=== PATIENT | female | born 1955 | race American Indian/Alaskan Native ===

== ENCOUNTER 2017-07-25 11:08 | Emergency (ER) | payer MEDICARE ==
[2017-07-25 11:21] VITALS: BP 100/56
[2017-07-25 12:17] LABS: Basophils % (Auto) 0.7 % (0.0-1.8); Hematocrit 29.1 % (30.3-42.9); Hemoglobin 9.2 gm/dl (10.1-14.3); Mean Corpuscular HGB Conc 32 % (30-34); Mean Corpuscular Volume 79 fl (79-97); Platelet Count 309 K/mm3 (140-440); Red Cell Distribution Width 17.1 % (13.2-15.2); White Blood Count 10.1 K/mm3 (4.5-11.0)
[2017-07-25 12:19] LABS: Mean Corpuscular Hemoglobin 25 pg (28-32)
[2017-07-25 12:23] LABS: Calcium 7.7 mg/dL (8.4-10.2)
[2017-07-25 12:24] LABS: Chloride 99.4 mmol/L (98-107); Potassium 3.6 mmol/L (3.6-5.0)
[2017-07-25] MEDS ORDERED: FLEXERIL PO ONE (14:35)
[2017-07-25] MEDS ORDERED: TORADOL IM ONE (14:36)
--- NOTE | 2017-07-25 15:03 | Emergency Department Report ---
HPI - General Chief Complaint: Extremity Injury, Lower Time Seen by Provider: 07/25/17 14:23 - HPI HPI: Patient is a 61-year-old with past medical history of diabetes and high blood pressure on controlled with medication who presents to ED complaining of right leg pain. The pain times today. Patient states she was seen yesterday at [facility] by her Dr. Murphy who placed a cast on her right leg for an ulcer that she had since February. Patient states that she is to return on July 31 to have the cast removed. Patient states that she started experiencing right hip pain and leg pain today. Patient denies fevers/chills/5 tenderness/loss of sensation/inability to move or use the leg. ED Past Medical Hx - Past Medical History Previous Medical History?: Yes Hx Hypertension: Yes Hx Diabetes: Yes (insulin) Hx GERD: Yes Hx HIV: No Additional medical history: SLEEP APNEA- CPAP - Surgical History Past Surgical History?: Yes Additional Surgical History: Back surgery, GASTRIC BYPASS 05/28/2015 - Social History Smoking Status: Never Smoker Substance Use Type: Prescribed - Medications Home Medications: Home Medications Medication Instructions Recorded Confirmed Last Taken Type Gabapentin 2 tab PO TID 05/06/14 07/04/15 07/04/15 History Insulin Detemir [Levemir Flextouch] 50 unit SQ BID 03/18/15 07/04/15 07/04/15 History Labetalol [Normodyne TAB] 200 mg PO DAILY 03/18/15 07/04/15 07/04/15 History HYDROcodone/APAP 5-325 [[place] 1 - 2 each PO Q6HR PRN #14 tablet 07/04/15 Unknown Rx 5/325] Cyclobenzaprine [Flexeril 10 MG 10 mg PO TID PRN #14 tablet 07/25/17 Unknown Rx TAB] Naproxen [Naprosyn] 500 mg PO BID #30 tablet 07/25/17 Unknown Rx ED Review of Systems ROS: Stated complaint: RIGHT LEG AND HIP PAIN Other details as noted in HPI Constitutional: denies: chills, fever Eyes: denies: eye pain, eye discharge, vision change ENT: denies: ear pain, throat pain Respiratory: denies: cough, shortness of breath, wheezing Cardiovascular: denies: chest pain, palpitations Endocrine: no symptoms reported Gastrointestinal: denies: abdominal pain, nausea, diarrhea Genitourinary: denies: urgency, dysuria, discharge Musculoskeletal: denies: back pain, joint swelling, arthralgia Skin: denies: rash, lesions Neurological: denies: headache, weakness, paresthesias Psychiatric: denies: anxiety, depression Hematological/Lymphatic: denies: easy bleeding, easy bruising Physical Exam - Physical Exam Vital Signs: Vital Signs 07/25/17 11:14 Temperature 97.6 F Pulse Rate 76 Respiratory 18 Rate Blood Pressure 100/56 O2 Sat by Pulse 99 Oximetry Physical Exam: GENERAL: Alert and oriented x3, no apparent distress, Normal Gait, atraumatic. HEAD: Head is normocephalic and a-traumatic. EYES: Extra ocular muscles are intact. Pupils are equal, round, and reactive to light and accommodation. NECK: Supple. Non edematous, No lymphadenopathy or thyromegaly. LUNGS: Symetrical with respiration, No wheezing, no rales or crackles, CTAB. HEART: S1, S2 present, regular rate and rhythm without murmur, no rubs, no gallops. Non tender to palpation ABDOMEN: No organomegaly was noted,Positive bowel sounds, soft, and non- distended. . Nontender to palpation on all Quadrants, NO CVA tenderness. BACK: Full range of motion, no spinal tenderness, nontender to palpation. EXTREMITIES/MUSCULOSKELETAL: No cyanosis, clubbing, rash, lesions or edema. Full ROM bilaterally. UE/LE Pulses 2+ bilaterally. Right leg in OCL splint, looks clean, patient able to move the leg without any problems. Mild tenderness to palpation right hip, full range of motion, no lesions, no edema NEUROLOGIC: The patient is cooperative with no focal neurologic deficits. . Normal speech. Normal sensation in bilateral upper and lower extremities, No loss of sensation, SKIN: Warm and dry, No lesions, No ulceration or induration present. ED Course Vital Signs 07/25/17 11:14 Temperature 97.6 F Pulse Rate 76 Respiratory 18 Rate Blood Pressure 100/56 O2 Sat by Pulse 99 Oximetry ED Medical Decision Making - Lab Data Result diagrams: 07/25/17 11:47 07/25/17 11:47 - Medical Decision Making 61-year-old female presents with right hip arthralgia ED course: Patient received pain medications in the ED. Patient reports feeling much better. Patient states she performs activities at home because she resides in a placed stairs. Patient states she has a wheelchair at home. Reports having some children at home with her. spool worker discussed with patient was not able to grab her placement in [facility]. Patient understands that she is being discharged home with her wheelchair patient will be picked up by her daughter. Discussed with the patient that while she is at home and may need a urinal if she can not climb up and down the stairs bathroom use due to her right leg cast. I discussed the patient to follow-up with Dr. Murphy her primary care physician. Patient states she understands her instructions. Patient is in no acute distress Vital signs are normal. Critical care attestation.: If time is entered above; I have spent that time in minutes in the direct care of this critically ill patient, excluding procedure time. ED Disposition Clinical Impression: Arthralgia of hip, right Disposition: DC-01 TO HOME OR SELFCARE Is pt being admited?: No Does the pt Need Aspirin: No Condition: Stable Instructions: Trigger Point Pain (ED), Lumbar Radiculopathy (ED), Musculoskeletal Pain (ED), Arthralgia (ED) Additional Instructions: Make sure to follow up with the primary care physician as discussed. Take all your medications as you've been prescribed. If you have any worsening symptoms or develop new symptoms please return to ED immediately. Prescriptions: Cyclobenzaprine [Flexeril 10 MG TAB] 10 mg PO TID PRN #14 tablet PRN Reason: Muscle Spasm Naproxen [Naprosyn] 500 mg PO BID #30 tablet Referrals: PRIMARY CARE, [Primary Care Provider] - 3-[address] [facility] [place] [Outside] - 3-5 Days [facility] [Outside] - 3-5 Days Time of Disposition: 16:12
== END 2017-07-25 16:46 | disposition home or self-care (01) ==
LOC: ED 11:08
DX: M25.551 Pain in right hip (principal); I10 Essential (primary) hypertension; E11.9 Type 2 diabetes mellitus without complications; K21.9 Gastro-esophageal reflux disease without esophagitis; Z79.4 Long term (current) use of insulin
CPT/HCPCS: 36415; 80048; 85025; 96372; 99284; J1885

== ENCOUNTER 2017-07-29 09:58 | Inpatient (IN) | payer MEDICARE ==
[2017-07-29 11:49] LABS: Basophils % (Auto) 0.7 % (0.0-1.8); Eosinophils % (Auto) 1.6 % (0.0-4.3); Hematocrit 29.7 % (30.3-42.9); Hemoglobin 9.3 gm/dl (10.1-14.3); Mean Corpuscular HGB Conc 31 % (30-34); Mean Corpuscular Volume 81 fl (79-97); Platelet Count 355 K/mm3 (140-440); Red Blood Count 3.68 M/mm3 (3.65-5.03); Red Cell Distribution Width 17.5 % (13.2-15.2); White Blood Count 13.6 K/mm3 (4.5-11.0)
[2017-07-29 11:54] LABS: Mean Corpuscular Hemoglobin 25 pg (28-32)
[2017-07-29 12:08] LABS: Alanine Aminotransferase 7 units/L (7-56); Albumin 2.2 g/dL (3.9-5); Albumin/Globulin Ratio 0.5 %; Alkaline Phosphatase 128 units/L (35-129); Anion Gap 20 mmol/L; BUN/Creatinine Ratio 12; Bilirubin,Total < 0.20 mg/dL (0.1-1.2); Blood Urea Nitrogen 31 mg/dL (7-17); Calcium 8.3 mg/dL (8.4-10.2); Carbon Dioxide 21 mmol/L (22-30); Chloride 102.2 mmol/L (98-107); Glucose 129 mg/dL (65-100); Lipase 15 units/L (13-60); Potassium 4.1 mmol/L (3.6-5.0); Sodium 139 mmol/L (137-145); Total Protein 6.8 g/dL (6.3-8.2)
--- NOTE | 2017-07-29 21:15 | Emergency Department Report ---
ED Abdominal Pain HPI - General Chief Complaint: Abdominal Pain Stated Complaint: ABD PAIN Time Seen by Provider: 07/29/17 21:10 Source: patient, EMS Mode of arrival: Wheelchair Limitations: Physical Limitation - History of Present Illness Initial Comments: She is 61-year-old male who presents to the emergency room via EMS for bilateral lower quadrant abdominal pain and right flank pain. She also complains of feeling confused and weak. Patient also states that she has unable to void for 3 days. Patient states she has felt warm but has not checked for fever. He also complains of chest pain or shortness of breath for 2 days. Patient denies chills/. MD Complaint: abdominal pain, flank pain -: Sudden Location: LLQ, RLQ Radiation: R flank Migration to: no migration Severity scale (0 -10): 10 Quality: stabbing, aching, fullness Consistency: constant Improves With: rest Worsens With: movement Associated Symptoms: fever, chills, dysuria - Related Data Home Medications Medication Instructions Recorded Confirmed Last Taken Gabapentin 2 tab PO TID 05/06/14 07/04/15 07/04/15 Insulin Detemir [Levemir Flextouch] 50 unit SQ BID 03/18/15 07/04/15 07/04/15 Labetalol [Normodyne TAB] 200 mg PO DAILY 03/18/15 07/04/15 07/04/15 Previous Rx's Medication Instructions Recorded Last Taken Type HYDROcodone/APAP 5-325 [[place] 1 - 2 each PO Q6HR PRN #14 tablet 07/04/15 Unknown Rx 5/325] Cyclobenzaprine [Flexeril 10 MG 10 mg PO TID PRN #14 tablet 07/25/17 Unknown Rx TAB] Naproxen [Naprosyn] 500 mg PO BID #30 tablet 07/25/17 Unknown Rx Allergies Allergy/AdvReac Type Severity Reaction Status Date / Time lisinopril Allergy Severe Swelling Verified 03/18/15 14:54 ED Review of Systems ROS: Stated complaint: ABD PAIN Other details as noted in HPI Comment: All other systems reviewed and negative Constitutional: fever, malaise, weakness. denies: chills Eyes: denies: eye pain, eye discharge, vision change ENT: denies: ear pain, throat pain Respiratory: shortness of breath. denies: cough, wheezing Cardiovascular: chest pain. denies: palpitations Endocrine: no symptoms reported Gastrointestinal: abdominal pain. denies: nausea, diarrhea Genitourinary: other (urinary retention). denies: urgency, dysuria, discharge Musculoskeletal: back pain. denies: joint swelling, arthralgia Skin: denies: rash, lesions Neurological: weakness. denies: headache, paresthesias Psychiatric: denies: anxiety, depression Hematological/Lymphatic: denies: easy bleeding, easy bruising ED Past Medical Hx - Past Medical History Previous Medical History?: Yes Hx Hypertension: Yes Hx Diabetes: Yes (insulin) Hx GERD: Yes Hx HIV: No Additional medical history: SLEEP APNEA- CPAP - Surgical History Past Surgical History?: Yes Additional Surgical History: Back surgery, GASTRIC BYPASS 05/28/2015 - Family History Family history: hypertension - Social History Smoking Status: Never Smoker Substance Use Type: Prescribed - Medications Home Medications: Home Medications Medication Instructions Recorded Confirmed Last Taken Type Gabapentin 2 tab PO TID 05/06/14 07/04/15 07/04/15 History Insulin Detemir [Levemir Flextouch] 50 unit SQ BID 03/18/15 07/04/15 07/04/15 History Labetalol [Normodyne TAB] 200 mg PO DAILY 03/18/15 07/04/15 07/04/15 History HYDROcodone/APAP 5-325 [[place] 1 - 2 each PO Q6HR PRN #14 tablet 07/04/15 Unknown Rx 5/325] Cyclobenzaprine [Flexeril 10 MG 10 mg PO TID PRN #14 tablet 07/25/17 Unknown Rx TAB] Naproxen [Naprosyn] 500 mg PO BID #30 tablet 07/25/17 Unknown Rx ED Physical Exam - General Limitations: Physical Limitation General appearance: alert, in no apparent distress - Head Head exam: Present: atraumatic, normocephalic - Eye Eye exam: Present: normal appearance - ENT ENT exam: Present: mucous membranes dry - Neck Neck exam: Present: normal inspection - Respiratory Respiratory exam: Present: normal lung sounds bilaterally. Absent: respiratory distress - Cardiovascular Cardiovascular Exam: Present: regular rate, normal rhythm. Absent: systolic murmur, diastolic murmur, rubs, gallop - GI/Abdominal GI/Abdominal exam: Present: soft, distended, tenderness (generalized tenderness. ), normal bowel sounds - Back Exam Back exam: Present: normal inspection - Neurological Exam Neurological exam: Present: alert, oriented X3 - Psychiatric Psychiatric exam: Present: normal affect, normal mood - Skin Skin exam: Present: warm, dry, intact, normal color. Absent: rash ED Course Vital Signs 07/29/17 07/29/17 07/29/17 11:04 21:09 21:16 Temperature 97.5 F L Pulse Rate 66 78 Respiratory 18 17 13 Rate Blood Pressure 91/57 124/61 O2 Sat by Pulse 97 100 Oximetry 07/29/17 07/29/17 07/29/17 21:30 21:46 21:52 Temperature Pulse Rate 79 80 Respiratory 21 20 13 Rate Blood Pressure 124/61 124/61 O2 Sat by Pulse 77 L 97 Oximetry 07/29/17 07/29/17 07/29/17 22:00 22:16 22:30 Temperature Pulse Rate 78 78 80 Respiratory 11 L 12 13 Rate Blood Pressure 124/61 124/61 117/55 O2 Sat by Pulse 99 Oximetry 07/29/17 07/29/17 07/29/17 22:46 23:00 23:16 Temperature Pulse Rate Respiratory 12 12 12 Rate Blood Pressure 117/55 113/62 113/62 O2 Sat by Pulse 99 99 99 Oximetry 07/30/17 01:00 Temperature Pulse Rate Respiratory 18 Rate Blood Pressure O2 Sat by Pulse Oximetry ED Medical Decision Making - Lab Data Result diagrams: 07/29/17 11:35 07/29/17 11:35 - EKG Data -: EKG Interpreted by Or EKG shows normal: sinus rhythm Rate: normal - EKG Data Interpretation: no acute changes, normal EKG - Medical Decision Making Chest x-ray no acute findings. CT head no acute findings. CT abdomen negative. - Differential Diagnosis cp/sob, acs. chf, abd pain Critical care attestation.: If time is entered above; I have spent that time in minutes in the direct care of this critically ill patient, excluding procedure time. ED Disposition Clinical Impression: SOB (shortness of breath), Chest pain, Abdominal pain, Weakness, Confusion, UTI (urinary tract infection), CHF exacerbation Disposition: OP ADMIT IP TO THIS HOSP Is pt being admited?: Yes Does the pt Need Aspirin: Yes Condition: Serious Time of Disposition: 23:26
--- NOTE | 2017-07-29 21:59 | XRay Report ---
FINAL REPORT PROCEDURE: XR CHEST 1V AP TECHNIQUE: Chest radiograph anteroposterior view. CPT 05057 HISTORY: Shortness of breath. COMPARISON: No prior studies are available for comparison. FINDINGS: Heart: Normal. Mediastinum/Vessels: Normal. Lungs/Pleural space: Normal. Bony thorax: Multilevel osteophytes and disc space narrowing. Life support devices: None. IMPRESSION: No radiographic evidence of acute cardiopulmonary disease.
[2017-07-29 22:03] LABS: Creatine Kinase MB 1.2 ng/mL (0.0-4.0)
[2017-07-29 22:06] LABS: Bilirubin,Urine NEG (Negative); Blood,Urine SM (Negative); Ketones,Urine TR mg/dL (Negative); Leukocyte Esterase,Urine TR (Negative); Nitrite,Urine NEG (Negative); Urobilinogen,Urine < 2.0 mg/dL (<2.0)
--- NOTE | 2017-07-29 22:30 | Cat Scan Report ---
FINAL REPORT PROCEDURE: CT HEAD/BRAIN WO CON TECHNIQUE: Computerized tomography of the head was performed without contrast material. HISTORY: confusion COMPARISON: No prior studies are available for comparison. FINDINGS: Paranasal sinuses are clear but there is partial opacification of a few mastoid air cells. No calvarial fracture is seen. Cerebral ventricles are normal in size. Idiopathic calcifications are seen in the basal ganglia. Minimal chronic small vessel ischemic changes are suspected in the periventricular white matter. No acute CVA is seen. No acute intracranial hemorrhage or mass effect is seen. IMPRESSION: Minimal chronic small vessel ischemic changes are seen without evidence of acute intracranial abnormality.
[2017-07-29] MEDS ORDERED: ASPIRIN PO ONE (23:27)
[2017-07-30] MEDS ORDERED: ZOSYN/NS 3.375GM/50ML 3.375 GM/50 ML BAG IV SCH
[2017-07-30] MEDS ORDERED: ZOSYN/NS 2.25 GM/50ML 2.25 GM/50 ML BAG IV SCH
[2017-07-30] MEDS ORDERED: DILAUDID IV ONE (00:50)
[2017-07-30] MEDS ORDERED: TYLENOL PO PRN (01:04)
[2017-07-30] MEDS ORDERED: ZOFRAN IV PRN (01:05)
[2017-07-30] MEDS ORDERED: NITROSTAT SL PRN (01:06)
[2017-07-30] MEDS ORDERED: D50W (25GM) Vial IV PRN (02:10)
--- NOTE | 2017-07-30 03:58 | History and Physical Report ---
CHIEF COMPLAINT: Abdominal pain. OTHER COMPLAINT: Includes chest pain and flank pain. HISTORY OF PRESENT ILLNESS: The patient is a 61-year-old who said she has been having abdominal pain and also right flank pain going on for about 2 days. There was also history of chest pain and shortness of breath. The patient denies history of chills. Denies history of fever and says she also has gagging, but no actual vomiting. There is no history of cough. The patient was admitted to having dysuria and presented to the Emergency Room. PAST MEDICAL HISTORY: Pertinent for hypertension, diabetes mellitus, gastroesophageal reflux disease; sleep apnea, on CPAP. PAST SURGICAL HISTORY: Pertinent for gastric bypass surgery. FAMILY HISTORY: Pertinent for hypertension. SOCIAL HISTORY: The patient lives with family. Does not smoke, does not drink alcohol and does not use illicit drugs. MEDICATIONS: The patient is on gabapentin 2 tablets by mouth 3 times daily dose unknown, Levemir insulin 50 units subq twice daily, labetalol 200 mg by mouth daily, [place] 5/325 mg 1 to 2 tablets every 6 hours as needed for pain, Flexeril 10 mg by mouth 3 times daily, naproxen 500 mg by mouth twice daily. ALLERGIES: The patient is allergic to LISINOPRIL. REVIEW OF SYSTEMS: CONSTITUTIONAL: Fever, there is chills, but no diaphoresis. HEENT: There is no headache or sore throat. CARDIOVASCULAR SYSTEM: Chest pain is present, no orthopnea. RESPIRATORY SYSTEM: Shortness of breath is present. No cough. GASTROINTESTINAL SYSTEM: Abdominal pain is present. There is nausea and gagging, but no vomiting, no diarrhea, no constipation. NEUROLOGICAL SYSTEM: There is no numbness, no dizziness and there is no altered mental status. MUSCULOSKELETAL SYSTEM: There is no history of joint pain or swelling. DERMATOLOGICAL SYSTEM: There is no history of skin rash or itching. GENITOURINARY SYSTEM: There is history of dysuria and flank pain, but no hematuria. Rest of system review is normal. PHYSICAL EXAMINATION: GENERAL: At the time of exam, the patient was found to be alert, oriented x 3, and not in acute distress. VITAL SIGNS: Shows normal temperature, with pulse of 80, respirations 13, blood pressure 107/55, O2 sat of 99% on room air. HEENT: Eyes shows pupils to be equal, round, and reactive to light and accommodation. Extraocular muscles are intact. NECK: Supple with no JVD or carotid bruit. CARDIOVASCULAR SYSTEM: Show normal first and second heart sounds with no gallops or murmur. RESPIRATORY SYSTEM: Show good air entry on both sides of the lung with no abnormal breath sound. GASTROINTESTINAL SYSTEM: Show abdomen to be full, soft, and nontender with no organomegaly or rigidity. NEUROLOGICAL: Shows no focal deficit. MUSCULOSKELETAL SYSTEM: Show cast in place in the right leg and right ankle area, but there is no joint swelling or tenderness. DERMATOLOGICAL SYSTEM: Show no skin rash. GENITOURINARY SYSTEM: Show no costovertebral angle tenderness. PERTINENT LABORATORY AND IMAGING STUDIES: The patient had a CT of the head without contrast done that shows minimal chronic small vessel ischemic changes without evidence of acute intracranial abnormality. Also, the patient had chest x-ray done that shows no radiographic evidence of acute cardiopulmonary disease. The patient had CT of the abdominal and pelvis done with no report of any abnormality. LABORATORY DATA: The patient's lab results show CBC with elevated white count of 13,600, low hemoglobin of 9.3, low hematocrit of 29.7, and normal MCV. CBC differential shows elevated segmented neutrophil of 74.8% and chemistry shows elevated BUN of 31 and elevated creatinine of 2.6 with a chemistry showing slightly elevated, glucose level of 129, slightly low calcium level of 8.3. The patient's first troponin level was high with a value of 0.047 and brain natriuretic peptide level is high with a value of 1963. The patient's urinalysis show elevated urine WBC of 19, trace urine leukocyte esterase and trace ketone. DIAGNOSES: 1. Chest pain. 2. Abdominal pain. 3. Urinary tract infection. PLAN: The patient will be admitted to medical floor and will have cardiac enzymes involving troponin, total CK, and CK-MB checked q. 6 hours x 2 more levels. The patient will be on aspirin 325 mg by mouth daily and will be on Rocephin 1 gram daily IV for treatment of urinary tract infection. The patient will be on heparin 5000 units subq q. 12 hours for deep venous thrombosis prophylaxis and will be on morphine 2 mg every 3 hours as needed for pain. The patient will be on nitro paste half inch to anterior chest wall q.i.d. and will be on IV Zofran 4 mg every 8 hours for nausea and vomiting and sublingual nitroglycerin 0.4 mg every 5 minutes as needed for chest pain. The patient will be n.p.o. for Lexiscan stress test in the morning and will be on oxygen by nasal canula 2 liter per minute. JOB# [id number] OCN/NTS
[2017-07-30] MEDS: NITRO-BID 2% TP SCH ×4 (04:46→17:40)
--- NOTE | 2017-07-30 08:10 | Cat Scan Report ---
FINAL REPORT PROCEDURE: CT ABDOMEN PELVIS WO CON TECHNIQUE: Computerized axial tomography of the abdomen and pelvis was performed without intravenous contrast. This study is performed without intravascular contrast material and its sensitivity for abdominal and pelvic pathology, including neoplasms, inflammation, abscess, free fluid, thrombosis, arterial dissection and infarction, is reduced compared with a contrast enhanced study. HISTORY: abd pain confusion shortness of breath COMPARISON: No prior studies are available for comparison. FINDINGS: Mild hypoventilatory treated are exceed at the lung bases. There is a small pericardial effusion but the heart is normal in size. Postoperative changes are seen in the stomach. Artifacts slightly limit evaluation of the liver. It is top normal limits in size. Spleen appears normal. Gallbladder and pancreas display no abnormalities adrenal glands and abdominal aorta are normal in size. No renal abnormality is seen. Bladder is decompressed with a Reyes catheter. Phleboliths are seen in the pelvis. No adnexal masses are seen. Normal appendix is seen. Mild retained fecal material is seen in the right side of the colon without evidence of constipation. No evidence of small bowel obstruction is seen. Shotty lymph nodes are seen in the pelvis, groin, and retroperitoneum of the abdomen. Diffuse disc bulge is seen at L3-4 with posterior element hypertrophy causing moderate to prominent central canal and lateral recess stenosis. More mild spondylosis is seen at L4-5 and L5-S1. Mild diffuse anasarca is seen. IMPRESSION: Mild diffuse anasarca is seen with a small pericardial effusion. Prominent spondylosis is seen at L L3-4, likely due to posterior element hypertrophy and diffuse disc bulge.
[2017-07-30] MEDS ORDERED: ROCEPHIN/NS 1 GM/50 ML 1 GM/50 ML BAG IV SCH (10:00)
[2017-07-30] MEDS ORDERED: LEXISCAN IV ONE (11:19)
[2017-07-30] MEDS ORDERED: LEXISCAN IV NR (11:24)
[2017-07-30] MEDS: ASPIRIN PO SCH (13:18)
[2017-07-30] MEDS: HEPARIN SUB-Q SCH ×2 (13:21→23:28)
[2017-07-30] MEDS: MORPHINE IV PRN ×3 (13:35→23:28)
--- NOTE | 2017-07-30 15:00 | Progress Note ---
Assessment and Plan Assessment and plan: Pyelonephritis - Patient is on IV ceftriaxone - Pain control - Waiting for culture results Chest pain - Cardiac enzymes were negative, stress test result is pending - Pain control Diabetes mellitus - Sliding scale insulin Hypertension - Currently BP within normal limits DVT prophylaxis - heparin Disposition - Continue inpatient care. History Interval history: Patient was seen and evaluated while she was waiting in the ED to transfer to the floor. Patient said the chest pain is subsided but still complains right- sided lower back pain. Hospitalist Physical - Physical exam Narrative exam: Not in cardiopulmonary distress. The patient is obese. Vital signs as documented. Head exam is unremarkable. No scleral icterus . Neck is without jugular venous distension, thyromegaly, or carotid bruits. Lungs are clear to auscultation. Cardiac exam reveals regular rate and Rhythm. First and second heart sounds normal. No murmurs, rubs or gallops. Abdominal exam reveals normal bowel sounds, no masses, no organomegaly and no aortic enlargement. Extremities are nonedematous and both femoral and pedal pulses are normal. DECK SPECIALIST: Alert and oriented 3. No focal weakness. - Constitutional Vitals: Temp Pulse Resp BP Pulse Ox 97.5 F L 76 12 100/51 100 07/29/17 11:04 07/30/17 13:48 07/30/17 13:48 07/30/17 11:48 07/30/17 13:48 Results - Labs CBC & Chem 7: 07/29/17 11:35 07/29/17 11:35 Labs: Laboratory Last Values WBC 13.6 K/mm3 (4.5-11.0) H 07/29/17 11:35 RBC 3.68 M/mm3 (3.65-5.03) 07/29/17 11:35 Hgb 9.3 gm/dl (10.1-14.3) L 07/29/17 11:35 Hct 29.7 % (30.3-42.9) L 07/29/17 11:35 MCV 81 fl (79-97) 07/29/17 11:35 MCH 25 pg (28-32) L 07/29/17 11:35 MCHC 31 % (30-34) 07/29/17 11:35 RDW 17.5 % (13.2-15.2) H 07/29/17 11:35 Plt Count 355 K/mm3 (140-440) 07/29/17 11:35 Lymph % (Auto) 16.1 % (13.4-35.0) 07/29/17 11:35 [place] % (Auto) 6.8 % (0.0-7.3) 07/29/17 11:35 Eos % (Auto) 1.6 % (0.0-4.3) 07/29/17 11:35 Baso % (Auto) 0.7 % (0.0-1.8) 07/29/17 11:35 Lymph # 2.2 K/mm3 (1.2-5.4) 07/29/17 11:35 [place] # 0.9 K/mm3 (0.0-0.8) H 07/29/17 11:35 Eos # 0.2 K/mm3 (0.0-0.4) 07/29/17 11:35 Baso # 0.1 K/mm3 (0.0-0.1) 07/29/17 11:35 Seg Neutrophils % 74.8 % (40.0-70.0) H 07/29/17 11:35 Seg Neutrophils # 10.1 K/mm3 (1.8-7.7) H 07/29/17 11:35 Sodium 139 mmol/L (137-145) 07/29/17 11:35 Potassium 4.1 mmol/L (3.6-5.0) 07/29/17 11:35 Chloride 102.2 mmol/L (98-107) 07/29/17 11:35 Carbon Dioxide 21 mmol/L (22-30) L 07/29/17 11:35 Anion Gap 20 mmol/L 07/29/17 11:35 BUN 31 mg/dL (7-17) H 07/29/17 11:35 Creatinine 2.6 mg/dL (0.7-1.2) H 07/29/17 11:35 Estimated GFR 22 ml/min 07/29/17 11:35 BUN/Creatinine Ratio 12 % 07/29/17 11:35 Glucose 129 mg/dL (65-100) H 07/29/17 11:35 POC Glucose 125 (70-105) H 07/30/17 06:14 Lactic Acid 0.90 mmol/L (0.7-2.0) 07/29/17 21:28 Calcium 8.3 mg/dL (8.4-10.2) L 07/29/17 11:35 Total Bilirubin < 0.20 mg/dL (0.1-1.2) 07/29/17 11:35 AST 9 units/L (5-40) 07/29/17 11:35 ALT 7 units/L (7-56) 07/29/17 11:35 Alkaline Phosphatase 128 units/L (35-129) 07/29/17 11:35 Total Creatine Kinase 41 units/L (30-135) 07/29/17 21:28 CK-MB (CK-2) 1.2 ng/mL (0.0-4.0) 07/29/17 21:28 CK-MB (CK-2) Rel Index 2.9 (0-4) 07/29/17 21:28 Troponin T 0.046 ng/mL (0.00-0.029) H 07/30/17 13:15 NT-Pro-B Natriuret Pep 1963 pg/mL (0-900) H 07/29/17 23:46 Total Protein 6.8 g/dL (6.3-8.2) 07/29/17 11:35 Albumin 2.2 g/dL (3.9-5) L 07/29/17 11:35 Albumin/Globulin Ratio 0.5 % 07/29/17 11:35 Triglycerides 170 mg/dL (2-149) H 07/29/17 21:28 Cholesterol 197 mg/dL (50-199) 07/29/17 21:28 LDL Cholesterol Direct 131 mg/dL (50-130) H 07/29/17 21:28 HDL Cholesterol 31 mg/dL (40-59) L 07/29/17 21:28 Cholesterol/HDL Ratio 6.35 % 07/29/17 21:28 Lipase 15 units/L (13-60) 07/29/17 11:35 Urine Color Yellow (Yellow) 07/29/17 21:45 Urine Turbidity Clear (Clear) 07/29/17 21:45 Urine pH 5.0 (5.0-7.0) 07/29/17 21:45 Ur Specific [place] 1.018 (1.003-1.030) 07/29/17 21:45 Urine Protein 30 mg/dl mg/dL (Negative) 07/29/17 21:45 Urine Glucose (UA) 50 mg/dL (Negative) 07/29/17 21:45 Urine Ketones Tr mg/dL (Negative) 07/29/17 21:45 Urine Blood Sm (Negative) 07/29/17 21:45 Urine Nitrite Neg (Negative) 07/29/17 21:45 Urine Bilirubin Neg (Negative) 07/29/17 21:45 Urine Urobilinogen < 2.0 mg/dL (<2.0) 07/29/17 21:45 Ur Leukocyte Esterase Tr (Negative) 07/29/17 21:45 Urine WBC (Auto) 19.0 /HPF (0.0-6.0) H 07/29/17 21:45 Urine RBC (Auto) 4.0 /HPF (0.0-6.0) 07/29/17 21:45 U Epithel Cells (Auto) < 1.0 /HPF (0-13.0) 07/29/17 21:45 Urine WBC Clumps 2+ /HPF 07/29/17 21:45
[2017-07-30] MEDS: cefTRIAXone 1 GM in NACL 0.9% 20 ML IV SCH (16:22)
--- NOTE | 2017-07-31 02:31 | Treadmill Report ---
REFERRING PHYSICIAN: Dr. Franck Ding, hospitalist. DESCRIPTION OF PROCEDURE: The patient received 10 mCi of technetium 99m Myoview intravenously under resting conditions. Resting images were done. Subsequently, the patient received 0.4 mg of intravenous Lexiscan. The patient received 28 mCi of technetium 99m Myoview intravenously during the stress test. After 30-60 minutes, post stress images were done. Computerized reconstruction images were performed for analysis. The post-stress images revealed uniform distribution of the radiopharmaceutical in the left ventricular myocardium. Gated study did not reveal any wall motion abnormality. The left ventricular ejection fraction was normal and was calculated to be 62%. The resting images were also normal. CONCLUSION: 1. No perfusion abnormality of the left ventricular myocardium was demonstrated in the resting as well as stress images obtained after the patient underwent Lexiscan stress test. 2. No wall motion abnormality. 3. Normal left ventricular ejection fraction of 62%. JOB# [id number] [facility]
[2017-07-31 06:14] LABS: Basophils % (Auto) 0.8 % (0.0-1.8); Eosinophils % (Auto) 3.2 % (0.0-4.3); Hematocrit 27.4 % (30.3-42.9); Hemoglobin 8.7 gm/dl (10.1-14.3); Mean Corpuscular HGB Conc 32 % (30-34); Mean Corpuscular Volume 80 fl (79-97); Platelet Count 374 K/mm3 (140-440); Red Blood Count 3.42 M/mm3 (3.65-5.03); Red Cell Distribution Width 17.7 % (13.2-15.2); White Blood Count 11.8 K/mm3 (4.5-11.0)
[2017-07-31 06:15] LABS: Mean Corpuscular Hemoglobin 25 pg (28-32)
[2017-07-31 06:24] LABS: Calcium 8.1 mg/dL (8.4-10.2); Chloride 102.5 mmol/L (98-107); Potassium 4.3 mmol/L (3.6-5.0)
[2017-07-31 06:28] LABS: Creatine Kinase MB 1.1 ng/mL (0.0-4.0)
[2017-07-31] MEDS: MORPHINE IV PRN (09:49)
[2017-07-31] MEDS: ASPIRIN PO SCH (09:49)
[2017-07-31] MEDS: cefTRIAXone 1 GM in NACL 0.9% 20 ML IV SCH (09:49)
[2017-07-31] MEDS: HEPARIN SUB-Q SCH ×2 (09:50→21:34)
[2017-07-31] MEDS ORDERED: CITRATE OF MAGNESIA PO PRN (10:00)
[2017-07-31 12:30] LABS: Creatine Kinase MB 1.2 ng/mL (0.0-4.0)
--- NOTE | 2017-07-31 15:49 | Progress Note ---
Assessment and Plan Assessment and plan: Pyelonephritis - Patient is on IV ceftriaxone - Pain control - Waiting for culture results Chest pain - Cardiac enzymes were negative, stress test is negative Diabetes mellitus - Sliding scale insulin Hypertension - Currently BP within normal limits DVT prophylaxis - heparin Disposition - Continue inpatient care. History Interval history: Patient was seen and evaluated at the bedside. Patient said the chest pain is subsided but still complains right-sided lower back pain. Hospitalist Physical - Physical exam Narrative exam: Not in cardiopulmonary distress. The patient is obese. Vital signs as documented. Head exam is unremarkable. No scleral icterus . Neck is without jugular venous distension, thyromegaly, or carotid bruits. Lungs are clear to auscultation. Cardiac exam reveals regular rate and Rhythm. First and second heart sounds normal. No murmurs, rubs or gallops. Abdominal exam reveals normal bowel sounds, no masses, no organomegaly and no aortic enlargement. Extremities are nonedematous and both femoral and pedal pulses are normal. GENERAL LEDGER BOOKKEEPER: Alert and oriented 3. No focal weakness. - Constitutional Vitals: Temp Pulse Resp BP Pulse Ox 98.4 F 86 18 140/65 99 07/31/17 11:44 07/31/17 11:44 07/31/17 11:44 07/31/17 11:44 07/31/17 11:44 Results - Labs CBC & Chem 7: 07/31/17 05:11 07/31/17 05:11 Labs: Laboratory Last Values WBC 11.8 K/mm3 (4.5-11.0) H 07/31/17 05:11 RBC 3.42 M/mm3 (3.65-5.03) L 07/31/17 05:11 Hgb 8.7 gm/dl (10.1-14.3) L 07/31/17 05:11 Hct 27.4 % (30.3-42.9) L 07/31/17 05:11 MCV 80 fl (79-97) 07/31/17 05:11 MCH 25 pg (28-32) L 07/31/17 05:11 MCHC 32 % (30-34) 07/31/17 05:11 RDW 17.7 % (13.2-15.2) H 07/31/17 05:11 Plt Count 374 K/mm3 (140-440) 07/31/17 05:11 Lymph % (Auto) 21.3 % (13.4-35.0) 07/31/17 05:11 [place] % (Auto) 8.5 % (0.0-7.3) H 07/31/17 05:11 Eos % (Auto) 3.2 % (0.0-4.3) 07/31/17 05:11 Baso % (Auto) 0.8 % (0.0-1.8) 07/31/17 05:11 Lymph # 2.5 K/mm3 (1.2-5.4) 07/31/17 05:11 [place] # 1.0 K/mm3 (0.0-0.8) H 07/31/17 05:11 Eos # 0.4 K/mm3 (0.0-0.4) 07/31/17 05:11 Baso # 0.1 K/mm3 (0.0-0.1) 07/31/17 05:11 Seg Neutrophils % 66.2 % (40.0-70.0) 07/31/17 05:11 Seg Neutrophils # 7.8 K/mm3 (1.8-7.7) H 07/31/17 05:11 Sodium 137 mmol/L (137-145) 07/31/17 05:11 Potassium 4.3 mmol/L (3.6-5.0) 07/31/17 05:11 Chloride 102.5 mmol/L (98-107) 07/31/17 05:11 Carbon Dioxide 21 mmol/L (22-30) L 07/31/17 05:11 Anion Gap 18 mmol/L 07/31/17 05:11 BUN 39 mg/dL (7-17) H 07/31/17 05:11 Creatinine 2.8 mg/dL (0.7-1.2) H 07/31/17 05:11 Estimated GFR 21 ml/min 07/31/17 05:11 BUN/Creatinine Ratio 14 % 07/31/17 05:11 Glucose 103 mg/dL (65-100) H 07/31/17 05:11 POC Glucose 115 (70-105) H 07/31/17 11:09 Lactic Acid 0.90 mmol/L (0.7-2.0) 07/29/17 21:28 Calcium 8.1 mg/dL (8.4-10.2) L 07/31/17 05:11 Total Bilirubin < 0.20 mg/dL (0.1-1.2) 07/29/17 11:35 AST 9 units/L (5-40) 07/29/17 11:35 ALT 7 units/L (7-56) 07/29/17 11:35 Alkaline Phosphatase 128 units/L (35-129) 07/29/17 11:35 Total Creatine Kinase 23 units/L (30-135) L 07/31/17 11:37 CK-MB (CK-2) 1.2 ng/mL (0.0-4.0) 07/31/17 11:37 CK-MB (CK-2) Rel Index 5.2 (0-4) H 07/31/17 11:37 Troponin T 0.046 ng/mL (0.00-0.029) H 07/30/17 13:15 NT-Pro-B Natriuret Pep 1963 pg/mL (0-900) H 07/29/17 23:46 Total Protein 6.8 g/dL (6.3-8.2) 07/29/17 11:35 Albumin 2.2 g/dL (3.9-5) L 07/29/17 11:35 Albumin/Globulin Ratio 0.5 % 07/29/17 11:35 Triglycerides 170 mg/dL (2-149) H 07/29/17 21:28 Cholesterol 197 mg/dL (50-199) 07/29/17 21:28 LDL Cholesterol Direct 131 mg/dL (50-130) H 07/29/17 21:28 HDL Cholesterol 31 mg/dL (40-59) L 07/29/17 21:28 Cholesterol/HDL Ratio 6.35 % 07/29/17 21:28 Lipase 15 units/L (13-60) 07/29/17 11:35 Urine Color Yellow (Yellow) 07/29/17 21:45 Urine Turbidity Clear (Clear) 07/29/17 21:45 Urine pH 5.0 (5.0-7.0) 07/29/17 21:45 Ur Specific [place] 1.018 (1.003-1.030) 07/29/17 21:45 Urine Protein 30 mg/dl mg/dL (Negative) 07/29/17 21:45 Urine Glucose (UA) 50 mg/dL (Negative) 07/29/17 21:45 Urine Ketones Tr mg/dL (Negative) 07/29/17 21:45 Urine Blood Sm (Negative) 07/29/17 21:45 Urine Nitrite Neg (Negative) 07/29/17 21:45 Urine Bilirubin Neg (Negative) 07/29/17 21:45 Urine Urobilinogen < 2.0 mg/dL (<2.0) 07/29/17 21:45 Ur Leukocyte Esterase Tr (Negative) 07/29/17 21:45 Urine WBC (Auto) 19.0 /HPF (0.0-6.0) H 07/29/17 21:45 Urine RBC (Auto) 4.0 /HPF (0.0-6.0) 07/29/17 21:45 U Epithel Cells (Auto) < 1.0 /HPF (0-13.0) 07/29/17 21:45 Urine WBC Clumps 2+ /HPF 07/29/17 21:45
[2017-07-31] MEDS: PERCOCET 5/325 PO PRN (18:50)
[2017-08-01 05:59] LABS: Calcium 8.4 mg/dL (8.4-10.2); Potassium 4.4 mmol/L (3.6-5.0)
[2017-08-01 06:01] LABS: Hematocrit 27.9 % (30.3-42.9); Hemoglobin 8.7 gm/dl (10.1-14.3); Mean Corpuscular HGB Conc 31 % (30-34); Mean Corpuscular Volume 79 fl (79-97); Platelet Count 422 K/mm3 (140-440); Red Blood Count 3.55 M/mm3 (3.65-5.03); Red Cell Distribution Width 17.9 % (13.2-15.2); White Blood Count 12.8 K/mm3 (4.5-11.0)
[2017-08-01 06:02] LABS: Mean Corpuscular Hemoglobin 25 pg (28-32)
[2017-08-01 06:36] LABS: Basophils % (Manual) 0 % (0.0-1.8); Blastocytes % (Manual) 0 %
[2017-08-01 06:37] LABS: Anisocytosis 1+; Diff Status Complete; Giant Platelets Rare; Large Platelets Few; Ovalocytes 1+; Stomatocytes Few; Target Cells Few
[2017-08-01] MEDS: PERCOCET 5/325 PO PRN (08:12)
[2017-08-01] MEDS: HEPARIN SUB-Q SCH ×2 (11:07→22:06)
[2017-08-01] MEDS: ASPIRIN PO SCH (11:40)
--- NOTE | 2017-08-01 12:47 | Consultation ---
History of Present Illness - Reason for Consult Consult date: 08/01/17 acute renal failure, chronic renal failure - History of Present Illness The patient is a 61-year-old AAF with medical history significant for DM type 2 , HTN and right leg ulcer who presented to the emergency room via EMS for evaluation of abdominal pain and right hip area pain. Patient is a poor historian. Per she has not been eating well for the past 2 weeks. Associated symptoms include intermittent N & V. She had right leg cast placed about 2 weeks ago. Any movement of right leg causes pain over the right hip area. On admission her creatinine was 2.6. Her baseline creatinine is between 1.6 and 2. She is not followed by [facility]. Past History Past Medical History: diabetes, hypertension Medications and Allergies Allergies Allergy/AdvReac Type Severity Reaction Status Date / Time lisinopril Allergy Severe Swelling Verified 03/18/15 14:54 Home Medications Medication Instructions Recorded Confirmed Last Taken Type Gabapentin 2 tab PO TID 05/06/14 07/31/17 07/04/15 History HYDROcodone/APAP 5-325 [[place] 1 - 2 each PO Q6HR PRN #14 tablet 07/04/15 Unknown Rx 5/325] Cyclobenzaprine [Flexeril 10 MG 10 mg PO TID PRN #14 tablet 07/25/17 07/31/17 Unknown Rx TAB] Insulin Glargine,Hum.rec.anlog 10 units SUB-Q HS 07/31/17 07/31/17 Unknown History [Lantus] amLODIPine [Norvasc] 10 mg PO DAILY 07/31/17 07/31/17 Unknown History Active Meds: Active Medications Acetaminophen (Tylenol) 650 mg PO Q4H PRN PRN Reason: For Pain/Fever/Headache Aspirin (Aspirin) 325 mg PO QDAY [facility] Last Admin: 08/01/17 11:40 Dose: 325 mg Dextrose (D50w (25gm) Vial) 25 gm IV PRN PRN PRN Reason: Hypoglycemia Heparin Sodium (Porcine) (Heparin) 5,000 unit SUB-Q Q12HR [facility] Last Admin: 07/31/17 21:34 Dose: 5,000 unit Ceftriaxone Sodium 1 gm/ (Sodium Chloride) 20 mls @ 20 mls/10 min IV Q24HR [facility] Last Admin: 07/31/17 09:49 Dose: 20 mls/10 min Insulin Human Regular (Novolin R) 0 units SUB-Q ACHS DAMIEN PRN Reason: Protocol Last Admin: 08/01/17 08:00 Dose: Not Given Magnesium Citrate (Citrate Of Magnesia) 300 ml PO QDAY PRN PRN Reason: Bowel Movement Last Admin: 07/31/17 16:06 Dose: 300 ml Nitroglycerin (Nitrostat) 0.4 mg SL .Q5MIN PRN PRN Reason: Chest Pain Ondansetron HCl (Zofran) 4 mg IV Q8H PRN PRN Reason: Nausea And Vomiting Tramadol HCl (Ultram) 50 mg PO Q6H PRN PRN Reason: Pain, Moderate (4-6) Review of Systems Constitutional: anorexia, poor appetite, no weight loss, no weight gain, no fever, no chills Ears, nose, mouth and throat: no epistaxis Breasts: deferred Cardiovascular: chest pain, high blood pressure, no orthopnea, no edema, no lightheadedness, no shortness of breath, no leg edema Respiratory: no cough, no hemoptysis, no shortness of breath, no dyspnea on exertion Gastrointestinal: abdominal pain, nausea, vomiting, diarrhea, no melena, no hematochezia Genitourinary Female: no dysuria, no hematuria Rectal: no bleeding Musculoskeletal: no low back pain Integumentary: wounds (right foot / leg), no rash Neurological: confusion, no paralysis, no weakness, no double vision, no loss of vision Psychiatric: change in appetite, disorientation, confusion Endocrine: no weight change Hematologic/Lymphatic: no easy bleeding Exam - Vital Signs Vital signs: Vital Signs Temp Pulse Resp BP Pulse Ox 97.5 F L 66 18 91/57 97 07/29/17 11:04 07/29/17 11:04 07/29/17 11:04 07/29/17 11:04 07/29/17 11:04 - General Appearance General appearance: well-developed, well-nourished, appears stated age, other ( no distress) EENT: ATNC, PERRL, mucous membranes dry, hearing intact, vision intact Neck: Present: neck supple, trachea midline Respiratory: Clear to Ascultation Heart: regular, S1S2, no murmurs Gastrointestinal: Present: normoactive bowel sounds, tenderness. Absent: distended Integumentary: no rash, warm and dry Neurologic: no focal deficit, no asterixis Musculoskeletal: Present: other (right leg cast noted) Psychiatric: mood/affect appropriate, cooperative Results - Lab Results 08/01/17 04:00 08/01/17 04:00 Most recent lab results Calcium 8.4 mg/dL (8.4-10.2) 08/01/17 04:00 - Image Kidney/bladder ultrasound: other Assessment and Plan 1. Acute kidney injury: Likely hemodynamic FLY superimposed on CKD. Start on IV fluids. Mild metabolic acidosis. Monitor renal function. 2. UTI: On Ceftriaxone. 3. Anemia. 4. Chest pain.
--- NOTE | 2017-08-01 14:05 | Query- Nutrition ---
Dear Rosa Date:____08/01/17 Donations Attendant/CDS:____Tin Phone#:____[phone] Exercise your independent professional judgment when responding to query. Questions asked do not imply a particular answer is desired or expected. We greatly appreciate your clarification on this issue. Clinical Documentation States: 61 year old female was admitted on 07/30/17 The Progress note (Dr. Lee 07/31/17) states " Assessment and plan: Pyelonephritis - Patient is on IV ceftriaxone - Pain control - Waiting for culture results " The H&P (Dr. Ding 07/30/17) states " Cheif complaint abdominal pain " Clinical Findings Show: Albumin: 2.2 Please select the most appropriate option 3 [] Mild Malnutrition [] Mild - Moderate Malnutrition [x] Moderate - Severe Malnutrition [] Severe Malnutrition Serum Albumin 2.8 to 3.4 g/dl or Pre-albumin 5 to 17 mg/dl1,2 Inadequate nutritional intake1,2,3,4 NPO > 5 days Weight loss: 5% in 1 month or 7.5% in 3 months or 10% in 6 months1, 3,4 BMI 16 to 18.4 or Weight <90% of ideal body weight1,2,3,4 Serum Albumin < 2.8 g/ dl1,2 Lymphocytes < 1500/ L2 Inadequate nutritional intake3, high stress e.g. major trauma, sepsis,pancreatitis, forrest etc. Decubitus ulcers1,2, , skin breakdown2, easy hair pluckability2 Weight <80% standard for height2 Triceps skin fold <3 mm2 Mid-arm muscle circumference <15 cm2 Creatinine-height index <60% standard2 [ ] Cachexia [ ] Emaciated w/Malnutrition [ ] Other: [ ] Unable to determine [ ] Comment/Explanation: Present on Admission: [x] Yes (Y) [ ] Clinically undeterminable (W) [ ] No ( N) Please also document response in your Progress Notes and/or Discharge Summary and indicate if the condition was present on admission. MTDD
[2017-08-01] MEDS: cefTRIAXone 1 GM in NACL 0.9% 20 ML IV SCH (14:55)
[2017-08-01] MEDS: NACL 0.45% 1000 ML 1,000 ML IV SCH (14:55)
[2017-08-01] MEDS: ULTRAM PO PRN (22:05)
[2017-08-02] MEDS: ULTRAM PO PRN ×3 (05:14→20:17)
[2017-08-02] MEDS: NACL 0.45% 1000 ML 1,000 ML IV SCH (05:15)
[2017-08-02 06:18] LABS: Hematocrit 27.5 % (30.3-42.9); Hemoglobin 8.8 gm/dl (10.1-14.3); Mean Corpuscular HGB Conc 32 % (30-34); Mean Corpuscular Hemoglobin 25 pg (28-32); Mean Corpuscular Volume 79 fl (79-97); Platelet Count 396 K/mm3 (140-440); Red Blood Count 3.49 M/mm3 (3.65-5.03); Red Cell Distribution Width 17.7 % (13.2-15.2); White Blood Count 13.3 K/mm3 (4.5-11.0)
[2017-08-02 06:33] LABS: Calcium 8.3 mg/dL (8.4-10.2); Chloride 104.3 mmol/L (98-107); Magnesium 2.5 mg/dL (1.7-2.3); Phosphorous 4.9 mg/dL (2.5-4.5); Potassium 4.1 mmol/L (3.6-5.0)
[2017-08-02 07:07] LABS: Basophils % (Manual) 0 % (0.0-1.8); Blastocytes % (Manual) 0 %
[2017-08-02 07:08] LABS: Anisocytosis 1+; Elliptocytes Rare; Hypochromasia Few; Ovalocytes Few; Stomatocytes Few; Target Cells Few
[2017-08-02 07:09] LABS: Diff Status Complete
--- NOTE | 2017-08-02 07:37 | Progress Note ---
Assessment and Plan Assessment and plan: Patient is a 61-year-old male who presents to the emergency room via EMS for bilateral lower quadrant abdominal pain and right flank pain. she was admitted with pyelonephritis following inability to void for 3 days and complaint of worsening right flank pain. she also reported chest pain and 2 days shortness of breath Pyelonephritis - Patient is on IV ceftriaxone - Pain control - Cultures negative. Chest pain - Cardiac enzymes were negative, stress test is negative Diabetes mellitus - Sliding scale insulin Acute kidney injury on chronic kidney disease - She will benefit from Nephrology work up as she states she has not had any. -slowly improving. Hypertension - Currently BP within normal limits Right lower ext cast - Pt to follow with cardiology outpatient Urinary retention -will do voiding trial, discontinue granger. no clear evidence of obstruction noted on imaging -renal ultrasound if not voiding. DVT prophylaxis - heparin Disposition - Continue inpatient care. Discussed care with patient and family at bedside. History Interval history: Patient seen and examined today, continues to have right lower quadrant abdominal discomfort. granger still in place. Denies any fever, nausea, vomiting, right leg pain still persist Hospitalist Physical - Physical exam Narrative exam: - General Limitations: Physical Limitation General appearance: alert, in no apparent distress - Head Head exam: Present: atraumatic, normocephalic - Eye Eye exam: Present: normal appearance - ENT ENT exam: Present: mucous membranes dry - Neck Neck exam: Present: normal inspection - Respiratory Respiratory exam: Present: normal lung sounds bilaterally. Absent: respiratory distress - Cardiovascular Cardiovascular Exam: Present: regular rate, normal rhythm. Absent: systolic murmur, diastolic murmur, rubs, gallop - GI/Abdominal GI/Abdominal exam: Present: soft, non distended, tenderness (RIGHT SIDED ), normal bowel sounds - Back Exam Back exam: Present: normal inspection - Neurological Exam Neurological exam: Present: alert, oriented X3 - Psychiatric Psychiatric exam: Present: normal affect, normal mood - Skin Skin exam: Present: warm, dry, intact, normal color. Absent: rash. ext with cast to right lower ext - Constitutional Vitals: Temp Pulse Resp BP Pulse Ox 98.8 F 93 H 18 150/69 98 08/02/17 05:18 08/02/17 05:18 08/02/17 05:18 08/02/17 05:18 08/02/17 05:18 Results - Labs CBC & Chem 7: 08/02/17 05:05 08/02/17 05:05 Labs: Laboratory Last Values WBC 13.3 K/mm3 (4.5-11.0) H 08/02/17 05:05 RBC 3.49 M/mm3 (3.65-5.03) L 08/02/17 05:05 Hgb 8.8 gm/dl (10.1-14.3) L 08/02/17 05:05 Hct 27.5 % (30.3-42.9) L 08/02/17 05:05 MCV 79 fl (79-97) 08/02/17 05:05 MCH 25 pg (28-32) L 08/02/17 05:05 MCHC 32 % (30-34) 08/02/17 05:05 RDW 17.7 % (13.2-15.2) H 08/02/17 05:05 Plt Count 396 K/mm3 (140-440) 08/02/17 05:05 Lymph % (Auto) 21.3 % (13.4-35.0) 07/31/17 05:11 [place] % (Auto) 8.5 % (0.0-7.3) H 07/31/17 05:11 Eos % (Auto) 3.2 % (0.0-4.3) 07/31/17 05:11 Baso % (Auto) 0.8 % (0.0-1.8) 07/31/17 05:11 Lymph # 2.5 K/mm3 (1.2-5.4) 07/31/17 05:11 [place] # 1.0 K/mm3 (0.0-0.8) H 07/31/17 05:11 Eos # 0.4 K/mm3 (0.0-0.4) 07/31/17 05:11 Baso # 0.1 K/mm3 (0.0-0.1) 07/31/17 05:11 Add Manual Diff Complete 08/02/17 05:05 Total Counted 100 08/02/17 05:05 Seg Neutrophils % 66.2 % (40.0-70.0) 07/31/17 05:11 Seg Neuts % (Manual) 80.0 % (40.0-70.0) H 08/02/17 05:05 Band Neutrophils % 0 % 08/02/17 05:05 Lymphocytes % (Manual) 12.0 % (13.4-35.0) L 08/02/17 05:05 Reactive Lymphs % (Man) 0 % 08/02/17 05:05 Monocytes % (Manual) 5.0 % (0.0-7.3) 08/02/17 05:05 Eosinophils % (Manual) 2.0 % (0.0-4.3) 08/02/17 05:05 Basophils % (Manual) 0 % (0.0-1.8) 08/02/17 05:05 Metamyelocytes % 0 % 08/02/17 05:05 Myelocytes % 1.0 % 08/02/17 05:05 Promyelocytes % 0 % 08/02/17 05:05 Blast Cells % 0 % 08/02/17 05:05 Nucleated RBC % Not Reportable 08/02/17 05:05 Seg Neutrophils # 7.8 K/mm3 (1.8-7.7) H 07/31/17 05:11 Seg Neutrophils # Man 10.6 K/mm3 (1.8-7.7) H 08/02/17 05:05 Band Neutrophils # 0.0 K/mm3 08/02/17 05:05 Lymphocytes # (Manual) 1.6 K/mm3 (1.2-5.4) 08/02/17 05:05 Abs React Lymphs (Man) 0.0 K/mm3 08/02/17 05:05 Monocytes # (Manual) 0.7 K/mm3 (0.0-0.8) 08/02/17 05:05 Eosinophils # (Manual) 0.3 K/mm3 (0.0-0.4) 08/02/17 05:05 Basophils # (Manual) 0.0 K/mm3 (0.0-0.1) 08/02/17 05:05 Metamyelocytes # 0.0 K/mm3 08/02/17 05:05 Myelocytes # 0.1 K/mm3 08/02/17 05:05 Promyelocytes # 0.0 K/mm3 08/02/17 05:05 Blast Cells # 0.0 K/mm3 08/02/17 05:05 WBC Morphology Not Reportable 08/02/17 05:05 Hypersegmented Neuts Not Reportable 08/02/17 05:05 Hyposegmented Neuts Not Reportable 08/02/17 05:05 Hypogranular Neuts Not Reportable 08/02/17 05:05 Smudge Cells Not Reportable 08/02/17 05:05 Toxic Granulation Not Reportable 08/02/17 05:05 Toxic Vacuolation Not Reportable 08/02/17 05:05 Dohle Bodies Not Reportable 08/02/17 05:05 Pelger-Huet Anomaly Not Reportable 08/02/17 05:05 Fly Rods Not Reportable 08/02/17 05:05 Platelet Estimate Appears normal 08/02/17 05:05 Clumped Platelets Not Reportable 08/02/17 05:05 Plt Clumps, EDTA Not Reportable 08/02/17 05:05 Large Platelets Not Reportable 08/02/17 05:05 Giant Platelets Not Reportable 08/02/17 05:05 Platelet Satelliting Not Reportable 08/02/17 05:05 Plt Morphology Comment Not Reportable 08/02/17 05:05 RBC Morphology Not Reportable 08/02/17 05:05 Dimorphic RBCs Not Reportable 08/02/17 05:05 Polychromasia Not Reportable 08/02/17 05:05 Hypochromasia Few 08/02/17 05:05 Poikilocytosis Not Reportable 08/02/17 05:05 Anisocytosis 1+ 08/02/17 05:05 Microcytosis Not Reportable 08/02/17 05:05 Macrocytosis Not Reportable 08/02/17 05:05 Spherocytes Not Reportable 08/02/17 05:05 Pappenheimer Bodies Not Reportable 08/02/17 05:05 Sickle Cells Not Reportable 08/02/17 05:05 Target Cells Few 08/02/17 05:05 Tear Drop Cells Not Reportable 08/02/17 05:05 Ovalocytes Few 08/02/17 05:05 Stomatocytes Few 08/02/17 05:05 Helmet Cells Not Reportable 08/02/17 05:05 [place] Bodies Not Reportable 08/02/17 05:05 Gipsy Rings Not Reportable 08/02/17 05:05 [place] Cells Not Reportable 08/02/17 05:05 Bite Cells Not Reportable 08/02/17 05:05 Crenated Cell Not Reportable 08/02/17 05:05 Elliptocytes Rare 08/02/17 05:05 Acanthocytes (Spur) Not Reportable 08/02/17 05:05 Rouleaux Not Reportable 08/02/17 05:05 Hemoglobin C Crystals Not Reportable 08/02/17 05:05 Schistocytes Not Reportable 08/02/17 05:05 Malaria parasites Not Reportable 08/02/17 05:05 [place] Bodies Not Reportable 08/02/17 05:05 Hem Pathologist Commnt No 08/02/17 05:05 Sodium 138 mmol/L (137-145) 08/02/17 05:05 Potassium 4.1 mmol/L (3.6-5.0) 08/02/17 05:05 Chloride 104.3 mmol/L (98-107) 08/02/17 05:05 Carbon Dioxide 22 mmol/L (22-30) 08/02/17 05:05 Anion Gap 16 mmol/L 08/02/17 05:05 BUN 35 mg/dL (7-17) H 08/02/17 05:05 Creatinine 2.0 mg/dL (0.7-1.2) H 08/02/17 05:05 Estimated GFR 30 ml/min 08/02/17 05:05 BUN/Creatinine Ratio 18 % 08/02/17 05:05 Glucose 78 mg/dL (65-100) 08/02/17 05:05 POC Glucose 95 (70-105) 08/01/17 21:26 Lactic Acid 0.90 mmol/L (0.7-2.0) 07/29/17 21:28 Calcium 8.3 mg/dL (8.4-10.2) L 08/02/17 05:05 Phosphorus 4.90 mg/dL (2.5-4.5) H 08/02/17 05:05 Magnesium 2.50 mg/dL (1.7-2.3) H 08/02/17 05:05 Total Bilirubin < 0.20 mg/dL (0.1-1.2) 07/29/17 11:35 AST 9 units/L (5-40) 07/29/17 11:35 ALT 7 units/L (7-56) 07/29/17 11:35 Alkaline Phosphatase 128 units/L (35-129) 07/29/17 11:35 Total Creatine Kinase 23 units/L (30-135) L 07/31/17 11:37 CK-MB (CK-2) 1.2 ng/mL (0.0-4.0) 07/31/17 11:37 CK-MB (CK-2) Rel Index 5.2 (0-4) H 07/31/17 11:37 Troponin T 0.046 ng/mL (0.00-0.029) H 07/30/17 13:15 NT-Pro-B Natriuret Pep 1963 pg/mL (0-900) H 07/29/17 23:46 Total Protein 6.8 g/dL (6.3-8.2) 07/29/17 11:35 Albumin 2.2 g/dL (3.9-5) L 07/29/17 11:35 Albumin/Globulin Ratio 0.5 % 07/29/17 11:35 Triglycerides 170 mg/dL (2-149) H 07/29/17 21:28 Cholesterol 197 mg/dL (50-199) 07/29/17 21:28 LDL Cholesterol Direct 131 mg/dL (50-130) H 07/29/17 21:28 HDL Cholesterol 31 mg/dL (40-59) L 07/29/17 21:28 Cholesterol/HDL Ratio 6.35 % 07/29/17 21:28 Lipase 15 units/L (13-60) 07/29/17 11:35 Urine Color Yellow (Yellow) 07/29/17 21:45 Urine Turbidity Clear (Clear) 07/29/17 21:45 Urine pH 5.0 (5.0-7.0) 07/29/17 21:45 Ur Specific [place] 1.018 (1.003-1.030) 07/29/17 21:45 Urine Protein 30 mg/dl mg/dL (Negative) 07/29/17 21:45 Urine Glucose (UA) 50 mg/dL (Negative) 07/29/17 21:45 Urine Ketones Tr mg/dL (Negative) 07/29/17 21:45 Urine Blood Sm (Negative) 07/29/17 21:45 Urine Nitrite Neg (Negative) 07/29/17 21:45 Urine Bilirubin Neg (Negative) 07/29/17 21:45 Urine Urobilinogen < 2.0 mg/dL (<2.0) 07/29/17 21:45 Ur Leukocyte Esterase Tr (Negative) 07/29/17 21:45 Urine WBC (Auto) 19.0 /HPF (0.0-6.0) H 07/29/17 21:45 Urine RBC (Auto) 4.0 /HPF (0.0-6.0) 07/29/17 21:45 U Epithel Cells (Auto) < 1.0 /HPF (0-13.0) 07/29/17 21:45 Urine WBC Clumps 2+ /HPF 07/29/17 21:45 Urine Creatinine 121.7 mg/dL (0.1-20.0) H 08/01/17 18:24 Urine Sodium 65 mmol/L 08/01/17 18:24 - Imaging and Cardiology CT scan - abdomen: image reviewed (an[place]ar)
--- NOTE | 2017-08-02 08:11 | Ultrasound Report ---
ULTRASOUND RENAL BILATERAL HISTORY: Acute renal insufficiency. TECHNIQUE: transabdominal ultrasound with color Doppler interrogation. FINDINGS: The right kidney measures 9.4cm. Right renal cortex: 1.2cm. The left kidney measures 10.6cm. Left renal cortex: 1.4cm. Scans of the kidneys show normal renal contours. There is normal central calyceal clustering and good preservation of the cortical thickness. There is no evidence of mass or hydronephrosis. The bladder is decompressed with a Reyes catheter. An incidental findings of multiple shadowing gallstones within the gallbladder is noted. No findings to suggest acute cholecystitis. IMPRESSION: Unremarkable renal ultrasound. Cholelithiasis. No significant change since 03/18/15.
--- NOTE | 2017-08-02 08:17 | Progress Note ---
Assessment and Plan 1. Acute kidney injury: Likely hemodynamic FLY superimposed on CKD. Renal function is improving. Continue IV fluids. Monitor renal function. 2. UTI: On Ceftriaxone. 3. Anemia. 4. Chest pain. Subjective Date of service: 08/02/17 Interval history: Feeling better today. Objective - Vital Signs Vital signs: Vital Signs - 12hr 08/01/17 08/01/17 08/02/17 22:00 22:05 01:05 Temperature 98.7 F Pulse Rate 89 Respiratory 20 18 Rate Respiratory 20 Rate [Right Hip ] Blood Pressure 143/73 O2 Sat by Pulse 100 Oximetry 08/02/17 05:18 Temperature 98.8 F Pulse Rate 93 H Respiratory 18 Rate Respiratory Rate [Right Hip ] Blood Pressure 150/69 O2 Sat by Pulse 98 Oximetry - General Appearance General appearance: well-developed, well-nourished, appears stated age, obese, other (no distress) EENT: ATNC, PERRL, hearing intact Neck: supple Respiratory: Present: Clear to Ascultation Cardiology: regular, S1S2, no murmurs Gastrointestinal: normoactive bowel sounds, tenderness (right flank area), no distended, obese Integumentary: no rash, warm and dry Neurologic: no focal deficit, no asterixis Musculoskeletal: other (right leg cast) Psychiatric: mood/affect appropriate, cooperative - Lab 08/02/17 05:05 08/02/17 05:05 Most recent lab results Calcium 8.3 mg/dL (8.4-10.2) L 08/02/17 05:05 Phosphorus 4.90 mg/dL (2.5-4.5) H 08/02/17 05:05 Magnesium 2.50 mg/dL (1.7-2.3) H 08/02/17 05:05 Urine Creatinine 121.7 mg/dL (0.1-20.0) H 08/01/17 18:24 Urine Sodium 65 mmol/L 08/01/17 18:24
[2017-08-02] MEDS: HEPARIN SUB-Q SCH ×2 (10:16→21:59)
[2017-08-02] MEDS: ASPIRIN PO SCH (10:16)
[2017-08-02] MEDS: cefTRIAXone 1 GM in NACL 0.9% 20 ML IV SCH (10:17)
[2017-08-02] MEDS: FLOMAX PO SCH (10:29)
--- NOTE | 2017-08-02 11:17 | Discharge Summary ---
Providers - Providers Date of Admission: 07/30/17 00:59 Attending physician: COMPA HARVEY MD 08/01/17 11:20 Consult to Physician [CONS] Routine Consulting Provider: ANTOINE BARBA Reason For Exam: ibis on ckd Place consult to:: Dr. Barba Notified:: Larisa CARCAMO Phone number called:: Was contact made?: Yes If yes, spoke with:: Dr. Barba Time called:: 11:31 Primary care physician: BLACK JACK DEALER Hospitalization Reason for admission: pyelonephritis Condition: Serious Hospital course: Patient is a 61-year-old male who presents to the emergency room via EMS for bilateral lower quadrant abdominal pain and right flank pain. she was admitted with pyelonephritis following inability to void for 3 days and complaint of worsening right flank pain. she also reported chest pain and 2 days shortness of breath. patient proceded to have a stress test which was negative. she was treated with IV abx therapy, cultures were unrevealing. the patient has a right lower ext caste which she states is tight and is due for removal we could not reach the physician that placed caste in place to confirm timing. patient remained with urinary retention with attempt to remove granger and it was replaced and she was started on flomax with recommendation to have evaluation with urology which she agrees with. she also on imaging and by hx has significant lower back disc disease but has not been able to follow with back surgeon. she is agreeable to see DR Soriano for evaluation. she reports that the pain on her flank has been ongoing for a few weeks and she had been treated with opioids and muscle relaxant in the past but appears to have been aggravated by the UTI. considering her renal condition she was seen by nephrology with out patient referral noted for continued work up Pyelonephritis Chest pain secondary to costochondrritis Diabetes mellitus Acute kidney injury on chronic kidney disease Hypertension Right lower ext cast Urinary retention DJD Disposition: [id number] HOME UNDER HOME [facility] Time spent for discharge: 35 MINS Core Measure Documentation - Palliative Care Palliative Care/ Comfort Measures: Not Applicable - Core Measures Any of the following diagnoses?: none - VTE Discharge Requirements Deep Vein Thrombosis/Pulmonary Embolism Present on Admission: No Exam - Physical Exam Narrative exam: - General Limitations: Physical Limitation General appearance: alert, in no apparent distress - Head Head exam: Present: atraumatic, normocephalic - Eye Eye exam: Present: normal appearance - ENT ENT exam: Present: mucous membranes dry - Neck Neck exam: Present: normal inspection - Respiratory Respiratory exam: Present: normal lung sounds bilaterally. Absent: respiratory distress - Cardiovascular Cardiovascular Exam: Present: regular rate, normal rhythm. Absent: systolic murmur, diastolic murmur, rubs, gallop - GI/Abdominal GI/Abdominal exam: Present: soft, non distended, tenderness (RIGHT SIDED ), normal bowel sounds - Back Exam Back exam: Present: normal inspection - Neurological Exam Neurological exam: Present: alert, oriented X3 - Psychiatric Psychiatric exam: Present: normal affect, normal mood - Skin Skin exam: Present: warm, dry, intact, normal color. Absent: rash. ext with cast to right lower ext - Constitutional Vitals: Temp Pulse Resp BP Pulse Ox 98.8 F 85 18 167/74 97 08/02/17 05:18 08/02/17 08:40 08/02/17 05:18 08/02/17 08:40 08/02/17 08:40 Plan Activity: advance as tolerated, fall precautions Diet: low fat Special Instructions: record daily BP diary, physical therapy, occupational therapy, home health RN Follow up with: [facility] [Provider Group] - 7 Days YOBANY GRIFFIN MD [Staff Physician] - 7 Days PRIMARY [facility]EMD [Primary Care Provider] - 3-5 Days ADDISON SORIANO MD [Staff Physician] - 7 Days ANTOINE BARBA MD [Staff Physician] - 7 Days BOAZ SWANSON MD [Staff Physician] - 7 Days Prescriptions: Amoxicillin/Potassium Clav [Augmentin 875-125 Tablet] 1 each PO BID #14 tablet HYDROcodone/APAP 5-325 [[place] 5-325 mg TAB] 1 - 2 each PO Q6HR PRN #14 tablet PRN Reason: Pain Tamsulosin [Flomax] 0.4 mg PO QDAY #30 capsule traMADol [Ultram 50 MG tab] 50 mg PO Q6H PRN #14 tablet PRN Reason: Pain, Moderate (4-6)
--- NOTE | 2017-08-02 12:31 | Query- Renal Failure ---
Deaclaudio Rosado___Raquel Date:____08/02/17 Energy Manager/CDS: Rohit Phone#:___[phone] Exercise your independent professional judgment when responding to query. Questions asked do not imply a particular answer is desired or expected. We greatly appreciate your clarification on this issue. Clinical Documentation States: 61 year old female was admitted on 07/30/17 The discharge summary (Dr. García) states " Patient is a 61-year-old male who presents to the emergency room via EMS for bilateral lower quadrant abdominal pain and right flank pain. Pyelonephritis - Patient is on IV ceftriaxone Acute kidney injury on chronic kidney disease " Clinical Findings Show: 07/29/17 07/31/17 08/02/17 Creatinine: 2.6 2.8 2.0 BUN/Creatinine Ratio: 08 02 18 Please clarify if you mean: Acute Renal Failure with or due to: [ ] Tubular Necrosis [ ] Medullary Necrosis [ x] Vasomotor Nephropathy [ ] Shock Kidney [ ] Tubular Nephrosis [ ] Renal Tubular Stasis [ ] Cortical Necrosis [ ] Acute Renal Failure (unspecified) [ ] Lower Tubular Nephrosis [ ] Other: [ ] Not Applicable Present on Admission: [x ] Yes (Y) [ ] Clinically undeterminable (W) [ ] No (N) Please also document response in your Progress Notes and/or Discharge Summary and indicate if the condition was present on admission. AREND
[2017-08-03 06:44] LABS: Calcium 8.6 mg/dL (8.4-10.2); Chloride 103.8 mmol/L (98-107); Potassium 4.4 mmol/L (3.6-5.0)
--- NOTE | 2017-08-03 10:14 | Progress Note ---
Assessment and Plan 1. Acute kidney injury: Likely hemodynamic FLY superimposed on CKD. Renal function continue to improve. Continue IV fluids. Monitor renal function. 2. UTI: On Ceftriaxone. 3. Anemia. 4. Chest pain. Subjective Date of service: 08/03/17 Interval history: Patient is doing ok. Objective - Vital Signs Vital signs: Vital Signs - 12hr 08/02/17 08/03/17 08/03/17 23:30 00:30 04:35 Temperature 98.4 F 98.4 F Pulse Rate 85 85 Respiratory 18 22 Rate Blood Pressure 155/76 155/71 O2 Sat by Pulse 97 Oximetry 08/03/17 09:01 Temperature 98.5 F Pulse Rate 88 Respiratory 12 Rate Blood Pressure 175/77 O2 Sat by Pulse 97 Oximetry - General Appearance General appearance: well-developed, well-nourished, appears stated age, other ( no distress) EENT: ATNC, PERRL, hearing intact Neck: supple Respiratory: Present: Clear to Ascultation Cardiology: S1S2, no murmurs Gastrointestinal: normoactive bowel sounds, no tenderness, no distended Integumentary: no rash, warm and dry Neurologic: no focal deficit, no asterixis Musculoskeletal: other (no edema, right leg cast) Psychiatric: mood/affect appropriate, cooperative - Lab 08/02/17 05:05 08/03/17 04:56 Most recent lab results Calcium 8.6 mg/dL (8.4-10.2) 08/03/17 04:56 Phosphorus 4.90 mg/dL (2.5-4.5) H 08/02/17 05:05 Magnesium 2.50 mg/dL (1.7-2.3) H 08/02/17 05:05 Urine Creatinine 121.7 mg/dL (0.1-20.0) H 08/01/17 18:24 Urine Sodium 65 mmol/L 08/01/17 18:24
--- NOTE | 2017-08-03 10:34 | Progress Note ---
Assessment and Plan Assessment and plan: Patient is a 61-year-old male who presents to the emergency room via EMS for bilateral lower quadrant abdominal pain and right flank pain. she was admitted with pyelonephritis following inability to void for 3 days and complaint of worsening right flank pain. she also reported chest pain and 2 days shortness of breath Pyelonephritis - Patient is on IV ceftriaxone - Pain control - Cultures negative. Chest pain - Cardiac enzymes were negative, stress test is negative Diabetes mellitus - Sliding scale insulin Acute kidney injury on chronic kidney disease - She will benefit from Nephrology work up as she states she has not had any. -slowly improving. Hypertension - Currently BP within normal limits Right lower ext cast - Pt to follow with cardiology outpatient Urinary retention -will do voiding trial, discontinue granger. no clear evidence of obstruction noted on imaging -renal ultrasound if not voiding. DVT prophylaxis - heparin Disposition - Continue inpatient care. Discussed care with patient and family at bedside. Discharge planned, patient appealed, unsure why. History Interval history: Patient seen and examined today, continues to have right lower quadrant abdominal discomfort. patient discharge placed unsure why pateint did not leave and appealed but physician was not notified. Hospitalist Physical - Physical exam Narrative exam: - General Limitations: Physical Limitation General appearance: alert, in no apparent distress - Head Head exam: Present: atraumatic, normocephalic - Eye Eye exam: Present: normal appearance - ENT ENT exam: Present: mucous membranes dry - Neck Neck exam: Present: normal inspection - Respiratory Respiratory exam: Present: normal lung sounds bilaterally. Absent: respiratory distress - Cardiovascular Cardiovascular Exam: Present: regular rate, normal rhythm. Absent: systolic murmur, diastolic murmur, rubs, gallop - GI/Abdominal GI/Abdominal exam: Present: soft, non distended, tenderness (RIGHT SIDED ), normal bowel sounds - Back Exam Back exam: Present: normal inspection - Neurological Exam Neurological exam: Present: alert, oriented X3 - Psychiatric Psychiatric exam: Present: normal affect, normal mood - Skin Skin exam: Present: warm, dry, intact, normal color. Absent: rash. ext with cast to right lower ext - Constitutional Vitals: Temp Pulse Resp BP Pulse Ox 98.5 F 88 12 175/77 97 08/03/17 09:01 08/03/17 09:01 08/03/17 09:01 08/03/17 09:01 08/03/17 09:01 Results - Labs CBC & Chem 7: 08/02/17 05:05 08/03/17 04:56 Labs: Laboratory Last Values WBC 13.3 K/mm3 (4.5-11.0) H 08/02/17 05:05 RBC 3.49 M/mm3 (3.65-5.03) L 08/02/17 05:05 Hgb 8.8 gm/dl (10.1-14.3) L 08/02/17 05:05 Hct 27.5 % (30.3-42.9) L 08/02/17 05:05 MCV 79 fl (79-97) 08/02/17 05:05 MCH 25 pg (28-32) L 08/02/17 05:05 MCHC 32 % (30-34) 08/02/17 05:05 RDW 17.7 % (13.2-15.2) H 08/02/17 05:05 Plt Count 396 K/mm3 (140-440) 08/02/17 05:05 Lymph % (Auto) 21.3 % (13.4-35.0) 07/31/17 05:11 [place] % (Auto) 8.5 % (0.0-7.3) H 07/31/17 05:11 Eos % (Auto) 3.2 % (0.0-4.3) 07/31/17 05:11 Baso % (Auto) 0.8 % (0.0-1.8) 07/31/17 05:11 Lymph # 2.5 K/mm3 (1.2-5.4) 07/31/17 05:11 [place] # 1.0 K/mm3 (0.0-0.8) H 07/31/17 05:11 Eos # 0.4 K/mm3 (0.0-0.4) 07/31/17 05:11 Baso # 0.1 K/mm3 (0.0-0.1) 07/31/17 05:11 Add Manual Diff Complete 08/02/17 05:05 Total Counted 100 08/02/17 05:05 Seg Neutrophils % 66.2 % (40.0-70.0) 07/31/17 05:11 Seg Neuts % (Manual) 80.0 % (40.0-70.0) H 08/02/17 05:05 Band Neutrophils % 0 % 08/02/17 05:05 Lymphocytes % (Manual) 12.0 % (13.4-35.0) L 08/02/17 05:05 Reactive Lymphs % (Man) 0 % 08/02/17 05:05 Monocytes % (Manual) 5.0 % (0.0-7.3) 08/02/17 05:05 Eosinophils % (Manual) 2.0 % (0.0-4.3) 08/02/17 05:05 Basophils % (Manual) 0 % (0.0-1.8) 08/02/17 05:05 Metamyelocytes % 0 % 08/02/17 05:05 Myelocytes % 1.0 % 08/02/17 05:05 Promyelocytes % 0 % 08/02/17 05:05 Blast Cells % 0 % 08/02/17 05:05 Nucleated RBC % Not Reportable 08/02/17 05:05 Seg Neutrophils # 7.8 K/mm3 (1.8-7.7) H 07/31/17 05:11 Seg Neutrophils # Man 10.6 K/mm3 (1.8-7.7) H 08/02/17 05:05 Band Neutrophils # 0.0 K/mm3 08/02/17 05:05 Lymphocytes # (Manual) 1.6 K/mm3 (1.2-5.4) 08/02/17 05:05 Abs React Lymphs (Man) 0.0 K/mm3 08/02/17 05:05 Monocytes # (Manual) 0.7 K/mm3 (0.0-0.8) 08/02/17 05:05 Eosinophils # (Manual) 0.3 K/mm3 (0.0-0.4) 08/02/17 05:05 Basophils # (Manual) 0.0 K/mm3 (0.0-0.1) 08/02/17 05:05 Metamyelocytes # 0.0 K/mm3 08/02/17 05:05 Myelocytes # 0.1 K/mm3 08/02/17 05:05 Promyelocytes # 0.0 K/mm3 08/02/17 05:05 Blast Cells # 0.0 K/mm3 08/02/17 05:05 WBC Morphology Not Reportable 08/02/17 05:05 Hypersegmented Neuts Not Reportable 08/02/17 05:05 Hyposegmented Neuts Not Reportable 08/02/17 05:05 Hypogranular Neuts Not Reportable 08/02/17 05:05 Smudge Cells Not Reportable 08/02/17 05:05 Toxic Granulation Not Reportable 08/02/17 05:05 Toxic Vacuolation Not Reportable 08/02/17 05:05 Dohle Bodies Not Reportable 08/02/17 05:05 Pelger-Huet Anomaly Not Reportable 08/02/17 05:05 Fly Rods Not Reportable 08/02/17 05:05 Platelet Estimate Appears normal 08/02/17 05:05 Clumped Platelets Not Reportable 08/02/17 05:05 Plt Clumps, EDTA Not Reportable 08/02/17 05:05 Large Platelets Not Reportable 08/02/17 05:05 Giant Platelets Not Reportable 08/02/17 05:05 Platelet Satelliting Not Reportable 08/02/17 05:05 Plt Morphology Comment Not Reportable 08/02/17 05:05 RBC Morphology Not Reportable 08/02/17 05:05 Dimorphic RBCs Not Reportable 08/02/17 05:05 Polychromasia Not Reportable 08/02/17 05:05 Hypochromasia Few 08/02/17 05:05 Poikilocytosis Not Reportable 08/02/17 05:05 Anisocytosis 1+ 08/02/17 05:05 Microcytosis Not Reportable 08/02/17 05:05 Macrocytosis Not Reportable 08/02/17 05:05 Spherocytes Not Reportable 08/02/17 05:05 Pappenheimer Bodies Not Reportable 08/02/17 05:05 Sickle Cells Not Reportable 08/02/17 05:05 Target Cells Few 08/02/17 05:05 Tear Drop Cells Not Reportable 08/02/17 05:05 Ovalocytes Few 08/02/17 05:05 Stomatocytes Few 08/02/17 05:05 Helmet Cells Not Reportable 08/02/17 05:05 [place] Bodies Not Reportable 08/02/17 05:05 [place] Rings Not Reportable 08/02/17 05:05 [place] Cells Not Reportable 08/02/17 05:05 Bite Cells Not Reportable 08/02/17 05:05 Crenated Cell Not Reportable 08/02/17 05:05 Elliptocytes Rare 08/02/17 05:05 Acanthocytes (Spur) Not Reportable 08/02/17 05:05 Rouleaux Not Reportable 08/02/17 05:05 Hemoglobin C Crystals Not Reportable 08/02/17 05:05 Schistocytes Not Reportable 08/02/17 05:05 Malaria parasites Not Reportable 08/02/17 05:05 [place] Bodies Not Reportable 08/02/17 05:05 Hem Pathologist Commnt No 08/02/17 05:05 Sodium 139 mmol/L (137-145) 08/03/17 04:56 Potassium 4.4 mmol/L (3.6-5.0) 08/03/17 04:56 Chloride 103.8 mmol/L (98-107) 08/03/17 04:56 Carbon Dioxide 21 mmol/L (22-30) L 08/03/17 04:56 Anion Gap 19 mmol/L 08/03/17 04:56 BUN 32 mg/dL (7-17) H 08/03/17 04:56 Creatinine 1.5 mg/dL (0.7-1.2) H 08/03/17 04:56 Estimated GFR 42 ml/min 08/03/17 04:56 BUN/Creatinine Ratio 21 % 08/03/17 04:56 Glucose 81 mg/dL (65-100) 08/03/17 04:56 POC Glucose 213 (70-105) H 08/03/17 08:49 Lactic Acid 0.90 mmol/L (0.7-2.0) 07/29/17 21:28 Calcium 8.6 mg/dL (8.4-10.2) 08/03/17 04:56 Phosphorus 4.90 mg/dL (2.5-4.5) H 08/02/17 05:05 Magnesium 2.50 mg/dL (1.7-2.3) H 08/02/17 05:05 Total Bilirubin < 0.20 mg/dL (0.1-1.2) 07/29/17 11:35 AST 9 units/L (5-40) 07/29/17 11:35 ALT 7 units/L (7-56) 07/29/17 11:35 Alkaline Phosphatase 128 units/L (35-129) 07/29/17 11:35 Total Creatine Kinase 23 units/L (30-135) L 07/31/17 11:37 CK-MB (CK-2) 1.2 ng/mL (0.0-4.0) 07/31/17 11:37 CK-MB (CK-2) Rel Index 5.2 (0-4) H 07/31/17 11:37 Troponin T 0.046 ng/mL (0.00-0.029) H 07/30/17 13:15 NT-Pro-B Natriuret Pep 1963 pg/mL (0-900) H 07/29/17 23:46 Total Protein 6.8 g/dL (6.3-8.2) 07/29/17 11:35 Albumin 2.2 g/dL (3.9-5) L 07/29/17 11:35 Albumin/Globulin Ratio 0.5 % 07/29/17 11:35 Triglycerides 170 mg/dL (2-149) H 07/29/17 21:28 Cholesterol 197 mg/dL (50-199) 07/29/17 21:28 LDL Cholesterol Direct 131 mg/dL (50-130) H 07/29/17 21:28 HDL Cholesterol 31 mg/dL (40-59) L 07/29/17 21:28 Cholesterol/HDL Ratio 6.35 % 07/29/17 21:28 Lipase 15 units/L (13-60) 07/29/17 11:35 Urine Color Yellow (Yellow) 07/29/17 21:45 Urine Turbidity Clear (Clear) 07/29/17 21:45 Urine pH 5.0 (5.0-7.0) 07/29/17 21:45 Ur Specific [place] 1.018 (1.003-1.030) 07/29/17 21:45 Urine Protein 30 mg/dl mg/dL (Negative) 07/29/17 21:45 Urine Glucose (UA) 50 mg/dL (Negative) 07/29/17 21:45 Urine Ketones Tr mg/dL (Negative) 07/29/17 21:45 Urine Blood Sm (Negative) 07/29/17 21:45 Urine Nitrite Neg (Negative) 07/29/17 21:45 Urine Bilirubin Neg (Negative) 07/29/17 21:45 Urine Urobilinogen < 2.0 mg/dL (<2.0) 07/29/17 21:45 Ur Leukocyte Esterase Tr (Negative) 07/29/17 21:45 Urine WBC (Auto) 19.0 /HPF (0.0-6.0) H 07/29/17 21:45 Urine RBC (Auto) 4.0 /HPF (0.0-6.0) 07/29/17 21:45 U Epithel Cells (Auto) < 1.0 /HPF (0-13.0) 07/29/17 21:45 Urine WBC Clumps 2+ /HPF 07/29/17 21:45 Urine Creatinine 121.7 mg/dL (0.1-20.0) H 08/01/17 18:24 Urine Sodium 65 mmol/L 08/01/17 18:24
[2017-08-03] MEDS: ASPIRIN PO SCH (10:43)
[2017-08-03] MEDS: ULTRAM PO PRN (10:43)
[2017-08-03] MEDS: FLOMAX PO SCH (10:43)
--- NOTE | 2017-08-03 17:29 | Discharge Summary ---
Providers - Providers Date of Admission: 07/30/17 00:59 Attending physician: COMPA HARVEY MD 08/01/17 11:20 Consult to Physician [CONS] Routine Consulting Provider: ANTOINE BARBA Reason For Exam: ibis on ckd Place consult to:: Dr. Barba Notified:: Larisa CARLOS ALBERTO Phone number called:: Was contact made?: Yes If yes, spoke with:: Dr. Barba Time called:: 11:31 Primary care physician: [facility] [employer] Hospitalization Reason for admission: abdominal pain Condition: Stable Hospital course: Patient is a 61-year-old male who presents to the emergency room via EMS for bilateral lower quadrant abdominal pain and right flank pain. she was admitted with pyelonephritis following inability to void for 3 days and complaint of worsening right flank pain. she also reported chest pain and 2 days shortness of breath. patient proceded to have a stress test which was negative. she was treated with IV abx therapy, cultures were unrevealing. the patient has a right lower ext caste which she states is tight and is due for removal we could not reach the physician that placed caste in place to confirm timing. patient remained with urinary retention with attempt to remove granger and it was replaced and she was started on flomax wand subsequently the granger was removed with patient voiding. she also on imaging and by hx has significant lower back disc disease but has not been able to follow with back surgeon. she is agreeable to see DR Soriano for evaluation. she reports that the pain on her flank has been ongoing for a few weeks and she had been treated with opioids and muscle relaxant in the past but appears to have been aggravated by the UTI. considering her renal condition she was seen by nephrology with out patient referral noted for continued work up. Pyelonephritis Chest pain secondary to costochondrritis Diabetes mellitus Acute kidney injury on chronic kidney disease Hypertension Right lower ext cast Urinary retention DJD Disposition: [id number] HOME [facility] Time spent for discharge: 35 mins Core Measure Documentation - Palliative Care Palliative Care/ Comfort Measures: Not Applicable - Core Measures Any of the following diagnoses?: none - VTE Discharge Requirements Deep Vein Thrombosis/Pulmonary Embolism Present on Admission: No Exam - Physical Exam Narrative exam: - General Limitations: Physical Limitation General appearance: alert, in no apparent distress - Head Head exam: Present: atraumatic, normocephalic - Eye Eye exam: Present: normal appearance - ENT ENT exam: Present: mucous membranes dry - Neck Neck exam: Present: normal inspection - Respiratory Respiratory exam: Present: normal lung sounds bilaterally. Absent: respiratory distress - Cardiovascular Cardiovascular Exam: Present: regular rate, normal rhythm. Absent: systolic murmur, diastolic murmur, rubs, gallop - GI/Abdominal GI/Abdominal exam: Present: soft, non distended, tenderness (RIGHT SIDED ), normal bowel sounds - Back Exam Back exam: Present: normal inspection - Neurological Exam Neurological exam: Present: alert, oriented X3 - Psychiatric Psychiatric exam: Present: normal affect, normal mood - Skin Skin exam: Present: warm, dry, intact, normal color. Absent: rash. ext with cast to right lower ext - Constitutional Vitals: Temp Pulse Resp BP Pulse Ox 98.2 F 94 H 12 182/83 98 08/03/17 13:39 08/03/17 13:39 08/03/17 13:39 08/03/17 13:39 08/03/17 13:39 Plan Activity: advance as tolerated, fall precautions Diet: low salt Follow up with: [facility] [Provider Group] - 7 Days PRIMARY CAREMD [Primary Care Provider] - 3-5 Days ADDISON SORIANO MD [Staff Physician] - 7 Days ANTOINE BARBA MD [Staff Physician] - 7 Days BOAZ SWANSON MD [Staff Physician] - 7 Days Prescriptions: Amoxicillin/Potassium Clav [Augmentin 875-125 Tablet] 1 each PO BID #14 tablet HYDROcodone/APAP 5-325 [[place] 5-325 mg TAB] 1 - 2 each PO Q6HR PRN #14 tablet PRN Reason: Pain Tamsulosin [Flomax] 0.4 mg PO QDAY #30 capsule traMADol [Ultram 50 MG tab] 50 mg PO Q6H PRN #14 tablet PRN Reason: Pain, Moderate (4-6)
[2017-08-03] MEDS: HEPARIN SUB-Q SCH ×2 (18:25→21:22)
[2017-08-03] MEDS: cefTRIAXone 1 GM in NACL 0.9% 20 ML IV SCH (18:25)
--- NOTE | 2017-08-03 18:30 | Progress Note ---
Assessment and Plan Assessment and plan: Patient is a 61-year-old male who presents to the emergency room via EMS for bilateral lower quadrant abdominal pain and right flank pain. she was admitted with pyelonephritis following inability to void for 3 days and complaint of worsening right flank pain. she also reported chest pain and 2 days shortness of breath Pyelonephritis - will discontinued abx and monitor patient treated for 3 days already and no evidence of systemic infection - Pain control - Cultures negative. Chest pain - Cardiac enzymes were negative, stress test is negative Diabetes mellitus - Sliding scale insulin Acute kidney injury on chronic kidney disease - slowly improving. now 1.5 Hypertension - Currently BP within normal limits Right lower ext cast - Pt to follow with surgeon outpatient Urinary retention -Resolved with initiation of flomax, granger discontinued -renal ultrasound if not voiding. immobility secondary to Severe DJD. -patient reports severe excruciating pain, states she will leave then changes her mind. unfortunately I am just finding out. Will proceed with MRI OF BACK, AND SURGICAL CONSULT ALSO PT/OT DVT prophylaxis - heparin Disposition - Continue inpatient care. Discussed care with patient and family at bedside. Discharge planned, patient appealed History Interval history: Patient seen and examined today, agreed with outpatient evaluation, but now states she is not living as she cannot move. patient admitted today that pain has been ongoing for months but got worse and was not new as she had initially stated Hospitalist Physical - Physical exam Narrative exam: - General Limitations: Physical Limitation General appearance: alert, in no apparent distress - Head Head exam: Present: atraumatic, normocephalic - Eye Eye exam: Present: normal appearance - ENT ENT exam: Present: mucous membranes dry - Neck Neck exam: Present: normal inspection - Respiratory Respiratory exam: Present: normal lung sounds bilaterally. Absent: respiratory distress - Cardiovascular Cardiovascular Exam: Present: regular rate, normal rhythm. Absent: systolic murmur, diastolic murmur, rubs, gallop - GI/Abdominal GI/Abdominal exam: Present: soft, non distended, tenderness (RIGHT SIDED ), normal bowel sounds - Back Exam Back exam: Present: normal inspection - Neurological Exam Neurological exam: Present: alert, oriented X3 - Psychiatric Psychiatric exam: Present: normal affect, normal mood - Skin Skin exam: Present: warm, dry, intact, normal color. Absent: rash. ext with cast to right lower ext - Constitutional Vitals: Temp Pulse Resp BP Pulse Ox 98.2 F 94 H 12 182/83 98 08/03/17 13:39 08/03/17 13:39 08/03/17 13:39 08/03/17 13:39 08/03/17 13:39 Results - Labs CBC & Chem 7: 08/02/17 05:05 08/03/17 04:56 Labs: Laboratory Last Values WBC 13.3 K/mm3 (4.5-11.0) H 08/02/17 05:05 RBC 3.49 M/mm3 (3.65-5.03) L 08/02/17 05:05 Hgb 8.8 gm/dl (10.1-14.3) L 08/02/17 05:05 Hct 27.5 % (30.3-42.9) L 08/02/17 05:05 MCV 79 fl (79-97) 08/02/17 05:05 MCH 25 pg (28-32) L 08/02/17 05:05 MCHC 32 % (30-34) 08/02/17 05:05 RDW 17.7 % (13.2-15.2) H 08/02/17 05:05 Plt Count 396 K/mm3 (140-440) 08/02/17 05:05 Lymph % (Auto) 21.3 % (13.4-35.0) 07/31/17 05:11 [place] % (Auto) 8.5 % (0.0-7.3) H 07/31/17 05:11 Eos % (Auto) 3.2 % (0.0-4.3) 07/31/17 05:11 Baso % (Auto) 0.8 % (0.0-1.8) 07/31/17 05:11 Lymph # 2.5 K/mm3 (1.2-5.4) 07/31/17 05:11 [place] # 1.0 K/mm3 (0.0-0.8) H 07/31/17 05:11 Eos # 0.4 K/mm3 (0.0-0.4) 07/31/17 05:11 Baso # 0.1 K/mm3 (0.0-0.1) 07/31/17 05:11 Add Manual Diff Complete 08/02/17 05:05 Total Counted 100 08/02/17 05:05 Seg Neutrophils % 66.2 % (40.0-70.0) 07/31/17 05:11 Seg Neuts % (Manual) 80.0 % (40.0-70.0) H 08/02/17 05:05 Band Neutrophils % 0 % 08/02/17 05:05 Lymphocytes % (Manual) 12.0 % (13.4-35.0) L 08/02/17 05:05 Reactive Lymphs % (Man) 0 % 08/02/17 05:05 Monocytes % (Manual) 5.0 % (0.0-7.3) 08/02/17 05:05 Eosinophils % (Manual) 2.0 % (0.0-4.3) 08/02/17 05:05 Basophils % (Manual) 0 % (0.0-1.8) 08/02/17 05:05 Metamyelocytes % 0 % 08/02/17 05:05 Myelocytes % 1.0 % 08/02/17 05:05 Promyelocytes % 0 % 08/02/17 05:05 Blast Cells % 0 % 08/02/17 05:05 Nucleated RBC % Not Reportable 08/02/17 05:05 Seg Neutrophils # 7.8 K/mm3 (1.8-7.7) H 07/31/17 05:11 Seg Neutrophils # Man 10.6 K/mm3 (1.8-7.7) H 08/02/17 05:05 Band Neutrophils # 0.0 K/mm3 08/02/17 05:05 Lymphocytes # (Manual) 1.6 K/mm3 (1.2-5.4) 08/02/17 05:05 Abs React Lymphs (Man) 0.0 K/mm3 08/02/17 05:05 Monocytes # (Manual) 0.7 K/mm3 (0.0-0.8) 08/02/17 05:05 Eosinophils # (Manual) 0.3 K/mm3 (0.0-0.4) 08/02/17 05:05 Basophils # (Manual) 0.0 K/mm3 (0.0-0.1) 08/02/17 05:05 Metamyelocytes # 0.0 K/mm3 08/02/17 05:05 Myelocytes # 0.1 K/mm3 08/02/17 05:05 Promyelocytes # 0.0 K/mm3 08/02/17 05:05 Blast Cells # 0.0 K/mm3 08/02/17 05:05 WBC Morphology Not Reportable 08/02/17 05:05 Hypersegmented Neuts Not Reportable 08/02/17 05:05 Hyposegmented Neuts Not Reportable 08/02/17 05:05 Hypogranular Neuts Not Reportable 08/02/17 05:05 Smudge Cells Not Reportable 08/02/17 05:05 Toxic Granulation Not Reportable 08/02/17 05:05 Toxic Vacuolation Not Reportable 08/02/17 05:05 Dohle Bodies Not Reportable 08/02/17 05:05 Pelger-Huet Anomaly Not Reportable 08/02/17 05:05 Fly Rods Not Reportable 08/02/17 05:05 Platelet Estimate Appears normal 08/02/17 05:05 Clumped Platelets Not Reportable 08/02/17 05:05 Plt Clumps, EDTA Not Reportable 08/02/17 05:05 Large Platelets Not Reportable 08/02/17 05:05 Giant Platelets Not Reportable 08/02/17 05:05 Platelet Satelliting Not Reportable 08/02/17 05:05 Plt Morphology Comment Not Reportable 08/02/17 05:05 RBC Morphology Not Reportable 08/02/17 05:05 Dimorphic RBCs Not Reportable 08/02/17 05:05 Polychromasia Not Reportable 08/02/17 05:05 Hypochromasia Few 08/02/17 05:05 Poikilocytosis Not Reportable 08/02/17 05:05 Anisocytosis 1+ 08/02/17 05:05 Microcytosis Not Reportable 08/02/17 05:05 Macrocytosis Not Reportable 08/02/17 05:05 Spherocytes Not Reportable 08/02/17 05:05 Pappenheimer Bodies Not Reportable 08/02/17 05:05 Sickle Cells Not Reportable 08/02/17 05:05 Target Cells Few 08/02/17 05:05 Tear Drop Cells Not Reportable 08/02/17 05:05 Ovalocytes Few 08/02/17 05:05 Stomatocytes Few 08/02/17 05:05 Helmet Cells Not Reportable 08/02/17 05:05 [place] Bodies Not Reportable 08/02/17 05:05 [place] Rings Not Reportable 08/02/17 05:05 [place] Cells Not Reportable 08/02/17 05:05 Bite Cells Not Reportable 08/02/17 05:05 Crenated Cell Not Reportable 08/02/17 05:05 Elliptocytes Rare 08/02/17 05:05 Acanthocytes (Spur) Not Reportable 08/02/17 05:05 Rouleaux Not Reportable 08/02/17 05:05 Hemoglobin C Crystals Not Reportable 08/02/17 05:05 Schistocytes Not Reportable 08/02/17 05:05 Malaria parasites Not Reportable 08/02/17 05:05 [place] Bodies Not Reportable 08/02/17 05:05 Hem Pathologist Commnt No 08/02/17 05:05 Sodium 139 mmol/L (137-145) 08/03/17 04:56 Potassium 4.4 mmol/L (3.6-5.0) 08/03/17 04:56 Chloride 103.8 mmol/L (98-107) 08/03/17 04:56 Carbon Dioxide 21 mmol/L (22-30) L 08/03/17 04:56 Anion Gap 19 mmol/L 08/03/17 04:56 BUN 32 mg/dL (7-17) H 08/03/17 04:56 Creatinine 1.5 mg/dL (0.7-1.2) H 08/03/17 04:56 Estimated GFR 42 ml/min 08/03/17 04:56 BUN/Creatinine Ratio 21 % 08/03/17 04:56 Glucose 81 mg/dL (65-100) 08/03/17 04:56 POC Glucose 93 (70-105) 08/03/17 16:52 Lactic Acid 0.90 mmol/L (0.7-2.0) 07/29/17 21:28 Calcium 8.6 mg/dL (8.4-10.2) 08/03/17 04:56 Phosphorus 4.90 mg/dL (2.5-4.5) H 08/02/17 05:05 Magnesium 2.50 mg/dL (1.7-2.3) H 08/02/17 05:05 Total Bilirubin < 0.20 mg/dL (0.1-1.2) 07/29/17 11:35 AST 9 units/L (5-40) 07/29/17 11:35 ALT 7 units/L (7-56) 07/29/17 11:35 Alkaline Phosphatase 128 units/L (35-129) 07/29/17 11:35 Total Creatine Kinase 23 units/L (30-135) L 07/31/17 11:37 CK-MB (CK-2) 1.2 ng/mL (0.0-4.0) 07/31/17 11:37 CK-MB (CK-2) Rel Index 5.2 (0-4) H 07/31/17 11:37 Troponin T 0.046 ng/mL (0.00-0.029) H 07/30/17 13:15 NT-Pro-B Natriuret Pep 1963 pg/mL (0-900) H 07/29/17 23:46 Total Protein 6.8 g/dL (6.3-8.2) 07/29/17 11:35 Albumin 2.2 g/dL (3.9-5) L 07/29/17 11:35 Albumin/Globulin Ratio 0.5 % 07/29/17 11:35 Triglycerides 170 mg/dL (2-149) H 07/29/17 21:28 Cholesterol 197 mg/dL (50-199) 07/29/17 21:28 LDL Cholesterol Direct 131 mg/dL (50-130) H 07/29/17 21:28 HDL Cholesterol 31 mg/dL (40-59) L 07/29/17 21:28 Cholesterol/HDL Ratio 6.35 % 07/29/17 21:28 Lipase 15 units/L (13-60) 07/29/17 11:35 Urine Color Yellow (Yellow) 07/29/17 21:45 Urine Turbidity Clear (Clear) 07/29/17 21:45 Urine pH 5.0 (5.0-7.0) 07/29/17 21:45 Ur Specific [place] 1.018 (1.003-1.030) 07/29/17 21:45 Urine Protein 30 mg/dl mg/dL (Negative) 07/29/17 21:45 Urine Glucose (UA) 50 mg/dL (Negative) 07/29/17 21:45 Urine Ketones Tr mg/dL (Negative) 07/29/17 21:45 Urine Blood Sm (Negative) 07/29/17 21:45 Urine Nitrite Neg (Negative) 07/29/17 21:45 Urine Bilirubin Neg (Negative) 07/29/17 21:45 Urine Urobilinogen < 2.0 mg/dL (<2.0) 07/29/17 21:45 Ur Leukocyte Esterase Tr (Negative) 07/29/17 21:45 Urine WBC (Auto) 19.0 /HPF (0.0-6.0) H 07/29/17 21:45 Urine RBC (Auto) 4.0 /HPF (0.0-6.0) 07/29/17 21:45 U Epithel Cells (Auto) < 1.0 /HPF (0-13.0) 07/29/17 21:45 Urine WBC Clumps 2+ /HPF 07/29/17 21:45 Urine Creatinine 121.7 mg/dL (0.1-20.0) H 08/01/17 18:24 Urine Sodium 65 mmol/L 08/01/17 18:24
[2017-08-03] MEDS ORDERED: APRESOLINE IV PRN (18:32)
[2017-08-03] MEDS ORDERED: MORPHINE IV PRN (18:32)
[2017-08-03] MEDS ORDERED: NEURONTIN PO SCH (20:00)
[2017-08-03] MEDS ORDERED: K-DUR PO ONE (20:00)
[2017-08-03] MEDS: NEURONTIN PO SCH (21:19)
[2017-08-03] MEDS: AUGMENTIN 875 MG PO SCH (21:19)
[2017-08-03] MEDS: FLEXERIL PO PRN (21:19)
[2017-08-03] MEDS: PERCOCET 5/325 PO PRN (21:20)
[2017-08-04] MEDS: PERCOCET 5/325 PO PRN ×2 (02:46→21:20)
[2017-08-04 05:59] LABS: Calcium 8.6 mg/dL (8.4-10.2); Chloride 104.5 mmol/L (98-107); Magnesium 2.3 mg/dL (1.7-2.3)
[2017-08-04] MEDS: ASPIRIN PO SCH (09:33)
[2017-08-04] MEDS: NEURONTIN PO SCH ×3 (09:33→20:57)
[2017-08-04] MEDS: ULTRAM PO PRN (09:34)
[2017-08-04] MEDS: FLOMAX PO SCH (09:34)
[2017-08-04] MEDS: NORVASC PO SCH (09:34)
[2017-08-04] MEDS: HEPARIN SUB-Q SCH ×2 (10:00→21:40)
--- NOTE | 2017-08-04 10:07 | Progress Note ---
Assessment and Plan Assessment and plan: Patient is a 61-year-old male who presents to the emergency room via EMS for bilateral lower quadrant abdominal pain and right flank pain. she was admitted with pyelonephritis following inability to void for 3 days and complaint of worsening right flank pain. she also reported chest pain and 2 days shortness of breath Pyelonephritis - TREATED Chest pain - Cardiac enzymes were negative, stress test is negative Diabetes mellitus - Sliding scale insulin Acute kidney injury on chronic kidney disease - slowly improving. now 1.5 Hypertension - Currently BP within normal limits Right lower ext cast - Pt to follow with surgeon outpatient Urinary retention -Resolved with initiation of flomax, granger discontinued -renal ultrasound if not voiding. immobility secondary to Severe DJD. -patient reports severe excruciating pain, states she will leave then changes her mind. unfortunately I am just finding out. Will proceed with MRI OF BACK, AND SURGICAL CONSULT ALSO PT/OT DVT prophylaxis - heparin Disposition - Continue inpatient care. Discussed care with patient and family at bedside. Discharge planned, patient appealed History Interval history: Patient seen and examined today, ALTHOUGH INITIALLY AGREED WITH OUTPATIENT ORTHO EVAL, NOW STATES SHE CANNOT AMBULATE PROMPTING DISCHARGE HELD Hospitalist Physical - Physical exam Narrative exam: - General Limitations: Physical Limitation General appearance: alert, in no apparent distress - Head Head exam: Present: atraumatic, normocephalic - Eye Eye exam: Present: normal appearance - ENT ENT exam: Present: mucous membranes dry - Neck Neck exam: Present: normal inspection - Respiratory Respiratory exam: Present: normal lung sounds bilaterally. Absent: respiratory distress - Cardiovascular Cardiovascular Exam: Present: regular rate, normal rhythm. Absent: systolic murmur, diastolic murmur, rubs, gallop - GI/Abdominal GI/Abdominal exam: Present: soft, non distended, tenderness (RIGHT SIDED ), normal bowel sounds - Back Exam Back exam: Present: normal inspection - Neurological Exam Neurological exam: Present: alert, oriented X3 - Psychiatric Psychiatric exam: Present: normal affect, normal mood - Skin Skin exam: Present: warm, dry, intact, normal color. Absent: rash. ext with cast to right lower ext - Constitutional Vitals: Temp Pulse Resp BP Pulse Ox 98.1 F 88 18 162/74 98 08/04/17 04:09 08/04/17 09:34 08/04/17 09:34 08/04/17 09:34 08/04/17 04:09 Results - Labs CBC & Chem 7: 08/02/17 05:05 08/04/17 04:45 Labs: Laboratory Last Values WBC 13.3 K/mm3 (4.5-11.0) H 08/02/17 05:05 RBC 3.49 M/mm3 (3.65-5.03) L 08/02/17 05:05 Hgb 8.8 gm/dl (10.1-14.3) L 08/02/17 05:05 Hct 27.5 % (30.3-42.9) L 08/02/17 05:05 MCV 79 fl (79-97) 08/02/17 05:05 MCH 25 pg (28-32) L 08/02/17 05:05 MCHC 32 % (30-34) 08/02/17 05:05 RDW 17.7 % (13.2-15.2) H 08/02/17 05:05 Plt Count 396 K/mm3 (140-440) 08/02/17 05:05 Lymph % (Auto) 21.3 % (13.4-35.0) 07/31/17 05:11 [place] % (Auto) 8.5 % (0.0-7.3) H 07/31/17 05:11 Eos % (Auto) 3.2 % (0.0-4.3) 07/31/17 05:11 Baso % (Auto) 0.8 % (0.0-1.8) 07/31/17 05:11 Lymph # 2.5 K/mm3 (1.2-5.4) 07/31/17 05:11 Bureau # 1.0 K/mm3 (0.0-0.8) H 07/31/17 05:11 Eos # 0.4 K/mm3 (0.0-0.4) 07/31/17 05:11 Baso # 0.1 K/mm3 (0.0-0.1) 07/31/17 05:11 Add Manual Diff Complete 08/02/17 05:05 Total Counted 100 08/02/17 05:05 Seg Neutrophils % 66.2 % (40.0-70.0) 07/31/17 05:11 Seg Neuts % (Manual) 80.0 % (40.0-70.0) H 08/02/17 05:05 Band Neutrophils % 0 % 08/02/17 05:05 Lymphocytes % (Manual) 12.0 % (13.4-35.0) L 08/02/17 05:05 Reactive Lymphs % (Man) 0 % 08/02/17 05:05 Monocytes % (Manual) 5.0 % (0.0-7.3) 08/02/17 05:05 Eosinophils % (Manual) 2.0 % (0.0-4.3) 08/02/17 05:05 Basophils % (Manual) 0 % (0.0-1.8) 08/02/17 05:05 Metamyelocytes % 0 % 08/02/17 05:05 Myelocytes % 1.0 % 08/02/17 05:05 Promyelocytes % 0 % 08/02/17 05:05 Blast Cells % 0 % 08/02/17 05:05 Nucleated RBC % Not Reportable 08/02/17 05:05 Seg Neutrophils # 7.8 K/mm3 (1.8-7.7) H 07/31/17 05:11 Seg Neutrophils # Man 10.6 K/mm3 (1.8-7.7) H 08/02/17 05:05 Band Neutrophils # 0.0 K/mm3 08/02/17 05:05 Lymphocytes # (Manual) 1.6 K/mm3 (1.2-5.4) 08/02/17 05:05 Abs React Lymphs (Man) 0.0 K/mm3 08/02/17 05:05 Monocytes # (Manual) 0.7 K/mm3 (0.0-0.8) 08/02/17 05:05 Eosinophils # (Manual) 0.3 K/mm3 (0.0-0.4) 08/02/17 05:05 Basophils # (Manual) 0.0 K/mm3 (0.0-0.1) 08/02/17 05:05 Metamyelocytes # 0.0 K/mm3 08/02/17 05:05 Myelocytes # 0.1 K/mm3 08/02/17 05:05 Promyelocytes # 0.0 K/mm3 08/02/17 05:05 Blast Cells # 0.0 K/mm3 08/02/17 05:05 WBC Morphology Not Reportable 08/02/17 05:05 Hypersegmented Neuts Not Reportable 08/02/17 05:05 Hyposegmented Neuts Not Reportable 08/02/17 05:05 Hypogranular Neuts Not Reportable 08/02/17 05:05 Smudge Cells Not Reportable 08/02/17 05:05 Toxic Granulation Not Reportable 08/02/17 05:05 Toxic Vacuolation Not Reportable 08/02/17 05:05 Dohle Bodies Not Reportable 08/02/17 05:05 Pelger-Huet Anomaly Not Reportable 08/02/17 05:05 Fly Rods Not Reportable 08/02/17 05:05 Platelet Estimate Appears normal 08/02/17 05:05 Clumped Platelets Not Reportable 08/02/17 05:05 Plt Clumps, EDTA Not Reportable 08/02/17 05:05 Large Platelets Not Reportable 08/02/17 05:05 Giant Platelets Not Reportable 08/02/17 05:05 Platelet Satelliting Not Reportable 08/02/17 05:05 Plt Morphology Comment Not Reportable 08/02/17 05:05 RBC Morphology Not Reportable 08/02/17 05:05 Dimorphic RBCs Not Reportable 08/02/17 05:05 Polychromasia Not Reportable 08/02/17 05:05 Hypochromasia Few 08/02/17 05:05 Poikilocytosis Not Reportable 08/02/17 05:05 Anisocytosis 1+ 08/02/17 05:05 Microcytosis Not Reportable 08/02/17 05:05 Macrocytosis Not Reportable 08/02/17 05:05 Spherocytes Not Reportable 08/02/17 05:05 Pappenheimer Bodies Not Reportable 08/02/17 05:05 Sickle Cells Not Reportable 08/02/17 05:05 Target Cells Few 08/02/17 05:05 Tear Drop Cells Not Reportable 08/02/17 05:05 Ovalocytes Few 08/02/17 05:05 Stomatocytes Few 08/02/17 05:05 Helmet Cells Not Reportable 08/02/17 05:05 [place] Bodies Not Reportable 08/02/17 05:05 [place] Not Reportable 08/02/17 05:05 Balta Cells Not Reportable 08/02/17 05:05 Bite Cells Not Reportable 08/02/17 05:05 Crenated Cell Not Reportable 08/02/17 05:05 Elliptocytes Rare 08/02/17 05:05 Acanthocytes (Spur) Not Reportable 08/02/17 05:05 Rouleaux Not Reportable 08/02/17 05:05 Hemoglobin C Crystals Not Reportable 08/02/17 05:05 Schistocytes Not Reportable 08/02/17 05:05 Malaria parasites Not Reportable 08/02/17 05:05 Marquise Bodies Not Reportable 08/02/17 05:05 Hem Pathologist Commnt No 08/02/17 05:05 Sodium 137 mmol/L (137-145) 08/04/17 04:45 Potassium 5.0 mmol/L (3.6-5.0) 08/04/17 04:45 Chloride 104.5 mmol/L (98-107) 08/04/17 04:45 Carbon Dioxide 21 mmol/L (22-30) L 08/04/17 04:45 Anion Gap 17 mmol/L 08/04/17 04:45 BUN 29 mg/dL (7-17) H 08/04/17 04:45 Creatinine 1.4 mg/dL (0.7-1.2) H 08/04/17 04:45 Estimated GFR 46 ml/min 08/04/17 04:45 BUN/Creatinine Ratio 21 % 08/04/17 04:45 Glucose 85 mg/dL (65-100) 08/04/17 04:45 POC Glucose 98 (70-105) 08/03/17 20:45 Lactic Acid 0.90 mmol/L (0.7-2.0) 07/29/17 21:28 Calcium 8.6 mg/dL (8.4-10.2) 08/04/17 04:45 Phosphorus 4.90 mg/dL (2.5-4.5) H 08/02/17 05:05 Magnesium 2.30 mg/dL (1.7-2.3) 08/04/17 04:45 Total Bilirubin < 0.20 mg/dL (0.1-1.2) 07/29/17 11:35 AST 9 units/L (5-40) 07/29/17 11:35 ALT 7 units/L (7-56) 07/29/17 11:35 Alkaline Phosphatase 128 units/L (35-129) 07/29/17 11:35 Total Creatine Kinase 23 units/L (30-135) L 07/31/17 11:37 CK-MB (CK-2) 1.2 ng/mL (0.0-4.0) 07/31/17 11:37 CK-MB (CK-2) Rel Index 5.2 (0-4) H 07/31/17 11:37 Troponin T 0.046 ng/mL (0.00-0.029) H 07/30/17 13:15 NT-Pro-B Natriuret Pep 1963 pg/mL (0-900) H 07/29/17 23:46 Total Protein 6.8 g/dL (6.3-8.2) 07/29/17 11:35 Albumin 2.2 g/dL (3.9-5) L 07/29/17 11:35 Albumin/Globulin Ratio 0.5 % 07/29/17 11:35 Triglycerides 170 mg/dL (2-149) H 07/29/17 21:28 Cholesterol 197 mg/dL (50-199) 07/29/17 21:28 LDL Cholesterol Direct 131 mg/dL (50-130) H 07/29/17 21:28 HDL Cholesterol 31 mg/dL (40-59) L 07/29/17 21:28 Cholesterol/HDL Ratio 6.35 % 07/29/17 21:28 Lipase 15 units/L (13-60) 07/29/17 11:35 Urine Color Yellow (Yellow) 07/29/17 21:45 Urine Turbidity Clear (Clear) 07/29/17 21:45 Urine pH 5.0 (5.0-7.0) 07/29/17 21:45 Ur Specific [place] 1.018 (1.003-1.030) 07/29/17 21:45 Urine Protein 30 mg/dl mg/dL (Negative) 07/29/17 21:45 Urine Glucose (UA) 50 mg/dL (Negative) 07/29/17 21:45 Urine Ketones Tr mg/dL (Negative) 07/29/17 21:45 Urine Blood Sm (Negative) 07/29/17 21:45 Urine Nitrite Neg (Negative) 07/29/17 21:45 Urine Bilirubin Neg (Negative) 07/29/17 21:45 Urine Urobilinogen < 2.0 mg/dL (<2.0) 07/29/17 21:45 Ur Leukocyte Esterase Tr (Negative) 07/29/17 21:45 Urine WBC (Auto) 19.0 /HPF (0.0-6.0) H 07/29/17 21:45 Urine RBC (Auto) 4.0 /HPF (0.0-6.0) 07/29/17 21:45 U Epithel Cells (Auto) < 1.0 /HPF (0-13.0) 07/29/17 21:45 Urine WBC Clumps 2+ /HPF 07/29/17 21:45 Urine Creatinine 121.7 mg/dL (0.1-20.0) H 08/01/17 18:24 Urine Sodium 65 mmol/L 08/01/17 18:24
[2017-08-04] MEDS: AUGMENTIN 875 MG PO SCH ×2 (10:10→21:39)
--- NOTE | 2017-08-04 12:21 | Magnetic Resonance Report ---
MRI THORACIC SPINE WITHOUT CONTRAST: [facility] 2 thousand seventeen CLINICAL: Back pain. TECHNIQUE: Sagittal and axial T1 and T2, and sagittal STIR sequences on a 1.5 Tere magnet. FINDINGS: Normal vertebral body height, alignment and disc spaces. The overall marrow signal is normal. No bone marrow edema or fracture. The discs have normal signal. No disc protrusions or bulges. Large right anterolateral bridging osteophytes from T7-8 through T10-11. However, minimal posterior osteophytes and no apparent significant neural foraminal narrowing. The spinal cord is normal size with normal signal. No cord lesion. The conus medullaris is normal and terminates at L1. IMPRESSION: 1. Extensive degenerative change with large bridging right anterolateral osteophytes from T7-8 through T10-11. However, minimal degenerative disc disease with no disc protrusions or bulges. 2. No significant neural foraminal stenosis. 3. No cord lesion.
--- NOTE | 2017-08-04 12:36 | Magnetic Resonance Report ---
MRI LUMBAR SPINE WITHOUT CONTRAST: 08/04/17 CLINICAL: Back pain. TECHNIQUE: Sagittal and axial T1 and T2, and sagittal STIR sequences a 1.5 Tere magnet. FINDINGS: Normal vertebral body height and alignment. Heterogeneous marrow signal which is decreased on both T1 and T2 but normal on STIR. Type I Modic endplate changes at L3-4 and large anterior and posterior osteophytes at L3-4. The L3-4 disc space is preserved. The conus medullaris is normal and terminates at L1. L1-2: Mild circumferential disc bulge. No neural foraminal stenosis. L2-3: Intact. L3-4: Large broad-based posterior disc-osteophyte producing moderate central spinal canal stenosis. The AP diameter the canal measures 7 mm. Mild bilateral facet hypertrophy. A large right foraminal osteophyte producing moderate right neural foraminal narrowing. Mild left neural foraminal narrowing by osteophyte. L4-5: Intact. L5-S1: Intact. IMPRESSION: Degenerative disc disease at L3-4 with a broad-based central posterior disc-osteophyte producing moderate central spinal canal stenosis. Moderate right L3-4 neural foraminal stenosis secondary to osteophyte and mild left L3-4 neural foraminal stenosis secondary to osteophyte.
--- NOTE | 2017-08-04 16:04 | Progress Note ---
Assessment and Plan FLY - Resolving prerenal azotemia, continue IVF & f/u BUN/Cr HTN - F/u on current meds Low back Pain - Lumbospinal dz, f/u Mx Subjective Date of service: 08/04/17 Interval history: C/o Rt low back pain with no radiation but difficulty turning in bed Objective - Vital Signs Vital signs: Vital Signs - 12hr 08/04/17 08/04/17 04:09 09:34 Temperature 98.1 F Pulse Rate 29 L 88 Respiratory 18 18 Rate Blood Pressure 100/76 162/74 O2 Sat by Pulse 98 Oximetry - General Appearance General appearance: other (Awake & alert. Not in pain until pt tries to move in bed) Neck: no JVD Respiratory: Present: Clear to Ascultation Cardiology: regular, S1S2 Gastrointestinal: no tenderness (Neg straight leg raising test), other (Soft) Neurologic: other Musculoskeletal: other (No tenderness flanks or lower back) - Lab 08/02/17 05:05 08/04/17 04:45 Most recent lab results Calcium 8.6 mg/dL (8.4-10.2) 08/04/17 04:45 Phosphorus 4.90 mg/dL (2.5-4.5) H 08/02/17 05:05 Magnesium 2.30 mg/dL (1.7-2.3) 08/04/17 04:45 Urine Creatinine 121.7 mg/dL (0.1-20.0) H 08/01/17 18:24 Urine Sodium 65 mmol/L 08/01/17 18:24
[2017-08-05] MEDS: PERCOCET 5/325 PO PRN ×2 (06:18→16:34)
[2017-08-05 06:28] LABS: Albumin 2.2 g/dL (3.9-5); Albumin/Globulin Ratio 0.5 %; Bilirubin,Total 0.2 mg/dL (0.1-1.2); Calcium 8.4 mg/dL (8.4-10.2); Chloride 107.2 mmol/L (98-107); Magnesium 2.3 mg/dL (1.7-2.3); Phosphorous 4.9 mg/dL (2.5-4.5); Total Protein 6.7 g/dL (6.3-8.2)
[2017-08-05 06:31] LABS: Basophils % (Auto) 0.5 % (0.0-1.8); Eosinophils % (Auto) 2.8 % (0.0-4.3); Hematocrit 26.2 % (30.3-42.9); Hemoglobin 8.4 gm/dl (10.1-14.3); Mean Corpuscular HGB Conc 32 % (30-34); Mean Corpuscular Hemoglobin 25 pg (28-32); Mean Corpuscular Volume 79 fl (79-97); Mean Platelet Volume 8.3 fl (6-12); Platelet Count 380 K/mm3 (140-440); Red Cell Distribution Width 17.8 % (13.2-15.2); White Blood Count 13.9 K/mm3 (4.5-11.0)
[2017-08-05] MEDS: NEURONTIN PO SCH (09:43)
[2017-08-05] MEDS: NORVASC PO SCH (09:44)
[2017-08-05] MEDS: FLOMAX PO SCH (09:44)
[2017-08-05] MEDS: HEPARIN SUB-Q SCH ×2 (09:45→22:08)
[2017-08-05] MEDS: ASPIRIN PO SCH (09:45)
[2017-08-05] MEDS: AUGMENTIN 875 MG PO SCH ×2 (09:45→22:07)
[2017-08-05] MEDS: ULTRAM PO PRN (09:56)
--- NOTE | 2017-08-05 12:31 | Progress Note ---
Assessment and Plan FLY - Prerenal Azotemia, ensure pt receives IVF per Rx, f/u BUN/Cr HTN - F/u on current meds Low back Pain - Lumbospinal dz, ?for surgery soon Subjective Date of service: 08/05/17 Interval history: Pt says she's for spinal surgery in am Objective - Vital Signs Vital signs: Vital Signs - 12hr 08/05/17 08/05/17 08/05/17 04:40 06:18 07:18 Temperature 98.6 F Pulse Rate 95 H Pulse Rate [ Apical] Respiratory 19 18 18 Rate Respiratory Rate [Right Lower Back] Blood Pressure 133/68 O2 Sat by Pulse 100 Oximetry 08/05/17 08/05/17 08/05/17 09:44 09:56 10:00 Temperature Pulse Rate 87 Pulse Rate [ 100 H Apical] Respiratory 18 Rate Respiratory 20 Rate [Right Lower Back] Blood Pressure 155/71 O2 Sat by Pulse Oximetry - General Appearance General appearance: other (Awake & alert) Neck: no JVD Respiratory: Present: Clear to Ascultation Cardiology: regular, S1S2 Gastrointestinal: normal Neurologic: no focal deficit - Lab 08/05/17 05:26 08/05/17 05:26 Most recent lab results Calcium 8.4 mg/dL (8.4-10.2) 08/05/17 05:26 Phosphorus 4.90 mg/dL (2.5-4.5) H 08/05/17 05:26 Magnesium 2.30 mg/dL (1.7-2.3) 08/05/17 05:26 Urine Creatinine 121.7 mg/dL (0.1-20.0) H 08/01/17 18:24 Urine Sodium 65 mmol/L 08/01/17 18:24
--- NOTE | 2017-08-05 17:42 | Progress Note ---
Assessment and Plan Assessment and plan: Pyelonephritis - Treated with antibiotics Chest pain -Resolved Diabetes mellitus - Sliding scale insulin Hypertension - Currently BP within normal limits Back pain - MRI showed spinal stenosis due to osteophytes, no cord compression - Orthopedics consult pending DVT prophylaxis - heparin Disposition - Continue inpatient care. History Interval history: Patient was seen and evaluated at the bedside. Patient is c/o lower back pain, patient is able to move her lower extremities. Hospitalist Physical - Physical exam Narrative exam: Not in cardiopulmonary distress. The patient is obese. Vital signs as documented. Head exam is unremarkable. No scleral icterus . Neck is without jugular venous distension, thyromegaly, or carotid bruits. Lungs are clear to auscultation. Cardiac exam reveals regular rate and Rhythm. First and second heart sounds normal. No murmurs, rubs or gallops. Abdominal exam reveals normal bowel sounds, no masses, no organomegaly and no aortic enlargement. Extremities are nonedematous and both femoral and pedal pulses are normal. [employer] MACHINE: Alert and oriented 3. No focal weakness. - Constitutional Vitals: Temp Pulse Resp BP Pulse Ox 98.6 F 100 H 20 155/71 100 08/05/17 04:40 08/05/17 10:00 08/05/17 16:34 08/05/17 09:44 08/05/17 04:40 Results - Labs CBC & Chem 7: 08/05/17 05:26 08/05/17 05:26 Labs: Laboratory Last Values WBC 13.9 K/mm3 (4.5-11.0) H 08/05/17 05:26 RBC 3.30 M/mm3 (3.65-5.03) L 08/05/17 05:26 Hgb 8.4 gm/dl (10.1-14.3) L 08/05/17 05:26 Hct 26.2 % (30.3-42.9) L 08/05/17 05:26 MCV 79 fl (79-97) 08/05/17 05:26 MCH 25 pg (28-32) L 08/05/17 05:26 MCHC 32 % (30-34) 08/05/17 05:26 RDW 17.8 % (13.2-15.2) H 08/05/17 05:26 Plt Count 380 K/mm3 (140-440) 08/05/17 05:26 Lymph % (Auto) 17.3 % (13.4-35.0) 08/05/17 05:26 [place] % (Auto) 7.9 % (0.0-7.3) H 08/05/17 05:26 Eos % (Auto) 2.8 % (0.0-4.3) 08/05/17 05:26 Baso % (Auto) 0.5 % (0.0-1.8) 08/05/17 05:26 Lymph # 2.4 K/mm3 (1.2-5.4) 08/05/17 05:26 [place] # 1.1 K/mm3 (0.0-0.8) H 08/05/17 05:26 Eos # 0.4 K/mm3 (0.0-0.4) 08/05/17 05:26 Baso # 0.1 K/mm3 (0.0-0.1) 08/05/17 05:26 Add Manual Diff Complete 08/02/17 05:05 Total Counted 100 08/02/17 05:05 Seg Neutrophils % 71.5 % (40.0-70.0) H 08/05/17 05:26 Seg Neuts % (Manual) 80.0 % (40.0-70.0) H 08/02/17 05:05 Band Neutrophils % 0 % 08/02/17 05:05 Lymphocytes % (Manual) 12.0 % (13.4-35.0) L 08/02/17 05:05 Reactive Lymphs % (Man) 0 % 08/02/17 05:05 Monocytes % (Manual) 5.0 % (0.0-7.3) 08/02/17 05:05 Eosinophils % (Manual) 2.0 % (0.0-4.3) 08/02/17 05:05 Basophils % (Manual) 0 % (0.0-1.8) 08/02/17 05:05 Metamyelocytes % 0 % 08/02/17 05:05 Myelocytes % 1.0 % 08/02/17 05:05 Promyelocytes % 0 % 08/02/17 05:05 Blast Cells % 0 % 08/02/17 05:05 Nucleated RBC % Not Reportable 08/02/17 05:05 Seg Neutrophils # 10.0 K/mm3 (1.8-7.7) H 08/05/17 05:26 Seg Neutrophils # Man 10.6 K/mm3 (1.8-7.7) H 08/02/17 05:05 Band Neutrophils # 0.0 K/mm3 08/02/17 05:05 Lymphocytes # (Manual) 1.6 K/mm3 (1.2-5.4) 08/02/17 05:05 Abs React Lymphs (Man) 0.0 K/mm3 08/02/17 05:05 Monocytes # (Manual) 0.7 K/mm3 (0.0-0.8) 08/02/17 05:05 Eosinophils # (Manual) 0.3 K/mm3 (0.0-0.4) 08/02/17 05:05 Basophils # (Manual) 0.0 K/mm3 (0.0-0.1) 08/02/17 05:05 Metamyelocytes # 0.0 K/mm3 08/02/17 05:05 Myelocytes # 0.1 K/mm3 08/02/17 05:05 Promyelocytes # 0.0 K/mm3 08/02/17 05:05 Blast Cells # 0.0 K/mm3 08/02/17 05:05 WBC Morphology Not Reportable 08/02/17 05:05 Hypersegmented Neuts Not Reportable 08/02/17 05:05 Hyposegmented Neuts Not Reportable 08/02/17 05:05 Hypogranular Neuts Not Reportable 08/02/17 05:05 Smudge Cells Not Reportable 08/02/17 05:05 Toxic Granulation Not Reportable 08/02/17 05:05 Toxic Vacuolation Not Reportable 08/02/17 05:05 Dohle Bodies Not Reportable 08/02/17 05:05 Pelger-Huet Anomaly Not Reportable 08/02/17 05:05 Fly Rods Not Reportable 08/02/17 05:05 Platelet Estimate Appears normal 08/02/17 05:05 Clumped Platelets Not Reportable 08/02/17 05:05 Plt Clumps, EDTA Not Reportable 08/02/17 05:05 Large Platelets Not Reportable 08/02/17 05:05 Giant Platelets Not Reportable 08/02/17 05:05 Platelet Satelliting Not Reportable 08/02/17 05:05 Plt Morphology Comment Not Reportable 08/02/17 05:05 RBC Morphology Not Reportable 08/02/17 05:05 Dimorphic RBCs Not Reportable 08/02/17 05:05 Polychromasia Not Reportable 08/02/17 05:05 Hypochromasia Few 08/02/17 05:05 Poikilocytosis Not Reportable 08/02/17 05:05 Anisocytosis 1+ 08/02/17 05:05 Microcytosis Not Reportable 08/02/17 05:05 Macrocytosis Not Reportable 08/02/17 05:05 Spherocytes Not Reportable 08/02/17 05:05 Pappenheimer Bodies Not Reportable 08/02/17 05:05 Sickle Cells Not Reportable 08/02/17 05:05 Target Cells Few 08/02/17 05:05 Tear Drop Cells Not Reportable 08/02/17 05:05 Ovalocytes Few 08/02/17 05:05 Stomatocytes Few 08/02/17 05:05 Helmet Cells Not Reportable 08/02/17 05:05 [place] Bodies Not Reportable 08/02/17 05:05 [place] Rings Not Reportable 08/02/17 05:05 Balta Cells Not Reportable 08/02/17 05:05 Bite Cells Not Reportable 08/02/17 05:05 Crenated Cell Not Reportable 08/02/17 05:05 Elliptocytes Rare 08/02/17 05:05 Acanthocytes (Spur) Not Reportable 08/02/17 05:05 Rouleaux Not Reportable 08/02/17 05:05 Hemoglobin C Crystals Not Reportable 08/02/17 05:05 Schistocytes Not Reportable 08/02/17 05:05 Malaria parasites Not Reportable 08/02/17 05:05 Marquise Bodies Not Reportable 08/02/17 05:05 Hem Pathologist Commnt No 08/02/17 05:05 Sodium 142 mmol/L (137-145) 08/05/17 05:26 Potassium 5.0 mmol/L (3.6-5.0) 08/05/17 05:26 Chloride 107.2 mmol/L (98-107) H 08/05/17 05:26 Carbon Dioxide 23 mmol/L (22-30) 08/05/17 05:26 Anion Gap 17 mmol/L 08/05/17 05:26 BUN 31 mg/dL (7-17) H 08/05/17 05:26 Creatinine 1.4 mg/dL (0.7-1.2) H 08/05/17 05:26 Estimated GFR 46 ml/min 08/05/17 05:26 BUN/Creatinine Ratio 22 % 08/05/17 05:26 Glucose 87 mg/dL (65-100) 08/05/17 05:26 POC Glucose 110 (70-105) H 08/04/17 22:07 Lactic Acid 0.90 mmol/L (0.7-2.0) 07/29/17 21:28 Calcium 8.4 mg/dL (8.4-10.2) 08/05/17 05:26 Phosphorus 4.90 mg/dL (2.5-4.5) H 08/05/17 05:26 Magnesium 2.30 mg/dL (1.7-2.3) 08/05/17 05:26 Total Bilirubin 0.20 mg/dL (0.1-1.2) 08/05/17 05:26 AST 9 units/L (5-40) 08/05/17 05:26 ALT 5 units/L (7-56) L 08/05/17 05:26 Alkaline Phosphatase 116 units/L (35-129) 08/05/17 05:26 Total Creatine Kinase 23 units/L (30-135) L 07/31/17 11:37 CK-MB (CK-2) 1.2 ng/mL (0.0-4.0) 07/31/17 11:37 CK-MB (CK-2) Rel Index 5.2 (0-4) H 07/31/17 11:37 Troponin T 0.046 ng/mL (0.00-0.029) H 07/30/17 13:15 NT-Pro-B Natriuret Pep 1963 pg/mL (0-900) H 07/29/17 23:46 Total Protein 6.7 g/dL (6.3-8.2) 08/05/17 05:26 Albumin 2.2 g/dL (3.9-5) L 08/05/17 05:26 Albumin/Globulin Ratio 0.5 % 08/05/17 05:26 Triglycerides 170 mg/dL (2-149) H 07/29/17 21:28 Cholesterol 197 mg/dL (50-199) 07/29/17 21:28 LDL Cholesterol Direct 131 mg/dL (50-130) H 07/29/17 21:28 HDL Cholesterol 31 mg/dL (40-59) L 07/29/17 21:28 Cholesterol/HDL Ratio 6.35 % 07/29/17 21:28 Lipase 15 units/L (13-60) 07/29/17 11:35 Urine Color Yellow (Yellow) 07/29/17 21:45 Urine Turbidity Clear (Clear) 07/29/17 21:45 Urine pH 5.0 (5.0-7.0) 07/29/17 21:45 Ur Specific [place] 1.018 (1.003-1.030) 07/29/17 21:45 Urine Protein 30 mg/dl mg/dL (Negative) 07/29/17 21:45 Urine Glucose (UA) 50 mg/dL (Negative) 07/29/17 21:45 Urine Ketones Tr mg/dL (Negative) 07/29/17 21:45 Urine Blood Sm (Negative) 07/29/17 21:45 Urine Nitrite Neg (Negative) 07/29/17 21:45 Urine Bilirubin Neg (Negative) 07/29/17 21:45 Urine Urobilinogen < 2.0 mg/dL (<2.0) 07/29/17 21:45 Ur Leukocyte Esterase Tr (Negative) 07/29/17 21:45 Urine WBC (Auto) 19.0 /HPF (0.0-6.0) H 07/29/17 21:45 Urine RBC (Auto) 4.0 /HPF (0.0-6.0) 07/29/17 21:45 U Epithel Cells (Auto) < 1.0 /HPF (0-13.0) 07/29/17 21:45 Urine WBC Clumps 2+ /HPF 07/29/17 21:45 Urine Creatinine 121.7 mg/dL (0.1-20.0) H 08/01/17 18:24 Urine Sodium 65 mmol/L 08/01/17 18:24
[2017-08-05] MEDS ORDERED: NEURONTIN PO SCH (18:00)
[2017-08-06 05:52] LABS: Basophils % (Auto) 0.5 % (0.0-1.8); Eosinophils % (Auto) 2.5 % (0.0-4.3); Hematocrit 28.6 % (30.3-42.9); Mean Corpuscular HGB Conc 32 % (30-34); Mean Corpuscular Volume 79 fl (79-97); Platelet Count 388 K/mm3 (140-440); Red Blood Count 3.62 M/mm3 (3.65-5.03)
[2017-08-06 06:04] LABS: Calcium 8.4 mg/dL (8.4-10.2); Chloride 103.6 mmol/L (98-107); Magnesium 2.2 mg/dL (1.7-2.3); Phosphorous 4.8 mg/dL (2.5-4.5); Potassium 4.9 mmol/L (3.6-5.0)
[2017-08-06 06:16] LABS: Mean Corpuscular Hemoglobin 25 pg (28-32)
--- NOTE | 2017-08-06 06:38 | Progress Note ---
Assessment and Plan 1. Acute kidney injury: Likely hemodynamic FLY superimposed on CKD. Renal function has improved to her baseline. Monitor renal function. 2. UTI. 3. Anemia. 4. Chest pain. Follow up with me 2-3 weeks. Subjective Date of service: 08/06/17 Interval history: Patient is doing ok. Objective - Vital Signs Vital signs: Vital Signs - 12hr 08/05/17 08/05/17 08/05/17 20:05 22:00 22:26 Temperature 98.6 F Pulse Rate 86 Pulse Rate [ 80 Radial] Respiratory 20 18 18 Rate Respiratory 18 Rate [Right Lower Back] Blood Pressure 110/61 O2 Sat by Pulse 96 Oximetry 08/05/17 08/06/17 08/06/17 22:56 00:35 04:12 Temperature 98.7 F 98.3 F Pulse Rate 89 90 Pulse Rate [ Radial] Respiratory 18 20 20 Rate Respiratory Rate [Right Lower Back] Blood Pressure 124/63 112/49 O2 Sat by Pulse 98 100 Oximetry - General Appearance General appearance: well-developed, well-nourished, appears stated age, other ( no distress) EENT: ATNC, PERRL, hearing intact Neck: supple Respiratory: Present: Clear to Ascultation Cardiology: S1S2, no murmurs Gastrointestinal: normoactive bowel sounds, no tenderness, no distended, obese Integumentary: no rash, warm and dry Neurologic: no focal deficit, no asterixis Musculoskeletal: other (no edema, right leg cast) Psychiatric: mood/affect appropriate, cooperative - Lab 08/06/17 05:18 08/06/17 05:18 Most recent lab results Calcium 8.4 mg/dL (8.4-10.2) 08/06/17 05:18 Phosphorus 4.80 mg/dL (2.5-4.5) H 08/06/17 05:18 Magnesium 2.20 mg/dL (1.7-2.3) 08/06/17 05:18 Urine Creatinine 121.7 mg/dL (0.1-20.0) H 08/01/17 18:24 Urine Sodium 65 mmol/L 08/01/17 18:24
[2017-08-06] MEDS: PERCOCET 5/325 PO PRN (06:54)
[2017-08-06 09:18] VITALS: BP 148/68
[2017-08-06] MEDS: ASPIRIN PO SCH (10:04)
[2017-08-06] MEDS: FLEXERIL PO PRN (10:04)
[2017-08-06] MEDS: FLOMAX PO SCH (10:04)
[2017-08-06] MEDS: AUGMENTIN 875 MG PO SCH (10:04)
[2017-08-06] MEDS: NORVASC PO SCH (10:04)
[2017-08-06] MEDS: ULTRAM PO PRN (10:04)
[2017-08-06] MEDS: NACL 0.45% 1000 ML 1,000 ML IV SCH (10:07)
--- NOTE | 2017-08-06 11:06 | Discharge Summary ---
Providers - Providers Date of Admission: 07/30/17 00:59 Date of discharge: 08/06/17 Attending physician: DAMIAN FRANCES MD 08/01/17 11:20 Consult to Physician [CONS] Routine Consulting Provider: ANTOINE BARBA Reason For Exam: ibis on ckd Place consult to:: Dr. Barba Notified:: Larisa CARCAMO Phone number called:: Was contact made?: Yes If yes, spoke with:: Dr. Barba Time called:: 11:31 08/03/17 18:23 Occupational Therapy Evaluate and Treat [CONS] Routine Comment: Reason For Exam: DEBILITY Physical Therapy Evaluation and Treat [CONS] Routine Comment: Reason For Exam: DEBILITY 08/03/17 18:25 Consult to Physician [CONS] Routine Consulting Provider: ADDISON WELLS Reason For Exam: severe low back pain Place consult to:: milo Notified:: office Phone number called:: [phone] Was contact made?: Yes If yes, spoke with:: answering machine Time called:: 07:47 Comment:: call attempted. no weekend answering service available Primary care physician: [facility] Hospitalization Reason for admission: chest pain, back pain Condition: Stable Pertinent studies: CT abdomen and pelvis - Mild Diffuse anasarca seen with small pericardial effusion. Prominent spondylolisthesis is seen at L3 to L4, likely due to posterior element hypertrophy and diffuse disc bulge. Exercise stress test - No perfusion abnormality of the left ventricular myocardium was demonstrated in the resting as well as stress images obtained after patient underwent Lexiscan stress test. No motion abnormality. Normal left ventricular ejection fraction of 62%. MRI lumbar spine - Degenerative disc disease at L3-L4 with a broad-based central posterior disc- osteophyte producing moderate central spinal canal stenosis. Moderate right L3- L4 neural foraminal stenosis secondary to osteophyte and mild left L3 to L4 neural foraminal stenosis secondary to osteophyte. MRI thoracic spine -Extensive degenerative change with large bridging the right anterolateral fights from T7 to 8 through T10 to 11. However minimal degenerative disc disease with no disc protrusions are bandaged. No significant neural foraminal stenosis. No cord lesion. Hospital course: She is 61-year-old male who presents to the emergency room via EMS for bilateral lower quadrant abdominal pain and right flank pain. She also complains of feeling confused and weak. Patient also states that she has unable to void for 3 days. Patient states she has felt warm but has not checked for fever. He also complains of chest pain or shortness of breath for 2 days. Patient denies chills. Patient has UTI/pyelonephritis at the time of admission and treated accordingly. Stress test was negative and cardiology consulted. No further cardiac workup recommended. Patient is complaining of lower back pain and extensive workup was done results as stated above. Patient didn't have cord compression shows mild spinal stenosis and I advised her to follow-up with spinal surgeon. Patient stated she has an appointment with [facility] for removal of cast and discharged. Appropriate medications were refilled at the time of discharge. Patient was hemodynamically stable at the time of discharge. Disposition: [id number] HOME UNDER HOME [facility] Time spent for discharge: 31 minutes - Discharge Diagnoses (1) Abdominal pain Status: Acute (2) Chest pain Status: Acute (3) UTI (urinary tract infection) Status: Acute (4) Weakness Status: Acute (5) Acute on chronic renal failure Status: Acute (6) Difficulty breathing Status: Acute Core Measure Documentation - Palliative Care Palliative Care/ Comfort Measures: Not Applicable - Core Measures Any of the following diagnoses?: none Exam - Physical Exam Narrative exam: Not in cardiopulmonary distress. The patient is obese. Vital signs as documented. Head exam is unremarkable. No scleral icterus . Neck is without jugular venous distension, thyromegaly, or carotid bruits. Lungs are clear to auscultation. Cardiac exam reveals regular rate and Rhythm. First and second heart sounds normal. No murmurs, rubs or gallops. Abdominal exam reveals normal bowel sounds, no masses, no organomegaly and no aortic enlargement. Extremities move the extremities, cast in the right leg. ASSISTANT DIRECTOR OF ADMISSIONS: Alert and oriented 3. No focal weakness. - Constitutional Vitals: Temp Pulse Resp BP Pulse Ox 98.3 F 88 18 148/68 98 08/06/17 08:47 08/06/17 08:47 08/06/17 08:47 08/06/17 08:47 08/06/17 08:47 Plan Activity: advance as tolerated Weight Bearing Status: Weight Bear as Tolerated Diet: low fat, low cholesterol Follow up with: [facility] [Provider Group] - 7 Days PRIMARY MD OLIVER [Primary Care Provider] - 3-5 Days ADDISON WELLS MD [Staff Physician] - 7 Days ANTOINE BARBA MD [Staff Physician] - 7 Days BOAZ SWANSON MD [Staff Physician] - 7 Days Prescriptions: Amoxicillin/Potassium Clav [Augmentin 875-125 Tablet] 1 each PO BID #14 tablet HYDROcodone/APAP 5-325 [[place] 5-325 mg TAB] 1 - 2 each PO Q6HR PRN #14 tablet PRN Reason: Pain Tamsulosin [Flomax] 0.4 mg PO QDAY #30 capsule traMADol [Ultram 50 MG tab] 50 mg PO Q6H PRN #14 tablet PRN Reason: Pain, Moderate (4-6)
== END 2017-08-06 13:21 | disposition home health service (06) | DRG 205 ==
LOC: ED 09:58 → 4A 07-30 00:59
PROVIDERS: ADMIT Internal Medicine; ATTEND Internal Medicine
DX: M94.0 Chondrocostal junction syndrome [Tietze] (principal); N17.0 Acute kidney failure with tubular necrosis; E43 Unspecified severe protein-calorie malnutrition; N39.0 Urinary tract infection, site not specified; I13.0 Hypertensive heart and chronic kidney disease with heart failure and stage 1 through stage 4 chronic kidney disease, or unspecified chronic kidney disease; N12 Tubulo-interstitial nephritis, not specified as acute or chronic; E87.2 Acidosis; R07.9 Chest pain, unspecified; N18.9 Chronic kidney disease, unspecified; E11.22 Type 2 diabetes mellitus with diabetic chronic kidney disease; K21.9 Gastro-esophageal reflux disease without esophagitis; G47.30 Sleep apnea, unspecified; I50.9 Heart failure, unspecified; M19.90 Unspecified osteoarthritis, unspecified site; R33.9 Retention of urine, unspecified; I16.0 Hypertensive urgency; M54.5 Low back pain; R79.89 Other specified abnormal findings of blood chemistry; D64.9 Anemia, unspecified; Z79.4 Long term (current) use of insulin; Z79.899 Other long term (current) drug therapy; Z99.81 Dependence on supplemental oxygen; Z98.84 Bariatric surgery status; Z82.49 Family history of ischemic heart disease and other diseases of the circulatory system
CPT/HCPCS: 36415; 70450; 71010; 72146; 72148; 74176; 76770; 78452; 80048; 80053; 80061; 81001; 82140; 82550; 82553; 82570; 82962; 83690; 83735; 83880; 84100; 84300; 84484; 85007; 85025; 87040; 87086; 93005; 93010; 93017; 96374; 96375; A9502; J0696; J1170; J1644; J1815; J2270; J2543; J2785

== ENCOUNTER 2018-09-04 21:15 | Inpatient (IN) | payer MEDICARE ==
[2018-09-04] MEDS ORDERED: ATROVENT IH ONE (21:27)
[2018-09-04] MEDS ORDERED: XOPENEX IH ONE (21:28)
--- NOTE | 2018-09-04 21:35 | Emergency Department Report ---
ED Shortness of Breath HPI - General Chief Complaint: Dyspnea/Respdistress Stated Complaint: RICCARDO Time Seen by Provider: 09/04/18 21:27 Source: EMS Mode of arrival: Stretcher Limitations: No Limitations - History of Present Illness Initial Comments: Patient is 62 years old female with history of COPD, hypertension, diabetes and sleep apnea. Patient presented to the ER via EMS in acute respiratory distress with significant shortness of breath. Patient stated the symptoms started 2 days ago and it gets worse today. Patient received albuterol 7.5 mg and started on BiPAP by EMS. Patient's tachypnea On arrival with oxygen saturation of 100%. Patient denied any recent fever, nausea or vomiting. No chest pain. MD Complaint: shortness of breath, cough -: days(s) Severity: moderate Pain Scale: 6 Consistency: constant Known History Of: COPD Context: recent URI - Related Data Home Medications Medication Instructions Recorded Confirmed Last Taken Gabapentin 2 tab PO TID 05/06/14 07/31/17 07/04/15 Insulin Glargine,Hum.rec.anlog 10 units SUB-Q HS 07/31/17 07/31/17 Unknown [Lantus] amLODIPine [Norvasc] 10 mg PO DAILY 07/31/17 07/31/17 Unknown Previous Rx's Medication Instructions Recorded Last Taken Type Cyclobenzaprine [Flexeril 10 MG 10 mg PO TID PRN #14 tablet 07/25/17 Unknown Rx TAB] Amoxicillin/Potassium Clav 1 each PO BID #14 tablet 08/02/17 Unknown Rx [Augmentin 875-125 Tablet] HYDROcodone/APAP 5-325 [[place] 1 - 2 each PO Q6HR PRN #14 tablet 08/02/17 Unknown Rx 5-325 mg TAB] Tamsulosin [Flomax] 0.4 mg PO QDAY #30 capsule 08/02/17 Unknown Rx traMADol [Ultram 50 MG tab] 50 mg PO Q6H PRN #14 tablet 08/02/17 Unknown Rx Allergies Allergy/AdvReac Type Severity Reaction Status Date / Time lisinopril Allergy Severe Swelling Verified 03/18/15 14:54 ED Review of Systems ROS: Stated complaint: RICCARDO Other details as noted in HPI Comment: All other systems reviewed and negative Constitutional: denies: chills, fever Respiratory: cough, shortness of breath, SOB with exertion, SOB at rest, wheezing Cardiovascular: dyspnea on exertion, orthopnea. denies: chest pain, palpitations Gastrointestinal: denies: abdominal pain, nausea, vomiting, diarrhea, consti pation, hematemesis, melena, hematochezia Musculoskeletal: denies: back pain Neurological: denies: headache, weakness, numbness, paresthesias, confusion, abnormal gait ED Past Medical Hx - Past Medical History Hx Hypertension: Yes Hx Diabetes: Yes (insulin) Hx GERD: Yes Hx HIV: No Additional medical history: SLEEP APNEA- CPAP - Surgical History Additional Surgical History: Back surgery, GASTRIC BYPASS 05/28/2015 - Social History Smoking Status: Former Smoker Substance Use Type: None - Medications Home Medications: Home Medications Medication Instructions Recorded Confirmed Last Taken Type Gabapentin 2 tab PO TID 05/06/14 07/31/17 07/04/15 History Cyclobenzaprine [Flexeril 10 MG 10 mg PO TID PRN #14 tablet 07/25/17 07/31/17 Unknown Rx TAB] Insulin Glargine,Hum.rec.anlog 10 units SUB-Q HS 07/31/17 07/31/17 Unknown History [Lantus] amLODIPine [Norvasc] 10 mg PO DAILY 07/31/17 07/31/17 Unknown History Amoxicillin/Potassium Clav 1 each PO BID #14 tablet 08/02/17 Unknown Rx [Augmentin 875-125 Tablet] HYDROcodone/APAP 5-325 [[place] 1 - 2 each PO Q6HR PRN #14 tablet 08/02/17 Unknown Rx 5-325 mg TAB] Tamsulosin [Flomax] 0.4 mg PO QDAY #30 capsule 08/02/17 Unknown Rx traMADol [Ultram 50 MG tab] 50 mg PO Q6H PRN #14 tablet 08/02/17 Unknown Rx ED Physical Exam - General Limitations: No Limitations General appearance: alert, in distress - Head Head exam: Present: atraumatic, normocephalic, normal inspection - Eye Eye exam: Present: normal appearance, PERRL - ENT ENT exam: Present: normal exam, normal orophraynx, mucous membranes moist - Neck Neck exam: Present: normal inspection, full ROM. Absent: tenderness, meningismus, lymphadenopathy, thyromegaly - Respiratory Respiratory exam: Present: respiratory distress, wheezes, rales, rhonchi, accessory muscle use, decreased breath sounds, prolonged expiratory. Absent: stridor - Cardiovascular Cardiovascular Exam: Present: tachycardia - GI/Abdominal GI/Abdominal exam: Present: soft, normal bowel sounds. Absent: distended, tenderness, guarding, rebound, rigid, organomegaly, mass, bruit, pulsatile mass, hernia - Extremities Exam Extremities exam: Present: normal inspection, full ROM, normal capillary refill. Absent: tenderness, pedal edema, calf tenderness - Back Exam Back exam: Present: normal inspection, full ROM. Absent: tenderness, CVA tenderness (R), CVA tenderness (L), muscle spasm, paraspinal tenderness, vertebral tenderness, rash noted - Neurological Exam Neurological exam: Present: alert, oriented X3, CN II-XII intact, normal gait, reflexes normal - Skin Skin exam: Present: warm, intact, normal color ED Course Vital Signs 09/04/18 09/04/18 09/04/18 21:20 21:31 21:32 Temperature 98 F Pulse Rate 111 H 106 H 110 H Pulse Rate [ Anterior Bilateral Throughout] Respiratory 22 21 Rate Respiratory Rate [Anterior Bilateral Throughout] Blood Pressure 143/93 149/93 Blood Pressure 149/93 [Left] O2 Sat by Pulse 100 100 Oximetry 09/04/18 09/04/18 09/04/18 21:37 21:45 22:08 Temperature Pulse Rate 110 H 109 H Pulse Rate [ 106 H Anterior Bilateral Throughout] Respiratory 22 25 H Rate Respiratory 23 Rate [Anterior Bilateral Throughout] Blood Pressure 166/91 Blood Pressure 157/99 [Left] O2 Sat by Pulse 100 100 Oximetry ED Medical Decision Making - Lab Data Result diagrams: 09/04/18 21:37 09/04/18 21:37 - EKG Data -: EKG Interpreted by Ia EKG shows normal: sinus rhythm Rate: tachycardia - EKG Data Interpretation: no acute changes - Radiology Data Radiology results: report reviewed - Medical Decision Making Patient is 62 years old female with history of COPD, hypertension, diabetes and sleep apnea. Patient presented to the ER via EMS in acute respiratory distress with significant shortness of breath. Patient stated the symptoms started 2 days ago and it gets worse today. Patient received albuterol 7.5 mg and started on BiPAP by EMS. Patient's tachypnea On arrival with oxygen saturation of 100%. Patient denied any recent fever, nausea or vomiting. No chest pain. Patient improved with BiPAP. She also received Xopenex 2.5 mg and Atrovent 0.5 mg. Patient also received Lasix 60 mg IV. I discussed the patient is Dr. Ding, he agreed to admit the patient to medical service. Critical Care Time: Yes Critical care time in (mins) excluding proc time.: 30 Critical care attestation.: If time is entered above; I have spent that time in minutes in the direct care of this critically ill patient, excluding procedure time. ED Disposition Clinical Impression: CHF exacerbation, Acute respiratory failure, Acute on chronic renal failure, COPD exacerbation Disposition: OP ADMIT IP TO THIS HOSP Is pt being admited?: Yes Condition: Stable Instructions: Chronic Obstructive Pulmonary Disease (ED) Referrals: BARAK MACKEY MD [Staff Physician] - 3-5 Days
[2018-09-04 21:51] LABS: Hematocrit 24.9 % (30.3-42.9); Hemoglobin 7.7 gm/dl (10.1-14.3); Mean Corpuscular HGB Conc 31 % (30-34); Mean Corpuscular Volume 85 fl (79-97); Platelet Count 307 K/mm3 (140-440); Red Blood Count 2.93 M/mm3 (3.65-5.03); Red Cell Distribution Width 15.6 % (13.2-15.2)
[2018-09-04 21:53] LABS: Basophils % (Auto) 1.2 % (0.0-1.8); Eosinophils % (Auto) 0.8 % (0.0-4.3); Lymphocytes # (Auto) 3.4 K/mm3 (1.2-5.4); Lymphocytes % (Auto) 22.6 % (13.4-35.0); Monocytes % (Auto) 9.3 % (0.0-7.3)
[2018-09-04 21:54] LABS: Basophils # (Auto) 0.2 K/mm3 (0.0-0.1); Eosinophils # (Auto) 0.1 K/mm3 (0.0-0.4); Monocytes # (Auto) 1.4 K/mm3 (0.0-0.8)
[2018-09-04 22:04] LABS: Alanine Aminotransferase 49 units/L (7-56); Albumin 3.1 g/dL (3.9-5)
[2018-09-04] MEDS ORDERED: LASIX IV ONE (22:05)
[2018-09-04 22:08] LABS: Bilirubin,Direct < 0.2 mg/dL (0-0.2)
--- NOTE | 2018-09-04 22:23 | XRay Report ---
FINAL REPORT PROCEDURE: XR CHEST 1V AP TECHNIQUE: Chest radiograph anteroposterior view. CPT 82270 HISTORY: Dyspnea COMPARISON: 07/29/2017 FINDINGS: Heart: Normal. Mediastinum/Vessels: Normal. Lungs/Pleural space: Lungs are hyperinflated. There are no confluent infiltrates or mass lesions. Ple ural spaces are clear.. Bony thorax: No acute osseous abnormality. Life support devices: None. IMPRESSION: COPD No acute pulmonary process.
[2018-09-04 22:47] LABS: Chol/HDL Ratio 2.23 %
[2018-09-04] MEDS ORDERED: TYLENOL PO PRN (23:53)
[2018-09-04] MEDS ORDERED: ZOFRAN IV PRN (23:55)
[2018-09-04] MEDS ORDERED: D50W (25GM) Syringe IV PRN (23:58)
[2018-09-05] MEDS ORDERED: FLEXERIL PO PRN (00:01)
[2018-09-05] MEDS ORDERED: ULTRAM PO PRN (00:01)
[2018-09-05 00:57] LABS: Creatine Kinase MB 4.5 ng/mL (0.0-4.0)
[2018-09-05] MEDS: SOLU-Medrol IV SCH ×4 (01:18→23:18)
[2018-09-05] MEDS ORDERED: SOLU-Medrol ONE (01:19)
[2018-09-05] MEDS ORDERED: PROVENTIL IH PRN (01:37)
[2018-09-05 06:43] LABS: Creatine Kinase MB 3.8 ng/mL (0.0-4.0)
--- NOTE | 2018-09-05 07:30 | History and Physical Report ---
CHIEF COMPLAINT: Shortness of breath. HISTORY OF PRESENT ILLNESS: The patient is a 62-year-old female who has past history of COPD and CHF, having shortness of going on for about 2 days. The patient said that the symptoms started getting progressively worse and EMS was called and evaluated the patient and placed the patient on BiPAP. There was no history of fever or chills. No history of chest pain, nausea, or vomiting; however, the patient is complaining of a nonproductive cough. PAST MEDICAL HISTORY: Pertinent for hypertension, diabetes mellitus, gastroesophageal reflux disease, sleep apnea, needing CPAP. PAST SURGICAL HISTORY: Pertinent for gastric bypass surgery in 2015. FAMILY HISTORY: Noncontributory. SOCIAL HISTORY: The patient was a former cigarette smoker. Does not smoke anymore and does not use illicit drugs. MEDICATIONS: The patient is on gabapentin 2 tablets by mouth 3 times daily, Flexeril 10 mg by mouth 3 times as needed for muscle pain and spasm, Lantus insulin 10 units subcutaneous at bedtime, amlodipine 10 mg by mouth daily, and tamsulosin 0.4 mg by mouth daily. ALLERGIES: THE PATIENT IS ALLERGIC TO LISINOPRIL. REVIEW OF SYSTEMS: CONSTITUTIONAL: There is no fever, no chills, no diaphoresis. HEENT: There is no headache or sore throat. CARDIOVASCULAR SYSTEM: There is no chest pain or orthopnea. RESPIRATORY SYSTEM: Shortness of breath is present. Cough is present. GASTROINTESTINAL SYSTEM: There is no nausea, no vomiting, no abdominal pain, diarrhea, or constipation. NEUROLOGICAL SYSTEM: There is no numbness, no dizziness, no altered mental status. MUSCULOSKELETAL SYSTEM: There is no joint pain or swelling. DERMATOLOGICAL SYSTEM: There is no skin rash or itching. GENITOURINARY SYSTEM: There is no dysuria, hematuria, or flank pain. Rest of system review is normal. PHYSICAL EXAMINATION: GENERAL: At the time of exam, the patient was found to be alert, oriented x 3, and in mild distress due to shortness of breath. VITAL SIGNS: At the initial time of presentation showed temperature of 98 degrees Fahrenheit, pulse of 111, respiration 22, blood pressure 143/93, O2 sat of 100% while on BiPAP. HEENT: Showed pupils to be equal, round, reactive to light and accommodation. Extraocular muscles are intact. NECK: Supple with no JVD or carotid bruit. CARDIOVASCULAR SYSTEM: Show normal first and second heart sounds with no gallops or murmurs. RESPIRATORY SYSTEM: Show reduced air entry on both sides of the lungs with bilateral scattered crackles. GASTROINTESTINAL SYSTEM: Show abdomen to be full, soft, nontender with no organomegaly or rigidity. NEUROLOGICAL: Shows no focal deficit. MUSCULOSKELETAL SYSTEM: Show no joint swelling or tenderness. DERMATOLOGICAL SYSTEM: Show no skin rash. GENITOURINARY SYSTEM: Showing no costovertebral angle tenderness. PERTINENT LABORATORY DATA AND IMAGING STUDIES: The patient has chest x-ray done that shows COPD picture with no acute pulmonary process. Lab results: The patient has CBC done with elevated white count of 15,100, low hemoglobin of 7.7, and low hematocrit of 20.9 with normal MCV. The patient's CBC differential showing elevated monocyte count of 9.3% and the patient's ABG showed low pH of 7.30 with low PCO2 of 32 and high pO2 of 212, which was done on FiO2 of 60. The patient's chemistry showed elevated BUN of 44 with elevated creatinine of 2.2. There was no old result to compare. Rest of chemistry show elevated alkaline phosphatase of 240. The patient's cardiac enzymes show elevated total CPK of 205 with high CK-MB of 4.5 and normal CK percentage index and elevated troponin level of 0.082. The patient's brain natriuretic peptide level is high. DIAGNOSIS: 1. Congestive heart failure exacerbation. 2. Chronic obstructive pulmonary disease exacerbation. 3. Chronic kidney disease. 4. Elevated troponin level. 5. Anemia. PLAN: 1. The patient will be admitted to the telemetry. 2. The patient will continue BiPAP treatment until the symptoms of hypoxia and shortness of breath improved. 3. The patient will have cardiac enzymes involving troponin, total CK, and CK-MB checked q. 6 hours x 2 more level. 4. The patient will have Nephrology consult with Dr. Pineda for evaluation of renal insufficiency. 5. The patient will be on albuterol nebulizer q. 4 hours as needed for shortness of breath. 8. The patient will be on IV Solu-Medrol 60 mg q.8 hours and IV Zofran 4 mg q. 8 hours for nausea and vomiting. 9. The patient will have 2D echo done this morning because of CHF and will be on IV Lasix 40 mg daily. 10. The patient will be on nitro paste half inch to anterior chest wall q.i.d. 11. The patient will be on home medication as shown in the medication reconciliation section. 12. The patient will have CBC done this morning to monitor the anemia. JOB# [id number] OCN/TOM MTDLis
[2018-09-05] MEDS: NITRO-BID 2% TP SCH ×5 (07:45→18:58)
[2018-09-05 08:04] LABS: Hemoglobin 7.3 gm/dl (10.1-14.3); Mean Corpuscular HGB Conc 32 % (30-34); Mean Corpuscular Volume 85 fl (79-97); Platelet Count 257 K/mm3 (140-440); Red Blood Count 2.71 M/mm3 (3.65-5.03); Red Cell Distribution Width 15.6 % (13.2-15.2)
[2018-09-05] MEDS: DUONEB *Not for PRN Use IH SCH ×4 (08:29→21:38)
[2018-09-05] MEDS: HumuLIN R SUB-Q SCH ×4 (08:41→21:42)
--- NOTE | 2018-09-05 10:15 | Consultation ---
History of Present Illness - Reason for Consult Consult date: 09/05/18 acute renal failure - History of Present Illness Very pleasant 62-year-old -Greek female with a past medical history of chronic kidney disease stage II in the setting of diabetes, hypertension, with also underlying history of COPD who presented to the emergency department secondary to worsening dyspnea on exertion over 2 days. Per patient she was told that she has underlying chronic kidney disease stage II by her outpatient consultant internship Dr. Mccann. She is not aware of what her baseline creatinine is stable at this time. She has no previous baseline serum creatinines in our hospital system to review at this time. Initial labs were evident for elevated serum creatinine and nephrology was consulted for evaluation of acute renal injury. BNP was elevated over 20,000. She has been started on IV Lasix and is being treated for possible CHF. Per patient she has never had previous heart failure episode. Past History Past Medical History: COPD, diabetes, hypertension, hyperlipidemia Past Surgical History: Other (gastric bypass ) Social history: no significant social history, lives with family Family history: diabetes, hypertension Medications and Allergies Allergies Allergy/AdvReac Type Severity Reaction Status Date / Time lisinopril Allergy Severe Swelling Verified 03/18/15 14:54 Home Medications Medication Instructions Recorded Confirmed Last Taken Type Gabapentin 2 tab PO TID 05/06/14 07/31/17 07/04/15 History Cyclobenzaprine [Flexeril 10 MG 10 mg PO TID PRN #14 tablet 07/25/17 07/31/17 Unknown Rx TAB] Insulin Glargine,Hum.rec.anlog 10 units SUB-Q HS 07/31/17 07/31/17 Unknown History [Lantus] amLODIPine [Norvasc] 10 mg PO DAILY 07/31/17 07/31/17 Unknown History Amoxicillin/Potassium Clav 1 each PO BID #14 tablet 08/02/17 Unknown Rx [Augmentin 875-125 Tablet] HYDROcodone/APAP 5-325 [[place] 1 - 2 each PO Q6HR PRN #14 tablet 08/02/17 Unknown Rx 5-325 mg TAB] Tamsulosin [Flomax] 0.4 mg PO QDAY #30 capsule 08/02/17 Unknown Rx traMADol [Ultram 50 MG tab] 50 mg PO Q6H PRN #14 tablet 08/02/17 Unknown Rx Active Meds: Active Medications Acetaminophen (Tylenol) 650 mg PO Q4H PRN PRN Reason: Fever >101 Acetaminophen/Hydrocodone Bitart ([place] 5/325) 1 each PO Q6H PRN PRN Reason: Pain, Moderate (4-6) Albuterol (Proventil) 2.5 mg IH Q4HRT PRN PRN Reason: Shortness Of Breath Albuterol/Ipratropium (Duoneb *Not For Prn Use*) 1 ampul IH QIDRT [facility] Last Admin: 09/05/18 08:29 Dose: 1 ampul Documented by: Amlodipine Besylate (Norvasc) 10 mg PO DAILY [facility] Cyclobenzaprine HCl (Flexeril) 10 mg PO TID PRN PRN Reason: Muscle Spasm Dextrose (D50w (25gm) Syringe) 50 ml IV PRN PRN PRN Reason: Hypoglycemia Furosemide (Lasix) 40 mg IV QDAY [facility] Gabapentin (Neurontin) mg PO TID [facility] Heparin Sodium (Porcine) (Heparin) 5,000 unit SUB-Q Q12HR [facility] Levofloxacin/Dextrose (Levaquin 750mg/150ml) 750 mg in 150 mls @ 100 mls/hr IV Q48HR [facility]; Protocol Insulin Human Regular (Humulin R) 0 units SUB-Q AC [facility]; Protocol Last Admin: 09/05/18 08:41 Dose: Not Given Documented by: Insulin Human Regular (Humulin R) 0 units SUB-Q QHS [facility]; Protocol Methylprednisolone Sodium Succinate (Solu-Medrol) 60 mg IV Q8H [facility] Last Admin: 09/05/18 01:18 Dose: 60 mg Documented by: Nitroglycerin (Nitro-Bid 2%) 0.5 inch TP QIDNTG [facility]; Protocol Last Admin: 09/05/18 07:45 Dose: 0.5 inch Documented by: Ondansetron HCl (Zofran) 4 mg IV Q8H PRN PRN Reason: Nausea And Vomiting Tamsulosin HCl (Flomax) 0.4 mg PO QDAY [facility] Tramadol HCl (Ultram) 50 mg PO Q6H PRN PRN Reason: Pain, Moderate (4-6) Review of Systems All systems: negative Constitutional: fatigue, weakness Cardiovascular: edema, shortness of breath, dyspnea on exertion Exam - Vital Signs Vital signs: Vital Signs Temp Pulse Resp BP Pulse Ox 98 F 108 H 18 149/93 100 09/04/18 21:20 09/04/18 21:20 09/04/18 21:20 09/04/18 21:20 09/04/18 21:20 - General Appearance General appearance: well-developed, well-nourished, appears stated age EENT: ATNC, PERRL Neck: Present: neck supple, trachea midline Respiratory: Decreased Breath Sounds Heart: regular, S1S2 Gastrointestinal: Present: normal, normoactive bowel sounds Integumentary: no rash, warm and dry Neurologic: no focal deficit, no asterixis Musculoskeletal: Present: deferred Psychiatric: mood/affect appropriate, cooperative Results - Lab Results 09/05/18 06:53 09/04/18 21:37 Most recent lab results Calcium 8.0 mg/dL (8.4-10.2) L 09/04/18 21:37 Assessment and Plan - Patient Problems (1) Acute on chronic renal failure Current Visit: Yes Status: Acute Qualifiers: Chronic kidney disease stage: stage 2 (mild) Plan to address problem: Patient may likely have some underlying chronic kidney disease in the setting of hypertension, diabetes, now with an exacerbated acute renal injury in the setting of possible heart failure. Agree with current management. Avoid nephrotoxins. Maintain mean arterial pressures above 65. Closely monitor renal functions daily. We will obtain a urinalysis as well as urine electrolytes. We will also obtain a renal ultrasound. (2) Acute respiratory failure with hypoxia Current Visit: Yes Status: Acute Plan to address problem: Possibly in the setting of an acute congestive heart failure episode. Pending an echocardiogram this morning. Agree with current diuretic regimen with Lasix 40 IV daily. Strict monitoring of her intake and output. Appropriate fluid restriction and low sodium diet. Continue to monitor closely. I agree with BiPAP. (3) Hypertensive chronic kidney disease with stage 1 through stage 4 chronic kidney disease, or unspecified chronic kidney disease Current Visit: Yes Status: Chronic Plan to address problem: Continue current outpatient antihypertensive regimen. We will have to closely monitor. (4) Type 2 diabetes mellitus with diabetic chronic kidney disease Current Visit: Yes Status: Chronic Plan to address problem: Diabetes management per primary team. (5) COPD exacerbation Current Visit: Yes Status: Acute Plan to address problem: Management per primary attending. Patient on BiPAP and received DuoNeb therapy as scheduled.
[2018-09-05] MEDS: LASIX IV SCH (12:23)
[2018-09-05] MEDS: FLOMAX PO SCH (12:23)
[2018-09-05] MEDS: NORVASC PO SCH (12:25)
[2018-09-05] MEDS: LEVAQUIN 750MG/150ML 750 MG/150 ML BAG IV SCH (12:28)
[2018-09-05] MEDS: HEPARIN SUB-Q SCH ×2 (12:28→21:26)
--- NOTE | 2018-09-05 13:50 | Event Note ---
Date: 09/05/18 Patient with hypertension, diabetes, CKD presents with shortness of breath. I have seen and examined her. Continue current management.
--- NOTE | 2018-09-05 13:59 | Consultation ---
History of Present Illness Consult date: 09/05/18 Requesting physician: CHRISTIANO MARTINEZ Reason for consult: COPD, obstructive sleep apnea History of present illness: 62 y/o female, obese, with known JATINDER and COPD with chronic respiratory failure, admitted with dyspnea on exertion and acute on chronic respiratory failure. Per patient was admitted to [facility] last week for approximately 3 days. Given lasix and steroids and then discharged. Patient left on Sunday but per patient and daughter, did not feel well enough to leave. Presented to the ED here with worsening shortness of breath, bilateral lower ext edema and generalized anasarca. EMS called and patient brought in on bipap. Of note, patient has not worn CPAP in over 2 years secondary to noncompliance. Past History Past Medical History: COPD, diabetes, hypertension, hyperlipidemia Past Surgical History: Other (gastric bypass ) Social history: no significant social history, lives with family Family history: diabetes, hypertension Medications and Allergies Allergies Allergy/AdvReac Type Severity Reaction Status Date / Time lisinopril Allergy Severe Swelling Verified 03/18/15 14:54 Home Medications Medication Instructions Recorded Confirmed Last Taken Type Gabapentin 2 tab PO TID 05/06/14 07/31/17 07/04/15 History Cyclobenzaprine [Flexeril 10 MG 10 mg PO TID PRN #14 tablet 07/25/17 07/31/17 Unknown Rx TAB] Insulin Glargine,Hum.rec.anlog 10 units SUB-Q HS 07/31/17 07/31/17 Unknown History [Lantus] amLODIPine [Norvasc] 10 mg PO DAILY 07/31/17 07/31/17 Unknown History Amoxicillin/Potassium Clav 1 each PO BID #14 tablet 08/02/17 Unknown Rx [Augmentin 875-125 Tablet] HYDROcodone/APAP 5-325 [[place] 1 - 2 each PO Q6HR PRN #14 tablet 08/02/17 Unknown Rx 5-325 mg TAB] Tamsulosin [Flomax] 0.4 mg PO QDAY #30 capsule 08/02/17 Unknown Rx traMADol [Ultram 50 MG tab] 50 mg PO Q6H PRN #14 tablet 08/02/17 Unknown Rx Active Meds: Active Medications Acetaminophen (Tylenol) 650 mg PO Q4H PRN PRN Reason: Fever >101 Acetaminophen/Hydrocodone Bitart ([place] 5/325) 1 each PO Q6H PRN PRN Reason: Pain, Moderate (4-6) Albuterol (Proventil) 2.5 mg IH Q4HRT PRN PRN Reason: Shortness Of Breath Albuterol/Ipratropium (Duoneb *Not For Prn Use*) 1 ampul IH QIDRT [facility] Last Admin: 09/05/18 08:29 Dose: 1 ampul Documented by: Amlodipine Besylate (Norvasc) 10 mg PO DAILY [facility] Last Admin: 09/05/18 12:25 Dose: 10 mg Documented by: Cyclobenzaprine HCl (Flexeril) 10 mg PO TID PRN PRN Reason: Muscle Spasm Dextrose (D50w (25gm) Syringe) 50 ml IV PRN PRN PRN Reason: Hypoglycemia Furosemide (Lasix) 40 mg IV QDAY [facility] Last Admin: 09/05/18 12:23 Dose: 40 mg Documented by: Gabapentin (Neurontin) mg PO TID [facility] Heparin Sodium (Porcine) (Heparin) 5,000 unit SUB-Q Q12HR [facility] Last Admin: 09/05/18 12:28 Dose: 5,000 unit Documented by: Levofloxacin/Dextrose (Levaquin 750mg/150ml) 750 mg in 150 mls @ 100 mls/hr IV Q48HR [facility]; Protocol Last Admin: 09/05/18 12:28 Dose: 100 mls/hr Documented by: Insulin Human Regular (Humulin R) 0 units SUB-Q AC [facility]; Protocol Last Admin: 09/05/18 12:42 Dose: 1 units Documented by: Insulin Human Regular (Humulin R) 0 units SUB-Q QHS [facility]; Protocol Methylprednisolone Sodium Succinate (Solu-Medrol) 60 mg IV Q8H [facility] Last Admin: 09/05/18 12:22 Dose: 60 mg Documented by: Nitroglycerin (Nitro-Bid 2%) 0.5 inch TP QIDNTG [facility]; Protocol Last Admin: 09/05/18 12:27 Dose: 0.5 inch Documented by: Ondansetron HCl (Zofran) 4 mg IV Q8H PRN PRN Reason: Nausea And Vomiting Tamsulosin HCl (Flomax) 0.4 mg PO QDAY [facility] Last Admin: 09/05/18 12:23 Dose: 0.4 mg Documented by: Tramadol HCl (Ultram) 50 mg PO Q6H PRN PRN Reason: Pain, Moderate (4-6) Review of Systems All systems: negative Physical Examination Vital signs: Vital Signs Temp Pulse Resp BP Pulse Ox 98 F 108 H 18 149/93 100 09/04/18 21:20 09/04/18 21:20 09/04/18 21:20 09/04/18 21:20 09/04/18 21:20 General appearance: no acute distress, alert, appears uncomfortable Eyes: non-icteric ENT: oropharynx moist Neck: supple Effort: mildly labored Ascultation: Bilateral: diminished breath sounds, rales Percussion: Bilateral: not dull Tactile fremitus: Bilateral: diminished Cardiovascular: regular rate and rhythm Gastrointestinal: normoactive bowel sounds, soft Extremities: edema, anasarca normal mental status mood appropriate, affect normal Results - Laboratory Findings CBC and BMP: 09/05/18 06:53 09/04/18 21:37 ABG POC ABG pH 7.304 (7.35-7.45) L 09/04/18 22:04 POC ABG pCO2 32.3 (35-45) L 09/04/18 22:04 POC ABG pO2 211 (80-105) H 09/04/18 22:04 POC ABG HCO3 16.0 09/04/18 22:04 POC ABG Total CO2 17 09/04/18 22:04 POC ABG O2 Sat 100 09/04/18 22:04 Abnormal lab findings: Abnormal Labs 09/04/18 09/04/18 09/04/18 21:37 21:37 21:37 WBC 15.1 H RBC 2.93 L Hgb 7.7 L Hct 24.9 L MCH 26 L RDW 15.6 H [place] % (Auto) 9.3 H [place] # 1.4 H Baso # 0.2 H Seg Neutrophils # 10.0 H POC ABG pH POC ABG pCO2 POC ABG pO2 Chloride Carbon Dioxide BUN Creatinine Glucose POC Glucose Calcium Alkaline Phosphatase 240 H Total Creatine Kinase CK-MB (CK-2) Troponin T 0.082 H NT-Pro-B Natriuret Pep 88518 H Albumin 3.1 L HDL Cholesterol 78 H 09/04/18 09/04/18 09/04/18 21:37 21:55 22:04 WBC RBC Hgb Hct MCH RDW [place] % (Auto) [place] # Baso # Seg Neutrophils # POC ABG pH 7.306 L 7.304 L POC ABG pCO2 32.9 L 32.3 L POC ABG pO2 227 H 211 H Chloride 107.9 H Carbon Dioxide 17 L BUN 44 H Creatinine 2.2 H Glucose 115 H POC Glucose Calcium 8.0 L Alkaline Phosphatase Total Creatine Kinase CK-MB (CK-2) Troponin T NT-Pro-B Natriuret Pep Albumin HDL Cholesterol 09/05/18 09/05/18 09/05/18 00:14 05:46 06:12 WBC RBC Hgb Hct MCH RDW [place] % (Auto) [place] # Baso # Seg Neutrophils # POC ABG pH POC ABG pCO2 POC ABG pO2 Chloride Carbon Dioxide BUN Creatinine Glucose POC Glucose 181 H Calcium Alkaline Phosphatase Total Creatine Kinase 205 H 182 H CK-MB (CK-2) 4.5 H Troponin T 0.071 H 0.064 H NT-Pro-B Natriuret Pep Albumin HDL Cholesterol 09/05/18 09/05/18 06:53 12:19 WBC 11.3 H RBC 2.71 L Hgb 7.3 L Hct 23.0 L MCH 27 L RDW 15.6 H [place] % (Auto) [place] # Baso # Seg Neutrophils # POC ABG pH POC ABG pCO2 POC ABG pO2 Chloride Carbon Dioxide BUN Creatinine Glucose POC Glucose 167 H Calcium Alkaline Phosphatase Total Creatine Kinase CK-MB (CK-2) Troponin T NT-Pro-B Natriuret Pep Albumin HDL Cholesterol - Diagnostic Findings Chest x-ray: image reviewed Assessment and Plan 62 y /o female with CKD, morbid obesity, JATINDER not being treated, chronic respiratory failure and COPD, admitted with worsening dyspnea on exertion. 1. Continue PPV at night as patient suffers from JATINDER but does not have proper equipment at home. Most recent blood gas would not suggest chronic hypercapnea. 2. BNP was >21K on admission. Does have chronic renal disease and renal following. AGree with diuretics. May need higher doses given GFR 3. Patient has COPD and chronic respiratory failure. Not wheezing currently on exam and if she was wheezing yesterday, likely more related to volume. Will decrease steroids by large amount today. 4. Weight loss 5. Continue supplemental O2.
--- NOTE | 2018-09-05 20:49 | Ultrasound Report ---
FINAL REPORT PROCEDURE: US RENAL BILAT TECHNIQUE: Real-time sonography in multiple planes of the kidneys, ureters and urinary bladder was p erformed with image documentation. CPT 98042 HISTORY: FLY COMPARISON: No prior studies are available for comparison. FINDINGS: RIGHT kidney: Renal parenchymal echotexture is increased. There is no obstructive uropathy or calculi .. Length: 9.5 x 4.0 x 6.4 cm. Renal cortex is 1.5 centimeters LEFT kidney: Renal parenchymal echotexture is increased. There are no calculi or hydronephrosis.. Anibal gth: 9.6 x 5.8 x 6.0cm. Renal cortex is 1.7 centimeters Bladder: Normal. Right pleural effusion is identified IMPRESSION: Increased renal parenchymal echotexture is consistent with medical renal disease. No obstructive uropathy.
[2018-09-05] MEDS: NORCO 5/325 PO PRN (21:27)
[2018-09-06 06:17] LABS: Hematocrit 21.3 % (30.3-42.9); Hemoglobin 6.8 gm/dl (10.1-14.3); Mean Corpuscular HGB Conc 32 % (30-34); Mean Corpuscular Volume 85 fl (79-97); Platelet Count 256 K/mm3 (140-440); Red Cell Distribution Width 15.6 % (13.2-15.2)
[2018-09-06 06:44] LABS: Calcium 7.6 mg/dL (8.4-10.2)
[2018-09-06] MEDS ORDERED: NACL 0.9% 500 ML 500 ML IV ONE (07:25)
[2018-09-06] MEDS: DUONEB *Not for PRN Use IH SCH ×4 (08:08→20:25)
--- NOTE | 2018-09-06 08:36 | Progress Note ---
Assessment and Plan - Patient Problems (1) Acute on chronic renal failure Current Visit: Yes Status: Acute Qualifiers: Chronic kidney disease stage: stage 2 (mild) Plan to address problem: Patient may likely have some underlying chronic kidney disease in the setting of hypertension, diabetes, now with an exacerbated acute renal injury in the setting of possible heart failure. ECHO noted, and there was noted to be dilatation of the IVC without >50% decreased with inspiration, which may be indicating that she still has some element of volume overload. Edema remains but is improving from yesterday Agree with current management. Avoid nephrotoxins. Maintain mean arterial pressures above 65. Closely monitor renal functions daily. We will obtain a urinalysis as well as urine electrolytes which unfortunately had been collected. Renal US noted without any acute findings, however evidence of likely underlying CKD. (2) Acute respiratory failure with hypoxia Current Visit: Yes Status: Acute Plan to address problem: Possibly in the setting of an acute congestive heart failure episode/volume overload. ECHO noted and not acute systolic or diastolic dysfunction was mentioned. Moderate LVH and EF 50-55%. IVC dilatation noted without decrease/change with respiration, possibly indicating element of volume overload state. Agree with current diuretic regimen with Lasix 40 IV daily. Strict monitoring of her intake and output, as we need to document her urine output per shift. I have reiterated this with the nursing staff. Continue to monitor closely. I agree with BiPAP. (3) Hyperkalemia Current Visit: Yes Status: Acute Plan to address problem: Anticipate that kaliuresis should be improved with lasix therapy. Noted that kayexulate orders have been written. Will also supplement sodium bicarbonate in the setting of persistent metabolic acidosis in the patient with underlying CKD. (4) Metabolic acidosis Current Visit: Yes Status: Acute Plan to address problem: Will start on NaHCO3 1 tab with meals TID. (5) Hypertensive chronic kidney disease with stage 1 through stage 4 chronic kidney disease, or unspecified chronic kidney disease Current Visit: Yes Status: Chronic Plan to address problem: Continue current outpatient antihypertensive regimen. We will have to closely monitor. (6) Type 2 diabetes mellitus with diabetic chronic kidney disease Current Visit: Yes Status: Chronic Plan to address problem: Diabetes management per primary team. (7) COPD exacerbation Current Visit: Yes Status: Acute Plan to address problem: Management per primary attending. Patient on BiPAP and received DuoNeb therapy as scheduled. (8) Anemia in CKD (chronic kidney disease) Current Visit: Yes Status: Acute Qualifiers: Chronic kidney disease stage: stage 3 (moderate) Qualified Code(s): N18.3 - Chronic kidney disease, stage 3 (moderate); D63.1 - Anemia in chronic kidney disease Plan to address problem: Would recommend further evaluation including a FOBT, as well as iron studies at this time. She has no acute signs/symptoms concerning for GI bleed. Will follow up recommendations per primary attending. Subjective Date of service: 09/06/18 Interval history: No acute events overnight, discussed with RN that we need to be documenting her UO as we are diuresing her to ensure and adequate response. Labs noted, and creatinine is slightly higher than yesterday, from 2.2 to 2.8. She is receiving lasix 40 mg IV daily. She states that her breathing overall is improving. Objective - Vital Signs Vital signs: Vital Signs - 12hr 09/05/18 09/05/18 09/05/18 21:42 21:46 23:30 Temperature 98.2 F Pulse Rate 115 H Pulse Rate [ 106 H 100 H Bilateral Throughout] Respiratory 18 Rate Respiratory 12 14 Rate [Bilateral Throughout] Blood Pressure 109/49 Blood Pressure [Left] O2 Sat by Pulse 99 Oximetry 09/06/18 09/06/18 09/06/18 00:00 00:19 04:00 Temperature 98.4 F Pulse Rate 95 H 101 H Pulse Rate [ Bilateral Throughout] Respiratory 24 18 Rate Respiratory Rate [Bilateral Throughout] Blood Pressure Blood Pressure 134/51 [Left] O2 Sat by Pulse 96 100 Oximetry - General Appearance General appearance: well-developed, well-nourished, appears stated age EENT: ATNC, PERRL Neck: no JVD, no thyromegaly Respiratory: Present: Wheezes, Decreased Breath Sounds (at bases ) Cardiology: regular, S1S2 Gastrointestinal: normal, normoactive bowel sounds Integumentary: no rash, warm and dry Neurologic: no focal deficit Musculoskeletal: other (BLE edema, improving ) Psychiatric: mood/affect appropriate, cooperative - Lab 09/06/18 05:42 09/06/18 05:42 Most recent lab results Calcium 7.6 mg/dL (8.4-10.2) L 09/06/18 05:42 - Imaging Chest x-ray: report reviewed Kidney/bladder ultrasound: report reviewed - Allied health notes Allied health notes reviewed: nursing Medications & Allergies - Medications Allergies/Adverse Reactions: Allergies lisinopril Allergy (Severe, Verified 03/18/15 14:54) Swelling swelling mouth and throat Home Medications: Home Medications Medication Instructions Recorded Confirmed Last Taken Type Gabapentin 2 tab PO TID 05/06/14 07/31/17 07/04/15 History Cyclobenzaprine [Flexeril 10 MG 10 mg PO TID PRN #14 tablet 07/25/17 07/31/17 Unknown Rx TAB] Insulin Glargine,Hum.rec.anlog 10 units SUB-Q HS 07/31/17 07/31/17 Unknown History [Lantus] amLODIPine [Norvasc] 10 mg PO DAILY 07/31/17 07/31/17 Unknown History Amoxicillin/Potassium Clav 1 each PO BID #14 tablet 08/02/17 Unknown Rx [Augmentin 875-125 Tablet] HYDROcodone/APAP 5-325 [[place] 1 - 2 each PO Q6HR PRN #14 tablet 08/02/17 Unknown Rx 5-325 mg TAB] Tamsulosin [Flomax] 0.4 mg PO QDAY #30 capsule 08/02/17 Unknown Rx traMADol [Ultram 50 MG tab] 50 mg PO Q6H PRN #14 tablet 08/02/17 Unknown Rx Active Medications: Generic Name Dose Route Start Last Admin Trade Name Freq PRN Reason Stop Dose Admin Acetaminophen 650 mg 09/04/18 23:53 Tylenol PO Q4H PRN Fever >101 Acetaminophen/Hydrocodone [place] 1 each 09/05/18 00:01 09/05/18 21:27 [place] 5/325 PO 1 each Q6H PRN Administration Pain, Moderate (4-6) Albuterol 2.5 mg 09/05/18 01:37 Proventil IH Q4HRT PRN Shortness Of Breath Albuterol/Ipratropium 1 ampul 09/05/18 08:00 09/06/18 08:08 Duoneb *Not For Prn Use* IH 1 ampul QIDRT [facility] Administration Amlodipine Besylate 10 mg 09/05/18 10:00 09/05/18 12:25 Norvasc PO 10 mg DAILY [facility] Administration Cyclobenzaprine HCl 10 mg 09/05/18 00:01 09/05/18 21:26 Flexeril PO 10 mg TID PRN Administration Muscle Spasm Dextrose 50 ml 09/04/18 23:58 D50w (25gm) Syringe IV PRN PRN Hypoglycemia Furosemide 40 mg 09/05/18 10:00 09/05/18 12:23 Lasix IV 40 mg QDAY [facility] Administration Gabapentin 300 mg 09/05/18 08:00 Neurontin PO TID [facility] Heparin Sodium (Porcine) 5,000 unit 09/05/18 10:00 09/05/18 21:26 Heparin SUB-Q 5,000 unit Q12HR [facility] Administration Levofloxacin/Dextrose 750 mg in 150 mls @ 100 mls/hr 09/05/18 10:00 09/05/18 12:28 Levaquin 750mg/150ml IV 100 mls/hr Q48HR [facility] Administration Protocol Insulin Human Regular 0 units 09/05/18 07:30 09/05/18 18:58 Humulin R SUB-Q 2 units AC [facility] Administration Protocol Insulin Human Regular 0 units 09/05/18 22:00 Humulin R SUB-Q QHS [facility] Protocol Methylprednisolone Sodium Succinate 20 mg 09/05/18 16:00 09/05/18 23:18 Solu-Medrol IV 20 mg Q8H [facility] Administration Nitroglycerin 0.5 inch 09/05/18 01:00 09/05/18 18:58 Nitro-Bid 2% TP 0.5 inch QIDNTG [facility] Administration Protocol Ondansetron HCl 4 mg 09/04/18 23:55 Zofran IV Q8H PRN Nausea And Vomiting Sodium Polystyrene Sulfonate 30 gm 09/06/18 08:00 Kionex PO 09/06/18 12:01 Q6HR [facility] Tamsulosin HCl 0.4 mg 09/05/18 10:00 09/05/18 12:23 Flomax PO 0.4 mg QDAY [facility] Administration Tramadol HCl 50 mg 09/05/18 00:01 Ultram PO Q6H PRN Pain, Moderate (4-6)
[2018-09-06] MEDS: LASIX IV SCH (09:01)
--- NOTE | 2018-09-06 09:01 | Progress Note ---
Assessment and Plan Assessment and plan: Acute resp failure due to COPD exacerbation Supplemental Oxygen COPD exacerbation On solumedrol, Duoneb Hypertension Monitor BP Acute on CKD Nephrology following Diabetes mellitus type 2. Fingerstick glucose qac and hs Hyperlipidemia Anemia. hgb 6.8. Transfuse 1 unit PRBC and repeat Hyperkalemia. Give kayexalate and repeat Full code status History Interval history: Less shortness of breath, No chest pain Hospitalist Physical - Physical exam Narrative exam: GEN: Not in acute distress,lying in bed HEENT: Normocephalic, atraumatic, Neck: supple, No JVD Lungs: Decreased BS, bilateral rhonchi, Heart:S1 and S2 regular, no murmurs, rubs or gallop, Abd:soft, non tender, non distended, normal bowel sounds Ext: No edema, no clubbing or cyanosis Neuro: Awake,alert, oriented x 3, No focal signs Psych:Normal mood - Constitutional Vitals: Temp Pulse Resp BP Pulse Ox 98.0 F 98 H 20 155/72 99 09/06/18 08:12 09/06/18 08:12 09/06/18 08:12 09/06/18 08:12 09/06/18 08:12 Results - Labs CBC & Chem 7: 09/07/18 06:15 09/07/18 06:15 Labs: Laboratory Last Values WBC 10.8 K/mm3 (4.5-11.0) 09/06/18 05:42 RBC 2.50 M/mm3 (3.65-5.03) L 09/06/18 05:42 Hgb 6.8 gm/dl (10.1-14.3) L 09/06/18 05:42 Hct 21.3 % (30.3-42.9) L 09/06/18 05:42 MCV 85 fl (79-97) 09/06/18 05:42 MCH 27 pg (28-32) L 09/06/18 05:42 MCHC 32 % (30-34) 09/06/18 05:42 RDW 15.6 % (13.2-15.2) H 09/06/18 05:42 Plt Count 256 K/mm3 (140-440) 09/06/18 05:42 Lymph % (Auto) 22.6 % (13.4-35.0) 09/04/18 21:37 [place] % (Auto) 9.3 % (0.0-7.3) H 09/04/18 21:37 Eos % (Auto) 0.8 % (0.0-4.3) 09/04/18 21:37 Baso % (Auto) 1.2 % (0.0-1.8) 09/04/18 21:37 Lymph # 3.4 K/mm3 (1.2-5.4) 09/04/18 21:37 [place] # 1.4 K/mm3 (0.0-0.8) H 09/04/18 21:37 Eos # 0.1 K/mm3 (0.0-0.4) 09/04/18 21:37 Baso # 0.2 K/mm3 (0.0-0.1) H 09/04/18 21:37 Seg Neutrophils % 66.1 % (40.0-70.0) 09/04/18 21:37 Seg Neutrophils # 10.0 K/mm3 (1.8-7.7) H 09/04/18 21:37 POC ABG pH 7.304 (7.35-7.45) L 09/04/18 22:04 POC ABG pCO2 32.3 (35-45) L 09/04/18 22:04 POC ABG pO2 211 (80-105) H 09/04/18 22:04 POC ABG HCO3 16.0 09/04/18 22:04 POC ABG Total CO2 17 09/04/18 22:04 POC ABG O2 Sat 100 09/04/18 22:04 POC ABG Base Excess -10 09/04/18 22:04 FiO2 60 % 09/04/18 22:04 Sodium 140 mmol/L (137-145) 09/06/18 05:42 Potassium 5.4 mmol/L (3.6-5.0) H 09/06/18 05:42 Chloride 109.8 mmol/L (98-107) H 09/06/18 05:42 Carbon Dioxide 16 mmol/L (22-30) L 09/06/18 05:42 Anion Gap 20 mmol/L 09/06/18 05:42 BUN 52 mg/dL (7-17) H 09/06/18 05:42 Creatinine 2.8 mg/dL (0.7-1.2) H 09/06/18 05:42 Estimated GFR 21 ml/min 09/06/18 05:42 BUN/Creatinine Ratio 19 % 09/06/18 05:42 Glucose 274 mg/dL (65-100) H 09/06/18 05:42 POC Glucose 272 (70-105) H 09/06/18 05:20 Calcium 7.6 mg/dL (8.4-10.2) L 09/06/18 05:42 Total Bilirubin 0.40 mg/dL (0.1-1.2) 09/04/18 21:37 Direct Bilirubin < 0.2 mg/dL (0-0.2) 09/04/18 21:37 Indirect Bilirubin 0.2 mg/dL 09/04/18 21:37 AST 34 units/L (5-40) 09/04/18 21:37 ALT 49 units/L (7-56) 09/04/18 21:37 Alkaline Phosphatase 240 units/L (35-129) H 09/04/18 21:37 Total Creatine Kinase 182 units/L (30-135) H 09/05/18 05:46 CK-MB (CK-2) 3.8 ng/mL (0.0-4.0) 09/05/18 05:46 CK-MB (CK-2) Rel Index 2.0 (0-4) 09/05/18 05:46 Troponin T 0.064 ng/mL (0.00-0.029) H 09/05/18 05:46 NT-Pro-B Natriuret Pep 92657 pg/mL (0-900) H 09/04/18 21:37 Total Protein 7.3 g/dL (6.3-8.2) 09/04/18 21:37 Albumin 3.1 g/dL (3.9-5) L 09/04/18 21:37 Albumin/Globulin Ratio 0.7 % 09/04/18 21:37 Triglycerides 93 mg/dL (2-149) 09/04/18 21:37 Cholesterol 174 mg/dL (50-199) 09/04/18 21:37 LDL Cholesterol Direct 93 mg/dL (50-130) 09/04/18 21:37 HDL Cholesterol 78 mg/dL (40-59) H 09/04/18 21:37 Cholesterol/HDL Ratio 2.23 % 09/04/18 21:37
[2018-09-06] MEDS: HEPARIN SUB-Q SCH ×2 (09:02→21:41)
[2018-09-06] MEDS: NITRO-BID 2% TP SCH ×4 (09:03→19:35)
[2018-09-06] MEDS: HumuLIN R SUB-Q SCH ×4 (09:03→22:43)
[2018-09-06] MEDS: NORVASC PO SCH (09:04)
[2018-09-06] MEDS: KIONEX PO SCH ×2 (09:04→19:25)
[2018-09-06] MEDS: FLOMAX PO SCH (09:08)
[2018-09-06] MEDS: SOLU-Medrol IV SCH (09:09)
[2018-09-06] MEDS: NEURONTIN PO SCH ×3 (14:42→21:42)
[2018-09-06] MEDS: SODIUM BICARBONATE PO SCH ×2 (14:44→21:41)
--- NOTE | 2018-09-06 15:12 | Progress Note ---
Assessment and Plan 62 y /o female with CKD, morbid obesity, JATINDER not being treated, chronic respiratory failure and COPD, admitted with worsening dyspnea on exertion. 1. Continue PPV at night as patient suffers from JATINDER but does not have proper equipment at home. Most recent blood gas would not suggest chronic hypercapnea. 2. BNP was >21K on admission. Does have chronic renal disease and renal following. AGree with diuretics. May need higher doses given GFR 3. Patient has COPD and chronic respiratory failure. Not wheezing currently on exam and if she was wheezing yesterday, likely more related to volume. Stopped steroids all together today. 4. Weight loss 5. Per patient supplemental O2 has been weaned off. Subjective Date of service: 09/06/18 Interval history: Off oxygen. Feels better. I/O not accurate. Wore Bipap last night. Objective Vital Signs - 12hr 09/06/18 09/06/18 09/06/18 04:00 08:08 08:12 Temperature 98.4 F 98.0 F Pulse Rate 101 H 98 H Pulse Rate [ 93 H Anterior Bilateral Throughout] Respiratory 18 20 Rate Respiratory 20 Rate [Anterior Bilateral Throughout] Blood Pressure 155/72 Blood Pressure 134/51 [Left] O2 Sat by Pulse 100 99 Oximetry 09/06/18 09/06/18 09/06/18 08:18 11:27 11:37 Temperature Pulse Rate Pulse Rate [ 92 H 111 H 106 H Anterior Bilateral Throughout] Respiratory Rate Respiratory 20 20 20 Rate [Anterior Bilateral Throughout] Blood Pressure Blood Pressure [Left] O2 Sat by Pulse 99 Oximetry 09/06/18 09/06/18 09/06/18 12:18 12:19 12:21 Temperature 98.4 F 98.4 F Pulse Rate 111 H Pulse Rate [ Anterior Bilateral Throughout] Respiratory 20 Rate Respiratory Rate [Anterior Bilateral Throughout] Blood Pressure 124/67 Blood Pressure [Left] O2 Sat by Pulse 97 Oximetry Constitutional: no acute distress, alert, appears uncomfortable Eyes: non-icteric ENT: oropharynx moist Neck: supple Effort: mildly labored Ascultation: Bilateral: diminished breath sounds, rales Percussion: Bilateral: not dull Tactile fremitus: Bilateral: diminished Cardiovascular: regular rate and rhythm Gastrointestinal: normoactive bowel sounds, soft Extremities: edema, anasarca Neurologic: normal mental status Psychiatric: mood appropriate, affect normal CBC and BMP: 09/06/18 05:42 09/06/18 05:42 ABG, PT/INR, D-dimer: ABG POC ABG pH 7.304 (7.35-7.45) L 09/04/18 22:04 POC ABG pCO2 32.3 (35-45) L 09/04/18 22:04 POC ABG pO2 211 (80-105) H 09/04/18 22:04 POC ABG HCO3 16.0 09/04/18 22:04 POC ABG Total CO2 17 09/04/18 22:04 POC ABG O2 Sat 100 09/04/18 22:04 Abnormal lab findings: Abnormal Labs 09/04/18 09/04/18 09/04/18 21:37 21:37 21:37 WBC 15.1 H RBC 2.93 L Hgb 7.7 L Hct 24.9 L MCH 26 L RDW 15.6 H [place] % (Auto) 9.3 H [place] # 1.4 H Baso # 0.2 H Seg Neutrophils # 10.0 H POC ABG pH POC ABG pCO2 POC ABG pO2 Potassium Chloride Carbon Dioxide BUN Creatinine Glucose POC Glucose Calcium Alkaline Phosphatase 240 H Total Creatine Kinase CK-MB (CK-2) Troponin T 0.082 H NT-Pro-B Natriuret Pep 54343 H Albumin 3.1 L HDL Cholesterol 78 H Crossmatch 09/04/18 09/04/18 09/04/18 21:37 21:55 22:04 WBC RBC Hgb Hct MCH RDW [place] % (Auto) [place] # Baso # Seg Neutrophils # POC ABG pH 7.306 L 7.304 L POC ABG pCO2 32.9 L 32.3 L POC ABG pO2 227 H 211 H Potassium Chloride 107.9 H Carbon Dioxide 17 L BUN 44 H Creatinine 2.2 H Glucose 115 H POC Glucose Calcium 8.0 L Alkaline Phosphatase Total Creatine Kinase CK-MB (CK-2) Troponin T NT-Pro-B Natriuret Pep Albumin HDL Cholesterol Crossmatch 09/05/18 09/05/18 09/05/18 00:14 05:46 06:12 WBC RBC Hgb Hct MCH RDW [place] % (Auto) [place] # Baso # Seg Neutrophils # POC ABG pH POC ABG pCO2 POC ABG pO2 Potassium Chloride Carbon Dioxide BUN Creatinine Glucose POC Glucose 181 H Calcium Alkaline Phosphatase Total Creatine Kinase 205 H 182 H CK-MB (CK-2) 4.5 H Troponin T 0.071 H 0.064 H NT-Pro-B Natriuret Pep Albumin HDL Cholesterol Crossmatch 09/05/18 09/05/18 09/05/18 06:53 12:19 18:53 WBC 11.3 H RBC 2.71 L Hgb 7.3 L Hct 23.0 L MCH 27 L RDW 15.6 H [place] % (Auto) [place] # Baso # Seg Neutrophils # POC ABG pH POC ABG pCO2 POC ABG pO2 Potassium Chloride Carbon Dioxide BUN Creatinine Glucose POC Glucose 167 H 203 H Calcium Alkaline Phosphatase Total Creatine Kinase CK-MB (CK-2) Troponin T NT-Pro-B Natriuret Pep Albumin HDL Cholesterol Crossmatch 09/05/18 09/06/18 09/06/18 23:31 05:20 05:42 WBC RBC 2.50 L Hgb 6.8 L Hct 21.3 L MCH 27 L RDW 15.6 H [place] % (Auto) [place] # Baso # Seg Neutrophils # POC ABG pH POC ABG pCO2 POC ABG pO2 Potassium Chloride Carbon Dioxide BUN Creatinine Glucose POC Glucose 313 H 272 H Calcium Alkaline Phosphatase Total Creatine Kinase CK-MB (CK-2) Troponin T NT-Pro-B Natriuret Pep Albumin HDL Cholesterol Crossmatch 09/06/18 09/06/18 09/06/18 05:42 11:14 12:20 WBC RBC Hgb Hct MCH RDW [place] % (Auto) [place] # Baso # Seg Neutrophils # POC ABG pH POC ABG pCO2 POC ABG pO2 Potassium 5.4 H Chloride 109.8 H Carbon Dioxide 16 L BUN 52 H Creatinine 2.8 H Glucose 274 H POC Glucose 303 H Calcium 7.6 L Alkaline Phosphatase Total Creatine Kinase CK-MB (CK-2) Troponin T NT-Pro-B Natriuret Pep Albumin HDL Cholesterol Crossmatch See Detail Allied health notes reviewed: nursing
[2018-09-06 15:31] LABS: Bacteria,Urine 2+ /HPF (Negative); Bilirubin,Urine NEG (Negative); Blood,Urine MOD (Negative); Color,Urine Yellow (Yellow); Urobilinogen,Urine < 2.0 mg/dL (<2.0)
[2018-09-06 15:35] LABS: Chloride, Urine 82.2 mmolL (110-250); Creatinine,Urine 46.3 mg/dL (0.1-20.0)
[2018-09-06] MEDS ORDERED: KIONEX PO ONE (18:00)
[2018-09-06] MEDS ORDERED: NACL 0.9% 250ML 250 ML IV ONE (18:22)
[2018-09-06] MEDS: NORCO 5/325 PO PRN (21:41)
[2018-09-07] MEDS: NITRO-BID 2% TP SCH ×4 (05:36→17:38)
[2018-09-07 06:39] LABS: Hematocrit 24.2 % (30.3-42.9); Hemoglobin 7.7 gm/dl (10.1-14.3); Mean Corpuscular HGB Conc 32 % (30-34); Mean Corpuscular Volume 85 fl (79-97); Platelet Count 270 K/mm3 (140-440); Red Blood Count 2.84 M/mm3 (3.65-5.03); Red Cell Distribution Width 15.5 % (13.2-15.2)
[2018-09-07 07:03] LABS: Calcium 7.3 mg/dL (8.4-10.2)
[2018-09-07] MEDS: HumuLIN R SUB-Q SCH ×4 (08:19→22:42)
[2018-09-07] MEDS: SODIUM BICARBONATE PO SCH ×3 (08:47→20:51)
[2018-09-07] MEDS: NEURONTIN PO SCH ×4 (08:48→20:49)
[2018-09-07] MEDS: DUONEB *Not for PRN Use IH SCH ×3 (09:10→19:52)
[2018-09-07] MEDS ORDERED: VANCOMYCIN PHARMACY TO DOSE IV SCH (10:00)
[2018-09-07] MEDS: HEPARIN SUB-Q SCH ×2 (10:35→22:42)
[2018-09-07] MEDS: NORVASC PO SCH (10:39)
[2018-09-07] MEDS: FLOMAX PO SCH (10:39)
[2018-09-07] MEDS: LASIX IV SCH (10:40)
[2018-09-07] MEDS: LEVAQUIN 750MG/150ML 750 MG/150 ML BAG IV SCH (10:40)
--- NOTE | 2018-09-07 11:16 | Progress Note ---
Assessment and Plan - Patient Problems (1) Acute on chronic renal failure Current Visit: Yes Status: Acute Qualifiers: Chronic kidney disease stage: stage 2 (mild) Plan to address problem: Patient may likely have some underlying chronic kidney disease in the setting of hypertension, diabetes, now with an exacerbated acute renal injury in the setting of possible heart failure. ECHO noted, and there was noted to be dilatation of the IVC without >50% decreased with inspiration, which may be indicating that she still has some element of volume overload. Edema remains but is improving from yesterday Agree with current management. Avoid nephrotoxins. Maintain mean arterial pressures above 65. Closely monitor renal functions daily. UA and urine electrolytes noted. Renal US noted without any acute findings, however evidence of likely underlying CKD. (2) Acute respiratory failure with hypoxia Current Visit: Yes Status: Acute Plan to address problem: Possibly in the setting of an acute congestive heart failure episode/volume overload. ECHO noted and not acute systolic or diastolic dysfunction was mentioned. Moderate LVH and EF 50-55%. IVC dilatation noted without decrease/change with respiration, possibly indicating element of volume overload state. Agree with current diuretic regimen with Lasix 40 IV daily. Strict monitoring of her intake and output, as we need to document her urine output per shift. I have reiterated this with the nursing staff. Continue to monitor closely. I agree with BiPAP. (3) Bacteremia due to Gram-positive bacteria Current Visit: Yes Status: Acute Plan to address problem: Placed on IV Vanc and consult placed to ID. Will follow up further recommendations from infectious diseases. (4) Hyperkalemia Current Visit: Yes Status: Acute Plan to address problem: Improved with medical management (5) Metabolic acidosis Current Visit: Yes Status: Acute Plan to address problem: Started on NaHCO3 1 tab with meals TID. (6) Hypertensive chronic kidney disease with stage 1 through stage 4 chronic kidney disease, or unspecified chronic kidney disease Current Visit: Yes Status: Chronic Plan to address problem: Continue current outpatient antihypertensive regimen. We will have to closely monitor. (7) Type 2 diabetes mellitus with diabetic chronic kidney disease Current Visit: Yes Status: Chronic Plan to address problem: Diabetes management per primary team. (8) COPD exacerbation Current Visit: Yes Status: Acute Plan to address problem: Management per primary attending. Patient on BiPAP and received DuoNeb therapy as scheduled. (9) Anemia in CKD (chronic kidney disease) Current Visit: Yes Status: Acute Qualifiers: Chronic kidney disease stage: stage 3 (moderate) Qualified Code(s): N18.3 - Chronic kidney disease, stage 3 (moderate); D63.1 - Anemia in chronic kidney d isease Plan to address problem: Would recommend further evaluation including a FOBT, as well as iron studies at this time. She has no acute signs/symptoms concerning for GI bleed. Will follow up recommendations per primary attending. Subjective Date of service: 09/07/18 Interval history: Blood Cx preliminarily growing staph Aureus. Labs noted, and renal function is stable. No acute complaints this morning from patient. She is actually wanting to know if she can be DC's soon. Objective - Vital Signs Vital signs: Vital Signs - 12hr 09/07/18 09/07/18 09/07/18 01:48 04:43 06:00 Temperature 98.2 F Pulse Rate 89 106 H Pulse Rate [ Anterior Bilateral Throughout] Pulse Rate [ Bilateral Bases ] Respiratory 20 20 Rate Respiratory Rate [Anterior Bilateral Throughout] Respiratory Rate [Bilateral Bases] Blood Pressure 117/64 O2 Sat by Pulse 97 100 Oximetry 09/07/18 09/07/18 09/07/18 08:22 09:10 09:23 Temperature 97.9 F Pulse Rate 91 H Pulse Rate [ 94 H 100 H Anterior Bilateral Throughout] Pulse Rate [ 94 H 100 H Bilateral Bases ] Respiratory 20 Rate Respiratory 20 20 Rate [Anterior Bilateral Throughout] Respiratory 20 20 Rate [Bilateral Bases] Blood Pressure 135/58 O2 Sat by Pulse 98 100 Oximetry - General Appearance General appearance: well-developed, well-nourished, appears stated age EENT: ATNC, PERRL Neck: no JVD, no thyromegaly Respiratory: Present: Clear to Ascultation Cardiology: regular, S1S2 Gastrointestinal: normal, normoactive bowel sounds Integumentary: no rash, warm and dry Neurologic: no focal deficit, no asterixis Musculoskeletal: other (+edema ) Psychiatric: mood/affect appropriate, cooperative - Lab 09/07/18 06:15 09/07/18 06:15 Most recent lab results Calcium 7.3 mg/dL (8.4-10.2) L 09/07/18 06:15 Urine Creatinine 46.3 mg/dL (0.1-20.0) H 09/06/18 15:10 Urine Sodium 92 mmol/L 09/06/18 15:10 - Allied health notes Allied health notes reviewed: nursing Medications & Allergies - Medications Allergies/Adverse Reactions: Allergies lisinopril Allergy (Severe, Verified 03/18/15 14:54) Swelling swelling mouth and throat Home Medications: Home Medications Medication Instructions Recorded Confirmed Last Taken Type Gabapentin 2 tab PO TID 05/06/14 07/31/17 07/04/15 History Cyclobenzaprine [Flexeril 10 MG 10 mg PO TID PRN #14 tablet 07/25/17 07/31/17 Unknown Rx TAB] Insulin Glargine,Hum.rec.anlog 10 units SUB-Q HS 07/31/17 07/31/17 Unknown History [Lantus] amLODIPine [Norvasc] 10 mg PO DAILY 07/31/17 07/31/17 Unknown History Amoxicillin/Potassium Clav 1 each PO BID #14 tablet 08/02/17 Unknown Rx [Augmentin 875-125 Tablet] HYDROcodone/APAP 5-325 [[place] 1 - 2 each PO Q6HR PRN #14 tablet 08/02/17 Unknown Rx 5-325 mg TAB] Tamsulosin [Flomax] 0.4 mg PO QDAY #30 capsule 08/02/17 Unknown Rx traMADol [Ultram 50 MG tab] 50 mg PO Q6H PRN #14 tablet 08/02/17 Unknown Rx Active Medications: Generic Name Dose Route Start Last Admin Trade Name Freq PRN Reason Stop Dose Admin Acetaminophen 650 mg 09/04/18 23:53 Tylenol PO Q4H PRN Fever >101 Acetaminophen/Hydrocodone Bitart 1 each 09/05/18 00:01 09/06/18 21:41 [place] 5/325 PO 1 each Q6H PRN Administration Pain, Moderate (4-6) Albuterol 2.5 mg 09/05/18 01:37 Proventil IH Q4HRT PRN Shortness Of Breath Albuterol/Ipratropium 1 ampul 09/05/18 08:00 09/07/18 09:10 Duoneb *Not For Prn Use* IH 1 ampul QIDRT DAMIEN Administration Amlodipine Besylate 10 mg 09/05/18 10:00 09/07/18 10:39 Norvasc PO 10 mg DAILY DAMIEN Administration Cyclobenzaprine HCl 10 mg 09/05/18 00:01 09/05/18 21:26 Flexeril PO 10 mg TID PRN Administration Muscle Spasm Dextrose 50 ml 09/04/18 23:58 D50w (25gm) Syringe IV PRN PRN Hypoglycemia Furosemide 40 mg 09/05/18 10:00 09/07/18 10:40 Lasix IV 40 mg QDAY DAMIEN Administration Gabapentin 300 mg 09/05/18 08:00 09/07/18 08:48 Neurontin PO 300 mg TID DAMIEN Administration Heparin Sodium (Porcine) 5,000 unit 09/05/18 10:00 09/07/18 10:35 Heparin SUB-Q 5,000 unit Q12HR DAMIEN Administration Levofloxacin/Dextrose 750 mg in 150 mls @ 100 mls/hr 09/05/18 10:00 09/07/18 10:40 Levaquin 750mg/150ml IV 100 mls/hr Q48HR DAMIEN Administration Protocol Insulin Human Regular 0 units 09/05/18 07:30 09/07/18 08:19 Humulin R SUB-Q Not Given AC [facility] Protocol Insulin Human Regular 0 units 09/05/18 22:00 09/06/18 22:43 Humulin R SUB-Q 2 units QHS [facility] Administration Protocol Nitroglycerin 0.5 inch 09/05/18 01:00 09/07/18 10:39 Nitro-Bid 2% TP 0.5 inch QIDNTG [facility] Administration Protocol Ondansetron HCl 4 mg 09/04/18 23:55 Zofran IV Q8H PRN Nausea And Vomiting Sodium Bicarbonate 650 mg 09/06/18 14:00 09/07/18 08:47 Sodium Bicarbonate PO 650 mg TID DAMIEN Administration Tamsulosin HCl 0.4 mg 09/05/18 10:00 09/07/18 10:39 Flomax PO 0.4 mg QDAY DAMIEN Administration Tramadol HCl 50 mg 09/05/18 00:01 Ultram PO Q6H PRN Pain, Moderate (4-6)
[2018-09-07] MEDS ORDERED: VANCOMYCIN 2,000 MG in NACL 0.9% 500 ML 500 ML IV ONE (11:45)
--- NOTE | 2018-09-07 14:06 | Progress Note ---
Assessment and Plan 62 y /o female with CKD, morbid obesity, JATINDER not being treated, chronic respiratory failure and COPD, admitted with worsening dyspnea on exertion. 1. Continue PPV at night as patient suffers from JATINDER but does not have proper equipment at home. Most recent blood gas would not suggest chronic hypercapnea. 2. BNP was >21K on admission. Does have chronic renal disease and renal following. AGree with diuretics. May need higher doses given GFR 3. Per chart patient has COPD and chronic respiratory failure. Will need 6 minute walk prior to discharge to see if oxygen therapy is still needed. Room air sats at rest are good. 4. Weight loss Subjective Date of service: 09/07/18 Interval history: Remains stable on room air. Objective Vital Signs - 12hr 09/07/18 09/07/18 09/07/18 04:43 06:00 08:22 Temperature 98.2 F 97.9 F Pulse Rate 89 106 H 91 H Pulse Rate [ Anterior Bilateral Throughout] Pulse Rate [ Bilateral Bases ] Respiratory 20 20 Rate Respiratory Rate [Anterior Bilateral Throughout] Respiratory Rate [Bilateral Bases] Blood Pressure 117/64 135/58 O2 Sat by Pulse 100 98 Oximetry 09/07/18 09/07/18 09/07/18 09:10 09:23 10:00 Temperature Pulse Rate Pulse Rate [ 94 H 100 H Anterior Bilateral Throughout] Pulse Rate [ 94 H 100 H Bilateral Bases ] Respiratory Rate Respiratory 20 20 Rate [Anterior Bilateral Throughout] Respiratory 20 20 Rate [Bilateral Bases] Blood Pressure O2 Sat by Pulse 100 98 Oximetry 09/07/18 09/07/18 09/07/18 11:37 13:13 13:20 Temperature 98.0 F Pulse Rate 99 H Pulse Rate [ 95 H 98 H Anterior Bilateral Throughout] Pulse Rate [ 95 H 98 H Bilateral Bases ] Respiratory 20 Rate Respiratory 20 20 Rate [Anterior Bilateral Throughout] Respiratory 20 20 Rate [Bilateral Bases] Blood Pressure 133/76 O2 Sat by Pulse 97 Oximetry Constitutional: no acute distress, alert, appears uncomfortable Eyes: non-icteric ENT: oropharynx moist Neck: supple Effort: mildly labored Ascultation: Bilateral: diminished breath sounds, rales Percussion: Bilateral: not dull Tactile fremitus: Bilateral: diminished Cardiovascular: regular rate and rhythm Gastrointestinal: normoactive bowel sounds, soft Extremities: edema, anasarca Neurologic: normal mental status Psychiatric: mood appropriate, affect normal CBC and BMP: 09/07/18 06:15 09/07/18 06:15 ABG, PT/INR, D-dimer: ABG POC ABG pH 7.304 (7.35-7.45) L 09/04/18 22:04 POC ABG pCO2 32.3 (35-45) L 09/04/18 22:04 POC ABG pO2 211 (80-105) H 09/04/18 22:04 POC ABG HCO3 16.0 09/04/18 22:04 POC ABG Total CO2 17 09/04/18 22:04 POC ABG O2 Sat 100 09/04/18 22:04 Abnormal lab findings: Abnormal Labs 09/04/18 09/04/18 09/04/18 21:37 21:37 21:37 WBC 15.1 H RBC 2.93 L Hgb 7.7 L Hct 24.9 L MCH 26 L RDW 15.6 H [place] % (Auto) 9.3 H [place] # 1.4 H Baso # 0.2 H Seg Neutrophils # 10.0 H POC ABG pH POC ABG pCO2 POC ABG pO2 Potassium Chloride Carbon Dioxide BUN Creatinine Glucose POC Glucose Calcium Alkaline Phosphatase 240 H Total Creatine Kinase CK-MB (CK-2) Troponin T 0.082 H NT-Pro-B Natriuret Pep 33755 H Albumin 3.1 L HDL Cholesterol 78 H Urine WBC (Auto) Urine Creatinine Urine Chloride Crossmatch 09/04/18 09/04/18 09/04/18 21:37 21:55 22:04 WBC RBC Hgb Hct MCH RDW [place] % (Auto) [place] # Baso # Seg Neutrophils # POC ABG pH 7.306 L 7.304 L POC ABG pCO2 32.9 L 32.3 L POC ABG pO2 227 H 211 H Potassium Chloride 107.9 H Carbon Dioxide 17 L BUN 44 H Creatinine 2.2 H Glucose 115 H POC Glucose Calcium 8.0 L Alkaline Phosphatase Total Creatine Kinase CK-MB (CK-2) Troponin T NT-Pro-B Natriuret Pep Albumin HDL Cholesterol Urine WBC (Auto) Urine Creatinine Urine Chloride Crossmatch 09/05/18 09/05/18 09/05/18 00:14 05:46 06:12 WBC RBC Hgb Hct MCH RDW [place] % (Auto) [place] # Baso # Seg Neutrophils # POC ABG pH POC ABG pCO2 POC ABG pO2 Potassium Chloride Carbon Dioxide BUN Creatinine Glucose POC Glucose 181 H Calcium Alkaline Phosphatase Total Creatine Kinase 205 H 182 H CK-MB (CK-2) 4.5 H Troponin T 0.071 H 0.064 H NT-Pro-B Natriuret Pep Albumin HDL Cholesterol Urine WBC (Auto) Urine Creatinine Urine Chloride Crossmatch 09/05/18 09/05/18 09/05/18 06:53 12:19 18:53 WBC 11.3 H RBC 2.71 L Hgb 7.3 L Hct 23.0 L MCH 27 L RDW 15.6 H [place] % (Auto) [place] # Baso # Seg Neutrophils # POC ABG pH POC ABG pCO2 POC ABG pO2 Potassium Chloride Carbon Dioxide BUN Creatinine Glucose POC Glucose 167 H 203 H Calcium Alkaline Phosphatase Total Creatine Kinase CK-MB (CK-2) Troponin T NT-Pro-B Natriuret Pep Albumin HDL Cholesterol Urine WBC (Auto) Urine Creatinine Urine Chloride Crossmatch 09/05/18 09/06/18 09/06/18 23:31 05:20 05:42 WBC RBC 2.50 L Hgb 6.8 L Hct 21.3 L MCH 27 L RDW 15.6 H [place] % (Auto) [place] # Baso # Seg Neutrophils # POC ABG pH POC ABG pCO2 POC ABG pO2 Potassium Chloride Carbon Dioxide BUN Creatinine Glucose POC Glucose 313 H 272 H Calcium Alkaline Phosphatase Total Creatine Kinase CK-MB (CK-2) Troponin T NT-Pro-B Natriuret Pep Albumin HDL Cholesterol Urine WBC (Auto) Urine Creatinine Urine Chloride Crossmatch 09/06/18 09/06/18 09/06/18 05:42 11:14 12:20 WBC RBC Hgb Hct MCH RDW [place] % (Auto) [place] # Baso # Seg Neutrophils # POC ABG pH POC ABG pCO2 POC ABG pO2 Potassium 5.4 H Chloride 109.8 H Carbon Dioxide 16 L BUN 52 H Creatinine 2.8 H Glucose 274 H POC Glucose 303 H Calcium 7.6 L Alkaline Phosphatase Total Creatine Kinase CK-MB (CK-2) Troponin T NT-Pro-B Natriuret Pep Albumin HDL Cholesterol Urine WBC (Auto) Urine Creatinine Urine [place]lor[place] Crossmatch See Detail 09/06/18 09/06/18 09/06/18 15:10 15:10 17:25 WBC RBC Hgb Hct MCH RDW [place] % (Auto) [place] # Baso # Seg Neutrophils # POC ABG pH POC ABG pCO2 POC ABG pO2 Potassium Chloride Carbon Dioxide BUN Creatinine Glucose POC Glucose 298 H Calcium Alkaline Phosphatase Total Creatine Kinase CK-MB (CK-2) Troponin T NT-Pro-B Natriuret Pep Albumin HDL Cholesterol Urine WBC (Auto) 23.0 H Urine Creatinine 46.3 H Urine Chloride 82.2 L Crossmatch 09/06/18 09/07/18 09/07/18 21:15 06:15 06:15 WBC 13.8 H RBC 2.84 L Hgb 7.7 L Hct 24.2 L MCH 27 L RDW 15.5 H [place] % (Auto) [place] # Baso # Seg Neutrophils # POC ABG pH POC ABG pCO2 POC ABG pO2 Potassium Chloride 110.5 H Carbon Dioxide 18 L BUN 54 H Creatinine 2.8 H Glucose 105 H POC Glucose 249 H Calcium 7.3 L Alkaline Phosphatase Total Creatine Kinase CK-MB (CK-2) Troponin T NT-Pro-B Natriuret Pep Albumin HDL Cholesterol Urine WBC (Auto) Urine Creatinine Urine [place] Crossmatch 09/07/18 11:38 WBC RBC Hgb Hct MCH RDW [place] % (Auto) [place] # Baso # Seg Neutrophils # POC ABG pH POC ABG pCO2 POC ABG pO2 Potassium Chloride Carbon Dioxide BUN Creatinine Glucose POC Glucose 148 H Calcium Alkaline Phosphatase Total Creatine Kinase CK-MB (CK-2) Troponin T NT-Pro-B Natriuret Pep Albumin HDL Cholesterol Urine WBC (Auto) Urine Creatinine Urine Chloride Crossmatch Allied health notes reviewed: nursing
[2018-09-07] MEDS: NORCO 5/325 PO PRN (22:48)
[2018-09-08] MEDS: DUONEB *Not for PRN Use IH SCH ×4 (01:45→20:39)
--- NOTE | 2018-09-08 03:38 | Progress Note ---
Assessment and Plan Assessment and plan: Acute resp failure due to COPD exacerbation Supplemental Oxygen COPD exacerbation On Duoneb Bacteremia with staph aureus Repeat blood cultures, Start Empiric Vanco Consult ID Physician. Hypertension Monitor BP Acute on CKD Nephrology following Diabetes mellitus type 2. Fingerstick glucose qac and hs Hyperlipidemia Anemia. hgb 7.7 after 1 Unit PRBC transfusion Hyperkalemia. Resolved after kayexalate Full code status History Interval history: Less shortness of breath, No chest pain Hospitalist Physical - Physical exam Narrative exam: GEN: Not in acute distress,lying in bed HEENT: Normocephalic, atraumatic, Neck: supple, No JVD Lungs: Decreased BS, bilateral rhonchi, Heart:S1 and S2 regular, no murmurs, rubs or gallop, Abd:soft, non tender, non distended, normal bowel sounds Ext: No edema, no clubbing or cyanosis Neuro: Awake,alert, oriented x 3, No focal signs Psych:Normal mood - Constitutional Vitals: Temp Pulse Resp BP Pulse Ox 98.1 F 100 H 20 119/61 98 09/07/18 23:38 09/08/18 01:54 09/08/18 01:54 09/07/18 23:38 09/08/18 00:25 Results - Labs CBC & Chem 7: 09/07/18 06:15 09/07/18 06:15 Labs: Laboratory Last Values WBC 13.8 K/mm3 (4.5-11.0) H 09/07/18 06:15 RBC 2.84 M/mm3 (3.65-5.03) L 09/07/18 06:15 Hgb 7.7 gm/dl (10.1-14.3) L 09/07/18 06:15 Hct 24.2 % (30.3-42.9) L 09/07/18 06:15 MCV 85 fl (79-97) 09/07/18 06:15 MCH 27 pg (28-32) L 09/07/18 06:15 MCHC 32 % (30-34) 09/07/18 06:15 RDW 15.5 % (13.2-15.2) H 09/07/18 06:15 Plt Count 270 K/mm3 (140-440) 09/07/18 06:15 Lymph % (Auto) 22.6 % (13.4-35.0) 09/04/18 21:37 [place] % (Auto) 9.3 % (0.0-7.3) H 09/04/18 21:37 Eos % (Auto) 0.8 % (0.0-4.3) 09/04/18 21:37 Baso % (Auto) 1.2 % (0.0-1.8) 09/04/18 21:37 Lymph # 3.4 K/mm3 (1.2-5.4) 09/04/18 21:37 [place] # 1.4 K/mm3 (0.0-0.8) H 09/04/18 21:37 Eos # 0.1 K/mm3 (0.0-0.4) 09/04/18 21:37 Baso # 0.2 K/mm3 (0.0-0.1) H 09/04/18 21:37 Seg Neutrophils % 66.1 % (40.0-70.0) 09/04/18 21:37 Seg Neutrophils # 10.0 K/mm3 (1.8-7.7) H 09/04/18 21:37 POC ABG pH 7.304 (7.35-7.45) L 09/04/18 22:04 POC ABG pCO2 32.3 (35-45) L 09/04/18 22:04 POC ABG pO2 211 (80-105) H 09/04/18 22:04 POC ABG HCO3 16.0 09/04/18 22:04 POC ABG Total CO2 17 09/04/18 22:04 POC ABG O2 Sat 100 09/04/18 22:04 POC ABG Base Excess -10 09/04/18 22:04 FiO2 60 % 09/04/18 22:04 Sodium 144 mmol/L (137-145) 09/07/18 06:15 Potassium 4.9 mmol/L (3.6-5.0) 09/07/18 06:15 Chloride 110.5 mmol/L (98-107) H 09/07/18 06:15 Carbon Dioxide 18 mmol/L (22-30) L 09/07/18 06:15 Anion Gap 20 mmol/L 09/07/18 06:15 BUN 54 mg/dL (7-17) H 09/07/18 06:15 Creatinine 2.8 mg/dL (0.7-1.2) H 09/07/18 06:15 Estimated GFR 21 ml/min 09/07/18 06:15 BUN/Creatinine Ratio 19 % 09/07/18 06:15 Glucose 105 mg/dL (65-100) H 09/07/18 06:15 POC Glucose 102 (70-105) 09/07/18 20:43 Calcium 7.3 mg/dL (8.4-10.2) L 09/07/18 06:15 Total Bilirubin 0.40 mg/dL (0.1-1.2) 09/04/18 21:37 Direct Bilirubin < 0.2 mg/dL (0-0.2) 09/04/18 21:37 Indirect Bilirubin 0.2 mg/dL 09/04/18 21:37 AST 34 units/L (5-40) 09/04/18 21:37 ALT 49 units/L (7-56) 09/04/18 21:37 Alkaline Phosphatase 240 units/L (35-129) H 09/04/18 21:37 Total Creatine Kinase 182 units/L (30-135) H 09/05/18 05:46 CK-MB (CK-2) 3.8 ng/mL (0.0-4.0) 09/05/18 05:46 CK-MB (CK-2) Rel Index 2.0 (0-4) 09/05/18 05:46 Troponin T 0.064 ng/mL (0.00-0.029) H 09/05/18 05:46 NT-Pro-B Natriuret Pep 36956 pg/mL (0-900) H 09/04/18 21:37 Total Protein 7.3 g/dL (6.3-8.2) 09/04/18 21:37 Albumin 3.1 g/dL (3.9-5) L 09/04/18 21:37 Albumin/Globulin Ratio 0.7 % 09/04/18 21:37 Triglycerides 93 mg/dL (2-149) 09/04/18 21:37 Cholesterol 174 mg/dL (50-199) 09/04/18 21:37 LDL Cholesterol Direct 93 mg/dL (50-130) 09/04/18 21:37 HDL Cholesterol 78 mg/dL (40-59) H 09/04/18 21:37 Cholesterol/HDL Ratio 2.23 % 09/04/18 21:37 Urine Color Yellow (Yellow) 09/06/18 15:10 Urine Turbidity Cloudy (Clear) 09/06/18 15:10 Urine pH 5.0 (5.0-7.0) 09/06/18 15:10 Ur Specific [place] 1.008 (1.003-1.030) 09/06/18 15:10 Urine Protein 100 mg/dl mg/dL (Negative) 09/06/18 15:10 Urine Glucose (UA) 50 mg/dL (Negative) 09/06/18 15:10 Urine Ketones Neg mg/dL (Negative) 09/06/18 15:10 Urine Blood Mod (Negative) 09/06/18 15:10 Urine Nitrite Neg (Negative) 09/06/18 15:10 Urine Bilirubin Neg (Negative) 09/06/18 15:10 Urine Urobilinogen < 2.0 mg/dL (<2.0) 09/06/18 15:10 Ur Leukocyte Esterase Tr (Negative) 09/06/18 15:10 Urine WBC (Auto) 23.0 /HPF (0.0-6.0) H 09/06/18 15:10 Urine RBC (Auto) 11.0 /HPF (0.0-6.0) 09/06/18 15:10 U Epithel Cells (Auto) 4.0 /HPF (0-13.0) 09/06/18 15:10 Urine Bacteria (Auto) 2+ /HPF (Negative) 09/06/18 15:10 Urine Yeast (Budding) 3+ /HPF 09/06/18 15:10 Urine Creatinine 46.3 mg/dL (0.1-20.0) H 09/06/18 15:10 Urine Sodium 92 mmol/L 09/06/18 15:10 Urine Chloride 82.2 mmolL (110-250) L 09/06/18 15:10 Blood Type A POSITIVE 09/06/18 11:14 Antibody Screen Negative 09/06/18 11:14 Crossmatch See Detail 09/06/18 11:14
[2018-09-08] MEDS: NITRO-BID 2% TP SCH ×4 (05:33→19:38)
[2018-09-08] MEDS: LASIX IV SCH (10:15)
[2018-09-08] MEDS: NORVASC PO SCH (10:18)
[2018-09-08] MEDS: FLOMAX PO SCH (10:18)
[2018-09-08] MEDS: HumuLIN R SUB-Q SCH ×4 (10:19→21:16)
[2018-09-08] MEDS: SODIUM BICARBONATE PO SCH ×3 (10:23→21:16)
[2018-09-08] MEDS: NEURONTIN PO SCH ×4 (10:24→21:15)
[2018-09-08] MEDS: HEPARIN SUB-Q SCH ×2 (10:26→21:16)
--- NOTE | 2018-09-08 11:12 | Consultation ---
History of Present Illness - Reason for Consult Consult date: 09/08/18 MRSA bacteremia Requesting physician: CHRISTIANO MARTINEZ - History of Present Illness 62 y/o female with history of Obesity, DM, CKD stage II, hypertension, COPD; admitted on 09/04/2018 due to a week history of worsening SOB, mild dry cough and drainage from right heel ulcer. Patient has a right foot diabetic ulcer for over a year, she follows at [facility]. Patient is a poor historian. Denies fever, chills, N/V/D. In the ED, temp 98, HR 108, R 18, BP 143/93, O2 sat 100%. WBC 15K. Hg 7.7. Plat 307. Creat 2.2. BNP 21K. UA showed 23 wbc / trace LE. Blood cultures 09/04/2018 MRSA. Review of Systems: General: no fever, chills,no unintentional weight change, or change in appetite Cutaneous: no rash, pruritus Head: no headaches or injury Eyes: no changes in vision, eye pain, double vision Ears: no ear pain, ear discharge, ringing or hearing loss Nose: no nose bleeding, stuffiness Mouth & throat: no bleeding gums, no horseness, no dental problems, or swollen glands Neck: no pain, node enlargement/lumps, tyroid enlargement or tenderness Respiratory: + dry cough, wheezing, sputum, hemoptysis, pleuritic chest pain, +SOB Cardiovascular: no chest pain, leg edema, cyanosis, CHRISTENSEN, orthopnea Musculoskeletal: no decreased joint motion, right foot pain Integumentary: no rash, +right heel wound Gastrointestinal: no nausea, vomiting, hematemesis, diarrhea, constipation Genitourinary/Reproductive:no frequent urination, no dysuria, + hematuria, incontinence, +kya lower back pain Neurogical: no seizures, no headaches Psychiatric: stable mood; no excessive anxiety, sadness or moodiness Past History Past Medical History: COPD, diabetes, hypertension, hyperlipidemia Past Surgical History: Other (gastric bypass ) Social history: no significant social history, lives with family Family history: diabetes, hypertension Medications and Allergies Allergies Allergy/AdvReac Type Severity Reaction Status Date / Time lisinopril Allergy Severe Swelling Verified 03/18/15 14:54 Home Medications Medication Instructions Recorded Confirmed Last Taken Type Gabapentin 2 tab PO TID 05/06/14 07/31/1715 History Cyclobenzaprine [Flexeril 10 MG 10 mg PO TID PRN #14 tablet 07/25/17 07/31/17 Unknown Rx TAB] Insulin Glargine,Hum.rec.anlog 10 units SUB-Q HS 07/31/17 07/31/17 Unknown History [Lantus] amLODIPine [Norvasc] 10 mg PO DAILY 07/31/17 07/31/17 Unknown History Amoxicillin/Potassium Clav 1 each PO BID #14 tablet 08/02/17 Unknown Rx [Augmentin 875-125 Tablet] HYDROcodone/APAP 5-325 [[place] 1 - 2 each PO Q6HR PRN #14 tablet 08/02/17 Unknown Rx 5-325 mg TAB] Tamsulosin [Flomax] 0.4 mg PO QDAY #30 capsule 08/02/17 Unknown Rx traMADol [Ultram 50 MG tab] 50 mg PO Q6H PRN #14 tablet 08/02/17 Unknown Rx Active Meds: Active Medications Acetaminophen (Tylenol) 650 mg PO Q4H PRN PRN Reason: Fever >101 Acetaminophen/Hydrocodone Bitart ([place] 5/325) 1 each PO Q6H PRN PRN Reason: Pain, Moderate (4-6) Last Admin: 09/07/18 22:48 Dose: 1 each Documented by: Albuterol (Proventil) 2.5 mg IH Q4HRT PRN PRN Reason: Shortness Of Breath Albuterol/Ipratropium (Duoneb *Not For Prn Use*) 1 ampul IH Q6HRT [facility] Last Admin: 09/08/18 08:00 Dose: 1 ampul Documented by: Amlodipine Besylate (Norvasc) 10 mg PO DAILY [facility] Last Admin: 09/08/18 10:18 Dose: 10 mg Documented by: Cyclobenzaprine HCl (Flexeril) 10 mg PO TID PRN PRN Reason: Muscle Spasm Last Admin: 09/05/18 21:26 Dose: 10 mg Documented by: Dextrose (D50w (25gm) Syringe) 50 ml IV PRN PRN PRN Reason: Hypoglycemia Furosemide (Lasix) 40 mg IV QDAY [facility] Last Admin: 09/08/18 10:15 Dose: 40 mg Documented by: Gabapentin (Neurontin) 300 mg PO TID [facility] Last Admin: 09/08/18 10:26 Dose: 300 mg Documented by: Heparin Sodium (Porcine) (Heparin) 5,000 unit SUB-Q Q12HR [facility] Last Admin: 09/08/18 10:26 Dose: 5,000 unit Documented by: Levofloxacin/Dextrose (Levaquin 750mg/150ml) 750 mg in 150 mls @ 100 mls/hr IV Q48HR [facility]; Protocol Last Infusion: 09/07/18 12:10 Dose: Infused Documented by: Insulin Human Regular (Humulin R) 0 units SUB-Q AC [facility]; Protocol Last Admin: 09/08/18 10:19 Dose: 1 units Documented by: Insulin Human Regular (Humulin R) 0 units SUB-Q QHS [facility]; Protocol Last Admin: 09/07/18 22:42 Dose: Not Given Documented by: Nitroglycerin (Nitro-Bid 2%) 0.5 inch TP QIDNTG [facility]; Protocol Last Admin: 09/08/18 10:15 Dose: 0.5 inch Documented by: Ondansetron HCl (Zofran) 4 mg IV Q8H PRN PRN Reason: Nausea And Vomiting Sodium Bicarbonate (Sodium Bicarbonate) 650 mg PO TID [facility] Last Admin: 09/08/18 10:23 Dose: 650 mg Documented by: Tamsulosin HCl (Flomax) 0.4 mg PO QDAY [facility] Last Admin: 09/08/18 10:18 Dose: 0.4 mg Documented by: Tramadol HCl (Ultram) 50 mg PO Q6H PRN PRN Reason: Pain, Moderate (4-6) Review of Systems All systems: negative Physical Examination - Physical Exam Narrative exam: Constitutional: alert in NAD pleasant Head, Ears, Nose: Normocephalic, atraumatic. External ears, nose normal Eyes: Conjunctivae/corneas clear. No icterus. No ptosis. Neck: Supple, no meningeal signs Oral: clear Cardiovascular: RRR Respiratory:distant BS GI: Soft, obese, non-tender; bowel sounds normal. No peritoneal signs Musculoskeletal: + mild pedal edema, no cyanosis. right foot ulcer covered with dressings, per wound care RIGHT HEEL DIABETIC FOOT ULCER. WOUND MEASURES 5X4X3. THERE IS BONE EXPOSED. WOUND EDGES ARE CALLUSED. MODERATE AMOUNT OF SEROSANGUINEOUS DRAINAGE NOTED. NO ODOR. Skin: No rash or abscess Hem/Lymphatic: No palpable cervical or supraclavicular nodes. No lymphangitis Psych: alert pleasant Neurological: Awake, alert, moving all extremities . - Constitutional Vitals: Vital Signs Temp Pulse Resp BP Pulse Ox 98.2 F 100 H 18 131/60 100 09/08/18 08:12 09/08/18 10:18 09/08/18 08:12 09/08/18 08:12 09/08/18 08:12 Temperature -Last 24 Hours Temperature 98.2 F Temperature 98.6 F Temperature 98.1 F Temperature 98.6 F Temperature 98.4 F Temperature 98.0 F Results - Labs CBC & Chem 7: 09/07/18 06:15 09/07/18 06:15 Labs: Abnormal lab results 09/07/18 09/07/18 Range/Units 11:38 16:23 POC Glucose 148 H 156 H (70-105) Assessment and Plan Cultures: 09/04/2018 blood culture MRSA 2 of 4 bottles 09/07/2018 blood culture pending A/P: 62 y/o female with history of Obesity, DM, CKD stage II, hypertension, COPD; admitted on 09/04/2018 due to a week history of worsening SOB, mild dry cough and drainage from right heel ulcer: Sepsis: present on admission with leukocytosis, tachycardia; etio. MRSA bacteremia +/- right heel wound infection +/- less likely UTI MRSA bacteremia: source likely right heel infection. Blood cultures 09/04/2018 MRSA vanco PABLO=2. No indwelling endovascular devices. Right heel diabetic wound likely infected: Patient has a right foot diabetic ulcer for over a year, she follows at [facility]. 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 WOUND MEASURES 5X4X3. THERE IS BONE EXPOSED. WOUND EDGES ARE CALLUSED. MODERATE AMOUNT OF SEROSANGUINEOUS DRAINAGE NOTED. NO ODOR.
--- NOTE | 2018-09-08 11:25 | Progress Note ---
Assessment and Plan 62 y /o female with CKD, morbid obesity, JATINDER not being treated, chronic respiratory failure and COPD, admitted with worsening dyspnea on exertion. 1. Noncompliance is now showing as patient will not wear the PPV at night. This is likely why they took her machine from her in the first place. 2. BNP was >21K on admission. Does have chronic renal disease and renal following. Agree with diuretics. May need higher doses given GFR 3. Per chart patient has COPD and chronic respiratory failure. Will need 6 minute walk prior to discharge to see if oxygen therapy is still needed. Room air sats at rest are good. 4. Weight loss 5. Will sign off. Call if questions. Will arrange follow up, but if patient continues with noncompliance, not much we will be able to do for her as an outpatient. Subjective Date of service: 09/08/18 Interval history: No acute events. Patient took off bipap last night and would not put back on. Asleep now, no family at bedside. Has been on room air the last 2 days. Objective Vital Signs - 12hr 09/07/18 09/08/18 09/08/18 23:38 00:25 01:45 Temperature 98.1 F Pulse Rate 113 H 100 H Pulse Rate [ Bilateral Upper Lobe] Respiratory 12 20 Rate Respiratory 20 Rate [Bilateral Upper Lobe] Blood Pressure 119/61 Blood Pressure [Left] O2 Sat by Pulse 99 98 Oximetry 09/08/18 09/08/18 09/08/18 01:54 04:00 04:11 Temperature 98.6 F Pulse Rate 89 Pulse Rate [ 100 H Bilateral Upper Lobe] Respiratory 16 12 Rate Respiratory 20 Rate [Bilateral Upper Lobe] Blood Pressure 117/60 Blood Pressure 117/80 [Left] O2 Sat by Pulse 97 Oximetry 09/08/18 09/08/18 09/08/18 08:12 10:15 10:18 Temperature 98.2 F Pulse Rate 91 H 100 H 100 H Pulse Rate [ Bilateral Upper Lobe] Respiratory 18 Rate Respiratory Rate [Bilateral Upper Lobe] Blood Pressure 131/60 Blood Pressure [Left] O2 Sat by Pulse 100 Oximetry Constitutional: no acute distress, alert, appears uncomfortable Eyes: non-icteric ENT: oropharynx moist Neck: supple Effort: mildly labored Ascultation: Bilateral: diminished breath sounds, rales Percussion: Bilateral: not dull Tactile fremitus: Bilateral: diminished Cardiovascular: regular rate and rhythm Gastrointestinal: normoactive bowel sounds, soft Extremities: edema, anasarca Neurologic: normal mental status Psychiatric: mood appropriate, affect normal CBC and BMP: 09/07/18 06:15 09/07/18 06:15 ABG, PT/INR, D-dimer: ABG POC ABG pH 7.304 (7.35-7.45) L 09/04/18 22:04 POC ABG pCO2 32.3 (35-45) L 09/04/18 22:04 POC ABG pO2 211 (80-105) H 09/04/18 22:04 POC ABG HCO3 16.0 09/04/18 22:04 POC ABG Total CO2 17 09/04/18 22:04 POC ABG O2 Sat 100 09/04/18 22:04 Abnormal lab findings: Abnormal Labs 09/04/18 09/04/18 09/04/18 21:37 21:37 21:37 WBC 15.1 H RBC 2.93 L Hgb 7.7 L Hct 24.9 L MCH 26 L RDW 15.6 H [place] % (Auto) 9.3 H [place] # 1.4 H Baso # 0.2 H Seg Neutrophils # 10.0 H POC ABG pH POC ABG pCO2 POC ABG pO2 Potassium Chloride Carbon Dioxide BUN Creatinine Glucose POC Glucose Calcium Alkaline Phosphatase 240 H Total Creatine Kinase CK-MB (CK-2) Troponin T 0.082 H NT-Pro-B Natriuret Pep 91627 H Albumin 3.1 L HDL Cholesterol 78 H Urine WBC (Auto) Urine Creatinine Urine Chloride Crossmatch 09/04/18 09/04/18 09/04/18 21:37 21:55 22:04 WBC RBC Hgb Hct MCH RDW [place] % (Auto) [place] # Baso # Seg Neutrophils # POC ABG pH 7.306 L 7.304 L POC ABG pCO2 32.9 L 32.3 L POC ABG pO2 227 H 211 H Potassium Chloride 107.9 H Carbon Dioxide 17 L BUN 44 H Creatinine 2.2 H Glucose 115 H POC Glucose Calcium 8.0 L Alkaline Phosphatase Total Creatine Kinase CK-MB (CK-2) Troponin T NT-Pro-B Natriuret Pep Albumin HDL Cholesterol Urine WBC (Auto) Urine Creatinine Urine Chloride Crossmatch 09/05/18 09/05/18 09/05/18 00:14 05:46 06:12 WBC RBC Hgb Hct MCH RDW [place] % (Auto) [place] # Baso # Seg Neutrophils # POC ABG pH POC ABG pCO2 POC ABG pO2 Potassium Chloride Carbon Dioxide BUN Creatinine Glucose POC Glucose 181 H Calcium Alkaline Phosphatase Total Creatine Kinase 205 H 182 H CK-MB (CK-2) 4.5 H Troponin T 0.071 H 0.064 H NT-Pro-B Natriuret Pep Albumin HDL Cholesterol Urine WBC (Auto) Urine Creatinine Urine Chloride Crossmatch 09/05/18 09/05/18 09/05/18 06:53 12:19 18:53 WBC 11.3 H RBC 2.71 L Hgb 7.3 L Hct 23.0 L MCH 27 L RDW 15.6 H [place] % (Auto) [place] # Baso # Seg Neutrophils # POC ABG pH POC ABG pCO2 POC ABG pO2 Potassium Chloride Carbon Dioxide BUN Creatinine Glucose POC Glucose 167 H 203 H Calcium Alkaline Phosphatase Total Creatine Kinase CK-MB (CK-2) Troponin T NT-Pro-B Natriuret Pep Albumin HDL Cholesterol Urine WBC (Auto) Urine Creatinine Urine Chloride Crossmatch 09/05/18 09/06/18 09/06/18 23:31 05:20 05:42 WBC RBC 2.50 L Hgb 6.8 L Hct 21.3 L MCH 27 L RDW 15.6 H [place] % (Auto) [place] # Baso # Seg Neutrophils # POC ABG pH POC ABG pCO2 POC ABG pO2 Potassium Chloride Carbon Dioxide BUN Creatinine Glucose POC Glucose 313 H 272 H Calcium Alkaline Phosphatase Total Creatine Kinase CK-MB (CK-2) Troponin T NT-Pro-B Natriuret Pep Albumin HDL Cholesterol Urine WBC (Auto) Urine Creatinine Urine Chloride Crossmatch 09/06/18 09/06/18 09/06/18 05:42 11:14 12:20 WBC RBC Hgb Hct MCH RDW [place] % (Auto) [place] # Baso # Seg Neutrophils # POC ABG pH POC ABG pCO2 POC ABG pO2 Potassium 5.4 H Chloride 109.8 H Carbon Dioxide 16 L BUN 52 H Creatinine 2.8 H Glucose 274 H POC Glucose 303 H Calcium 7.6 L Alkaline Phosphatase Total Creatine Kinase CK-MB (CK-2) Troponin T NT-Pro-B Natriuret Pep Albumin HDL Cholesterol Urine WBC (Auto) Urine Creatinine Urine Chloride Crossmatch See Detail 09/06/18 09/06/18 09/06/18 15:10 15:10 17:25 WBC RBC Hgb Hct MCH RDW [place] % (Auto) [place] # Baso # Seg Neutrophils # POC ABG pH POC ABG pCO2 POC ABG pO2 Potassium Chloride Carbon Dioxide BUN Creatinine Glucose POC Glucose 298 H Calcium Alkaline Phosphatase Total Creatine Kinase CK-MB (CK-2) Troponin T NT-Pro-B Natriuret Pep Albumin HDL Cholesterol Urine WBC (Auto) 23.0 H Urine Creatinine 46.3 H Urine Chloride 82.2 L Crossmatch 09/06/18 09/07/18 09/07/18 21:15 06:15 06:15 WBC 13.8 H RBC 2.84 L Hgb 7.7 L Hct 24.2 L MCH 27 L RDW 15.5 H [place] % (Auto) [place] # Baso # Seg Neutrophils # POC ABG pH POC ABG pCO2 POC ABG pO2 Potassium Chloride 110.5 H Carbon Dioxide 18 L BUN 54 H Creatinine 2.8 H Glucose 105 H POC Glucose 249 H Calcium 7.3 L Alkaline Phosphatase Total Creatine Kinase CK-MB (CK-2) Troponin T NT-Pro-B Natriuret Pep Albumin HDL Cholesterol Urine WBC (Auto) Urine Creatinine Urine Chloride Crossmatch 09/07/18 09/07/18 11:38 16:23 WBC RBC Hgb Hct MCH RDW [place] % (Auto) [place] # Baso # Seg Neutrophils # POC ABG pH POC ABG pCO2 POC ABG pO2 Potassium Chloride Carbon Dioxide BUN Creatinine Glucose POC Glucose 148 H 156 H Calcium Alkaline Phosphatase Total Creatine Kinase CK-MB (CK-2) Troponin T NT-Pro-B Natriuret Pep Albumin HDL Cholesterol Urine WBC (Auto) Urine Creatinine Urine Chloride Crossmatch Allied health notes reviewed: nursing
--- NOTE | 2018-09-08 11:55 | Progress Note ---
Assessment and Plan - Patient Problems (1) Acute on chronic renal failure Current Visit: Yes Status: Acute Qualifiers: Chronic kidney disease stage: stage 2 (mild) Plan to address problem: Patient may likely have some underlying chronic kidney disease in the setting of hypertension, diabetes, now with an exacerbated acute renal injury in the setting of possible heart failure. ECHO noted, and there was noted to be dilatation of the IVC without >50% decreased with inspiration, which may be indicating that she still has some element of volume overload. Edema remains but is improving from yesterday Agree with current management. Avoid nephrotoxins. Maintain mean arterial pressures above 65. Closely monitor renal functions daily. UA and urine electrolytes noted. Renal US noted without any acute findings, however evidence of likely underlying CKD. Renal function overall stable. Will continue to monitor. (2) Acute respiratory failure with hypoxia Current Visit: Yes Status: Acute Plan to address problem: Possibly in the setting of an acute congestive heart failure episode/volume overload. ECHO noted and not acute systolic or diastolic dysfunction was mentioned. Moderate LVH and EF 50-55%. IVC dilatation noted without decrease/change with respiration, possibly indicating element of volume overload state. Agree with current diuretic regimen with Lasix 40 IV daily. Strict monitoring of her intake and output, as we need to document her urine output per shift. I have reiterated this with the nursing staff. Continue to monitor closely. I agree with BiPAP. (3) Bacteremia due to Gram-positive bacteria Current Visit: Yes Status: Acute Plan to address problem: Placed on IV Vanc and consult placed to ID. cultures growing MRSA. Will follow up further recommendations from infectious diseases. (4) Hyperkalemia Current Visit: Yes Status: Acute Plan to address problem: Improved with medical management (5) Metabolic acidosis Current Visit: Yes Status: Acute Plan to address problem: Started on NaHCO3 1 tab with meals TID. (6) Hypertensive chronic kidney disease with stage 1 through stage 4 chronic kidney disease, or unspecified chronic kidney disease Current Visit: Yes Status: Chronic Plan to address problem: Continue current outpatient antihypertensive regimen. We will have to closely monitor. (7) Type 2 diabetes mellitus with diabetic chronic kidney disease Current Visit: Yes Status: Chronic Plan to address problem: Diabetes management per primary team. (8) COPD exacerbation Current Visit: Yes Status: Acute Plan to address problem: Management per pulmonology. Patient on BiPAP and received DuoNeb therapy as scheduled. (9) Anemia in CKD (chronic kidney disease) Current Visit: Yes Status: Acute Qualifiers: Chronic kidney disease stage: stage 3 (moderate) Qualified Code(s): N18.3 - Chronic kidney disease, stage 3 (moderate); D63.1 - Anemia in chronic kidney disease Plan to address problem: She has no acute signs/symptoms concerning for GI bleed. s/p transfusion of 1 unit PRBC Will follow up recommendations per primary attending. Subjective Date of service: 09/08/18 Interval history: MRSA bacteremia detected from initial blood cx drawn on 09/04. ID consult noted. Started on IV vancomycin, repeat blood cx drawn and in process. Renal function stable. Objective - Vital Signs Vital signs: Vital Signs - 12hr 09/08/18 09/08/18 09/08/18 00:25 01:45 01:54 Temperature Pulse Rate 100 H Pulse Rate [ Anterior Bilateral Throughout] Pulse Rate [ 100 H Bilateral Upper Lobe] Respiratory 20 Rate Respiratory Rate [Anterior Bilateral Throughout] Respiratory 20 20 Rate [Bilateral Upper Lobe] Blood Pressure Blood Pressure [Left] O2 Sat by Pulse 98 Oximetry 09/08/18 09/08/18 09/08/18 04:00 04:11 08:00 Temperature 98.6 F Pulse Rate 89 Pulse Rate [ 96 H Anterior Bilateral Throughout] Pulse Rate [ Bilateral Upper Lobe] Respiratory 16 12 Rate Respiratory 18 Rate [Anterior Bilateral Throughout] Respiratory Rate [Bilateral Upper Lobe] Blood Pressure 117/60 Blood Pressure 117/80 [Left] O2 Sat by Pulse 97 99 Oximetry 09/08/18 09/08/18 09/08/18 08:10 08:12 10:15 Temperature 98.2 F Pulse Rate 91 H 100 H Pulse Rate [ 96 H Anterior Bilateral Throughout] Pulse Rate [ Bilateral Upper Lobe] Respiratory 18 Rate Respiratory 20 Rate [Anterior Bilateral Throughout] Respiratory Rate [Bilateral Upper Lobe] Blood Pressure 131/60 Blood Pressure [Left] O2 Sat by Pulse 100 Oximetry 09/08/18 10:18 Temperature Pulse Rate 100 H Pulse Rate [ Anterior Bilateral Throughout] Pulse Rate [ Bilateral Upper Lobe] Respiratory Rate Respiratory Rate [Anterior Bilateral Throughout] Respiratory Rate [Bilateral Upper Lobe] Blood Pressure Blood Pressure [Left] O2 Sat by Pulse Oximetry - General Appearance General appearance: well-developed, well-nourished, appears stated age EENT: ATNC, PERRL Neck: no JVD, no thyromegaly Respiratory: Present: Clear to Ascultation Cardiology: regular, S1S2 Gastrointestinal: normal, normoactive bowel sounds Integumentary: warm and dry, ulcer (right heel), other (area of chronic cellulutis in RLE) Neurologic: no focal deficit, no asterixis Psychiatric: mood/affect appropriate, cooperative - Lab 09/07/18 06:15 09/07/18 06:15 Most recent lab results Calcium 7.3 mg/dL (8.4-10.2) L 09/07/18 06:15 Urine Creatinine 46.3 mg/dL (0.1-20.0) H 09/06/18 15:10 Urine Sodium 92 mmol/L 09/06/18 15:10 - Allied health notes Allied health notes reviewed: nursing Medications & Allergies - Medications Allergies/Adverse Reactions: Allergies lisinopril Allergy (Severe, Verified 03/18/15 14:54) Swelling swelling mouth and throat Home Medications: Home Medications Medication Instructions Recorded Confirmed Last Taken Type Gabapentin 2 tab PO TID 05/06/14 07/31/17 07/04/15 History Cyclobenzaprine [Flexeril 10 MG 10 mg PO TID PRN #14 tablet 07/25/17 07/31/17 Unknown Rx TAB] Insulin Glargine,Hum.rec.anlog 10 units SUB-Q HS 07/31/17 07/31/17 Unknown History [Lantus] amLODIPine [Norvasc] 10 mg PO DAILY 07/31/17 07/31/17 Unknown History Amoxicillin/Potassium Clav 1 each PO BID #14 tablet 08/02/17 Unknown Rx [Augmentin 875-125 Tablet] HYDROcodone/APAP 5-325 [[place] 1 - 2 each PO Q6HR PRN #14 tablet 08/02/17 Unknown Rx 5-325 mg TAB] Tamsulosin [Flomax] 0.4 mg PO QDAY #30 capsule 08/02/17 Unknown Rx traMADol [Ultram 50 MG tab] 50 mg PO Q6H PRN #14 tablet 08/02/17 Unknown Rx Active Medications: Generic Name Dose Route Start Last Admin Trade Name Freq PRN Reason Stop Dose Admin Acetaminophen 650 mg 09/04/18 23:53 Tylenol PO Q4H PRN Fever >101 Acetaminophen/Hydrocodone Bitart 1 each 09/05/18 00:01 09/07/18 22:48 [place] 5/325 PO 1 each Q6H PRN Administration Pain, Moderate (4-6) Albuterol 2.5 mg 09/05/18 01:37 Proventil IH Q4HRT PRN Shortness Of Breath Albuterol/Ipratropium 1 ampul 09/07/18 14:00 09/08/18 08:00 Duoneb *Not For Prn Use* IH 1 ampul Q6HRT DAMIEN Administration Amlodipine Besylate 10 mg 09/05/18 10:00 09/08/18 10:18 Norvasc PO 10 mg DAILY DAMIEN Administration Cyclobenzaprine HCl 10 mg 09/05/18 00:01 09/05/18 21:26 Flexeril PO 10 mg TID PRN Administration Muscle Spasm Dextrose 50 ml 09/04/18 23:58 D50w (25gm) Syringe IV PRN PRN Hypoglycemia Furosemide 40 mg 09/05/18 10:00 09/08/18 10:15 Lasix IV 40 mg QDAY DAMIEN Administration Gabapentin 300 mg 09/05/18 08:00 09/08/18 10:26 Neurontin PO 300 mg TID DAMIEN Administration Heparin Sodium (Porcine) 5,000 unit 09/05/18 10:00 09/08/18 10:26 Heparin SUB-Q 5,000 unit Q12HR DAMIEN Administration Levofloxacin/Dextrose 750 mg in 150 mls @ 100 mls/hr 09/05/18 10:00 09/07/18 12:10 Levaquin 750mg/150ml IV Infused Q48HR [facility] Infusion Protocol Insulin Human Regular 0 units 09/05/18 07:30 09/08/18 10:19 Humulin R SUB-Q 1 units AC [facility] Administration Protocol Insulin Human Regular 0 units 09/05/18 22:00 09/07/18 22:42 Humulin R SUB-Q Not Given QHS [facility] Protocol Nitroglycerin 0.5 inch 09/05/18 01:00 09/08/18 10:15 Nitro-Bid 2% TP 0.5 inch QIDNTG [facility] Administration Protocol Ondansetron HCl 4 mg 09/04/18 23:55 Zofran IV Q8H PRN Nausea And Vomiting Sodium Bicarbonate 650 mg 09/06/18 14:00 09/08/18 10:23 Sodium Bicarbonate PO 650 mg TID DAMIEN Administration Tamsulosin HCl 0.4 mg 09/05/18 10:00 09/08/18 10:18 Flomax PO 0.4 mg QDAY DAMIEN Administration Tramadol HCl 50 mg 09/05/18 00:01 Ultram PO Q6H PRN Pain, Moderate (4-6)
--- NOTE | 2018-09-08 16:04 | Progress Note ---
Assessment and Plan Assessment and plan: Acute resp failure due to COPD exacerbation Supplemental Oxygen COPD exacerbation On Duoneb MRSA Bacteremia Repeat blood cultures, Started Empiric Vanco Consulted ID Physician. Hypertension Monitor BP Acute on CKD Nephrology following Diabetes mellitus type 2. Fingerstick glucose qac and hs Hyperlipidemia Anemia. hgb 7.7 after 1 Unit PRBC transfusion Hyperkalemia. Resolved after kayexalate Full code status History Interval history: Less shortness of breath, No chest pain Hospitalist Physical - Physical exam Narrative exam: GEN: Not in acute distress,lying in bed HEENT: Normocephalic, atraumatic, Neck: supple, No JVD Lungs: Decreased BS, bilateral rhonchi, Heart:S1 and S2 regular, no murmurs, rubs or gallop, Abd:soft, non tender, non distended, normal bowel sounds Ext: Dressing right leg,no clubbing or cyanosis Neuro: Awake,alert, oriented x 3, No focal signs Psych:Normal mood - Constitutional Vitals: Temp Pulse Resp BP Pulse Ox 98.4 F 90 18 115/57 99 09/08/18 12:59 09/08/18 13:51 09/08/18 13:51 09/08/18 12:59 09/08/18 12:59 Results - Labs CBC & Chem 7: 09/09/18 07:45 09/09/18 07:45 Labs: Laboratory Last Values WBC 13.8 K/mm3 (4.5-11.0) H 09/07/18 06:15 RBC 2.84 M/mm3 (3.65-5.03) L 09/07/18 06:15 Hgb 7.7 gm/dl (10.1-14.3) L 09/07/18 06:15 Hct 24.2 % (30.3-42.9) L 09/07/18 06:15 MCV 85 fl (79-97) 09/07/18 06:15 MCH 27 pg (28-32) L 09/07/18 06:15 MCHC 32 % (30-34) 09/07/18 06:15 RDW 15.5 % (13.2-15.2) H 09/07/18 06:15 Plt Count 270 K/mm3 (140-440) 09/07/18 06:15 Lymph % (Auto) 22.6 % (13.4-35.0) 09/04/18 21:37 [place] % (Auto) 9.3 % (0.0-7.3) H 09/04/18 21:37 Eos % (Auto) 0.8 % (0.0-4.3) 09/04/18 21:37 Baso % (Auto) 1.2 % (0.0-1.8) 09/04/18 21:37 Lymph # 3.4 K/mm3 (1.2-5.4) 09/04/18 21:37 [place] # 1.4 K/mm3 (0.0-0.8) H 09/04/18 21:37 Eos # 0.1 K/mm3 (0.0-0.4) 09/04/18 21:37 Baso # 0.2 K/mm3 (0.0-0.1) H 09/04/18 21:37 Seg Neutrophils % 66.1 % (40.0-70.0) 09/04/18 21:37 Seg Neutrophils # 10.0 K/mm3 (1.8-7.7) H 09/04/18 21:37 POC ABG pH 7.304 (7.35-7.45) L 09/04/18 22:04 POC ABG pCO2 32.3 (35-45) L 09/04/18 22:04 POC ABG pO2 211 (80-105) H 09/04/18 22:04 POC ABG HCO3 16.0 09/04/18 22:04 POC ABG Total CO2 17 09/04/18 22:04 POC ABG O2 Sat 100 09/04/18 22:04 POC ABG Base Excess -10 09/04/18 22:04 FiO2 60 % 09/04/18 22:04 Sodium 144 mmol/L (137-145) 09/07/18 06:15 Potassium 4.9 mmol/L (3.6-5.0) 09/07/18 06:15 Chloride 110.5 mmol/L (98-107) H 09/07/18 06:15 Carbon Dioxide 18 mmol/L (22-30) L 09/07/18 06:15 Anion Gap 20 mmol/L 09/07/18 06:15 BUN 54 mg/dL (7-17) H 09/07/18 06:15 Creatinine 2.8 mg/dL (0.7-1.2) H 09/07/18 06:15 Estimated GFR 21 ml/min 09/07/18 06:15 BUN/Creatinine Ratio 19 % 09/07/18 06:15 Glucose 105 mg/dL (65-100) H 09/07/18 06:15 POC Glucose 91 (70-105) 09/08/18 11:24 Calcium 7.3 mg/dL (8.4-10.2) L 09/07/18 06:15 Total Bilirubin 0.40 mg/dL (0.1-1.2) 09/04/18 21:37 Direct Bilirubin < 0.2 mg/dL (0-0.2) 09/04/18 21:37 Indirect Bilirubin 0.2 mg/dL 09/04/18 21:37 AST 34 units/L (5-40) 09/04/18 21:37 ALT 49 units/L (7-56) 09/04/18 21:37 Alkaline Phosphatase 240 units/L (35-129) H 09/04/18 21:37 Total Creatine Kinase 182 units/L (30-135) H 09/05/18 05:46 CK-MB (CK-2) 3.8 ng/mL (0.0-4.0) 09/05/18 05:46 CK-MB (CK-2) Rel Index 2.0 (0-4) 09/05/18 05:46 Troponin T 0.064 ng/mL (0.00-0.029) H 09/05/18 05:46 C-Reactive Protein 2.80 mg/dL (0.00-1.30) H 09/08/18 14:12 NT-Pro-B Natriuret Pep 24996 pg/mL (0-900) H 09/04/18 21:37 Total Protein 7.3 g/dL (6.3-8.2) 09/04/18 21:37 Albumin 3.1 g/dL (3.9-5) L 09/04/18 21:37 Albumin/Globulin Ratio 0.7 % 09/04/18 21:37 Triglycerides 93 mg/dL (2-149) 09/04/18 21:37 Cholesterol 174 mg/dL (50-199) 09/04/18 21:37 LDL Cholesterol Direct 93 mg/dL (50-130) 09/04/18 21:37 HDL Cholesterol 78 mg/dL (40-59) H 09/04/18 21:37 Cholesterol/HDL Ratio 2.23 % 09/04/18 21:37 Urine Color Yellow (Yellow) 09/06/18 15:10 Urine Turbidity Cloudy (Clear) 09/06/18 15:10 Urine pH 5.0 (5.0-7.0) 09/06/18 15:10 Ur Specific [place] 1.008 (1.003-1.030) 09/06/18 15:10 Urine Protein 100 mg/dl mg/dL (Negative) 09/06/18 15:10 Urine Glucose (UA) 50 mg/dL (Negative) 09/06/18 15:10 Urine Ketones Neg mg/dL (Negative) 09/06/18 15:10 Urine Blood Mod (Negative) 09/06/18 15:10 Urine Nitrite Neg (Negative) 09/06/18 15:10 Urine Bilirubin Neg (Negative) 09/06/18 15:10 Urine Urobilinogen < 2.0 mg/dL (<2.0) 09/06/18 15:10 Ur Leukocyte Esterase Tr (Negative) 09/06/18 15:10 Urine WBC (Auto) 23.0 /HPF (0.0-6.0) H 09/06/18 15:10 Urine RBC (Auto) 11.0 /HPF (0.0-6.0) 09/06/18 15:10 U Epithel Cells (Auto) 4.0 /HPF (0-13.0) 09/06/18 15:10 Urine Bacteria (Auto) 2+ /HPF (Negative) 09/06/18 15:10 Urine Yeast (Budding) 3+ /HPF 09/06/18 15:10 Urine Creatinine 46.3 mg/dL (0.1-20.0) H 09/06/18 15:10 Urine Sodium 92 mmol/L 09/06/18 15:10 Urine Chloride 82.2 mmolL (110-250) L 09/06/18 15:10 Blood Type A POSITIVE 09/06/18 11:14 Antibody Screen Negative 09/06/18 11:14 Crossmatch See Detail 09/06/18 11:14
[2018-09-09] MEDS: DUONEB *Not for PRN Use IH SCH ×4 (02:39→20:35)
[2018-09-09] MEDS ORDERED: BENADRYL PO PRN (04:34)
[2018-09-09] MEDS: NITRO-BID 2% TP SCH ×4 (06:06→22:57)
[2018-09-09 08:17] LABS: Calcium 6.9 mg/dL (8.4-10.2); Hemoglobin 7.2 gm/dl (10.1-14.3); Mean Corpuscular HGB Conc 32 % (30-34); Mean Corpuscular Volume 85 fl (79-97); Platelet Count 229 K/mm3 (140-440); Red Blood Count 2.69 M/mm3 (3.65-5.03); Red Cell Distribution Width 15.7 % (13.2-15.2)
[2018-09-09] MEDS ORDERED: D50W (25GM) Vial IV STA (08:19)
[2018-09-09] MEDS: HumuLIN R SUB-Q SCH ×4 (08:29→22:59)
[2018-09-09] MEDS ORDERED: HumuLIN R IV ONE (08:50)
[2018-09-09] MEDS ORDERED: D50W (25GM) Syringe IV ONE (09:00)
[2018-09-09] MEDS ORDERED: CALCIUM GLUCONATE 1,000 MG in NACL 0.9% 100 ML IV ONE (09:00)
[2018-09-09] MEDS: LEVAQUIN 750MG/150ML 750 MG/150 ML BAG IV SCH (09:47)
[2018-09-09] MEDS: KIONEX PO SCH ×2 (10:12→18:52)
[2018-09-09] MEDS: LASIX IV SCH (10:27)
[2018-09-09] MEDS: NORVASC PO SCH (10:28)
[2018-09-09] MEDS: FLOMAX PO SCH (10:28)
[2018-09-09] MEDS: SODIUM BICARBONATE PO SCH ×3 (10:31→22:53)
[2018-09-09] MEDS: NEURONTIN PO SCH ×3 (10:31→22:53)
[2018-09-09] MEDS: HEPARIN SUB-Q SCH ×2 (10:46→22:53)
--- NOTE | 2018-09-09 12:03 | Progress Note ---
Assessment and Plan - Patient Problems (1) Acute on chronic renal failure Current Visit: Yes Status: Acute Qualifiers: Chronic kidney disease stage: stage 2 (mild) Plan to address problem: Patient may likely have some underlying chronic kidney disease in the setting of hypertension, diabetes, now with an exacerbated acute renal injury in the setting of possible heart failure. ECHO noted, and there was noted to be dilatation of the IVC without >50% decreased with inspiration, which may be indicating that she still has some element of volume overload. Edema remains but is improving from yesterday Agree with current management. Avoid nephrotoxins. Maintain mean arterial pressures above 65. Closely monitor renal functions daily. UA and urine electrolytes noted. Renal US noted without any acute findings, however evidence of likely underlying CKD. Renal function slightly worse in setting of MRSA bacteremia. Patient also had episode of hypoglycemia this am, which is a risk factor for FLY and worsening renal injury/function. Will switch her lasix to 40 mg PO dose. (2) Acute respiratory failure with hypoxia Current Visit: Yes Status: Acute Plan to address problem: Possibly in the setting of an acute congestive heart failure episode/volume overload. ECHO noted and not acute systolic or diastolic dysfunction was mentioned. Moderate LVH and EF 50-55%. IVC dilatation noted without decrease/change with respiration, possibly indicating element of volume overload state. Will adjust current diuretic regimen and switch to lasix 40mg PO daily. Strict monitoring of her intake and output, as we need to document her urine output per shift. I have reiterated this with the nursing staff. Continue to monitor closely. I agree with BiPAP. (3) Bacteremia due to Gram-positive bacteria Current Visit: Yes Status: Acute Plan to address problem: Placed on IV Vanc and consult placed to ID. cultures growing MRSA. Will follow up further recommendations from infectious diseases. Plan for MRI of the right ankle/foot to evaluate for osteomyelitis (4) Hyperkalemia Current Visit: Yes Status: Acute Plan to address problem: Received medical management/treatment today with insulin/D50/kayexulate and calcium gluconate. Will follow up repeat labs. ensure that she is on a low K diet. (5) Metabolic acidosis Current Visit: Yes Status: Acute Plan to address problem: Started on NaHCO3 1 tab with meals TID. (6) Hypertensive chronic kidney disease with stage 1 through stage 4 chronic kidney disease, or unspecified chronic kidney disease Current Visit: Yes Status: Chronic Plan to address problem: Continue current outpatient antihypertensive regimen. We will have to closely monitor. (7) Type 2 diabetes mellitus with diabetic chronic kidney disease Current Visit: Yes Status: Chronic Plan to address problem: Diabetes management per primary team. Patient had episode of hypoglycemia this morning. Will likely need to adjust insulin regimen to avoid further hypoglycemic episodes, which itself is a risk factor for FLY and worsening renal function. (8) COPD exacerbation Current Visit: Yes Status: Acute Plan to address problem: Management per pulmonology. Patient on BiPAP and received DuoNeb therapy as scheduled. (9) Anemia in CKD (chronic kidney disease) Current Visit: Yes Status: Acute Qualifiers: Chronic kidney disease stage: stage 3 (moderate) Qualified Code(s): N18.3 - Chronic kidney disease, stage 3 (moderate); D63.1 - Anemia in chronic kidney disease Plan to address problem: She has no acute signs/symptoms concerning for GI bleed. s/p transfusion of 1 unit PRBC Will follow up recommendations per primary attending. Subjective Date of service: 09/09/18 Interval history: Episode of hypoglycemia, with blood glucose level ~30. Given an amp D50 and orange juice. Repeat labs pending. Patient did receive insulin/D50/calcium gluconate/kayexulate per nursing staff earlier this am as part of hyperkalemia treatment based on BMP this morning. Renal function shows slight worsening with serum creatinine increased to 3.1 from previous 2.8. Being treated for MRSA bacteremia, with possible source R.ankle cellulitis, r/o possible osteomyelitis. ID consult noted and plan for further assessment with MRI. Also plan for TTE in setting of MRSA bacteremia. Objective - Vital Signs Vital signs: Vital Signs - 12hr 09/09/18 09/09/18 09/09/18 00:05 02:41 05:50 Temperature 98.4 F 98.2 F Pulse Rate 100 H 85 Pulse Rate [ 87 Anterior Bilateral Throughout] Pulse Rate [ Bilateral Bases ] Respiratory 20 22 Rate Respiratory 22 Rate [Anterior Bilateral Throughout] Respiratory Rate [Bilateral Bases] Blood Pressure 137/68 145/70 O2 Sat by Pulse 100 100 Oximetry 09/09/18 09/09/18 09/09/18 06:06 07:40 07:54 Temperature Pulse Rate 85 Pulse Rate [ Anterior Bilateral Throughout] Pulse Rate [ 77 Bilateral Bases ] Respiratory Rate Respiratory Rate [Anterior Bilateral Throughout] Respiratory 18 Rate [Bilateral Bases] Blood Pressure 145/70 O2 Sat by Pulse 98 Oximetry 09/09/18 09/09/18 09/09/18 07:55 08:44 10:28 Temperature 98.0 F Pulse Rate 98 H 100 H Pulse Rate [ Anterior Bilateral Throughout] Pulse Rate [ 74 Bilateral Bases ] Respiratory 20 Rate Respiratory Rate [Anterior Bilateral Throughout] Respiratory 18 Rate [Bilateral Bases] Blood Pressure 143/68 O2 Sat by Pulse 98 Oximetry - General Appearance General appearance: obese, chronically ill, fatigue, frail EENT: ATNC, PERRL Neck: no JVD, no thyromegaly Respiratory: Present: Clear to Ascultation Cardiology: regular, S1S2 Gastrointestinal: normal, normoactive bowel sounds Integumentary: warm and dry, ulcer (R. heel/ankle) Neurologic: disoriented Musculoskeletal: other (-edema ) Psychiatric: cooperative - Lab 09/09/18 07:45 09/09/18 07:45 Most recent lab results Calcium 6.9 mg/dL (8.4-10.2) L 09/09/18 07:45 Urine Creatinine 46.3 mg/dL (0.1-20.0) H 09/06/18 15:10 Urine Sodium 92 mmol/L 09/06/18 15:10 - Allied health notes Allied health notes reviewed: nursing Medications & Allergies - Medications Allergies/Adverse Reactions: Allergies lisinopril Allergy (Severe, Verified 03/18/15 14:54) Swelling swelling mouth and throat Home Medications: Home Medications Medication Instructions Recorded Confirmed Last Taken Type Gabapentin 2 tab PO TID 05/06/14 07/31/17 07/04/15 History Cyclobenzaprine [Flexeril 10 MG 10 mg PO TID PRN #14 tablet 07/25/17 07/31/17 Unknown Rx TAB] Insulin Glargine,Hum.rec.anlog 10 units SUB-Q HS 07/31/17 07/31/17 Unknown History [Lantus] amLODIPine [Norvasc] 10 mg PO DAILY 07/31/17 07/31/17 Unknown History Amoxicillin/Potassium Clav 1 each PO BID #14 tablet 08/02/17 Unknown Rx [Augmentin 875-125 Tablet] HYDROcodone/APAP 5-325 [[place] 1 - 2 each PO Q6HR PRN #14 tablet 08/02/17 Unknown Rx 5-325 mg TAB] Tamsulosin [Flomax] 0.4 mg PO QDAY #30 capsule 08/02/17 Unknown Rx traMADol [Ultram 50 MG tab] 50 mg PO Q6H PRN #14 tablet 08/02/17 Unknown Rx Active Medications: Generic Name Dose Route Start Last Admin Trade Name Freq PRN Reason Stop Dose Admin Acetaminophen 650 mg 09/04/18 23:53 Tylenol PO Q4H PRN Fever >101 Acetaminophen/Hydrocodone Bitart 1 each 09/05/18 00:01 09/07/18 22:48 [place] 5/325 PO 1 each Q6H PRN Administration Pain, Moderate (4-6) Albuterol 2.5 mg 09/05/18 01:37 Proventil IH Q4HRT PRN Shortness Of Breath Albuterol/Ipratropium 1 ampul 09/07/18 14:00 09/09/18 07:45 Duoneb *Not For Prn Use* IH 1 ampul Q6HRT DAMIEN Administration Amlodipine Besylate 10 mg 09/05/18 10:00 09/09/18 10:28 Norvasc PO 10 mg DAILY DAMIEN Administration Cyclobenzaprine HCl 10 mg 09/05/18 00:01 09/05/18 21:26 Flexeril PO 10 mg TID PRN Administration Muscle Spasm Dextrose 50 ml 09/04/18 23:58 09/09/18 11:58 D50w (25gm) Syringe IV 50 ml PRN PRN Administration Hypoglycemia Diphenhydramine HCl 25 mg 09/09/18 04:34 Benadryl PO Q6H PRN Itching Furosemide 40 mg 09/05/18 10:00 09/09/18 10:27 Lasix IV 40 mg QDAY DAMIEN Administration Gabapentin 300 mg 09/05/18 08:00 09/09/18 10:31 Neurontin PO 300 mg TID DAMIEN Administration Heparin Sodium (Porcine) 5,000 unit 09/05/18 10:00 09/09/18 10:46 Heparin SUB-Q 5,000 unit Q12HR DAMIEN Administration Levofloxacin/Dextrose 750 mg in 150 mls @ 100 mls/hr 09/05/18 10:00 09/09/18 09:47 Levaquin 750mg/150ml IV 100 mls/hr Q48HR DAMIEN Administration Protocol Insulin Human Regular 0 units 09/05/18 07:30 09/09/18 08:29 Humulin R SUB-Q Not Given AC [facility] Protocol Insulin Human Regular 0 units 09/05/18 22:00 09/08/18 21:16 Humulin R SUB-Q Not Given QHS [facility] Protocol Nitroglycerin 0.5 inch 09/05/18 01:00 09/09/18 10:28 Nitro-Bid 2% TP 0.5 inch QIDNTG [facility] Administration Protocol Ondansetron HCl 4 mg 09/04/18 23:55 09/09/18 10:09 Zofran IV 4 mg Q8H PRN Administration Nausea And Vomiting Sodium Bicarbonate 650 mg 09/06/18 14:00 09/09/18 10:31 Sodium Bicarbonate PO 650 mg TID DAMIEN Administration Sodium Polystyrene Sulfonate 30 gm 09/09/18 09:00 09/09/18 10:12 Kionex PO 09/09/18 12:01 30 gm Q6HR DAMIEN Administration Tamsulosin HCl 0.4 mg 09/05/18 10:00 09/09/18 10:28 Flomax PO 0.4 mg QDAY DAMIEN Administration Tramadol HCl 50 mg 09/05/18 00:01 Ultram PO Q6H PRN Pain, Moderate (4-6)
[2018-09-09 13:57] LABS: Iron 16 ug/dL (37-170); Total Iron Binding Capacity 154 mcg/dL (250-450)
--- NOTE | 2018-09-09 15:22 | Magnetic Resonance Report ---
MR LOWER EXTREMITY NON-JOINT RIGHT WITHOUT CONTRAST History: Right heel ulcer with MRSA bacteremia. Technique: Multisequence, multiplanar MRI. Findings: There is a large area of soft tissue ulceration ND heel region. There is mild soft tissue gas in this area but no obvious abscess on noncontrast MRI. There is markedly abnormal bone marrow signal in the calcaneus highly suggestive of osteomyelitis. The remaining visualized bony structures demonstrate normal bone marrow signal. There is diffuse subcutaneous and muscular edema. The musculotendinous structures are grossly intact. IMPRESSION: Calcaneal osteomyelitis.
--- NOTE | 2018-09-09 16:08 | Progress Note ---
Assessment and Plan Cultures: 09/04/2018 blood culture: MRSA 09/07/2018 blood culture: no growth A/P: 62 y/o female with history of Obesity, DM, CKD stage II, hypertension, COPD; admitted on 09/04/2018 due to a week history of worsening SOB, mild dry cough and drainage from right heel ulcer: 1) Sepsis: present on admission with leukocytosis, tachycardia; etio. MRSA bacteremia +/- right heel wound infection. 2) MRSA bacteremia: source likely right heel infection. Blood cultures 09/04/2018 MRSA vanco PABLO=2. No indwelling endovascular devices. TTE without vegetations. Repeat blood cultures cleared quickly, hence endocarditis seems less likely, no need for CARITO. 3) Right heel diabetic wound likely infected: Patient has a right foot diabetic ulcer for over a year, she follows at [facility]. MRI showed chronic right calcaneal osteomyelitis. 4) Acute on CKD: renally dose abx. Given issues with renal function and vancomycin PABLO of 2, would prefer to do IV Daptomycin. Recs: - discontinued Vancomycin - started IV Daptomycin 750 mg q48 hrs, plan for 6 weeks of therapy - PICC line ordered - await arterial leg Doppler d/w Dr. Ortiz. Christy Malagon MD [facility] C: [phone] O: [phone] F: [phone] Subjective Date of service: 09/09/18 Interval history: Denies any new complaints. No fever. Right leg in dressing. No diarrhea. No rash. Tolerating abx. Objective - Exam Narrative Exam: Physical Exam: Constitutional: Alert, cooperative. No acute distress Head, Ears, Nose: Normocephalic, atraumatic. External ears, nose normal Eyes: Conjunctivae/corneas clear. No icterus. No ptosis. Neck: Supple, no meningeal signs Cardiovascular: S1, S2 normal, 2/6 systolic murmur Respiratory: Good air entry, clear to auscultation bilaterally GI: Soft, non-tender; bowel sounds normal. No peritoneal signs Musculoskeletal: right heel ulcer with dressing. Skin: No rash or abscess Hem/Lymphatic: No palpable cervical or supraclavicular nodes. No lymphangitis Psych: Mood ok. Affect normal Neurological: Awake, alert, oriented. No gross abnormality - Constitutional Vitals: Vital Signs Temp Pulse Resp BP Pulse Ox 98.0 F 100 H 20 143/68 98 09/09/18 08:44 09/09/18 10:28 09/09/18 08:44 09/09/18 08:44 09/09/18 08:44 Temperature -Last 24 Hours Temperature 98.0 F Temperature 98.2 F Temperature 98.4 F Temperature 98.6 F Temperature 97.8 F - Labs CBC & Chem 7: 09/09/18 07:45 09/09/18 07:45 Labs: Abnormal lab results 09/08/18 09/08/18 09/09/18 Range/Units 16:27 21:09 06:38 WBC (4.5-11.0) K/mm3 RBC (3.65-5.03) M/mm3 Hgb (10.1-14.3) gm/dl Hct (30.3-42.9) % MCH (28-32) pg RDW (13.2-15.2) % Potassium (3.6-5.0) mmol/L Chloride (98-107) mmol/L Carbon Dioxide (22-30) mmol/L BUN (7-17) mg/dL Creatinine (0.7-1.2) mg/dL POC Glucose 159 H 107 H 211 H (70-105) Calcium (8.4-10.2) mg/dL Iron (37-170) ug/dL TIBC (250-450) mcg/dL 09/09/18 09/09/18 09/09/18 Range/Units 07:45 07:45 11:50 WBC 12.2 H (4.5-11.0) K/mm3 RBC 2.69 L (3.65-5.03) M/mm3 Hgb 7.2 L (10.1-14.3) gm/dl Hct 23.0 L (30.3-42.9) % MCH 27 L (28-32) pg RDW 15.7 H (13.2-15.2) % Potassium 5.8 H (3.6-5.0) mmol/L Chloride 111.7 H (98-107) mmol/L Carbon Dioxide 17 L (22-30) mmol/L BUN 59 H (7-17) mg/dL Creatinine 3.1 H (0.7-1.2) mg/dL POC Glucose < 40 L (70-105) Calcium 6.9 L (8.4-10.2) mg/dL Iron (37-170) ug/dL TIBC (250-450) mcg/dL 09/09/18 Range/Units 13:24 WBC (4.5-11.0) K/mm3 RBC (3.65-5.03) M/mm3 Hgb (10.1-14.3) gm/dl Hct (30.3-42.9) % MCH (28-32) pg RDW (13.2-15.2) % Potassium (3.6-5.0) mmol/L Chloride (98-107) mmol/L Carbon Dioxide (22-30) mmol/L BUN (7-17) mg/dL Creatinine (0.7-1.2) mg/dL POC Glucose (70-105) Calcium (8.4-10.2) mg/dL Iron 16 L (37-170) ug/dL TIBC 154 L (250-450) mcg/dL
--- NOTE | 2018-09-09 18:24 | Progress Note ---
Assessment and Plan Assessment and plan: Acute resp failure due to COPD exacerbation Supplemental Oxygen COPD exacerbation On Duoneb Sepsis due to MRSA. Started on Daptomycin MRSA Bacteremia Follow up repeat blood cultures, Daptomycin ID Physician following. Osteomyelitis of calcaneum on MRI For 6 weeks iv Daptomycin as per ID Physician PICC line ordered Right heel ulcer Hypertension Monitor BP Acute on CKD Nephrology following Diabetes mellitus type 2. Fingerstick glucose qac and hs Hyperlipidemia Anemia. hgb 7.2 after 1 Unit PRBC transfusion Repeat in am Hyperkalemia. Give Kayexalate, Insulin and repeat Full code status History Interval history: Less shortness of breath, No chest pain Right foot ulcer Hospitalist Physical - Physical exam Narrative exam: GEN: Not in acute distress,lying in bed HEENT: Normocephalic, atraumatic, Neck: supple, No JVD Lungs: Decreased BS, bilateral rhonchi, Heart:S1 and S2 regular, no murmurs, rubs or gallop, Abd:soft, non tender, non distended, normal bowel sounds Ext: Right heel ulcer, dressing right foot, no clubbing or cyanosis Neuro: Awake,alert, oriented x 3, No focal signs Psych:Normal mood - Constitutional Vitals: Temp Pulse Resp BP Pulse Ox 98.0 F 88 20 158/66 97 09/09/18 16:04 09/09/18 16:04 09/09/18 16:04 09/09/18 16:04 09/09/18 16:04 Results - Labs CBC & Chem 7: 09/09/18 07:45 09/09/18 07:45 Labs: Laboratory Last Values WBC 12.2 K/mm3 (4.5-11.0) H 09/09/18 07:45 RBC 2.69 M/mm3 (3.65-5.03) L 09/09/18 07:45 Hgb 7.2 gm/dl (10.1-14.3) L 09/09/18 07:45 Hct 23.0 % (30.3-42.9) L 09/09/18 07:45 MCV 85 fl (79-97) 09/09/18 07:45 MCH 27 pg (28-32) L 09/09/18 07:45 MCHC 32 % (30-34) 09/09/18 07:45 RDW 15.7 % (13.2-15.2) H 09/09/18 07:45 Plt Count 229 K/mm3 (140-440) 09/09/18 07:45 Lymph % (Auto) 22.6 % (13.4-35.0) 09/04/18 21:37 [place] % (Auto) 9.3 % (0.0-7.3) H 09/04/18 21:37 Eos % (Auto) 0.8 % (0.0-4.3) 09/04/18 21:37 Baso % (Auto) 1.2 % (0.0-1.8) 09/04/18 21:37 Lymph # 3.4 K/mm3 (1.2-5.4) 09/04/18 21:37 Young # 1.4 K/mm3 (0.0-0.8) H 09/04/18 21:37 Eos # 0.1 K/mm3 (0.0-0.4) 09/04/18 21:37 Baso # 0.2 K/mm3 (0.0-0.1) H 09/04/18 21:37 Seg Neutrophils % 66.1 % (40.0-70.0) 09/04/18 21:37 Seg Neutrophils # 10.0 K/mm3 (1.8-7.7) H 09/04/18 21:37 POC ABG pH 7.304 (7.35-7.45) L 09/04/18 22:04 POC ABG pCO2 32.3 (35-45) L 09/04/18 22:04 POC ABG pO2 211 (80-105) H 09/04/18 22:04 POC ABG HCO3 16.0 09/04/18 22:04 POC ABG Total CO2 17 09/04/18 22:04 POC ABG O2 Sat 100 09/04/18 22:04 POC ABG Base Excess -10 09/04/18 22:04 FiO2 60 % 09/04/18 22:04 Sodium 143 mmol/L (137-145) 09/09/18 07:45 Potassium 5.8 mmol/L (3.6-5.0) H 09/09/18 07:45 Chloride 111.7 mmol/L (98-107) H 09/09/18 07:45 Carbon Dioxide 17 mmol/L (22-30) L 09/09/18 07:45 Anion Gap 20 mmol/L 09/09/18 07:45 BUN 59 mg/dL (7-17) H 09/09/18 07:45 Creatinine 3.1 mg/dL (0.7-1.2) H 09/09/18 07:45 Estimated GFR 18 ml/min 09/09/18 07:45 BUN/Creatinine Ratio 19 % 09/09/18 07:45 Glucose 72 mg/dL (65-100) 09/09/18 07:45 POC Glucose 114 (70-105) H 09/09/18 16:05 Calcium 6.9 mg/dL (8.4-10.2) L 09/09/18 07:45 Iron 16 ug/dL (37-170) L 09/09/18 13:24 TIBC 154 mcg/dL (250-450) L 09/09/18 13:24 Total Bilirubin 0.40 mg/dL (0.1-1.2) 09/04/18 21:37 Direct Bilirubin < 0.2 mg/dL (0-0.2) 09/04/18 21:37 Indirect Bilirubin 0.2 mg/dL 09/04/18 21:37 AST 34 units/L (5-40) 09/04/18 21:37 ALT 49 units/L (7-56) 09/04/18 21:37 Alkaline Phosphatase 240 units/L (35-129) H 09/04/18 21:37 Total Creatine Kinase 182 units/L (30-135) H 09/05/18 05:46 CK-MB (CK-2) 3.8 ng/mL (0.0-4.0) 09/05/18 05:46 CK-MB (CK-2) Rel Index 2.0 (0-4) 09/05/18 05:46 Troponin T 0.064 ng/mL (0.00-0.029) H 09/05/18 05:46 C-Reactive Protein 2.80 mg/dL (0.00-1.30) H 09/08/18 14:12 NT-Pro-B Natriuret Pep 86655 pg/mL (0-900) H 09/04/18 21:37 Total Protein 7.3 g/dL (6.3-8.2) 09/04/18 21:37 Albumin 3.1 g/dL (3.9-5) L 09/04/18 21:37 Albumin/Globulin Ratio 0.7 % 09/04/18 21:37 Triglycerides 93 mg/dL (2-149) 09/04/18 21:37 Cholesterol 174 mg/dL (50-199) 09/04/18 21:37 LDL Cholesterol Direct 93 mg/dL (50-130) 09/04/18 21:37 HDL Cholesterol 78 mg/dL (40-59) H 09/04/18 21:37 Cholesterol/HDL Ratio 2.23 % 09/04/18 21:37 Urine Color Yellow (Yellow) 09/06/18 15:10 Urine Turbidity Cloudy (Clear) 09/06/18 15:10 Urine pH 5.0 (5.0-7.0) 09/06/18 15:10 Ur Specific [place] 1.008 (1.003-1.030) 09/06/18 15:10 Urine Protein 100 mg/dl mg/dL (Negative) 09/06/18 15:10 Urine Glucose (UA) 50 mg/dL (Negative) 09/06/18 15:10 Urine Ketones Neg mg/dL (Negative) 09/06/18 15:10 Urine Blood Mod (Negative) 09/06/18 15:10 Urine Nitrite Neg (Negative) 09/06/18 15:10 Urine Bilirubin Neg (Negative) 09/06/18 15:10 Urine Urobilinogen < 2.0 mg/dL (<2.0) 09/06/18 15:10 Ur Leukocyte Esterase Tr (Negative) 09/06/18 15:10 Urine WBC (Auto) 23.0 /HPF (0.0-6.0) H 09/06/18 15:10 Urine RBC (Auto) 11.0 /HPF (0.0-6.0) 09/06/18 15:10 U Epithel Cells (Auto) 4.0 /HPF (0-13.0) 09/06/18 15:10 Urine Bacteria (Auto) 2+ /HPF (Negative) 09/06/18 15:10 Urine Yeast (Budding) 3+ /HPF 09/06/18 15:10 Urine Creatinine 46.3 mg/dL (0.1-20.0) H 09/06/18 15:10 Urine Sodium 92 mmol/L 09/06/18 15:10 Urine Chloride 82.2 mmolL (110-250) L 09/06/18 15:10 Random Vancomycin 13.4 ug/mL (0-40.0) 09/09/18 05:27 Blood Type A POSITIVE 09/06/18 11:14 Antibody Screen Negative 09/06/18 11:14 Crossmatch See Detail 09/06/18 11:14
[2018-09-09] MEDS: DAPTOmycin 750 MG in NACL 0.9% 100 ML IV SCH (18:41)
[2018-09-09] MEDS: NORCO 5/325 PO PRN (22:53)
[2018-09-10] MEDS: DUONEB *Not for PRN Use IH SCH ×4 (02:35→20:15)
[2018-09-10] MEDS: NITRO-BID 2% TP SCH ×4 (05:33→18:40)
[2018-09-10 06:54] LABS: Hematocrit 25.3 % (30.3-42.9); Hemoglobin 8.1 gm/dl (10.1-14.3); Mean Corpuscular HGB Conc 32 % (30-34); Mean Corpuscular Volume 86 fl (79-97); Platelet Count 251 K/mm3 (140-440); Red Blood Count 2.95 M/mm3 (3.65-5.03); Red Cell Distribution Width 15.4 % (13.2-15.2)
[2018-09-10 07:38] LABS: Calcium 7.3 mg/dL (8.4-10.2)
[2018-09-10] MEDS: NEURONTIN PO SCH ×3 (08:34→21:13)
[2018-09-10] MEDS: HumuLIN R SUB-Q SCH ×4 (08:34→22:33)
[2018-09-10] MEDS: SODIUM BICARBONATE PO SCH ×3 (08:34→21:13)
--- NOTE | 2018-09-10 10:04 | Progress Note ---
Assessment and Plan Cultures: 09/04/2018 blood culture: MRSA 09/07/2018 blood culture: no growth 09/07/2018 urine: 10-10,000 Cfu/ml mixed >2 organisms A/P: 62 y/o female with history of Obesity, DM, CKD stage II, hypertension, COPD; admitted on 09/04/2018 due to a week history of worsening SOB, mild dry cough and drainage from right heel ulcer: 1) Sepsis: present on admission: leukocytosis continuing, etio. MRSA bacteremia +/- right heel wound infection. 2) MRSA bacteremia: source likely right heel infection. Blood cultures 09/04/2018 MRSA vanco PABLO=2. No indwelling endovascular devices. TTE without vegetations. Repeat blood cultures cleared quickly, hence endocarditis seems less likely, no need for CARITO. 3) Right heel diabetic wound likely infected: Patient has a right foot diabetic ulcer for over a year, she follows at [facility]. MRI showed chronic right calcaneal osteomyelitis. 4) Acute on CKD: renally dose abx. Given issues with renal function and vancomycin PABLO of 2, would prefer to do IV Daptomycin. Recs: - started IV Daptomycin 750 mg q48 hrs, plan for 6 weeks of therapy, ending October 21, 2018 -Case management consult - PICC line ordered - Vascular consult for peripheral vascular disease given high treatment failure with antibiotics d/w Dr. Vesna Carrion, [facility] M: [phone] O:[phone] Subjective Date of service: 09/10/18 Interval history: Patient seen and examined. Denied pain, fever or SOB. Stated that she was feeling better today. Nurses notes, labs and reports reviewed, discussed with patient, questions answered. Objective - Exam Narrative Exam: Constitutional: Alert, cooperative. No acute distress Head, Ears, Nose: Normocephalic, atraumatic. External ears, nose normal Eyes: Conjunctivae/corneas clear. No icterus. No ptosis. Neck: Supple, no meningeal signs Cardiovascular: S1, S2 normal, 2/6 systolic murmur Respiratory: Good air entry, clear to auscultation bilaterally GI: Soft, non-tender; bowel sounds normal. No peritoneal signs Musculoskeletal: right heel ulcer with dressing. Skin: No rash or abscess Hem/Lymphatic: No palpable cervical or supraclavicular nodes. No lymphangitis Psych: Mood ok. Affect normal Neurological: Awake, alert, oriented. No gross abnormality - Constitutional Vitals: Vital Signs Temp Pulse Resp BP Pulse Ox 98.5 F 89 18 132/59 97 09/10/18 08:01 09/10/18 08:07 09/10/18 08:07 09/10/18 08:01 09/10/18 08:53 Temperature -Last 24 Hours Temperature 98.5 F Temperature 98.5 F Temperature 98.2 F Temperature 97.9 F Temperature 98.0 F - Labs CBC & Chem 7: 09/10/18 06:09 09/10/18 06:09 Labs: Abnormal lab results 09/09/18 09/09/18 09/09/18 Range/Units 11:50 13:24 16:05 WBC (4.5-11.0) K/mm3 RBC (3.65-5.03) M/mm3 Hgb (10.1-14.3) gm/dl Hct (30.3-42.9) % RDW (13.2-15.2) % Sodium (137-145) mmol/L Chloride (98-107) mmol/L Carbon Dioxide (22-30) mmol/L BUN (7-17) mg/dL Creatinine (0.7-1.2) mg/dL POC Glucose < 40 L 114 H (70-105) Calcium (8.4-10.2) mg/dL Iron 16 L (37-170) ug/dL TIBC 154 L (250-450) mcg/dL 09/09/18 09/10/18 09/10/18 Range/Units 21:16 06:09 06:09 WBC 12.2 H (4.5-11.0) K/mm3 RBC 2.95 L (3.65-5.03) M/mm3 Hgb 8.1 L (10.1-14.3) gm/dl Hct 25.3 L (30.3-42.9) % RDW 15.4 H (13.2-15.2) % Sodium 150 H (137-145) mmol/L Chloride 113.3 H (98-107) mmol/L Carbon Dioxide 18 L (22-30) mmol/L BUN 59 H (7-17) mg/dL Creatinine 3.0 H (0.7-1.2) mg/dL POC Glucose 191 H (70-105) Calcium 7.3 L (8.4-10.2) mg/dL Iron (37-170) ug/dL TIBC (250-450) mcg/dL
[2018-09-10] MEDS: HEPARIN SUB-Q SCH ×2 (10:34→21:13)
[2018-09-10] MEDS: NORVASC PO SCH (10:34)
[2018-09-10] MEDS: LASIX PO SCH (10:34)
[2018-09-10] MEDS: FLOMAX PO SCH (10:34)
--- NOTE | 2018-09-10 10:38 | Progress Note ---
Assessment and Plan Assessment and plan: Acute resp failure due to COPD exacerbation Supplemental Oxygen COPD exacerbation On Duoneb Sepsis due to MRSA. Started on Daptomycin MRSA Bacteremia Follow up repeat blood cultures, source likely right heel infection. TTE without vegetations. Daptomycin ID Physician following. Osteomyelitis of calcaneum on MRI For 6 weeks iv Daptomycin as per ID Physician PICC line ordered Right heel ulcer Hypertension Monitor BP Acute on CKD Nephrology following Diabetes mellitus type 2. Fingerstick glucose qac and hs Hyperlipidemia Anemia. s/p 1 Unit PRBC transfusion H&H stable. Hyperkalemia. Give Kayexalate, Insulin and repeat Full code status History Interval history: No new issues overnight. Hospitalist Physical - Constitutional Vitals: Temp Pulse Resp BP Pulse Ox 98.5 F 89 18 132/59 97 09/10/18 08:01 09/10/18 08:07 09/10/18 08:07 09/10/18 08:01 09/10/18 08:53 General appearance: Present: no acute distress, well-nourished - EENT Eyes: Present: PERRL, EOM intact ENT: hearing intact, clear oral mucosa, dentition normal - Neck Neck: Present: supple, normal ROM - Respiratory Respiratory effort: normal Respiratory: bilateral: CTA - Cardiovascular Rhythm: regular Heart Sounds: Present: S1 & S2. Absent: gallop, rub - Extremities Extremities: no ischemia, No edema, Full ROM - Abdominal General gastrointestinal: soft, non-tender, non-distended, normal bowel sounds - Integumentary Integumentary: Present: clear, warm, dry - Neurologic Neurologic: CNII-XII intact, moves all extremities Results - Labs CBC & Chem 7: 09/10/18 06:09 09/10/18 06:09 Labs: Laboratory Last Values WBC 12.2 K/mm3 (4.5-11.0) H 09/10/18 06:09 RBC 2.95 M/mm3 (3.65-5.03) L 09/10/18 06:09 Hgb 8.1 gm/dl (10.1-14.3) L 09/10/18 06:09 Hct 25.3 % (30.3-42.9) L 09/10/18 06:09 MCV 86 fl (79-97) 09/10/18 06:09 MCH 28 pg (28-32) 09/10/18 06:09 MCHC 32 % (30-34) 09/10/18 06:09 RDW 15.4 % (13.2-15.2) H 09/10/18 06:09 Plt Count 251 K/mm3 (140-440) 09/10/18 06:09 Lymph % (Auto) 22.6 % (13.4-35.0) 09/04/18 21:37 [place] % (Auto) 9.3 % (0.0-7.3) H 09/04/18 21:37 Eos % (Auto) 0.8 % (0.0-4.3) 09/04/18 21:37 Baso % (Auto) 1.2 % (0.0-1.8) 09/04/18 21:37 Lymph # 3.4 K/mm3 (1.2-5.4) 09/04/18 21:37 [place] # 1.4 K/mm3 (0.0-0.8) H 09/04/18 21:37 Eos # 0.1 K/mm3 (0.0-0.4) 09/04/18 21:37 Baso # 0.2 K/mm3 (0.0-0.1) H 09/04/18 21:37 Seg Neutrophils % 66.1 % (40.0-70.0) 09/04/18 21:37 Seg Neutrophils # 10.0 K/mm3 (1.8-7.7) H 09/04/18 21:37 POC ABG pH 7.304 (7.35-7.45) L 09/04/18 22:04 POC ABG pCO2 32.3 (35-45) L 09/04/18 22:04 POC ABG pO2 211 (80-105) H 09/04/18 22:04 POC ABG HCO3 16.0 09/04/18 22:04 POC ABG Total CO2 17 09/04/18 22:04 POC ABG O2 Sat 100 09/04/18 22:04 POC ABG Base Excess -10 09/04/18 22:04 FiO2 60 % 09/04/18 22:04 Sodium 150 mmol/L (137-145) H 09/10/18 06:09 Potassium 4.7 mmol/L (3.6-5.0) 09/10/18 06:09 Chloride 113.3 mmol/L (98-107) H 09/10/18 06:09 Carbon Dioxide 18 mmol/L (22-30) L 09/10/18 06:09 Anion Gap 23 mmol/L 09/10/18 06:09 BUN 59 mg/dL (7-17) H 09/10/18 06:09 Creatinine 3.0 mg/dL (0.7-1.2) H 09/10/18 06:09 Estimated GFR 19 ml/min 09/10/18 06:09 BUN/Creatinine Ratio 20 % 09/10/18 06:09 Glucose 92 mg/dL (65-100) 09/10/18 06:09 POC Glucose 191 (70-105) H 09/09/18 21:16 Calcium 7.3 mg/dL (8.4-10.2) L 09/10/18 06:09 Iron 16 ug/dL (37-170) L 09/09/18 13:24 TIBC 154 mcg/dL (250-450) L 09/09/18 13:24 Total Bilirubin 0.40 mg/dL (0.1-1.2) 09/04/18 21:37 Direct Bilirubin < 0.2 mg/dL (0-0.2) 09/04/18 21:37 Indirect Bilirubin 0.2 mg/dL 09/04/18 21:37 AST 34 units/L (5-40) 09/04/18 21:37 ALT 49 units/L (7-56) 09/04/18 21:37 Alkaline Phosphatase 240 units/L (35-129) H 09/04/18 21:37 Total Creatine Kinase 182 units/L (30-135) H 09/05/18 05:46 CK-MB (CK-2) 3.8 ng/mL (0.0-4.0) 09/05/18 05:46 CK-MB (CK-2) Rel Index 2.0 (0-4) 09/05/18 05:46 Troponin T 0.064 ng/mL (0.00-0.029) H 09/05/18 05:46 C-Reactive Protein 2.80 mg/dL (0.00-1.30) H 09/08/18 14:12 NT-Pro-B Natriuret Pep 54042 pg/mL (0-900) H 09/04/18 21:37 Total Protein 7.3 g/dL (6.3-8.2) 09/04/18 21:37 Albumin 3.1 g/dL (3.9-5) L 09/04/18 21:37 Albumin/Globulin Ratio 0.7 % 09/04/18 21:37 Triglycerides 93 mg/dL (2-149) 09/04/18 21:37 Cholesterol 174 mg/dL (50-199) 09/04/18 21:37 LDL Cholesterol Direct 93 mg/dL (50-130) 09/04/18 21:37 HDL Cholesterol 78 mg/dL (40-59) H 09/04/18 21:37 Cholesterol/HDL Ratio 2.23 % 09/04/18 21:37 Urine Color Yellow (Yellow) 09/06/18 15:10 Urine Turbidity Cloudy (Clear) 09/06/18 15:10 Urine pH 5.0 (5.0-7.0) 09/06/18 15:10 Ur Specific [place] 1.008 (1.003-1.030) 09/06/18 15:10 Urine Protein 100 mg/dl mg/dL (Negative) 09/06/18 15:10 Urine Glucose (UA) 50 mg/dL (Negative) 09/06/18 15:10 Urine Ketones Neg mg/dL (Negative) 09/06/18 15:10 Urine Blood Mod (Negative) 09/06/18 15:10 Urine Nitrite Neg (Negative) 09/06/18 15:10 Urine Bilirubin Neg (Negative) 09/06/18 15:10 Urine Urobilinogen < 2.0 mg/dL (<2.0) 09/06/18 15:10 Ur Leukocyte Esterase Tr (Negative) 09/06/18 15:10 Urine WBC (Auto) 23.0 /HPF (0.0-6.0) H 09/06/18 15:10 Urine RBC (Auto) 11.0 /HPF (0.0-6.0) 09/06/18 15:10 U Epithel Cells (Auto) 4.0 /HPF (0-13.0) 09/06/18 15:10 Urine Bacteria (Auto) 2+ /HPF (Negative) 09/06/18 15:10 Urine Yeast (Budding) 3+ /HPF 09/06/18 15:10 Urine Creatinine 46.3 mg/dL (0.1-20.0) H 09/06/18 15:10 Urine Sodium 92 mmol/L 09/06/18 15:10 Urine Chloride 82.2 mmolL (110-250) L 09/06/18 15:10 Random Vancomycin 13.4 ug/mL (0-40.0) 09/09/18 05:27 Blood Type A POSITIVE 09/06/18 11:14 Antibody Screen Negative 09/06/18 11:14 Crossmatch See Detail 09/06/18 11:14
--- NOTE | 2018-09-10 10:54 | Vascular Lab Report ---
FINAL REPORT EXAM: VL ARTERIAL DUPLEX LE BILAT HISTORY: Osteomyelitis right heel. TECHNIQUE: Bilateral lower extremity arterial duplex Doppler ultrasound. Grayscale, color flow and s pectral waveform images were obtained. PRIORS: None. FINDINGS: There are atherosclerotic changes throughout lower extremity arteries. On the right side there is triphasic flow in the distal external iliac artery, common femoral artery and proximal superficial femoral artery. There is a biphasic flow the mid SFA to the popliteal artery , anterior tibial and dorsalis pedis artery. There is monophasic flow within the right posterior tibi al artery. There is diminished posterior tibial artery flow relative to the popliteal arterial flow. There is no significant velocity elevation to indicate a focal area of stenosis. On the left side there are similar findings of triphasic flow in the distal external iliac artery and common femoral artery. There is biphasic flow from proximal SS a to popliteal, anterior tibial arter y and dorsalis pedis artery. There is monophasic flow in the posterior tibial artery which demonstrat es mildly diminished flow. There are no significant velocity elevations to indicate a focal area of s tenosis. IMPRESSION: There are atherosclerotic changes throughout bilateral lower extremity arteries. Flow is present thro ughout lower extremity arteries. There is monophasic and diminished flow within posterior tibial gloria yanira bilaterally. There are no focal areas of velocity elevation to indicate a focal area of stenosis , however.
--- NOTE | 2018-09-10 10:58 | Progress Note ---
Assessment and Plan - Patient Problems (1) Acute on chronic renal failure Current Visit: Yes Status: Acute Qualifiers: Chronic kidney disease stage: stage 2 (mild) Plan to address problem: acute renal injury in the setting of possible heart failure, superimposed on CKD. cont diuresis with Lasix, now changed to PO. Renal function remains stable, without acute indication for renal replacement therapy. Avoid nephrotoxins. Maintain mean arterial pressures above 65. Closely monitor renal functions daily. UA and urine electrolytes noted. Renal US noted without any acute findings, however evidence of likely underlying CKD. (2) Acute respiratory failure with hypoxia Current Visit: Yes Status: Acute Plan to address problem: Possibly in the setting of an acute congestive heart failure episode/volume overload. Cont Lasix 40mg po qd. Strict I/Os. cont Na/fluid restriction to 1.5L/day. (3) Bacteremia due to Gram-positive bacteria Current Visit: Yes Status: Acute Plan to address problem: Placed on IV Vanc and consult placed to ID. cultures growing MRSA. Will follow up further recommendations from infectious diseases. 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 (4) Metabolic acidosis Current Visit: Yes Status: Acute Plan to address problem: Cont PO na bicarb (5) Hyperkalemia Current Visit: Yes Status: Acute Plan to address problem: improved s/p medical management/treatment today with insulin/D50/kayexulate and calcium gluconate. Will follow up repeat labs. cont low K diet. (6) Hypertensive chronic kidney disease with stage 1 through stage 4 chronic kidney disease, or unspecified chronic kidney disease Current Visit: Yes Status: Chronic Plan to address problem: Continue current outpatient antihypertensive regimen. We will have to closely monitor (7) Type 2 diabetes mellitus with diabetic chronic kidney disease Current Visit: Yes Status: Chronic Plan to address problem: Diabetes management per primary team. (8) COPD exacerbation Current Visit: Yes Status: Acute Plan to address problem: Management per pulmonology. Patient on BiPAP and received DuoNeb therapy as scheduled (9) Anemia in CKD (chronic kidney disease) Current Visit: Yes Status: Acute Qualifiers: Chronic kidney disease stage: stage 3 (moderate) Qualified Code(s): N18.3 - Chronic kidney disease, stage 3 (moderate); D63.1 - Anemia in chronic kidney disease Plan to address problem: She has no acute signs/symptoms concerning for GI bleed. Hb improved to 8.1 s/p transfusion of 1 unit PRBC Subjective Date of service: 09/10/18 Principal diagnosis: FLY on CKD Interval history: Patient awake, alert, in no acute respiratory distress. Objective - Vital Signs Vital signs: Vital Signs - 12hr 09/09/18 09/10/18 09/10/18 23:00 00:02 02:35 Temperature 98.2 F Pulse Rate 85 94 H Pulse Rate [ 74 Bilateral Bases ] Respiratory 18 Rate Respiratory 18 Rate [Bilateral Bases] Blood Pressure 140/71 O2 Sat by Pulse 99 Oximetry 09/10/18 09/10/18 09/10/18 02:47 03:25 07:57 Temperature 98.5 F Pulse Rate 89 Pulse Rate [ 78 87 Bilateral Bases ] Respiratory 20 Rate Respiratory 18 18 Rate [Bilateral Bases] Blood Pressure 164/77 O2 Sat by Pulse 99 Oximetry 09/10/18 09/10/18 09/10/18 07:59 08:01 08:07 Temperature 98.5 F Pulse Rate 67 88 Pulse Rate [ 89 Bilateral Bases ] Respiratory 18 Rate Respiratory 18 Rate [Bilateral Bases] Blood Pressure 132/59 O2 Sat by Pulse 96 Oximetry 09/10/18 08:53 Temperature Pulse Rate Pulse Rate [ Bilateral Bases ] Respiratory Rate Respiratory Rate [Bilateral Bases] Blood Pressure O2 Sat by Pulse 97 Oximetry - General Appearance General appearance: well-developed, well-nourished, appears stated age EENT: ATNC, PERRL, mucous membranes moist Neck: no JVD Respiratory: Present: Clear to Ascultation Cardiology: regular, S1S2 Gastrointestinal: normoactive bowel sounds Integumentary: no rash, other (no edema ) Neurologic: no focal deficit, alert and oriented x3, strength 5/5, CN 3-12 intact Psychiatric: mood/affect appropriate, cooperative - Lab 09/10/18 06:09 09/10/18 06:09 Most recent lab results Calcium 7.3 mg/dL (8.4-10.2) L 09/10/18 06:09 Urine Creatinine 46.3 mg/dL (0.1-20.0) H 09/06/18 15:10 Urine Sodium 92 mmol/L 09/06/18 15:10 Medications & Allergies - Medications Allergies/Adverse Reactions: Allergies lisinopril Allergy (Severe, Verified 03/18/15 14:54) Swelling swelling mouth and throat Home Medications: Home Medications Medication Instructions Recorded Confirmed Last Taken Type Gabapentin 2 tab PO TID 05/06/14 07/31/17 07/04/15 History Cyclobenzaprine [Flexeril 10 MG 10 mg PO TID PRN #14 tablet 07/25/17 07/31/17 Unknown Rx TAB] Insulin Glargine,Hum.rec.anlog 10 units SUB-Q HS 07/31/17 07/31/17 Unknown History [Lantus] amLODIPine [Norvasc] 10 mg PO DAILY 07/31/17 07/31/17 Unknown History Amoxicillin/Potassium Clav 1 each PO BID #14 tablet 08/02/17 Unknown Rx [Augmentin 875-125 Tablet] HYDROcodone/APAP 5-325 [[place] 1 - 2 each PO Q6HR PRN #14 tablet 08/02/17 Unknown Rx 5-325 mg TAB] Tamsulosin [Flomax] 0.4 mg PO QDAY #30 capsule 08/02/17 Unknown Rx traMADol [Ultram 50 MG tab] 50 mg PO Q6H PRN #14 tablet 08/02/17 Unknown Rx Active Medications: Generic Name Dose Route Start Last Admin Trade Name Freq PRN Reason Stop Dose Admin Acetaminophen 650 mg 09/04/18 23:53 Tylenol PO Q4H PRN Fever >101 Acetaminophen/Hydrocodone Bitart 1 each 09/05/18 00:01 09/09/18 22:53 [place] 5/325 PO 1 each Q6H PRN Administration Pain, Moderate (4-6) Albuterol 2.5 mg 09/05/18 01:37 Proventil IH Q4HRT PRN Shortness Of Breath Albuterol/Ipratropium 1 ampul 09/07/18 14:00 09/10/18 07:57 Duoneb *Not For Prn Use* IH 1 ampul Q6HRT DAMIEN Administration Amlodipine Besylate 10 mg 09/05/18 10:00 09/10/18 10:34 Norvasc PO 10 mg DAILY DAMIEN Administration Cyclobenzaprine HCl 10 mg 09/05/18 00:01 09/05/18 21:26 Flexeril PO 10 mg TID PRN Administration Muscle Spasm Dextrose 50 ml 09/04/18 23:58 09/09/18 11:58 D50w (25gm) Syringe IV 50 ml PRN PRN Administration Hypoglycemia Diphenhydramine HCl 25 mg 09/09/18 04:34 Benadryl PO Q6H PRN Itching Furosemide 40 mg 09/10/18 10:00 09/10/18 10:34 Lasix PO 40 mg QDAY DAMIEN Administration Gabapentin 300 mg 09/05/18 08:00 09/10/18 08:34 Neurontin PO 300 mg TID DAMIEN Administration Heparin Sodium (Porcine) 5,000 unit 09/05/18 10:00 09/10/18 10:34 Heparin SUB-Q 5,000 unit Q12HR DAMIEN Administration Daptomycin 750 mg/ Sodium 100 mls @ 200 mls/hr 09/09/18 17:00 09/09/18 18:41 Chloride IV 200 mls/hr Q48H DAMIEN Administration Protocol Insulin Human Regular 0 units 09/05/18 07:30 09/10/18 08:34 Humulin R SUB-Q Not Given AC DAMIEN Protocol Insulin Human Regular 0 units 09/05/18 22:00 09/09/18 22:59 Humulin R SUB-Q 1 units QHS [facility] Administration Protocol Nitroglycerin 0.5 inch 09/05/18 01:00 09/10/18 10:35 Nitro-Bid 2% TP 0.5 inch QIDNTG [facility] Administration Protocol Ondansetron HCl 4 mg 09/04/18 23:55 09/09/18 10:09 Zofran IV 4 mg Q8H PRN Administration Nausea And Vomiting Sodium Bicarbonate 650 mg 09/06/18 14:00 09/10/18 08:34 Sodium Bicarbonate PO 650 mg TID DAMIEN Administration Tamsulosin HCl 0.4 mg 09/05/18 10:00 09/10/18 10:34 Flomax PO 0.4 mg QDAY DAMIEN Administration Tramadol HCl 50 mg 09/05/18 00:01 Ultram PO Q6H PRN Pain, Moderate (4-6)
--- NOTE | 2018-09-10 15:02 | XRay Report ---
AP CHEST: HISTORY: PICC placement A right arm PICC has been inserted which terminates in the mid to lower right atrium. Consider retraction by 3-4 cm. Borderline to mild cardiomegaly is suspected. The lungs are clear. No evidence for consolidation, large pleural effusion or pneumothorax. IMPRESSION: Right arm PICC as described. Borderline to mild cardiomegaly. Lungs clear.
[2018-09-10] MEDS: NORCO 5/325 PO PRN (21:13)
[2018-09-11] MEDS: DUONEB *Not for PRN Use IH SCH ×4 (02:25→20:24)
[2018-09-11] MEDS: NITRO-BID 2% TP SCH ×4 (06:27→17:47)
[2018-09-11] MEDS: HumuLIN R SUB-Q SCH ×4 (08:01→22:47)
[2018-09-11] MEDS: HEPARIN SUB-Q SCH ×2 (09:49→22:41)
[2018-09-11] MEDS: SODIUM BICARBONATE PO SCH ×3 (09:49→21:45)
[2018-09-11] MEDS: FLOMAX PO SCH (09:49)
[2018-09-11] MEDS: NORVASC PO SCH (09:49)
[2018-09-11] MEDS: LASIX PO SCH (09:49)
--- NOTE | 2018-09-11 09:49 | Consultation ---
History of Present Illness - Reason for Consult Consult date: 09/11/18 right heel ulcer - History of Present Illness Patient with a history of peripheral vascular disease and a right heel ulcer. He states this is ulcer has been present for approximately a year. She was given although did not use a heel offloading boot as it did not fit well. Patient has intermittently been seen at [facility] or [facility] for wound care however has not been consistent. Her heel ulcer has been granulation tissue although there is some yellow sloughing as well. No significant exudates. Patient has a palpable dorsalis pedis pulse. Past History Past Medical History: COPD, diabetes, hypertension, hyperlipidemia, PVD Past Surgical History: Other (gastric bypass ) Social history: no significant social history, lives with family Family history: diabetes, hypertension Medications and Allergies Allergies Allergy/AdvReac Type Severity Reaction Status Date / Time lisinopril Allergy Severe Swelling Verified 03/18/15 14:54 Home Medications Medication Instructions Recorded Confirmed Last Taken Type Gabapentin 2 tab PO TID 05/06/14 07/31/17 07/04/15 History Cyclobenzaprine [Flexeril 10 MG 10 mg PO TID PRN #14 tablet 07/25/17 07/31/17 Unknown Rx TAB] Insulin Glargine,Hum.rec.anlog 10 units SUB-Q HS 07/31/17 07/31/17 Unknown History [Lantus] amLODIPine [Norvasc] 10 mg PO DAILY 07/31/17 07/31/17 Unknown History Amoxicillin/Potassium Clav 1 each PO BID #14 tablet 08/02/17 Unknown Rx [Augmentin 875-125 Tablet] HYDROcodone/APAP 5-325 [[place] 1 - 2 each PO Q6HR PRN #14 tablet 08/02/17 Unknown Rx 5-325 mg TAB] Tamsulosin [Flomax] 0.4 mg PO QDAY #30 capsule 08/02/17 Unknown Rx traMADol [Ultram 50 MG tab] 50 mg PO Q6H PRN #14 tablet 08/02/17 Unknown Rx Active Meds: Active Medications Acetaminophen (Tylenol) 650 mg PO Q4H PRN PRN Reason: Fever >101 Acetaminophen/Hydrocodone Bitart ([place] 5/325) 1 each PO Q6H PRN PRN Reason: Pain, Moderate (4-6) Last Admin: 09/10/18 21:13 Dose: 1 each Documented by: Albuterol (Proventil) 2.5 mg IH Q4HRT PRN PRN Reason: Shortness Of Breath Albuterol/Ipratropium (Duoneb *Not For Prn Use*) 1 ampul IH Q6HRT [facility] Last Admin: 09/11/18 09:32 Dose: 1 ampul Documented by: Amlodipine Besylate (Norvasc) 10 mg PO DAILY [facility] Last Admin: 09/10/18 10:34 Dose: 10 mg Documented by: Cyclobenzaprine HCl (Flexeril) 10 mg PO TID PRN PRN Reason: Muscle Spasm Last Admin: 09/05/18 21:26 Dose: 10 mg Documented by: Dextrose (D50w (25gm) Syringe) 50 ml IV PRN PRN PRN Reason: Hypoglycemia Last Admin: 09/09/18 11:58 Dose: 50 ml Documented by: Diphenhydramine HCl (Benadryl) 25 mg PO Q6H PRN PRN Reason: Itching Furosemide (Lasix) 40 mg PO QDAY [facility] Last Admin: 09/10/18 10:34 Dose: 40 mg Documented by: Gabapentin (Neurontin) 300 mg PO TID [facility] Last Admin: 09/10/18 21:13 Dose: 300 mg Documented by: Heparin Sodium (Porcine) (Heparin) 5,000 unit SUB-Q Q12HR [facility] Last Admin: 09/10/18 21:13 Dose: 5,000 unit Documented by: Daptomycin 750 mg/ Sodium (Chloride) 100 mls @ 200 mls/hr IV Q48H [facility]; Protocol Last Admin: 09/09/18 18:41 Dose: 200 mls/hr Documented by: Insulin Human Regular (Humulin R) 0 units SUB-Q AC [facility]; Protocol Last Admin: 09/11/18 08:01 Dose: Not Given Documented by: Insulin Human Regular (Humulin R) 0 units SUB-Q QHS [facility]; Protocol Last Admin: 09/10/18 22:33 Dose: 2 units Documented by: Nitroglycerin (Nitro-Bid 2%) 0.5 inch TP QIDNTG [facility]; Protocol Last Admin: 09/11/18 06:27 Dose: 0.5 inch Documented by: Ondansetron HCl (Zofran) 4 mg IV Q8H PRN PRN Reason: Nausea And Vomiting Last Admin: 09/09/18 10:09 Dose: 4 mg Documented by: Sodium Bicarbonate (Sodium Bicarbonate) 650 mg PO TID [facility] Last Admin: 09/10/18 21:13 Dose: 650 mg Documented by: Tamsulosin HCl (Flomax) 0.4 mg PO QDAY [facility] Last Admin: 09/10/18 10:34 Dose: 0.4 mg Documented by: Tramadol HCl (Ultram) 50 mg PO Q6H PRN PRN Reason: Pain, Moderate (4-6) Review of Systems All systems: negative Exam - Constitutional Vitals: Temp Pulse Resp BP Pulse Ox 98.2 F 84 16 147/65 100 09/11/18 04:43 09/11/18 09:41 09/11/18 09:41 09/11/18 04:43 09/11/18 09:42 General appearance: Present: no acute distress - EENT Eyes: Present: PERRL, EOM intact ENT: hearing intact - Neck Neck: Present: supple, normal ROM - Respiratory Respiratory effort: normal - Extremities Extremities: abnormal Extremity abnormal: edema - Abdominal General gastrointestinal: Present: deferred (her HPI.) Female genitourinary: Present: deferred - Rectal Rectal Exam: deferred - Psychiatric Psychiatric: appropriate mood/affect, cooperative - Neurologic Neurologic: no focal deficits Results - Labs CBC & Chem 7: 09/10/18 06:09 09/10/18 06:09 Labs: Abnormal lab results 09/10/18 09/10/18 Range/Units 12:41 21:52 POC Glucose 109 H 209 H (70-105) - Imaging and Cardiology Venous US: report reviewed, image reviewed Assessment and Plan Patient has good arterial inflow. She will need appropriate wound care and a heel offloading shoe in order to decrease the pressure on her heel ulcer. Would recommend consultation to wound care for in-house debridement and then referral to wound care for continued treatment.
[2018-09-11] MEDS: NEURONTIN PO SCH ×3 (09:50→21:45)
--- NOTE | 2018-09-11 10:02 | Progress Note ---
Assessment and Plan Assessment and plan: Acute resp failure due to COPD exacerbation Supplemental Oxygen COPD exacerbation On Duoneb Sepsis due to MRSA. Continue on Daptomycin MRSA Bacteremia Follow up repeat blood cultures, source likely right heel infection. TTE without vegetations. Daptomycin ID Physician following. Osteomyelitis of calcaneum/right heel ulcer For 6 weeks iv Daptomycin as per ID Physician PICC line placed Vascular surgery evaluated the patient and reports good arterial inflow. However, She will need appropriate wound care and a heel offloading shoe in order to decrease the pressure on her heel ulcer Hypertension Monitor BP Acute on CKD Nephrology following Diabetes mellitus type 2. Fingerstick glucose qac and hs Hyperlipidemia Anemia. s/p 1 Unit PRBC transfusion H&H stable. Hyperkalemia. Give Kayexalate, Insulin and repeat Full code status History Interval history: No new issues overnight. Hospitalist Physical - Constitutional Vitals: Temp Pulse Resp BP Pulse Ox 98.4 F 84 16 147/71 100 09/11/18 09:10 09/11/18 09:41 09/11/18 09:41 09/11/18 09:10 09/11/18 09:42 General appearance: Present: no acute distress - EENT Eyes: Present: PERRL, EOM intact ENT: hearing intact, clear oral mucosa, dentition normal - Neck Neck: Present: supple, normal ROM - Respiratory Respiratory effort: normal Respiratory: bilateral: CTA - Cardiovascular Rhythm: regular Heart Sounds: Present: S1 & S2. Absent: gallop, rub - Extremities Extremities: no ischemia, No edema, Full ROM - Abdominal General gastrointestinal: soft, non-tender, non-distended, normal bowel sounds - Integumentary Integumentary: Present: clear, warm, dry - Neurologic Neurologic: CNII-XII intact, moves all extremities Results - Labs CBC & Chem 7: 09/10/18 06:09 09/10/18 06:09 Labs: Laboratory Last Values WBC 12.2 K/mm3 (4.5-11.0) H 09/10/18 06:09 RBC 2.95 M/mm3 (3.65-5.03) L 09/10/18 06:09 Hgb 8.1 gm/dl (10.1-14.3) L 09/10/18 06:09 Hct 25.3 % (30.3-42.9) L 09/10/18 06:09 MCV 86 fl (79-97) 09/10/18 06:09 MCH 28 pg (28-32) 09/10/18 06:09 MCHC 32 % (30-34) 09/10/18 06:09 RDW 15.4 % (13.2-15.2) H 09/10/18 06:09 Plt Count 251 K/mm3 (140-440) 09/10/18 06:09 Lymph % (Auto) 22.6 % (13.4-35.0) 09/04/18 21:37 [place] % (Auto) 9.3 % (0.0-7.3) H 09/04/18 21:37 Eos % (Auto) 0.8 % (0.0-4.3) 09/04/18 21:37 Baso % (Auto) 1.2 % (0.0-1.8) 09/04/18 21:37 Lymph # 3.4 K/mm3 (1.2-5.4) 09/04/18 21:37 [place] # 1.4 K/mm3 (0.0-0.8) H 09/04/18 21:37 Eos # 0.1 K/mm3 (0.0-0.4) 09/04/18 21:37 Baso # 0.2 K/mm3 (0.0-0.1) H 09/04/18 21:37 Seg Neutrophils % 66.1 % (40.0-70.0) 09/04/18 21:37 Seg Neutrophils # 10.0 K/mm3 (1.8-7.7) H 09/04/18 21:37 POC ABG pH 7.304 (7.35-7.45) L 09/04/18 22:04 POC ABG pCO2 32.3 (35-45) L 09/04/18 22:04 POC ABG pO2 211 (80-105) H 09/04/18 22:04 POC ABG HCO3 16.0 09/04/18 22:04 POC ABG Total CO2 17 09/04/18 22:04 POC ABG O2 Sat 100 09/04/18 22:04 POC ABG Base Excess -10 09/04/18 22:04 FiO2 60 % 09/04/18 22:04 Sodium 150 mmol/L (137-145) H 09/10/18 06:09 Potassium 4.7 mmol/L (3.6-5.0) 09/10/18 06:09 Chloride 113.3 mmol/L (98-107) H 09/10/18 06:09 Carbon Dioxide 18 mmol/L (22-30) L 09/10/18 06:09 Anion Gap 23 mmol/L 09/10/18 06:09 BUN 59 mg/dL (7-17) H 09/10/18 06:09 Creatinine 3.0 mg/dL (0.7-1.2) H 09/10/18 06:09 Estimated GFR 19 ml/min 09/10/18 06:09 BUN/Creatinine Ratio 20 % 09/10/18 06:09 Glucose 92 mg/dL (65-100) 09/10/18 06:09 POC Glucose 105 (70-105) 09/11/18 07:22 Calcium 7.3 mg/dL (8.4-10.2) L 09/10/18 06:09 Iron 16 ug/dL (37-170) L 09/09/18 13:24 TIBC 154 mcg/dL (250-450) L 09/09/18 13:24 Total Bilirubin 0.40 mg/dL (0.1-1.2) 09/04/18 21:37 Direct Bilirubin < 0.2 mg/dL (0-0.2) 09/04/18 21:37 Indirect Bilirubin 0.2 mg/dL 09/04/18 21:37 AST 34 units/L (5-40) 09/04/18 21:37 ALT 49 units/L (7-56) 09/04/18 21:37 Alkaline Phosphatase 240 units/L (35-129) H 09/04/18 21:37 Total Creatine Kinase 182 units/L (30-135) H 09/05/18 05:46 CK-MB (CK-2) 3.8 ng/mL (0.0-4.0) 09/05/18 05:46 CK-MB (CK-2) Rel Index 2.0 (0-4) 09/05/18 05:46 Troponin T 0.064 ng/mL (0.00-0.029) H 09/05/18 05:46 C-Reactive Protein 2.80 mg/dL (0.00-1.30) H 09/08/18 14:12 NT-Pro-B Natriuret Pep 32038 pg/mL (0-900) H 09/04/18 21:37 Total Protein 7.3 g/dL (6.3-8.2) 09/04/18 21:37 Albumin 3.1 g/dL (3.9-5) L 09/04/18 21:37 Albumin/Globulin Ratio 0.7 % 09/04/18 21:37 Triglycerides 93 mg/dL (2-149) 09/04/18 21:37 Cholesterol 174 mg/dL (50-199) 09/04/18 21:37 LDL Cholesterol Direct 93 mg/dL (50-130) 09/04/18 21:37 HDL Cholesterol 78 mg/dL (40-59) H 09/04/18 21:37 Cholesterol/HDL Ratio 2.23 % 09/04/18 21:37 Urine Color Yellow (Yellow) 09/06/18 15:10 Urine Turbidity Cloudy (Clear) 09/06/18 15:10 Urine pH 5.0 (5.0-7.0) 09/06/18 15:10 Ur Specific [place] 1.008 (1.003-1.030) 09/06/18 15:10 Urine Protein 100 mg/dl mg/dL (Negative) 09/06/18 15:10 Urine Glucose (UA) 50 mg/dL (Negative) 09/06/18 15:10 Urine Ketones Neg mg/dL (Negative) 09/06/18 15:10 Urine Blood Mod (Negative) 09/06/18 15:10 Urine Nitrite Neg (Negative) 09/06/18 15:10 Urine Bilirubin Neg (Negative) 09/06/18 15:10 Urine Urobilinogen < 2.0 mg/dL (<2.0) 09/06/18 15:10 Ur Leukocyte Esterase Tr (Negative) 09/06/18 15:10 Urine WBC (Auto) 23.0 /HPF (0.0-6.0) H 09/06/18 15:10 Urine RBC (Auto) 11.0 /HPF (0.0-6.0) 09/06/18 15:10 U Epithel Cells (Auto) 4.0 /HPF (0-13.0) 09/06/18 15:10 Urine Bacteria (Auto) 2+ /HPF (Negative) 09/06/18 15:10 Urine Yeast ([place]) 3+ /HPF 09/06/18 15:10 Urine Creatinine 46.3 mg/dL (0.1-20.0) H 09/06/18 15:10 Urine Sodium 92 mmol/L 09/06/18 15:10 Urine Chloride 82.2 mmolL (110-250) L 09/06/18 15:10 Random Vancomycin 13.4 ug/mL (0-40.0) 09/09/18 05:27 Blood Type A POSITIVE 09/06/18 11:14 Antibody Screen Negative 09/06/18 11:14 Crossmatch See Detail 09/06/18 11:14
--- NOTE | 2018-09-11 10:18 | Progress Note ---
Assessment and Plan - Patient Problems (1) Acute on chronic renal failure Current Visit: Yes Status: Acute Qualifiers: Chronic kidney disease stage: stage 2 (mild) Plan to address problem: acute renal injury in the setting of possible heart failure, superimposed on CKD. cont diuresis with Lasix, now changed to PO. Renal function remains stable, without acute indication for renal replacement therapy. Avoid nephrotoxins. Maintain mean arterial pressures above 65. Closely monitor renal functions daily. UA and urine electrolytes noted. Renal US noted without any acute findings, however evidence of likely underlying CKD. (2) Acute respiratory failure with hypoxia Current Visit: Yes Status: Acute Plan to address problem: Possibly in the setting of an acute congestive heart failure episode/volume overload. Cont Lasix 40mg po qd. Strict I/Os. cont Na/fluid restriction to 1.5L/day. (3) Bacteremia due to Gram-positive bacteria Current Visit: Yes Status: Acute Plan to address problem: Placed on IV Vanc and consult placed to ID. cultures growing MRSA. Will follow up further recommendations from infectious diseases. 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 (4) Metabolic acidosis Current Visit: Yes Status: Acute Plan to address problem: Cont PO na bicarb (5) Hyperkalemia Current Visit: Yes Status: Acute Plan to address problem: improved s/p medical management/treatment today with insulin/D50/kayexulate and calcium gluconate. Will follow up repeat labs. cont low K diet. (6) Hypertensive chronic kidney disease with stage 1 through stage 4 chronic kidney disease, or unspecified chronic kidney disease Current Visit: Yes Status: Chronic Plan to address problem: Continue current outpatient antihypertensive regimen. We will have to closely monitor (7) Type 2 diabetes mellitus with diabetic chronic kidney disease Current Visit: Yes Status: Chronic Plan to address problem: Diabetes management per primary team. (8) COPD exacerbation Current Visit: Yes Status: Acute Plan to address problem: Management per pulmonology. Patient on BiPAP and received DuoNeb therapy as scheduled (9) Anemia in CKD (chronic kidney disease) Current Visit: Yes Status: Acute Qualifiers: Chronic kidney disease stage: stage 3 (moderate) Qualified Code(s): N18.3 - Chronic kidney disease, stage 3 (moderate); D63.1 - Anemia in chronic kidney disease Plan to address problem: She has no acute signs/symptoms concerning for GI bleed. Hb improved to 8.1 s/p transfusion of 1 unit PRBC Subjective Date of service: 09/11/18 Principal diagnosis: FLY on CKD Interval history: Patient awake, alert, in no acute respiratory distress. Objective - Vital Signs Vital signs: Vital Signs - 12hr 09/10/18 09/10/18 09/10/18 23:00 23:30 23:35 Temperature 98.0 F Pulse Rate 98 H 70 104 H Pulse Rate [ Bilateral Bases ] Pulse Rate [ Bilateral Throughout] Respiratory 18 20 Rate Respiratory Rate [Bilateral Bases] Respiratory Rate [Bilateral Throughout] Blood Pressure 145/69 O2 Sat by Pulse 100 95 Oximetry 09/11/18 09/11/18 09/11/18 02:27 02:42 04:43 Temperature 98.2 F Pulse Rate 84 95 H Pulse Rate [ 84 86 Bilateral Bases ] Pulse Rate [ Bilateral Throughout] Respiratory 18 20 Rate Respiratory 18 18 Rate [Bilateral Bases] Respiratory Rate [Bilateral Throughout] Blood Pressure 147/65 O2 Sat by Pulse 100 97 Oximetry 09/11/18 09/11/18 09/11/18 07:47 09:10 09:30 Temperature 98.4 F Pulse Rate 92 H 96 H Pulse Rate [ Bilateral Bases ] Pulse Rate [ 88 Bilateral Throughout] Respiratory 16 Rate Respiratory Rate [Bilateral Bases] Respiratory 16 Rate [Bilateral Throughout] Blood Pressure 147/71 O2 Sat by Pulse 97 Oximetry 09/11/18 09/11/18 09:41 09:42 Temperature Pulse Rate Pulse Rate [ Bilateral Bases ] Pulse Rate [ 84 Bilateral Throughout] Respiratory Rate Respiratory Rate [Bilateral Bases] Respiratory 16 Rate [Bilateral Throughout] Blood Pressure O2 Sat by Pulse 100 Oximetry - General Appearance General appearance: well-developed, well-nourished, appears stated age, obese EENT: ATNC, PERRL, mucous membranes moist Neck: no JVD Respiratory: Present: Clear to Ascultation Cardiology: regular, S1S2 Gastrointestinal: normoactive bowel sounds Integumentary: no rash, other (trace edema ) Neurologic: no focal deficit, alert and oriented x3, strength 5/5, CN 3-12 intact Psychiatric: mood/affect appropriate, cooperative - Lab 09/10/18 06:09 09/10/18 06:09 Most recent lab results Calcium 7.3 mg/dL (8.4-10.2) L 09/10/18 06:09 Urine Creatinine 46.3 mg/dL (0.1-20.0) H 09/06/18 15:10 Urine Sodium 92 mmol/L 09/06/18 15:10 Medications & Allergies - Medications Allergies/Adverse Reactions: Allergies lisinopril Allergy (Severe, Verified 03/18/15 14:54) Swelling swelling mouth and throat Home Medications: Home Medications Medication Instructions Recorded Confirmed Last Taken Type Gabapentin 2 tab PO TID 05/06/14 07/31/17 07/04/15 History Cyclobenzaprine [Flexeril 10 MG 10 mg PO TID PRN #14 tablet 07/25/17 07/31/17 Unknown Rx TAB] Insulin Glargine,Hum.rec.anlog 10 mg PO HS 07/31/17 09/11/18 Unknown History [Lantus] amLODIPine [Norvasc] 10 mg PO DAILY 07/31/17 09/11/18 Unknown History Amoxicillin/Potassium Clav 1 each PO BID #14 tablet 08/02/17 Unknown Rx [Augmentin 875-125 Tablet] HYDROcodone/APAP 5-325 [[place] 1 - 2 each PO Q6HR PRN #14 tablet 08/02/17 Unknown Rx 5-325 mg TAB] Tamsulosin [Flomax] 0.4 mg PO QDAY #30 capsule 08/02/17 09/11/18 Unknown Rx traMADol [Ultram 50 MG tab] 50 mg PO Q6H PRN #14 tablet 08/02/17 09/11/18 Unknown Rx Active Medications: Generic Name Dose Route Start Last Admin Trade Name Freq PRN Reason Stop Dose Admin Acetaminophen 650 mg 09/04/18 23:53 Tylenol PO Q4H PRN Fever >101 Acetaminophen/Hydrocodone Bitart 1 each 09/05/18 00:01 09/10/18 21:13 [place] 5/325 PO 1 each Q6H PRN Administration Pain, Moderate (4-6) Albuterol 2.5 mg 09/05/18 01:37 Proventil IH Q4HRT PRN Shortness Of Breath Albuterol/Ipratropium 1 ampul 09/07/18 14:00 09/11/18 09:32 Duoneb *Not For Prn Use* IH 1 ampul Q6HRT DAMIEN Administration Amlodipine Besylate 10 mg 09/05/18 10:00 09/11/18 09:49 Norvasc PO 10 mg DAILY DAMIEN Administration Cyclobenzaprine HCl 10 mg 09/05/18 00:01 09/05/18 21:26 Flexeril PO 10 mg TID PRN Administration Muscle Spasm Dextrose 50 ml 09/04/18 23:58 09/09/18 11:58 D50w (25gm) Syringe IV 50 ml PRN PRN Administration Hypoglycemia Diphenhydramine HCl 25 mg 09/09/18 04:34 Benadryl PO Q6H PRN Itching Furosemide 40 mg 09/10/18 10:00 09/11/18 09:49 Lasix PO 40 mg QDAY DAMIEN Administration Gabapentin 300 mg 09/05/18 08:00 09/11/18 09:50 Neurontin PO 300 mg TID DAMIEN Administration Heparin Sodium (Porcine) 5,000 unit 09/05/18 10:00 09/11/18 09:49 Heparin SUB-Q 5,000 unit Q12HR DAMIEN Administration Daptomycin 750 mg/ Sodium 100 mls @ 200 mls/hr 09/09/18 17:00 09/09/18 18:41 Chloride IV 200 mls/hr Q48H DAMIEN Administration Protocol Insulin Human Regular 0 units 09/05/18 07:30 09/11/18 08:01 Humulin R SUB-Q Not Given AC [facility] Protocol Insulin Human Regular 0 units 09/05/18 22:00 09/10/18 22:33 Humulin R SUB-Q 2 units QHS [facility] Administration Protocol Nitroglycerin 0.5 inch 09/05/18 01:00 09/11/18 09:50 Nitro-Bid 2% TP 0.5 inch QIDNTG [facility] Administration Protocol Ondansetron HCl 4 mg 09/04/18 23:55 09/09/18 10:09 Zofran IV 4 mg Q8H PRN Administration Nausea And Vomiting Sodium Bicarbonate 650 mg 09/06/18 14:00 09/11/18 09:49 Sodium Bicarbonate PO 650 mg TID DAMIEN Administration Tamsulosin HCl 0.4 mg 09/05/18 10:00 09/11/18 09:49 Flomax PO 0.4 mg QDAY DAMIEN Administration Tramadol HCl 50 mg 09/05/18 00:01 Ultram PO Q6H PRN Pain, Moderate (4-6)
[2018-09-11 11:20] LABS: Calcium 6.7 mg/dL (8.4-10.2)
--- NOTE | 2018-09-11 11:29 | Progress Note ---
Assessment and Plan Cultures: 09/04/2018 blood culture: MRSA 09/07/2018 blood culture: no growth 09/07/2018 urine: 10-10,000 Cfu/ml mixed >2 organisms A/P: 62 y/o female with history of Obesity, DM, CKD stage II, hypertension, COPD; admitted on 09/04/2018 due to a week history of worsening SOB, mild dry cough and drainage from right heel ulcer: 1) Sepsis: present on admission: leukocytosis continuing, etio. MRSA bacteremia +/- right heel wound infection. 2) MRSA bacteremia: source likely right heel infection. Blood cultures 09/04/2018 MRSA vanco PABLO=2. No indwelling endovascular devices. TTE without vegetations. Repeat blood cultures cleared quickly, hence endocarditis seems less likely, no need for CARITO. 3) Right heel diabetic wound likely infected: Patient has a right foot diabetic ulcer for over a year, she follows at [facility]. MRI showed chronic right calcaneal osteomyelitis.Vascular consult done, recommendations include wound care and offloading. 4) Acute on CKD: renally dose abx. Given issues with renal function and vancomycin PABLO of 2, would prefer to do IV Daptomycin. Recs: - started IV Daptomycin 750 mg q48 hrs, plan for 6 weeks of therapy, ending October 21, 2018 - PICC line ordered -Ok to discharge per ID standpoint, case management consult placed -continue wound care [facility] M: [phone] O:[phone] Subjective Date of service: 09/11/18 Principal diagnosis: FLY on CKD Objective - Constitutional Vitals: Vital Signs Temp Pulse Resp BP Pulse Ox 98.4 F 84 16 147/71 100 09/11/18 09:10 09/11/18 09:41 09/11/18 09:41 09/11/18 09:10 09/11/18 09:42 Temperature -Last 24 Hours Temperature 98.4 F Temperature 98.2 F Temperature 98.0 F Temperature 98.0 F Temperature 98.0 F - Labs CBC & Chem 7: 09/10/18 06:09 09/11/18 10:40 Labs: Abnormal lab results 09/10/18 09/10/18 09/11/18 Range/Units 12:41 21:52 10:40 Chloride 108.1 H (98-107) mmol/L Carbon Dioxide 21 L (22-30) mmol/L BUN 51 H (7-17) mg/dL Creatinine 2.6 H (0.7-1.2) mg/dL Glucose 150 H (65-100) mg/dL POC Glucose 109 H 209 H (70-105) Calcium 6.7 L (8.4-10.2) mg/dL
[2018-09-11] MEDS: DAPTOmycin 750 MG in NACL 0.9% 100 ML IV SCH (17:40)
[2018-09-12] MEDS: DUONEB *Not for PRN Use IH SCH ×3 (02:08→15:44)
[2018-09-12 05:38] LABS: Basophils # (Auto) 0.1 K/mm3 (0.0-0.1); Basophils % (Auto) 0.5 % (0.0-1.8); Eosinophils # (Auto) 0.4 K/mm3 (0.0-0.4); Eosinophils % (Auto) 3.3 % (0.0-4.3); Hematocrit 23.2 % (30.3-42.9); Hemoglobin 7.3 gm/dl (10.1-14.3); Lymphocytes # (Auto) 2.6 K/mm3 (1.2-5.4); Lymphocytes % (Auto) 23.2 % (13.4-35.0); Mean Corpuscular HGB Conc 32 % (30-34); Mean Corpuscular Volume 86 fl (79-97); Monocytes % (Auto) 9.3 % (0.0-7.3); Platelet Count 226 K/mm3 (140-440); Red Blood Count 2.71 M/mm3 (3.65-5.03); Red Cell Distribution Width 15.2 % (13.2-15.2)
[2018-09-12] MEDS: NITRO-BID 2% TP SCH ×2 (05:52→10:58)
[2018-09-12 05:58] LABS: Calcium 6.5 mg/dL (8.4-10.2)
--- NOTE | 2018-09-12 09:17 | Discharge Summary ---
Providers - Providers Date of Admission: 09/04/18 23:47 Date of discharge: 09/12/18 Attending physician: CHAITANYA NESS 09/05/18 06:00 Consult to Physician [CONS] Routine Comment: Consulting Provider: RUBEN GONZALEZ Physician Instructions: Reason For Exam: RENAL INSUFFICIENCY 09/05/18 19:34 Consult to Wound/ET Nurse [CONS] Routine Reason For Exam: wound eval 09/07/18 07:30 Consult to Physician [CONS] Routine Comment: Consulting Provider: ALEXSANDER GARNICA Physician Instructions: Reason For Exam: Bacteremia with staph aureus 09/09/18 16:11 Consult to PICC Line RN [CONS] Routine Reason For Exam: IV abx Type Line:: PICC 09/10/18 16:53 Consult to Physician [CONS] Routine Comment: Consulting Provider: EBER MCKINLEY Physician Instructions: Reason For Exam: peripheral vascular disease-Treatment failure 09/10/18 17:04 Consult to Case Management [CONS] Urgent Services Needed at Discharge: Other Notified:: no Additional Physician Instructions: [facility] M [phone] O [phone] F [phone] OUTPATIENT PARENTERAL ANTIBIOTIC THERAPY ORDERS Diagnoses:Right heel osteomylitis Antimicrobial administration: IV Daptomycin 750 mg q48 hrs, plan for 6 weeks of therapy, ending October 21, 2018 Remove PICC line after last dose unless otherwise instructed. Lines: PICC Lab monitoring: CBC, BUN, Creatinine, ALT, AST, CK, ESR, CRP once a week preferly on Sunday morning. Please fax results to [phone] and call [phone] for critical lab results. Iqra Carrion NP/crista Garnica Date: 09/10/18 09/11/18 09:50 Consult to [employer] Installer [CONS] Routine Reason For Exam: right heel offloading shoe Primary care physician: MALIA RODRIGES Hospitalization Reason for admission: sepsis, MRSA bacteremia Condition: Stable Hospital course: 62 y/o female with history of Obesity, DM, CKD stage II, hypertension, COPD; admitted on 09/04/2018 due to a week history of worsening SOB, mild dry cough and drainage from right heel ulcer. The patient was admitted with diagnosis of sepsis secondary to MRSA bacteremia from right heel infection. The patient was seen by ID in consultation. Blood cultures 09/04/2018 MRSA vanco PABLO=2. No indwelling endovascular devices. TTE performed and was without vegetations. Repeat blood cultures cleared quickly, hence endocarditis seems less likely, no need for CARITO. MRI showed chronic right calcaneal osteomyelitis. Vascular surgery was also consult to to assess for vascular disease and recommendations included wound care and offloading but no intervention. Patient was felt to have good arterial flow. The patient was also noted to have acute on CK D and antibiotics were changed given the issues with renal function. ID recommended IV daptomycin 750 mg every 48 hours 6 weeks ending 10/21/2018. PICC line was completed and case management is to arrange for antibiotics and outpatient wound care. Dedicated discharge time 34 minutes. Disposition: DC-01 TO HOME OR SELFCARE Time spent for discharge: 34 - Discharge Diagnoses (1) Sepsis Status: Acute (2) MRSA bacteremia Status: Acute (3) Nonhealing wound of heel Status: Acute (4) Type 2 diabetes mellitus with diabetic chronic kidney disease Status: Chronic Core Measure Documentation - Palliative Care Palliative Care/ Comfort Measures: Not Applicable - Core Measures Any of the following diagnoses?: none Exam - Constitutional Vitals: Temp Pulse Resp BP Pulse Ox 97.8 F 86 18 155/76 100 09/12/18 07:22 09/12/18 07:22 09/12/18 07:22 09/12/18 07:22 09/12/18 07:22 General appearance: Present: no acute distress, well-nourished - EENT Eyes: Present: PERRL ENT: hearing intact, clear oral mucosa - Neck Neck: Present: supple, normal ROM - Respiratory Respiratory effort: normal Respiratory: bilateral: CTA - Cardiovascular Heart Sounds: Present: S1 & S2. Absent: rub, click - Extremities Extremities: pulses symmetrical, No edema Peripheral Pulses: within normal limits - Abdominal General gastrointestinal: Present: soft, non-tender, non-distended, normal bowel sounds Female genitourinary: Present: normal - Integumentary Integumentary: Present: clear, warm, dry - Musculoskeletal Musculoskeletal: gait normal, strength equal bilaterally - Psychiatric Psychiatric: appropriate mood/affect, intact judgment & insight - Neurologic Neurologic: CNII-XII intact, moves all extremities Plan Activity: advance as tolerated Weight Bearing Status: Weight Bear as Tolerated Diet: diabetic Wound: per your surgeon's advice, per wound nurse instructions, other (F/U with wound care clinic) Special Instructions: home health RN, other (IV abx) Durable Medical Equipment Needed Upon Discharge: other (heel offloading shoe and IV abx set up) Follow up with: BARAK MACKEY MD [Staff Physician] - 3-5 Days Prescriptions: amLODIPine [Norvasc] 10 mg PO DAILY #30 tablet Cyclobenzaprine [Flexeril 10 MG TAB] 10 mg PO TID PRN #14 tablet PRN Reason: Muscle Spasm Furosemide [Lasix TAB] 40 mg PO QDAY #30 tablet Gabapentin [Neurontin] 300 mg PO TID #90 capsule HYDROcodone/APAP 5-325 [[place] 5-325 mg TAB] 1 - 2 each PO Q6HR PRN #14 tablet PRN Reason: Pain Insulin Glargine,Hum.rec.anlog [Lantus] 10 mg PO HS #30 vial Tamsulosin [Flomax] 0.4 mg PO QDAY #30 capsule
--- NOTE | 2018-09-12 09:55 | Progress Note ---
Assessment and Plan Cultures: 09/04/2018 blood culture: MRSA 09/07/2018 blood culture: no growth 09/07/2018 urine: 10-10,000 Cfu/ml mixed >2 organisms A/P: 62 y/o female with history of Obesity, DM, CKD stage II, hypertension, COPD; admitted on 09/04/2018 due to a week history of worsening SOB, mild dry cough and drainage from right heel ulcer: 1) Sepsis: present on admission: leukocytosis continuing, etio. MRSA bacteremia +/- right heel wound infection. 2) MRSA bacteremia: source likely right heel infection. Blood cultures 09/04/2018 MRSA vanco PABLO=2. No indwelling endovascular devices. TTE without vegetations. Repeat blood cultures cleared quickly, hence endocarditis seems less likely, no need for CARITO. 3) Right heel diabetic wound likely infected: Patient has a right foot diabetic ulcer for over a year, she follows at [facility]. MRI showed chronic right calcaneal osteomyelitis.Vascular consult done, recommendations include wound care and offloading. 4) Acute on CKD: renally dose abx. Given issues with renal function and vancomycin PABLO of 2, would prefer to do IV Daptomycin. Recs: - -Will now discharge on IV Vancomycin, 750mg daily ending October 21, 2018 -Ok to discharge per ID standpoint, case management consult placed -continue wound care Iqra Carrion NP [facility] M: [phone] O:[phone] Subjective Date of service: 09/12/18 Principal diagnosis: FLY on CKD Interval history: Patient seen and examined. Denied pain, fever or SOB. Stated that she was feeling better today. OPAT discussed, verbalized understanding regarding treatment regimen. Objective - Exam Narrative Exam: Constitutional: Alert, cooperative. No acute distress Head, Ears, Nose: Normocephalic, atraumatic. External ears, nose normal Eyes: Conjunctivae/corneas clear. No icterus. No ptosis. Neck: Supple, no meningeal signs Cardiovascular: S1, S2 normal, 2/6 systolic murmur Respiratory: Good air entry, clear to auscultation bilaterally GI: Soft, non-tender; bowel sounds normal. No peritoneal signs Musculoskeletal: right heel ulcer with dressing. Skin: No rash or abscess Hem/Lymphatic: No palpable cervical or supraclavicular nodes. No lymphangitis Psych: Mood ok. Affect normal Neurological: Awake, alert, oriented. No gross abnormality - Constitutional Vitals: Vital Signs Temp Pulse Resp BP Pulse Ox 97.8 F 86 18 155/76 100 09/12/18 07:22 09/12/18 07:22 09/12/18 07:22 09/12/18 07:22 09/12/18 07:22 Temperature -Last 24 Hours Temperature 97.8 F Temperature 98.3 F Temperature 98.2 F Temperature 100.1 F Temperature 99.8 F - Labs CBC & Chem 7: 09/12/18 04:44 09/12/18 04:44 Labs: Abnormal lab results 09/11/18 09/11/18 09/11/18 Range/Units 10:40 12:50 17:18 WBC (4.5-11.0) K/mm3 RBC (3.65-5.03) M/mm3 Hgb (10.1-14.3) gm/dl Hct (30.3-42.9) % MCH (28-32) pg [place] % (Auto) (0.0-7.3) % [place] # (0.0-0.8) K/mm3 Sodium (137-145) mmol/L Chloride 108.1 H (98-107) mmol/L Carbon Dioxide 21 L (22-30) mmol/L BUN 51 H (7-17) mg/dL Creatinine 2.6 H (0.7-1.2) mg/dL Glucose 150 H (65-100) mg/dL POC Glucose 130 H 167 H (70-105) Calcium 6.7 L (8.4-10.2) mg/dL 09/11/18 09/12/18 09/12/18 Range/Units 21:00 04:44 04:44 WBC 11.2 H (4.5-11.0) K/mm3 RBC 2.71 L (3.65-5.03) M/mm3 Hgb 7.3 L (10.1-14.3) gm/dl Hct 23.2 L (30.3-42.9) % MCH 27 L (28-32) pg [place] % (Auto) 9.3 H (0.0-7.3) % [place] # 1.0 H (0.0-0.8) K/mm3 Sodium 146 H (137-145) mmol/L Chloride 110.1 H (98-107) mmol/L Carbon Dioxide 21 L (22-30) mmol/L BUN 53 H (7-17) mg/dL Creatinine 2.7 H (0.7-1.2) mg/dL Glucose (65-100) mg/dL POC Glucose 179 H (70-105) Calcium 6.5 L (8.4-10.2) mg/dL
[2018-09-12] MEDS: HumuLIN R SUB-Q SCH ×2 (10:31→11:38)
[2018-09-12] MEDS: FLOMAX PO SCH (11:16)
[2018-09-12] MEDS: LASIX PO SCH (11:16)
[2018-09-12] MEDS: NORVASC PO SCH (11:16)
[2018-09-12] MEDS: HEPARIN SUB-Q SCH (11:18)
[2018-09-12] MEDS: SODIUM BICARBONATE PO SCH ×2 (11:25→14:11)
[2018-09-12] MEDS: NEURONTIN PO SCH ×2 (11:26→14:11)
[2018-09-12 11:57] VITALS: BP 146/73
--- NOTE | 2018-09-12 13:13 | Progress Note ---
Assessment and Plan - Patient Problems (1) Acute on chronic renal failure Current Visit: Yes Status: Acute Qualifiers: Chronic kidney disease stage: stage 2 (mild) Plan to address problem: acute renal injury in the setting of possible heart failure, superimposed on CKD. cont diuresis with Lasix, now changed to PO. Renal function remains stable, without acute indication for renal replacement therapy. Avoid nephrotoxins. Maintain mean arterial pressures above 65. UA and urine electrolytes noted. Renal US noted without any acute findings, however evidence of likely underlying CKD. stable for discharge with outpatient CKD f/u (2) Acute respiratory failure with hypoxia Current Visit: Yes Status: Acute Plan to address problem: Possibly in the setting of an acute congestive heart failure episode/volume overload. Cont Lasix 40mg po qd. Strict I/Os. cont Na/fluid restriction to 1.5L/day. (3) Bacteremia due to Gram-positive bacteria Current Visit: Yes Status: Acute Plan to address problem: cultures growing MRSA, on IV vanco, Will follow up further recommendations from infectious diseases. 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 (4) Metabolic acidosis Current Visit: Yes Status: Acute Plan to address problem: Cont PO na bicarb (5) Hyperkalemia Current Visit: Yes Status: Acute Plan to address problem: improved s/p medical management/treatment today with insulin/D50/kayexulate and calcium gluconate. Will follow up repeat labs. cont low K diet. (6) Hypertensive chronic kidney disease with stage 1 through stage 4 chronic kidney disease, or unspecified chronic kidney disease Current Visit: Yes Status: Chronic Plan to address problem: Continue current outpatient antihypertensive regimen. We will have to closely monitor (7) Type 2 diabetes mellitus with diabetic chronic kidney disease Current Visit: Yes Status: Chronic Plan to address problem: Diabetes management per primary team. (8) COPD exacerbation Current Visit: Yes Status: Acute Plan to address problem: Management per pulmonology. Patient on BiPAP and received DuoNeb therapy as scheduled (9) Anemia in CKD (chronic kidney disease) Current Visit: Yes Status: Acute Qualifiers: Chronic kidney disease stage: stage 3 (moderate) Qualified Code(s): N18.3 - Chronic kidney disease, stage 3 (moderate); D63.1 - Anemia in chronic kidney disease Plan to address problem: She has no acute signs/symptoms concerning for GI bleed. Hb improved to 8.1 s/p transfusion of 1 unit PRBC Subjective Date of service: 09/12/18 Principal diagnosis: FLY on CKD Interval history: Patient awake, alert, in no acute respiratory distress. Objective - Vital Signs Vital signs: Vital Signs - 12hr 09/12/18 09/12/18 09/12/18 03:52 05:52 07:22 Temperature 98.3 F 97.8 F Pulse Rate 91 H 100 H 87 Pulse Rate [ Anterior Left Throughout] Pulse Rate [ Anterior Right Throughout] Respiratory 14 18 Rate Respiratory Rate [Anterior Left Throughout ] Respiratory Rate [Anterior Right Throughout] Blood Pressure 151/74 151/74 Blood Pressure 155/76 [Left] O2 Sat by Pulse 100 100 Oximetry 09/12/18 09/12/18 09/12/18 08:25 08:40 08:45 Temperature Pulse Rate Pulse Rate [ 106 H 102 H Anterior Left Throughout] Pulse Rate [ 106 H 96 H Anterior Right Throughout] Respiratory Rate Respiratory 20 20 Rate [Anterior Left Throughout ] Respiratory 20 22 Rate [Anterior Right Throughout] Blood Pressure Blood Pressure [Left] O2 Sat by Pulse 100 Oximetry 09/12/18 09/12/18 09/12/18 10:58 11:16 11:27 Temperature 97.8 F Pulse Rate 93 H 93 H 91 H Pulse Rate [ Anterior Left Throughout] Pulse Rate [ Anterior Right Throughout] Respiratory 18 Rate Respiratory Rate [Anterior Left Throughout ] Respiratory Rate [Anterior Right Throughout] Blood Pressure Blood Pressure 146/73 [Left] O2 Sat by Pulse 99 Oximetry 09/12/18 11:28 Temperature Pulse Rate 91 H Pulse Rate [ Anterior Left Throughout] Pulse Rate [ Anterior Right Throughout] Respiratory Rate Respiratory Rate [Anterior Left Throughout ] Respiratory Rate [Anterior Right Throughout] Blood Pressure Blood Pressure [Left] O2 Sat by Pulse 100 Oximetry - General Appearance General appearance: well-developed, well-nourished, appears stated age, obese EENT: ATNC, PERRL, mucous membranes moist Neck: no JVD Respiratory: Present: Decreased Breath Sounds Cardiology: regular, S1S2 Gastrointestinal: normoactive bowel sounds, obese Integumentary: no rash, other (trace edema b/l LE ) Neurologic: no focal deficit, alert and oriented x3, strength 5/5, CN 3-12 intact Psychiatric: mood/affect appropriate, cooperative - Lab 09/12/18 04:44 09/12/18 04:44 Most recent lab results Calcium 6.5 mg/dL (8.4-10.2) L 09/12/18 04:44 Urine Creatinine 46.3 mg/dL (0.1-20.0) H 09/06/18 15:10 Urine Sodium 92 mmol/L 09/06/18 15:10 Medications & Allergies - Medications Allergies/Adverse Reactions: Allergies lisinopril Allergy (Severe, Verified 03/18/15 14:54) Swelling swelling mouth and throat Home Medications: Home Medications Medication Instructions Recorded Confirmed Last Taken Type traMADol [Ultram 50 MG tab] 50 mg PO Q6H PRN #14 tablet 08/02/17 09/11/18 Unkno wn Rx Cyclobenzaprine [Flexeril 10 MG 10 mg PO TID PRN #14 tablet 09/12/18 Unknown Rx TAB] Furosemide [Lasix TAB] 40 mg PO QDAY #30 tablet 09/12/18 Unknown Rx Gabapentin [Neurontin] 300 mg PO TID #90 capsule 09/12/18 Unknown Rx HYDROcodone/APAP 5-325 [[place] 1 - 2 each PO Q6HR PRN #14 tablet 09/12/18 Unknown Rx 5-325 mg TAB] Insulin Glargine,Hum.rec.anlog 10 mg PO HS #30 vial 09/12/18 Unknown Rx [Lantus] Tamsulosin [Flomax] 0.4 mg PO QDAY #30 capsule 09/12/18 Unknown Rx amLODIPine [Norvasc] 10 mg PO DAILY #30 tablet 09/12/18 Unknown Rx Active Medications: Generic Name Dose Route Start Last Admin Trade Name Trayq PRN Reason Stop Dose Admin Acetaminophen 650 mg 09/04/18 23:53 Tylenol PO Q4H PRN Fever >101 Acetaminophen/Hydrocodone Bitart 1 each 09/05/18 00:01 09/10/18 21:13 [place] 5/325 PO 1 each Q6H PRN Administration Pain, Moderate (4-6) Albuterol 2.5 mg 09/05/18 01:37 Proventil IH Q4HRT PRN Shortness Of Breath Albuterol/Ipratropium 1 ampul 09/07/18 14:00 09/12/18 08:26 Duoneb *Not For Prn Use* IH 1 ampul Q6HRT DAMIEN Administration Amlodipine Besylate 10 mg 09/05/18 10:00 09/12/18 11:16 Norvasc PO 10 mg DAILY DAMIEN Administration Cyclobenzaprine HCl 10 mg 09/05/18 00:01 09/05/18 21:26 Flexeril PO 10 mg TID PRN Administration Muscle Spasm Dextrose 50 ml 09/04/18 23:58 09/09/18 11:58 D50w (25gm) Syringe IV 50 ml PRN PRN Administration Hypoglycemia Diphenhydramine HCl 25 mg 09/09/18 04:34 Benadryl PO Q6H PRN Itching Furosemide 40 mg 09/10/18 10:00 09/12/18 11:16 Lasix PO 40 mg QDAY DAMIEN Administration Gabapentin 300 mg 09/05/18 08:00 09/12/18 11:26 Neurontin PO 300 mg TID DAMIEN Administration Heparin Sodium (Porcine) 5,000 unit 09/05/18 10:00 09/12/18 11:18 Heparin SUB-Q 5,000 unit Q12HR DAMIEN Administration Daptomycin 750 mg/ Sodium 100 mls @ 200 mls/hr 09/09/18 17:00 09/11/18 17:40 Chloride IV 200 mls/hr Q48H DAMIEN Administration Protocol Insulin Human Regular 0 units 09/05/18 07:30 09/12/18 11:38 Humulin R SUB-Q Not Given AC [facility] Protocol Insulin Human Regular 0 units 09/05/18 22:00 09/11/18 22:47 Humulin R SUB-Q 1 units QHS [facility] Administration Protocol Nitroglycerin 0.5 inch 09/05/18 01:00 09/12/18 10:58 Nitro-Bid 2% TP 0.5 inch QIDNTG [facility] Administration Protocol Ondansetron HCl 4 mg 09/04/18 23:55 09/09/18 10:09 Zofran IV 4 mg Q8H PRN Administration Nausea And Vomiting Sodium Bicarbonate 650 mg 09/06/18 14:00 09/12/18 11:25 Sodium Bicarbonate PO 650 mg TID DAMIEN Administration Tamsulosin HCl 0.4 mg 09/05/18 10:00 09/12/18 11:16 Flomax PO 0.4 mg QDAY DAMIEN Administration Tramadol HCl 50 mg 09/05/18 00:01 Ultram PO Q6H PRN Pain, Moderate (4-6)
== END 2018-09-12 15:30 | disposition home health service (06) | DRG 871 ==
LOC: ED 21:15 → 4A 23:47
PROVIDERS: ADMIT Internal Medicine; ATTEND Hospitalist
PROC: 4A033R1 Measurement of Arterial Saturation, Peripheral, Percutaneous Approach (ICD-10-PCS; 2018-09-04)
PROC: 5A09457 Assistance with Respiratory Ventilation, 24-96 Consecutive Hours, Continuous Positive Airway Pressure (ICD-10-PCS; 2018-09-05)
PROC: 30233N1 Transfusion of Nonautologous Red Blood Cells into Peripheral Vein, Percutaneous Approach (ICD-10-PCS; principal; 2018-09-06)
PROC: 5A09357 Assistance with Respiratory Ventilation, Less than 24 Consecutive Hours, Continuous Positive Airway Pressure (ICD-10-PCS; 2018-09-10)
PROC: 02H633Z Insertion of Infusion Device into Right Atrium, Percutaneous Approach (ICD-10-PCS; 2018-09-10)
PROC: 5A09357 Assistance with Respiratory Ventilation, Less than 24 Consecutive Hours, Continuous Positive Airway Pressure (ICD-10-PCS; 2018-09-12)
DX: A41.02 Sepsis due to Methicillin resistant Staphylococcus aureus (principal); J96.21 Acute and chronic respiratory failure with hypoxia; N17.9 Acute kidney failure, unspecified; J44.1 Chronic obstructive pulmonary disease with (acute) exacerbation; I13.0 Hypertensive heart and chronic kidney disease with heart failure and stage 1 through stage 4 chronic kidney disease, or unspecified chronic kidney disease; N18.4 Chronic kidney disease, stage 4 (severe); N39.0 Urinary tract infection, site not specified; I50.9 Heart failure, unspecified; E11.22 Type 2 diabetes mellitus with diabetic chronic kidney disease; S91.309A Unspecified open wound, unspecified foot, initial encounter; X58.XXXA Exposure to other specified factors, initial encounter; G47.33 Obstructive sleep apnea (adult) (pediatric); R01.1 Cardiac murmur, unspecified; F17.210 Nicotine dependence, cigarettes, uncomplicated; K21.9 Gastro-esophageal reflux disease without esophagitis; E87.5 Hyperkalemia; D63.1 Anemia in chronic kidney disease; E66.01 Morbid (severe) obesity due to excess calories; Z98.84 Bariatric surgery status; Z79.4 Long term (current) use of insulin; Y93.89 Activity, other specified; Y92.89 Other specified places as the place of occurrence of the external cause; Y99.8 Other external cause status; Z79.899 Other long term (current) drug therapy; Z83.3 Family history of diabetes mellitus; Z82.49 Family history of ischemic heart disease and other diseases of the circulatory system
CPT/HCPCS: 36415; 71045; 76770; 80048; 80061; 80076; 80202; 81001; 82436; 82550; 82553; 82570; 82803; 82962; 83550; 83880; 84300; 84484; 85025; 85027; 86140; 86850; 86900; 86901; 86920; 87040; 87076; 87086; 87186; 93005; 93010; 93306; 93308; 93321; 93325; 93925; 94640; 94660; 94760; G0378; J0610; J0878; J1644; J1815; J1940; J1956; J2405; J2920; J2930; J3370; J7040; J7050; P9016

== ENCOUNTER 2018-09-23 22:32 | Inpatient (IN) | payer MEDICARE ==
[2018-09-24] MEDS ORDERED: DAPTOmycin 750 MG in NACL 0.9% 100 ML IV ONE (01:32)
[2018-09-24] MEDS ORDERED: NORCO 5/325 PO ONE (01:33)
--- NOTE | 2018-09-24 01:40 | Emergency Department Report ---
ED General Adult HPI - General Chief complaint: Extremity Injury, Lower Stated complaint: PICC LINE WON'T FLUSH Time Seen by Provider: 09/24/18 01:18 Source: patient, family Mode of arrival: Wheelchair Limitations: Physical Limitation - History of Present Illness Initial comments: 62-year-old female with a past medical history of obesity, diabetes, CK D stage II, hypertension, COPD, and right heel osteomyelitis presents to the hospital complaining of malfunctioning PICC line. Patient was recently admitted and treated for right heel osteomyelitis with associated sepsis secondary to MRSA bacteremia. She was discharged here on September 12 with a PICC line to receive IV daptomycin 750 mg every 48 hours. Patient states that the home health nurse came out , September 19 and was able to collect blood. Since then the line has not been functioning. Patient is unable to flush the line and therefore has not received any antibiotics since . Another nurse came out to reevaluate line in since she was unable to flush the line as well, patient was instructed to come to the hospital for evaluation. Patient complains of pain to right a right heel rate is 7/10 in intensity. No complaint of fever. Severity scale (0 -10): 7 - Related Data Previous Rx's Medication Instructions Recorded Last Taken Type traMADol [Ultram 50 MG tab] 50 mg PO Q6H PRN #14 tablet 08/02/17 Unknown Rx Cyclobenzaprine [Flexeril 10 MG 10 mg PO TID PRN #14 tablet 09/12/18 Unknown Rx TAB] Furosemide [Lasix TAB] 40 mg PO QDAY #30 tablet 09/12/18 Unknown Rx Gabapentin [Neurontin] 300 mg PO TID #90 capsule 09/12/18 Unknown Rx HYDROcodone/APAP 5-325 [[place] 1 - 2 each PO Q6HR PRN #14 tablet 09/12/18 Unknown Rx 5-325 mg TAB] Insulin Glargine,Hum.rec.anlog 10 mg PO HS #30 vial 09/12/18 Unknown Rx [Lantus] Tamsulosin [Flomax] 0.4 mg PO QDAY #30 capsule 09/12/18 Unknown Rx amLODIPine [Norvasc] 10 mg PO DAILY #30 tablet 09/12/18 Unknown Rx Allergies Allergy/AdvReac Type Severity Reaction Status Date / Time lisinopril Allergy Severe Swelling Verified 03/18/15 14:54 ED Review of Systems ROS: Stated complaint: PICC LINE WON'T FLUSH Other details as noted in HPI Comment: All other systems reviewed and negative ED Past Medical Hx - Past Medical History Previous Medical History?: Yes Hx Hypertension: Yes Hx Congestive Heart Failure: Yes Hx Diabetes: Yes (insulin) Hx GERD: Yes Hx Asthma: No Hx COPD: Yes Hx HIV: No Additional medical history: SLEEP APNEA- CPAP - Surgical History Past Surgical History?: Yes Hx Cholecystectomy: Yes Additional Surgical History: Back surgery, GASTRIC BYPASS 05/28/2015. goiter removed - Social History Smoking Status: Never Smoker Substance Use Type: None - Medications Home Medications: Home Medications Medication Instructions Recorded Confirmed Last Taken Type traMADol [Ultram 50 MG tab] 50 mg PO Q6H PRN #14 tablet 08/02/17 09/11/18 Unknown Rx Cyclobenzaprine [Flexeril 10 MG 10 mg PO TID PRN #14 tablet 09/12/18 Unknown Rx TAB] Furosemide [Lasix TAB] 40 mg PO QDAY #30 tablet 09/12/18 Unknown Rx Gabapentin [Neurontin] 300 mg PO TID #90 capsule 09/12/18 Unknown Rx HYDROcodone/APAP 5-325 [[place] 1 - 2 each PO Q6HR PRN #14 tablet 09/12/18 Unknown Rx 5-325 mg TAB] Insulin Glargine,Hum.rec.anlog 10 mg PO HS #30 vial 09/12/18 Unknown Rx [Lantus] Tamsulosin [Flomax] 0.4 mg PO QDAY #30 capsule 09/12/18 Unknown Rx amLODIPine [Norvasc] 10 mg PO DAILY #30 tablet 09/12/18 Unknown Rx ED Physical Exam - General Limitations: Physical Limitation - Other Other exam information: General: No limitations, patient is alert in no acute distress Head exam: Atraumatic, normocephalic Eyes exam: Normal appearancee ENT: Moist mucous membrane Neck exam: Normal inspection, full range of motion, no meningismus nontender Respiratory exam: Clear to auscultation bilateral, no wheezes, rales, crackles Cardiovascular: Normal rate and rhythm, normal heart sounds Abdomen: Soft, nondistended, and nontender, with normal bowel sounds, no rebound, or guarding Extremity: Right arm PICC line that will not flush. Back: Normal Inspection, full range of motion, no tenderness Neurologic: Alert, oriented x3, cranial nerves intact, no motor or sensory deficit Psychiatric: normal affect, normal mood Skin: Right heel 5 x 5 cm ulceration ED Course Vital Signs 09/23/18 09/23/18 09/24/18 23:00 23:51 02:22 Temperature 98.8 F 98.8 F Pulse Rate 88 88 Respiratory 18 18 16 Rate Blood Pressure 219/99 196/78 O2 Sat by Pulse 100 99 Oximetry ED Medical Decision Making - Lab Data Result diagrams: 09/24/18 01:51 09/24/18 01:51 Lab Results 09/24/18 09/24/18 Range/Units 01:51 01:51 WBC 8.5 (4.5-11.0) K/mm3 RBC 2.57 L (3.65-5.03) M/mm3 Hgb 6.9 L (10.1-14.3) gm/dl Hct 21.7 L (30.3-42.9) % MCV 85 (79-97) fl MCH 27 L (28-32) pg MCHC 32 (30-34) % RDW 15.0 (13.2-15.2) % Plt Count 373 (140-440) K/mm3 Lymph % (Auto) 27.4 (13.4-35.0) % [place] % (Auto) 9.9 H (0.0-7.3) % Eos % (Auto) 3.5 (0.0-4.3) % Baso % (Auto) 1.0 (0.0-1.8) % Lymph # 2.3 (1.2-5.4) K/mm3 [place] # 0.8 (0.0-0.8) K/mm3 Eos # 0.3 (0.0-0.4) K/mm3 Baso # 0.1 (0.0-0.1) K/mm3 Seg Neutrophils % 58.2 (40.0-70.0) % Seg Neutrophils # 5.0 (1.8-7.7) K/mm3 Sodium 141 (137-145) mmol/L Potassium 3.8 (3.6-5.0) mmol/L Chloride 111.4 H (98-107) mmol/L Carbon Dioxide 17 L (22-30) mmol/L Anion Gap 16 mmol/L BUN 21 H (7-17) mg/dL Creatinine 2.5 H (0.7-1.2) mg/dL Estimated GFR 23 ml/min BUN/Creatinine Ratio 8 % Glucose 84 (65-100) mg/dL Calcium 7.6 L (8.4-10.2) mg/dL - Medical Decision Making plan to admit pt to hospitalist service for malfunctioning PICC. RN was unable to flush line even with the use of cathflo. Hospitalist informed - Differential Diagnosis osteomyelitis, malfunctioning PICC line Critical Care Time: No Critical care attestation.: If time is entered above; I have spent that time in minutes in the direct care of this critically ill patient, excluding procedure time. ED Disposition Clinical Impression: Occluded PICC line, Anemia, Foot osteomyelitis, right, HTN (hypertension), CRI (chronic renal insufficiency) Disposition: OP ADMIT IP TO THIS HOSP Is pt being admited?: Yes Condition: Stable Time of Disposition: 04:00
[2018-09-24 02:04] LABS: Basophils # (Auto) 0.1 K/mm3 (0.0-0.1); Eosinophils # (Auto) 0.3 K/mm3 (0.0-0.4); Eosinophils % (Auto) 3.5 % (0.0-4.3); Hematocrit 21.7 % (30.3-42.9); Hemoglobin 6.9 gm/dl (10.1-14.3); Lymphocytes # (Auto) 2.3 K/mm3 (1.2-5.4); Lymphocytes % (Auto) 27.4 % (13.4-35.0); Mean Corpuscular HGB Conc 32 % (30-34); Mean Corpuscular Volume 85 fl (79-97); Monocytes # (Auto) 0.8 K/mm3 (0.0-0.8); Monocytes % (Auto) 9.9 % (0.0-7.3); Platelet Count 373 K/mm3 (140-440); Red Blood Count 2.57 M/mm3 (3.65-5.03)
[2018-09-24] MEDS ORDERED: NACL 0.9% IV ONE (02:30)
[2018-09-24] MEDS ORDERED: DAPTOMYCIN IV ONE (02:30)
[2018-09-24 02:33] LABS: Calcium 7.6 mg/dL (8.4-10.2)
[2018-09-24] MEDS ORDERED: FLUSH HEPARIN IV ONE (03:09)
[2018-09-24] MEDS ORDERED: CATHFLO IV ONE (03:17)
[2018-09-24] MEDS ORDERED: TYLENOL PO PRN (04:15)
[2018-09-24] MEDS ORDERED: SODIUM CHLORIDE FLUSH SYRINGE 10 ML IV PRN (04:15)
[2018-09-24] MEDS ORDERED: ZOFRAN IV PRN (04:15)
[2018-09-24] MEDS ORDERED: D50W (25GM) Syringe IV PRN (04:15)
[2018-09-24] MEDS ORDERED: NACL 0.9% 500 ML 500 ML IV ONE (04:19)
[2018-09-24] MEDS ORDERED: WATER FOR INJ Sterile (PF) 10 ML ONE (04:34)
--- NOTE | 2018-09-24 04:47 | History and Physical Report ---
History of Present Illness Date of examination: 09/24/18 Date of admission: 09/24/18 04:15 History of present illness: 62-year-old woman with a history of hypertension, diabetes, CHF, COPD, oste omyelitis of the right heel, chronic anemia was sent to the emergency room by her visiting nurse because her PICC line has not been working since . The patient does not receive her daptomycin for osteomyelitis since . Denies any hematuria, melena Review of systems Constitutional: no weight loss, chills, fever Ears, eyes, nose, mouth and throat: no nasal congestion, no nasal discharge, no sinus pressure, no vision change, no red eye. Neck: No neck pain or rigidity. Cardiovascular: no palpitations, chest pain Respiratory: no cough, shortness of breath Gastrointestinal: no hematochezia, abdominal pain Genitourinary : no frequency , no hematuria Musculoskeletal: no joint swelling or muscle ache Integumentary: no rash, no pruritis Neurological: no parathesias, no focal weakness Endocrine: no cold or heat intolerance, no polyuria or polydipsia Hematologic/Lymphatic: no easy bruising, no easy bleeding, no gland swelling Allergic/Immunologic: no urticaria, no angioedema. PAST MEDICAL HISTORY: hypertension, diabetes, CHF, COPD, osteomyelitis of the right heel, chronic anemia PAST SURGICAL HISTORY: Back surgery, cholecystectomy, gastric bypass SOCIAL HISTORY: Denies alcohol, drugs, tobacco FAMILY HISTORY: Hypertension Medications and Allergies Allergies Allergy/AdvReac Type Severity Reaction Status Date / Time lisinopril Allergy Severe Swelling Verified 03/18/15 14:54 Home Medications Medication Instructions Recorded Confirmed Last Taken Type traMADol [Ultram 50 MG tab] 50 mg PO Q6H PRN #14 tablet 08/02/17 09/11/18 Unknown Rx Cyclobenzaprine [Flexeril 10 MG 10 mg PO TID PRN #14 tablet 09/12/18 Unknown Rx TAB] Furosemide [Lasix TAB] 40 mg PO QDAY #30 tablet 09/12/18 Unknown Rx Gabapentin [Neurontin] 300 mg PO TID #90 capsule 09/12/18 Unknown Rx HYDROcodone/APAP 5-325 [[place] 1 - 2 each PO Q6HR PRN #14 tablet 09/12/18 Unknown Rx 5-325 mg TAB] Insulin Glargine,Hum.rec.anlog 10 mg PO HS #30 vial 09/12/18 Unknown Rx [Lantus] Tamsulosin [Flomax] 0.4 mg PO QDAY #30 capsule 09/12/18 Unknown Rx amLODIPine [Norvasc] 10 mg PO DAILY #30 tablet 09/12/18 Unknown Rx Active Meds: Active Medications Acetaminophen (Tylenol) 650 mg PO Q4H PRN PRN Reason: Pain MILD(1-3)/Fever >100.5/ORTIZ Dextrose (D50w (25gm) Syringe) 50 ml IV PRN PRN PRN Reason: Hypoglycemia Insulin Human Lispro (Humalog) 0 unit SUB-Q ACHS DAMIEN; Protocol Ondansetron HCl (Zofran) 4 mg IV Q8H PRN PRN Reason: Nausea And Vomiting Oxycodone/Acetaminophen (Percocet 5/325) 1 tab PO Q6H PRN PRN Reason: Pain, Moderate (4-6) Sodium Chloride (Sodium Chloride Flush Syringe 10 Ml) 10 ml IV BID DAMIEN Sodium Chloride (Sodium Chloride Flush Syringe 10 Ml) 10 ml IV PRN PRN PRN Reason: LINE FLUSH Exam - Physical Exam Narrative exam: General Apperance: The patient lying in bed, breathing comfortable HEENT: Normocephalic, atraumatic. Pupils equally round and reactive to light, EOMI, no sclericterus or JVD or thyromegaly or nodule. , no carotid bruit, mucous membranes moist, no exudate or erythema Heart: S1-S2, regular is rhythm Lungs: Clear to auscultation bilaterally, breathing comfortable Abdomen: Positive bowel sounds, soft, nontender, nondistended, no organomegaly Extremities: Right heel ulcer, positive drainage+ edema cyanosis clubbing Skin: no rash, nodule, warm and dry Neuro: cranial nerves 2-12 intact, speech is fluent, motor/sensory intact - Constitutional Vitals: Temp Pulse Resp BP Pulse Ox 98.8 F 88 16 196/78 99 09/23/18 23:51 09/23/18 23:51 09/24/18 02:22 09/23/18 23:51 09/23/18 23:51 Results - Labs CBC & Chem 7: 09/24/18 01:51 09/24/18 01:51 Labs: Abnormal lab results 09/24/18 09/24/18 Range/Units 01:51 01:51 RBC 2.57 L (3.65-5.03) M/mm3 Hgb 6.9 L (10.1-14.3) gm/dl Hct 21.7 L (30.3-42.9) % MCH 27 L (28-32) pg [place] % (Auto) 9.9 H (0.0-7.3) % Chloride 111.4 H (98-107) mmol/L Carbon Dioxide 17 L (22-30) mmol/L BUN 21 H (7-17) mg/dL Creatinine 2.5 H (0.7-1.2) mg/dL Calcium 7.6 L (8.4-10.2) mg/dL Assessment and Plan Assessment Malfunction of Picc line Acute on chronic anemia osteomyelitis of the right heel Hypertension diabetes CHF, stable COPD Plan Admit to medicine Unable try to flush the PICC line with catflo, consult PICC line nurse Restart daptomycin for osteomyelitis Transfuse packed red blood cells Consult wound care Check fingersticks and initiate insulin sliding scale Continue appropriate outpatient medications DVT prophylaxis
--- NOTE | 2018-09-24 08:54 | Discharge Summary ---
Providers - Providers Date of Admission: 09/24/18 04:15 Date of discharge: 09/24/18 Attending physician: CHAITANYA NESS 09/24/18 04:48 Consult to Physician [CONS] Routine Comment: Consulting Provider: PHIL AMOS Physician Instructions: Reason For Exam: rt heel ulcer/OM 09/24/18 05:53 Consult to PICC Line RN [CONS] Urgent Reason For Exam: malfunction piccline, need outpt abx Type Line:: PICC 09/24/18 06:17 Consult to Wound/ET Nurse [CONS] Routine Reason For Exam: wound eval Primary care physician: VAL CONTI Hospitalization Reason for admission: anemia, malfunctioning PICC Condition: Stable Hospital course: 62-year-old woman with a history of hypertension, diabetes, CHF, COPD, osteo myelitis of the right heel, chronic anemia was sent to the emergency room by her visiting nurse because her PICC line has not been working since . The patient does not receive her daptomycin for osteomyelitis since . Denied any hematuria, melena. On routine labs in the emergency department, patient was found to have anemia with hemoglobin of 6.9. Patient to receive 1 unit PRBCs and placement of her malfunctioning PICC line. After this has been completed, patient will be discharged home and is to follow-up with home health. Discharge time 32 minutes. Disposition: [id number] HOME UNDER HOME [facility] Time spent for discharge: 32 - Discharge Diagnoses (1) Anemia Status: Acute (2) CRI (chronic renal insufficiency) Status: Acute (3) Foot osteomyelitis, right Status: Acute (4) HTN (hypertension) Status: Acute (5) Occluded PICC line Status: Acute Core Measure Documentation - Palliative Care Palliative Care/ Comfort Measures: Not Applicable - Core Measures Any of the following diagnoses?: none Exam - Constitutional Vitals: Temp Pulse Resp BP Pulse Ox 97.6 F 79 18 166/66 98 09/24/18 05:51 09/24/18 06:03 09/24/18 06:03 09/24/18 06:03 09/24/18 08:48 General appearance: Present: no acute distress, well-nourished - EENT Eyes: Present: PERRL ENT: hearing intact, clear oral mucosa - Neck Neck: Present: supple, normal ROM - Respiratory Respiratory effort: normal Respiratory: bilateral: CTA - Cardiovascular Heart Sounds: Present: S1 & S2. Absent: rub, click - Extremities Extremities: pulses symmetrical, No edema Peripheral Pulses: within normal limits - Abdominal General gastrointestinal: Present: soft, non-tender, non-distended, normal bowel sounds Female genitourinary: Present: normal - Integumentary Integumentary: Present: clear, warm, dry - Musculoskeletal Musculoskeletal: gait normal, strength equal bilaterally - Psychiatric Psychiatric: appropriate mood/affect, intact judgment & insight - Neurologic Neurologic: CNII-XII intact, moves all extremities Plan Activity: no restrictions Weight Bearing Status: Weight Bear as Tolerated Diet: diabetic Follow up with: VAL CONTI MD [Primary Care Provider] - 3-5 Days
[2018-09-24] MEDS: HumaLOG SUB-Q SCH ×4 (09:00→21:33)
[2018-09-24] MEDS ORDERED: NACL 0.9% 500 ML 500 ML IV SCH (09:26)
[2018-09-24] MEDS ORDERED: NACL 0.9% 500 ML 500 ML ONE (09:34)
[2018-09-24] MEDS: SODIUM CHLORIDE FLUSH SYRINGE 10 ML IV SCH ×2 (10:36→21:32)
[2018-09-24] MEDS ORDERED: APRESOLINE IV SCH (11:00)
--- NOTE | 2018-09-24 13:13 | Consultation ---
History of Present Illness Consult date: 09/24/18 Chief complaint: Right heel ulcer - History of present illness History of present illness: 62 yo diabetic female with a one year h/o her CC. She says she walks "with help". She does not smoke. Past History Past Medical History: anemia, diabetes, renal failure Medications and Allergies Allergies Allergy/AdvReac Type Severity Reaction Status Date / Time lisinopril Allergy Severe Swelling Verified 03/18/15 14:54 Home Medications Medication Instructions Recorded Confirmed Last Taken Type traMADol [Ultram 50 MG tab] 50 mg PO Q6H PRN #14 tablet 08/02/17 09/11/18 Unknown Rx Cyclobenzaprine [Flexeril 10 MG 10 mg PO TID PRN #14 tablet 09/12/18 Unknown Rx TAB] Furosemide [Lasix TAB] 40 mg PO QDAY #30 tablet 09/12/18 Unknown Rx Gabapentin [Neurontin] 300 mg PO TID #90 capsule 09/12/18 Unknown Rx HYDROcodone/APAP 5-325 [[place] 1 - 2 each PO Q6HR PRN #14 tablet 09/12/18 Unknown Rx 5-325 mg TAB] Insulin Glargine,Hum.rec.anlog 10 mg PO HS #30 vial 09/12/18 Unknown Rx [Lantus] Tamsulosin [Flomax] 0.4 mg PO QDAY #30 capsule 09/12/18 Unknown Rx amLODIPine [Norvasc] 10 mg PO DAILY #30 tablet 09/12/18 Unknown Rx Active Meds: Active Medications Acetaminophen (Tylenol) 650 mg PO Q4H PRN PRN Reason: Pain MILD(1-3)/Fever >100.5/ORTIZ Dextrose (D50w (25gm) Syringe) 50 ml IV PRN PRN PRN Reason: Hypoglycemia Hydralazine HCl (Apresoline) 20 mg IV Q6HR DAMIEN Last Admin: 09/24/18 10:30 Dose: 20 mg Documented by: Sodium Chloride (Nacl 0.9% 500 Ml) 500 mls @ 50 mls/hr IV DIRECT DAMIEN Stop: 09/24/18 19:25 Last Admin: 09/24/18 09:34 Dose: 50 mls/hr Documented by: Insulin Human Lispro (Humalog) 0 unit SUB-Q ACHS DAMIEN; Protocol Last Admin: 09/24/18 09:00 Dose: Not Given Documented by: Ondansetron HCl (Zofran) 4 mg IV Q8H PRN PRN Reason: Nausea And Vomiting Oxycodone/Acetaminophen (Percocet 5/325) 1 tab PO Q6H PRN PRN Reason: Pain, Moderate (4-6) Sodium Chloride (Sodium Chloride Flush Syringe 10 Ml) 10 ml IV BID DAMIEN Last Admin: 09/24/18 10:36 Dose: 10 ml Documented by: Sodium Chloride (Sodium Chloride Flush Syringe 10 Ml) 10 ml IV PRN PRN PRN Reason: LINE FLUSH Review of Systems All systems: negative (none) Exam Vital Signs Temp Pulse Resp BP Pulse Ox 98.8 F 88 18 219/99 100 09/23/18 23:00 09/23/18 23:00 09/23/18 23:00 09/23/18 23:00 09/23/18 23:00 - General physical appearance Positive: well developed, well nourished, no distress - Eyes Positive: PERRL, normal occular movement - ENT Positive: normal pinna, normal nares, normal mucosa, no hearing loss, no congestion - Neck Positive: no masses, no bruits, trachea midline, no venous distension - Respiratory Positive: normal expansion, normal respiratory effort, clear to auscultation - Cardiovascular Rhythm: regular Heart Sounds: Present: S1 & S2. Absent: rub, click - Extremities Extremities: normal temperature, normal color - Breasts Breasts: deferred - Abdomen Abdomen: Present: soft, bowel sounds normal. Absent: tender, distended Hernia: none - Genitourinary Female Genitourinary: deferred - Integumentary other (There is a 4.5 X 4.5 X 2 cm ulcer of the right heel which is essentially down to bone. There is some necrotic fascia/tendon over the calcaneus. ) - Neurologic Neurologic: alert and oriented to time, place and person, motor strength and sensation are grossly intact - Psychiatric Psychiatric: appropriate mood/affect, intact judgment & insight Results - Labs 09/24/18 01:51 09/24/18 01:51 Abnormal lab results 09/24/18 09/24/18 09/24/18 Range/Units 01:51 01:51 06:00 RBC 2.57 L (3.65-5.03) M/mm3 Hgb 6.9 L (10.1-14.3) gm/dl Hct 21.7 L (30.3-42.9) % MCH 27 L (28-32) pg [place] % (Auto) 9.9 H (0.0-7.3) % Chloride 111.4 H (98-107) mmol/L Carbon Dioxide 17 L (22-30) mmol/L BUN 21 H (7-17) mg/dL Creatinine 2.5 H (0.7-1.2) mg/dL Calcium 7.6 L (8.4-10.2) mg/dL Crossmatch See Detail Diabetes panel 09/24/18 Range/Units 01:51 Sodium 141 (137-145) mmol/L Potassium 3.8 (3.6-5.0) mmol/L Chloride 111.4 H (98-107) mmol/L Carbon Dioxide 17 L (22-30) mmol/L BUN 21 H (7-17) mg/dL Creatinine 2.5 H (0.7-1.2) mg/dL Glucose 84 (65-100) mg/dL Calcium 7.6 L (8.4-10.2) mg/dL Calcium panel 09/24/18 Range/Units 01:51 Calcium 7.6 L (8.4-10.2) mg/dL Pituitary panel 09/24/18 Range/Units 01:51 Sodium 141 (137-145) mmol/L Potassium 3.8 (3.6-5.0) mmol/L Chloride 111.4 H (98-107) mmol/L Carbon Dioxide 17 L (22-30) mmol/L BUN 21 H (7-17) mg/dL Creatinine 2.5 H (0.7-1.2) mg/dL Glucose 84 (65-100) mg/dL Calcium 7.6 L (8.4-10.2) mg/dL Adrenal panel 09/24/18 Range/Units 01:51 Sodium 141 (137-145) mmol/L Potassium 3.8 (3.6-5.0) mmol/L Chloride 111.4 H (98-107) mmol/L Carbon Dioxide 17 L (22-30) mmol/L BUN 21 H (7-17) mg/dL Creatinine 2.5 H (0.7-1.2) mg/dL Glucose 84 (65-100) mg/dL Calcium 7.6 L (8.4-10.2) mg/dL - Imaging Additional studies: 1) MRI of the right foot on 09/08/18 was c/w calcaneal osteomyelitis. 2) Arterial dopplers of the BLE on 09/10/18 revealed monophasic/diminished flow of the PT arteries bilaterally. Assessment and Plan - Patient Problems (1) Foot osteomyelitis, right Current Visit: Yes Status: Acute Plan to address problem: 1) Agree with Wound Care consult 2) Recommend ID consult 3) Recommend Vascular surgery consult 4) Check A1c 5) Off loading 6) Strict control of diabetes 7) I will discuss options with the pt including right BKA vs 6-8 weeks of IV antibiotics with HBOT. I believe she is not emotionally ready to accept a BKA.
--- NOTE | 2018-09-24 13:25 | Procedure Note ---
Date of procedure: 09/24/18 Pre-op diagnosis: Right heel ulcer with necrotic fascia Post-op diagnosis: same Procedure: Debridement of necrotic skin, SQ and fascia, right heel ulcer Description of procedure: Pt was supine on her bed. The right heel area was prepped and draped. Necrotic skin, SQ and fascia were surgically, excisionally debrided with a #10 scalpel. Bleeding was minimal. No pain was elicited by the debridement. Pt tolerated the procedure well. Her heel was redressed by her nurse who assisted with the procedure. Anesthesia: none Surgeon: PHIL AMOS Estimated blood loss: minimal Pathology: none Specimen disposition: discarded Condition: stable Disposition: no change
[2018-09-24] MEDS ORDERED: PROVENTIL IH PRN (13:32)
[2018-09-24] MEDS ORDERED: PROVENTIL IH SCH (14:00)
--- NOTE | 2018-09-24 14:30 | Event Note ---
Date: 09/24/18 Patient well known to us. 62 y/o female with history of Obesity, DM, CKD stage II, hypertension, COPD; admitted on 09/04/2018 due to a week history of worsening SOB, mild dry cough and drainage from right heel ulcer with sepsis/ MRSA bacteremia and Right heel diabetic wound likely infected, Patient has a right foot diabetic ulcer for over a year, she follows at [facility]. MRI showed chronic right calcaneal osteomyelitis.Vascular consult done, recommendations include wound care and offloading. Readmitted due to clotted PICC line. Taken to the OR by Dr Salinas for debridement. - will continue IV Vancomycin, 750mg daily ending October 21, 2018 - full consultation tomorrow.
[2018-09-24] MEDS: NORVASC PO SCH (14:48)
[2018-09-24] MEDS ORDERED: APRESOLINE IV PRN (17:53)
[2018-09-24 17:57] LABS: Hematocrit 26.4 % (30.3-42.9); Hemoglobin 8.3 gm/dl (10.1-14.3)
[2018-09-24] MEDS: PERCOCET 5/325 PO PRN (18:09)
[2018-09-24] MEDS ORDERED: BENADRYL PO ONE (21:00)
[2018-09-25] MEDS: PERCOCET 5/325 PO PRN (04:54)
[2018-09-25 06:26] LABS: Basophils # (Auto) 0.1 K/mm3 (0.0-0.1); Basophils % (Auto) 1.1 % (0.0-1.8); Eosinophils # (Auto) 0.3 K/mm3 (0.0-0.4); Eosinophils % (Auto) 4.8 % (0.0-4.3); Hemoglobin 7.7 gm/dl (10.1-14.3); Lymphocytes # (Auto) 1.9 K/mm3 (1.2-5.4); Lymphocytes % (Auto) 28.9 % (13.4-35.0); Mean Corpuscular HGB Conc 32 % (30-34); Mean Corpuscular Volume 85 fl (79-97); Monocytes # (Auto) 0.5 K/mm3 (0.0-0.8); Monocytes % (Auto) 8.2 % (0.0-7.3); Platelet Count 353 K/mm3 (140-440); Red Blood Count 2.82 M/mm3 (3.65-5.03); Red Cell Distribution Width 15.3 % (13.2-15.2)
[2018-09-25 06:53] LABS: Calcium 7.1 mg/dL (8.4-10.2)
[2018-09-25] MEDS: HumaLOG SUB-Q SCH ×2 (08:15→12:30)
--- NOTE | 2018-09-25 09:16 | Progress Note ---
Assessment and Plan - Patient Problems (1) Foot osteomyelitis, right Current Visit: Yes Status: Acute Plan to address problem: 1) ID consult 2) Vascular surgery consult 3) Continue local wound care 4) Off loading 5) F/u in Wound Clinic for HBOT Subjective Date of service: 09/25/18 Patient Reports: Positive: no new complaints Objective Vital Signs - 12hr 09/24/18 09/25/18 09/25/18 22:03 01:20 05:21 Temperature 98.3 F 98.9 F Pulse Rate 82 80 Respiratory 18 18 Rate Blood Pressure 132/63 164/71 O2 Sat by Pulse 98 99 100 Oximetry - Integumentary other (No changes) - Labs 09/25/18 06:10 09/25/18 06:10 Diabetes panel 09/24/18 09/25/18 Range/Units 01:57 06:10 Sodium 144 (137-145) mmol/L Potassium 3.5 L (3.6-5.0) mmol/L Chloride 111.7 H (98-107) mmol/L Carbon Dioxide 18 L (22-30) mmol/L BUN 22 H (7-17) mg/dL Creatinine 2.7 H (0.7-1.2) mg/dL Glucose 83 (65-100) mg/dL Hemoglobin A1c < 4.0 L (4-6) % Calcium 7.1 L (8.4-10.2) mg/dL Calcium panel 09/25/18 Range/Units 06:10 Calcium 7.1 L (8.4-10.2) mg/dL Pituitary panel 09/25/18 Range/Units 06:10 Sodium 144 (137-145) mmol/L Potassium 3.5 L (3.6-5.0) mmol/L Chloride 111.7 H (98-107) mmol/L Carbon Dioxide 18 L (22-30) mmol/L BUN 22 H (7-17) mg/dL Creatinine 2.7 H (0.7-1.2) mg/dL Glucose 83 (65-100) mg/dL Calcium 7.1 L (8.4-10.2) mg/dL Adrenal panel 09/25/18 Range/Units 06:10 Sodium 144 (137-145) mmol/L Potassium 3.5 L (3.6-5.0) mmol/L Chloride 111.7 H (98-107) mmol/L Carbon Dioxide 18 L (22-30) mmol/L BUN 22 H (7-17) mg/dL Creatinine 2.7 H (0.7-1.2) mg/dL Glucose 83 (65-100) mg/dL Calcium 7.1 L (8.4-10.2) mg/dL
--- NOTE | 2018-09-25 10:10 | Progress Note ---
Assessment and Plan Assessment and plan: Malfunction of Picc line Acute on chronic anemia osteomyelitis of the right heel Hypertension diabetes CHF, stable COPD Plan Admit to medicine Unable try to flush the PICC line with catflo, consult PICC line nurse Restart daptomycin for osteomyelitis Transfuse packed red blood cells Consult wound care Check fingersticks and initiate insulin sliding scale Continue appropriate outpatient medications DVT prophylaxis Total time 25 minutes greater than 50% spent in coordination of care and counseling - Patient Problems (1) Anemia Current Visit: Yes Status: Acute (2) CRI (chronic renal insufficiency) Current Visit: Yes Status: Acute (3) Foot osteomyelitis, right Current Visit: Yes Status: Acute (4) HTN (hypertension) Current Visit: Yes Status: Acute (5) Occluded PICC line Current Visit: Yes Status: Acute History Interval history: No new issues overnight. Hospitalist Physical - Constitutional Vitals: Temp Pulse Resp BP Pulse Ox 98.9 F 80 18 164/71 100 09/25/18 05:21 09/25/18 05:21 09/25/18 05:21 09/25/18 05:21 09/25/18 09:30 General appearance: Present: no acute distress, well-nourished - EENT Eyes: Present: PERRL, EOM intact ENT: hearing intact, clear oral mucosa, dentition normal - Neck Neck: Present: supple, normal ROM - Respiratory Respiratory effort: normal Respiratory: bilateral: CTA - Cardiovascular Rhythm: regular Heart Sounds: Present: S1 & S2. Absent: gallop, rub - Extremities Extremities: no ischemia, No edema, Full ROM - Abdominal General gastrointestinal: soft, non-tender, non-distended, normal bowel sounds - Integumentary Integumentary: Present: clear, warm, dry - Neurologic Neurologic: CNII-XII intact, moves all extremities Results - Labs CBC & Chem 7: 09/25/18 06:10 09/25/18 06:10 Labs: Laboratory Last Values WBC 6.5 K/mm3 (4.5-11.0) 09/25/18 06:10 RBC 2.82 M/mm3 (3.65-5.03) L 09/25/18 06:10 Hgb 7.7 gm/dl (10.1-14.3) L 09/25/18 06:10 Hct 24.0 % (30.3-42.9) L 09/25/18 06:10 MCV 85 fl (79-97) 09/25/18 06:10 MCH 27 pg (28-32) L 09/25/18 06:10 MCHC 32 % (30-34) 09/25/18 06:10 RDW 15.3 % (13.2-15.2) H 09/25/18 06:10 Plt Count 353 K/mm3 (140-440) 09/25/18 06:10 Lymph % (Auto) 28.9 % (13.4-35.0) 09/25/18 06:10 [place] % (Auto) 8.2 % (0.0-7.3) H 09/25/18 06:10 Eos % (Auto) 4.8 % (0.0-4.3) H 09/25/18 06:10 Baso % (Auto) 1.1 % (0.0-1.8) 09/25/18 06:10 Lymph # 1.9 K/mm3 (1.2-5.4) 09/25/18 06:10 Hale # 0.5 K/mm3 (0.0-0.8) 09/25/18 06:10 Eos # 0.3 K/mm3 (0.0-0.4) 09/25/18 06:10 Baso # 0.1 K/mm3 (0.0-0.1) 09/25/18 06:10 Seg Neutrophils % 57.0 % (40.0-70.0) 09/25/18 06:10 Seg Neutrophils # 3.7 K/mm3 (1.8-7.7) 09/25/18 06:10 Sodium 144 mmol/L (137-145) 09/25/18 06:10 Potassium 3.5 mmol/L (3.6-5.0) L 09/25/18 06:10 Chloride 111.7 mmol/L (98-107) H 09/25/18 06:10 Carbon Dioxide 18 mmol/L (22-30) L 09/25/18 06:10 Anion Gap 18 mmol/L 09/25/18 06:10 BUN 22 mg/dL (7-17) H 09/25/18 06:10 Creatinine 2.7 mg/dL (0.7-1.2) H 09/25/18 06:10 Estimated GFR 21 ml/min 09/25/18 06:10 BUN/Creatinine Ratio 8 % 09/25/18 06:10 Glucose 83 mg/dL (65-100) 09/25/18 06:10 POC Glucose 83 (70-105) 09/25/18 08:01 Hemoglobin A1c < 4.0 % (4-6) L 09/24/18 01:57 Calcium 7.1 mg/dL (8.4-10.2) L 09/25/18 06:10 Blood Type A POSITIVE 09/24/18 06:00 Antibody Screen Negative 09/24/18 06:00 Crossmatch See Detail 09/24/18 06:00 Nutrition/Malnutrition Assess - Dietary Evaluation Nutrition/Malnutrition Findings: Nutrition Notes Start: 09/24/18 15:41 Freq: Status: Active Protocol: Document 09/24/18 15:41 RM (Rec: 09/24/18 15:51 RM [id number]) Nutrition Notes Need for Assessment generated from: solar electric practitioner Initial or Follow up Assessment Current Diagnosis COPD Hypertension Heart Failure Other Pertinent Diagnosis CKD, Osteomyelitis of R heel Current Diet Cardiac/Consistent Carb Labs/Tests Reviewed Pertinent Medications Reviewed Height 5 ft 2 in Weight 79.379 kg [place] Body Weight (kg) 50.00 BMI 32.0 Subjective/Other Information Screened for skin risk. Asaf 14 points. Pt asleep at time of visit. Per pt tech pt has not eaten anything today. Percent of energy/protein needs met: 0%/0% Burn Absent Trauma Absent #1 Nutrition Diagnosis Inadequate oral intake Etiology illness As Evidenced by Signs and Symptoms pt tech statement that pt has not eaten anything today Is patient on ventilator? No Is Patient Ambulatory and/or Out of Bed No REE-([place]-confined to bed) 1561.644 Kcal/Kg value to use for calculation 17 Approximate Energy Requirements Using 1349 kcal/Kg Calculation Used for Recommendations Kcal/kg Additional Notes Protein Needs: 52-65g (0.8-1g/ kg,65kg adjBW) Fluid Needs: 1 ml/kcal Nutrition Intervention Change Diet Order: Continue current Add Supplement/Snack (indicate name/kcal Nepro 1 daily /protein ) Provides kCal: 425 Provides Protein (gm) 19 Goal #1 Meet at least 75% of calorie and protein needs via PO and ONS intakes Anticipated Discharge Needs: Cardiac/Consistent CHO Follow-Up By: 09/26/18 Additional Comments Follow for PO and ONS intakes
--- NOTE | 2018-09-25 10:22 | Consultation ---
History of Present Illness - Reason for Consult Consult date: 09/25/18 s/p Debridement right heel ulceration Requesting physician: PHIL SALINAS - History of Present Illness This patient is a 62 year old female, well known to Infectious Disease , with a past medical history of obesity, DM, CKD stage 2, hypertension and COPD. She was initially admitted on 09/04/2018 due to a week history of worsening SOB, mild dry cough and drainage from right heel ulcer with sepsis/ MRSA bacteremia and Right heel diabetic wound likely infected, Patient has a right foot diabetic ulcer for over a year, she follows at [facility]. MRI showed chronic right calcaneal osteomyelitis.Vascular consult done, recommendations include wound care and offloading. She was readmitted on 09/24/18 due to clotted PICC line. She was taken to the OR by Dr. Salinas for a debridement of necrotic skin, SQ and fascia, right heel ulcer. On admission WBC 8.5, Creatinine 2.7, Temperature 98.8, HR 88 and BP 196/78. Patient stated that she has been doing well with her antibiotic therapy and HBO treatment. Discharge plans discussed, verbalized understanding regarding follow- up appointment with Dr. Malagon on 10-22-18. Review of Systems: General: no fevers, chills no rigors HEENT: no new visual disturbance Respiratory: No cough, sputum, hemoptysis or shortness of breath Cardiovascular: No chest pain, syncope Gastrointestinal: No nausea, vomiting or diarrhea Genitourinary: No dysuria or hematuria Musculoskeletal: No new or worsening neck pain or back pain Neurologic: No headaches, seizures Hematologic: No easy bruising or bleeding Endocrine: No night sweats no acute weight loss Skin: right heel diabetic ulceration, wrapped in dressing Psychiatric: No suicidal or homicidal ideation Past History Past Medical History: anemia, diabetes, renal failure Medications and Allergies Allergies Allergy/AdvReac Type Severity Reaction Status Date / Time lisinopril Allergy Severe Swelling Verified 03/18/15 14:54 Home Medications Medication Instructions Recorded Confirmed Last Taken Type traMADol [Ultram 50 MG tab] 50 mg PO Q6H PRN #14 tablet 08/02/17 09/24/18 Unknown Rx Cyclobenzaprine [Flexeril 10 MG 10 mg PO TID PRN #14 tablet 09/12/18 09/24/18 Unknown Rx TAB] Furosemide [Lasix TAB] 40 mg PO QDAY #30 tablet 09/12/18 09/24/18 Unknown Rx Gabapentin [Neurontin] 300 mg PO TID #90 capsule 09/12/18 09/24/18 Unknown Rx HYDROcodone/APAP 5-325 [[place] 1 - 2 each PO Q6HR PRN #14 tablet 09/12/18 09/24/18 Unknown Rx 5-325 mg TAB] Insulin Glargine,Hum.rec.anlog 10 mg PO HS #30 vial 09/12/18 09/24/18 Unknown Rx [Lantus] Tamsulosin [Flomax] 0.4 mg PO QDAY #30 capsule 09/12/18 09/24/18 Unknown Rx amLODIPine [Norvasc] 10 mg PO DAILY #30 tablet 09/12/18 09/24/18 Unknown Rx Active Meds: Active Medications Acetaminophen (Tylenol) 650 mg PO Q4H PRN PRN Reason: Pain MILD(1-3)/Fever >100.5/ORTIZ Last Admin: 09/25/18 08:47 Dose: 650 mg Documented by: Albuterol (Proventil) 2.5 mg IH Q6HRT PRN PRN Reason: Shortness Of Breath Amlodipine Besylate (Norvasc) 10 mg PO QDAY [facility] Last Admin: 09/24/18 14:48 Dose: 10 mg Documented by: Dextrose (D50w (25gm) Syringe) 50 ml IV PRN PRN PRN Reason: Hypoglycemia Hydralazine HCl (Apresoline) 20 mg IV Q6HR PRN PRN Reason: HTN SYS>170 Insulin Human Lispro (Humalog) 0 unit SUB-Q [facility]; Protocol Last Admin: 09/25/18 08:15 Dose: Not Given Documented by: Ondansetron HCl (Zofran) 4 mg IV Q8H PRN PRN Reason: Nausea And Vomiting Oxycodone/Acetaminophen (Percocet 5/325) 1 tab PO Q6H PRN PRN Reason: Pain, Moderate (4-6) Last Admin: 09/25/18 04:54 Dose: 1 tab Documented by: Sodium Chloride (Sodium Chloride Flush Syringe 10 Ml) 10 ml IV BID [facility] Last Admin: 09/24/18 21:32 Dose: 10 ml Documented by: Sodium Chloride (Sodium Chloride Flush Syringe 10 Ml) 10 ml IV PRN PRN PRN Reason: LINE FLUSH Physical Examination - Physical Exam Narrative exam: Constitutional: Alert, cooperative. No acute distress Head, Ears, Nose: Normocephalic, atraumatic. External ears, nose normal Eyes: Conjunctivae/corneas clear. No icterus. No ptosis. Neck: Supple, no meningeal signs Oral: dentition poor, no thrush Cardiovascular: S1, S2 normal. Respiratory: Good air entry, clear to auscultation bilaterally GI: Soft, non-tender; bowel sounds normal. No peritoneal signs Musculoskeletal: No pedal edema, no cyanosis. Skin: right heel diabetic ulcer, wrapped ins dressing, D/I Hem/Lymphatic: No palpable cervical or supraclavicular nodes. No lymphangitis Psych: Mood ok. Affect normal Neurological: Awake, alert, oriented. Lines: Left PICC - Constitutional Vitals: Vital Signs Temp Pulse Resp BP Pulse Ox 98.9 F 80 18 164/71 100 09/25/18 05:21 09/25/18 05:21 09/25/18 05:21 09/25/18 05:21 09/25/18 09:30 Temperature -Last 24 Hours Temperature 98.9 F Temperature 98.3 F Temperature 98.4 F Temperature 97.9 F Temperature 97.9 F Temperature 97.9 F Temperature 97.6 F Temperature 97.6 F Temperature 97.8 F Temperature 97.9 F Temperature 98.1 F Temperature 98.0 F Temperature 98.0 F Temperature 97.7 F Results - Labs CBC & Chem 7: 09/25/18 06:10 09/25/18 06:10 Labs: Abnormal lab results 09/24/18 09/24/18 09/24/18 Range/Units 01:57 06:00 17:23 RBC (3.65-5.03) M/mm3 Hgb (10.1-14.3) gm/dl Hct (30.3-42.9) % MCH (28-32) pg RDW (13.2-15.2) % [place] % (Auto) (0.0-7.3) % Eos % (Auto) (0.0-4.3) % Potassium (3.6-5.0) mmol/L Chloride (98-107) mmol/L Carbon Dioxide (22-30) mmol/L BUN (7-17) mg/dL Creatinine (0.7-1.2) mg/dL POC Glucose 107 H (70-105) Hemoglobin A1c < 4.0 L (4-6) % Calcium (8.4-10.2) mg/dL Crossmatch See Detail 09/24/18 09/25/18 09/25/18 Range/Units 17:38 06:10 06:10 RBC 2.82 L (3.65-5.03) M/mm3 Hgb 8.3 L 7.7 L (10.1-14.3) gm/dl Hct 26.4 L 24.0 L (30.3-42.9) % MCH 27 L (28-32) pg RDW 15.3 H (13.2-15.2) % [place] % (Auto) 8.2 H (0.0-7.3) % Eos % (Auto) 4.8 H (0.0-4.3) % Potassium 3.5 L (3.6-5.0) mmol/L Chloride 111.7 H (98-107) mmol/L Carbon Dioxide 18 L (22-30) mmol/L BUN 22 H (7-17) mg/dL Creatinine 2.7 H (0.7-1.2) mg/dL POC Glucose (70-105) Hemoglobin A1c (4-6) % Calcium 7.1 L (8.4-10.2) mg/dL Crossmatch Assessment and Plan Cultures: None A/P: Patient well known to us. 62 y/o female with history of Obesity, DM, CKD stage II, hypertension, COPD; admitted on 09/04/2018 due to a week history of worsening SOB, mild dry cough and drainage from right heel ulcer with sepsis/ MRSA bacteremia and Right heel diabetic wound likely infected, Patient has a right foot diabetic ulcer for over a year, she follows at [facility]. MRI showed chronic right calcaneal osteomyelitis.Vascular consult done, rec ommendations include wound care and offloading. Readmitted due to clotted PICC line. Taken to the OR by Dr Salinas for debridement.: 1. Chronic Right Calcaneal Osteomyelitis: right foot diabetic ulcer for over a year. upon discharge will continue IV vancomycin, 750mg daily ending October 21, 2018. 4) Acute on CKD: renally dose abx. Given issues with renal function and vancomycin PABLO of 2, would prefer to do IV Daptomycin, However Patient states she cannot afford her Daptomycin co-pay and wants an alternative. Discussed risk of nephrotoxicity with patient. Will need to switch to Vancomycin. Advised to ensure close clinic follow up with us. Recs: - -Will now discharge on IV Vancomycin, 750mg daily ending October 21, 2018 -continue wound care and HBO -f/u in the office with Dr. Malagon October 22, 2018 d/w Dr. Adolph Carrion, [facility] M: [phone] O:[phone]
[2018-09-25] MEDS: NORVASC PO SCH (11:36)
[2018-09-25] MEDS: SODIUM CHLORIDE FLUSH SYRINGE 10 ML IV SCH (11:37)
[2018-09-25 14:28] VITALS: BP 129/79
== END 2018-09-25 15:00 | disposition home health service (06) | DRG 264 ==
LOC: ED 22:32 → 3A 09-24 04:15
PROVIDERS: ADMIT Internal Medicine; ATTEND Hospitalist
PROC: 0JBQ0ZZ Excision of Right Foot Subcutaneous Tissue and Fascia, Open Approach (ICD-10-PCS; principal; 2018-09-24)
PROC: 30233N1 Transfusion of Nonautologous Red Blood Cells into Peripheral Vein, Percutaneous Approach (ICD-10-PCS; 2018-09-24)
DX: T82.594A Other mechanical complication of infusion catheter, initial encounter (principal); M86.8X7 Other osteomyelitis, ankle and foot; I13.0 Hypertensive heart and chronic kidney disease with heart failure and stage 1 through stage 4 chronic kidney disease, or unspecified chronic kidney disease; N17.9 Acute kidney failure, unspecified; T82.898A Other specified complication of vascular prosthetic devices, implants and grafts, initial encounter; I50.9 Heart failure, unspecified; J44.9 Chronic obstructive pulmonary disease, unspecified; E11.69 Type 2 diabetes mellitus with other specified complication; N18.2 Chronic kidney disease, stage 2 (mild); E11.22 Type 2 diabetes mellitus with diabetic chronic kidney disease; Y83.8 Other surgical procedures as the cause of abnormal reaction of the patient, or of later complication, without mention of misadventure at the time of the procedure; K21.9 Gastro-esophageal reflux disease without esophagitis; E66.9 Obesity, unspecified; G47.30 Sleep apnea, unspecified; D64.9 Anemia, unspecified; Z68.32 Body mass index [BMI] 32.0-32.9, adult; Z90.49 Acquired absence of other specified parts of digestive tract; Z98.84 Bariatric surgery status; Z82.49 Family history of ischemic heart disease and other diseases of the circulatory system; Z79.4 Long term (current) use of insulin; Z79.899 Other long term (current) drug therapy; Y92.89 Other specified places as the place of occurrence of the external cause
CPT/HCPCS: 36415; 36430; 80048; 82962; 83036; 85014; 85018; 85025; 86850; 86900; 86901; 86920; 94760; G0378; J0360; J0878; J1815; J2997; J7040; P9016

== ENCOUNTER 2018-10-01 10:06 | Outpatient (CLI) | payer MEDICARE ==
[2018-10-01] MEDS ORDERED: XYLOCAINE TOPICAL 4% TP ONE (10:30)
== END 2018-10-01 10:07 | disposition home or self-care (01) ==
LOC: WOUND 10:06
PROVIDERS: ATTEND Surgery
DX: E11.621 Type 2 diabetes mellitus with foot ulcer (principal); L97.416 Non-pressure chronic ulcer of right heel and midfoot with bone involvement without evidence of necrosis; E11.69 Type 2 diabetes mellitus with other specified complication; M86.671 Other chronic osteomyelitis, right ankle and foot; I11.0 Hypertensive heart disease with heart failure; I50.9 Heart failure, unspecified; K21.9 Gastro-esophageal reflux disease without esophagitis; F41.9 Anxiety disorder, unspecified; F32.9 Major depressive disorder, single episode, unspecified; Z79.4 Long term (current) use of insulin
CPT/HCPCS: 99215; G0463

== ENCOUNTER 2018-10-07 13:22 | Emergency (ER) | payer MEDICARE ==
--- NOTE | 2018-10-07 13:38 | Emergency Department Report ---
Blank Doc - Documentation Documentation: This is a 62-year-old female that presents with right arm picc line issues. S tated is unable to flush. Denies any other complaints. This initial assessment diagnostic orders/clinical plan/treatment(s) is/are subject to change based on patient's health status, clinical progression and re- assessment by fellow clinical providers in the ED. Further treatment and workup at subsequent clinical providers discretion. Patient/guardians urged not to elope from ED s their condition may be serious if not clinically assessed and managed. Initial orders include: 1-Patient sent to [facility] for further evaluation and treatment
--- NOTE | 2018-10-07 14:36 | Emergency Department Report ---
ED General Adult HPI - General Chief complaint: Extremity Injury, Upper Stated complaint: PICC LINE Time Seen by Provider: 10/07/18 13:38 Source: patient Mode of arrival: Wheelchair Limitations: No Limitations - History of Present Illness Initial comments: Patient is 62 years old female with history of osteomyelitis to the right heel patient on antibiotic for that. Patient presented today to the ER stating that her PICC line is mild flushing and it has been bleeding also since Sunday. Patient is taking daptomycin every day so she missed 2 days so far of her medication. Patient denied any other symptoms. Specifically patient denies fever, chills, nausea or vomiting. No dizziness, syncope or shortness of breath Severity scale (0 -10): 4 - Related Data Previous Rx's Medication Instructions Recorded Last Taken Type traMADol [Ultram 50 MG tab] 50 mg PO Q6H PRN #14 tablet 08/02/17 Unknown Rx Cyclobenzaprine [Flexeril 10 MG 10 mg PO TID PRN #14 tablet 09/12/18 Unknown Rx TAB] Furosemide [Lasix TAB] 40 mg PO QDAY #30 tablet 09/12/18 Unknown Rx Gabapentin [Neurontin] 300 mg PO TID #90 capsule 09/12/18 Unknown Rx HYDROcodone/APAP 5-325 [[place] 1 - 2 each PO Q6HR PRN #14 tablet 09/12/18 Unknown Rx 5-325 mg TAB] Insulin Glargine,Hum.rec.anlog 10 mg PO HS #30 vial 09/12/18 Unknown Rx [Lantus] Tamsulosin [Flomax] 0.4 mg PO QDAY #30 capsule 09/12/18 Unknown Rx amLODIPine [Norvasc] 10 mg PO DAILY #30 tablet 09/12/18 Unknown Rx Allergies Allergy/AdvReac Type Severity Reaction Status Date / Time lisinopril Allergy Severe Swelling Verified 03/18/15 14:54 ED Review of Systems ROS: Stated complaint: PICC LINE Other details as noted in HPI Comment: All other systems reviewed and negative Constitutional: denies: chills, fever Respiratory: denies: cough, orthopnea, shortness of breath, SOB with exertion, SOB at rest Cardiovascular: denies: chest pain, palpitations Gastrointestinal: denies: abdominal pain, nausea, vomiting, diarrhea, constipation, hematemesis, melena, hematochezia Neurological: denies: headache, weakness, numbness, paresthesias, confusion, abnormal gait, vertigo ED Past Medical Hx - Past Medical History Hx Hypertension: Yes Hx Congestive Heart Failure: Yes Hx Diabetes: Yes (insulin) Hx GERD: Yes Hx Asthma: No Hx COPD: Yes Hx HIV: No Additional medical history: SLEEP APNEA- CPAP, diabetic foot ulcer right foot - Surgical History Hx Cholecystectomy: Yes Additional Surgical History: Back surgery, GASTRIC BYPASS 05/28/2015. goiter removed - Social History Smoking Status: Never Smoker Substance Use Type: None - Medications Home Medications: Home Medications Medication Instructions Recorded Confirmed Last Taken Type traMADol [Ultram 50 MG tab] 50 mg PO Q6H PRN #14 tablet 08/02/17 09/24/18 Unknown Rx Cyclobenzaprine [Flexeril 10 MG 10 mg PO TID PRN #14 tablet 09/12/18 09/24/18 Unknown Rx TAB] Furosemide [Lasix TAB] 40 mg PO QDAY #30 tablet 09/12/18 09/24/18 Unknown Rx Gabapentin [Neurontin] 300 mg PO TID #90 capsule 09/12/18 09/24/18 Unknown Rx HYDROcodone/APAP 5-325 [[place] 1 - 2 each PO Q6HR PRN #14 tablet 09/12/18 09/24/18 Unknown Rx 5-325 mg TAB] Insulin Glargine,Hum.rec.anlog 10 mg PO HS #30 vial 09/12/18 09/24/18 Unknown Rx [Lantus] Tamsulosin [Flomax] 0.4 mg PO QDAY #30 capsule 09/12/18 09/24/18 Unknown Rx amLODIPine [Norvasc] 10 mg PO DAILY #30 tablet 09/12/18 09/24/18 Unknown Rx ED Physical Exam - General Limitations: No Limitations General appearance: alert, in no apparent distress - Head Head exam: Present: atraumatic, normocephalic, normal inspection - Eye Eye exam: Present: normal appearance, PERRL - ENT ENT exam: Present: normal exam, normal orophraynx, mucous membranes moist - Neck Neck exam: Present: normal inspection, full ROM. Absent: tenderness, meningismus, lymphadenopathy, thyromegaly - Respiratory Respiratory exam: Present: normal lung sounds bilaterally. Absent: respiratory distress, wheezes, rales, rhonchi, chest wall tenderness, accessory muscle use, decreased breath sounds, prolonged expiratory - Cardiovascular Cardiovascular Exam: Present: regular rate, normal rhythm, normal heart sounds - GI/Abdominal GI/Abdominal exam: Present: soft, normal bowel sounds. Absent: distended, tenderness, guarding, rebound, rigid, organomegaly, mass, bruit, pulsatile mass, hernia - Extremities Exam Extremities exam: Present: normal inspection, full ROM, normal capillary refill. Absent: pedal edema, calf tenderness - Back Exam Back exam: Present: normal inspection, full ROM - Neurological Exam Neurological exam: Present: alert, oriented X3, CN II-XII intact - Skin Skin exam: Present: warm, intact, normal color ED Course Vital Signs 10/07/18 13:38 Temperature 99.2 F Pulse Rate 84 Respiratory 18 Rate Blood Pressure 213/91 O2 Sat by Pulse 99 Oximetry ED Medical Decision Making - Medical Decision Making PICC line team not available in the hospital today. Patient received 1 dose of vancomycin in the emergency room through a peripheral line. I advised patient to return tomorrow for PICC line insertion. Patient agreed and stated that she will come here tomorrow for PICC line insertion. Critical care attestation.: If time is entered above; I have spent that time in minutes in the direct care of this critically ill patient, excluding procedure time. ED Disposition Clinical Impression: Occlusion of peripherally inserted central catheter (PICC) line, Osteomyelitis Disposition: DC-01 TO HOME OR SELFCARE Is pt being admited?: No Condition: Stable Instructions: Peripherally Inserted Central Catheters and Midline Catheters (ED), Osteomyelitis (ED) Additional Instructions: Please return tomorrow to the emergency room for PICC line insertion. Referrals: MARLA TRIPLETT [Primary Care Provider] - 3-5 Days
[2018-10-07] MEDS ORDERED: VANCOMYCIN/NS 1 GM/250 ML 1 GM/250 ML BAG IV ONE (15:38)
[2018-10-07 17:32] VITALS: BP 208/91
== END 2018-10-07 17:53 | disposition home or self-care (01) ==
LOC: ED 13:22
DX: T80.211A Bloodstream infection due to central venous catheter, initial encounter (principal); M86.9 Osteomyelitis, unspecified; I11.0 Hypertensive heart disease with heart failure; E11.621 Type 2 diabetes mellitus with foot ulcer; L97.519 Non-pressure chronic ulcer of other part of right foot with unspecified severity; Z79.4 Long term (current) use of insulin; G47.30 Sleep apnea, unspecified; K21.9 Gastro-esophageal reflux disease without esophagitis; J44.9 Chronic obstructive pulmonary disease, unspecified; Z98.84 Bariatric surgery status; Z88.5 Allergy status to narcotic agent
CPT/HCPCS: 96365; 99282; J3370

== ENCOUNTER 2018-10-08 10:07 | Outpatient (CLI) | payer MEDICARE | END 2018-10-08 10:08 | disposition home or self-care (01) | LOC: WOUND 10:07 | PROVIDERS: ATTEND Surgery | DX: E11.621 Type 2 diabetes mellitus with foot ulcer (principal); L97.416 Non-pressure chronic ulcer of right heel and midfoot with bone involvement without evidence of necrosis; E11.69 Type 2 diabetes mellitus with other specified complication; M86.671 Other chronic osteomyelitis, right ankle and foot; I11.0 Hypertensive heart disease with heart failure; I50.9 Heart failure, unspecified; K21.9 Gastro-esophageal reflux disease without esophagitis; F41.9 Anxiety disorder, unspecified; F32.9 Major depressive disorder, single episode, unspecified; Z79.4 Long term (current) use of insulin | CPT/HCPCS: 82962; G0463; 99212 ==

== ENCOUNTER 2018-10-08 10:29 | Emergency (ER) | payer MEDICARE ==
[2018-10-08] MEDS ORDERED: DILAUDID IV ONE (10:40)
[2018-10-08] MEDS ORDERED: PEPCID IV ONE (10:40)
[2018-10-08] MEDS ORDERED: ZOFRAN IV ONE (10:40)
--- NOTE | 2018-10-08 10:41 | Emergency Department Report ---
ED Abdominal Pain HPI - General Chief Complaint: Abdominal Pain Stated Complaint: ABD PAIN Time Seen by Provider: 10/08/18 10:32 Source: patient, EMS Mode of arrival: Stretcher Limitations: No Limitations - History of Present Illness Initial Comments: 62-year-old female with a past medical history of obesity, diabetes, CKD stage II, hypertension, COPD, and right heel osteomyelitis presents to the Hospital complaining of upper abdominal pain, nausea, vomiting since last night. Patient presented here yesterday with PICC line was not functioning and she missed several doses of her daptomycin. The PICC team was not available she was advised to come back today after receiving IV dose of vancomycin in the ED. She states that her PICC line started working last night and she did receive her IV dose of daptomycin. After receiving medication she developed epigastric pain and subsequently took a half a tablet of Percocet. Despite this medication p atient continued to have upper abdominal pain, nausea, and vomiting. Patient appears to be in distress secondary to pain. Patient thinks that she might be allergic to Percocet. Although he has been prescribed as needed for pain she has not been taking the medication up until last night. Typically they patient went to her wound care clinic as scheduled and was subsequently sent to the ER for evaluation. Patient has had a but denies other abdominal surgeries. - Related Data Previous Rx's Medication Instructions Recorded Last Taken Type traMADol [Ultram 50 MG tab] 50 mg PO Q6H PRN #14 tablet 08/02/17 Unknown Rx Cyclobenzaprine [Flexeril 10 MG 10 mg PO TID PRN #14 tablet 09/12/18 Unknown Rx TAB] Furosemide [Lasix TAB] 40 mg PO QDAY #30 tablet 09/12/18 Unknown Rx Gabapentin [Neurontin] 300 mg PO TID #90 capsule 09/12/18 Unknown Rx HYDROcodone/APAP 5-325 [[place] 1 - 2 each PO Q6HR PRN #14 tablet 09/12/18 Unknown Rx 5-325 mg TAB] Insulin Glargine,Hum.rec.anlog 10 mg PO HS #30 vial 09/12/18 Unknown Rx [Lantus] Tamsulosin [Flomax] 0.4 mg PO QDAY #30 capsule 09/12/18 Unknown Rx amLODIPine [Norvasc] 10 mg PO DAILY #30 tablet 09/12/18 Unknown Rx Allergies Allergy/AdvReac Type Severity Reaction Status Date / Time lisinopril Allergy Severe Swelling Verified 03/18/15 14:54 ED Review of Systems ROS: Stated complaint: ABD PAIN Other details as noted in HPI Comment: All other systems reviewed and negative ED Past Medical Hx - Past Medical History Hx Hypertension: Yes Hx Congestive Heart Failure: Yes Hx Diabetes: Yes (insulin) Hx GERD: Yes Hx Asthma: No Hx COPD: Yes Hx HIV: No Additional medical history: SLEEP APNEA- CPAP, diabetic foot ulcer right foot - Surgical History Hx Cholecystectomy: Yes Additional Surgical History: Back surgery, GASTRIC BYPASS 05/28/2015. goiter removed - Social History Smoking Status: Never Smoker Substance Use Type: None - Medications Home Medications: Home Medications Medication Instructions Recorded Confirmed Last Taken Type traMADol [Ultram 50 MG tab] 50 mg PO Q6H PRN #14 tablet 08/02/17 09/24/18 Unknown Rx Cyclobenzaprine [Flexeril 10 MG 10 mg PO TID PRN #14 tablet 09/12/18 09/24/18 Unknown Rx TAB] Furosemide [Lasix TAB] 40 mg PO QDAY #30 tablet 09/12/18 09/24/18 Unknown Rx Gabapentin [Neurontin] 300 mg PO TID #90 capsule 09/12/18 09/24/18 Unknown Rx HYDROcodone/APAP 5-325 [[place] 1 - 2 each PO Q6HR PRN #14 tablet 09/12/18 09/24/18 Unknown Rx 5-325 mg TAB] Insulin Glargine,Hum.rec.anlog 10 mg PO HS #30 vial 09/12/18 09/24/18 Unknown Rx [Lantus] Tamsulosin [Flomax] 0.4 mg PO QDAY #30 capsule 09/12/18 09/24/18 Unknown Rx amLODIPine [Norvasc] 10 mg PO DAILY #30 tablet 09/12/18 09/24/18 Unknown Rx ED Physical Exam - General Limitations: No Limitations - Other Other exam information: General: Positive distress secondary to pain Head exam: Atraumatic, normocephalic Eyes exam: Normal appearance, nonicteric sclerae ENT: Moist mucous membrane, normal oropharynx Neck exam: Normal inspection, full range of motion, no meningismus nontender Respiratory exam: Clear to auscultation bilateral, no wheezes, rales, crackles Cardiovascular: Normal rate and rhythm Abdomen: Soft, nondistended, epigastric right upper quadrant tenderness, with normal bowel sounds, no rebound, or guarding Extremity: Full range of motion Back: Normal Inspection, full range of motion, no tenderness Neurologic: Alert, oriented x3, cranial nerves intact, no motor or sensory deficit Psychiatric: normal affect, normal mood Skin: Right foot wound with dressing in place and cast shoe ED Course Vital Signs 10/08/18 10/08/18 10/08/18 11:00 11:17 11:30 Temperature 99.1 F Pulse Rate 102 H Respiratory 18 18 Rate Blood Pressure 190/93 Blood Pressure [Left] O2 Sat by Pulse Oximetry 10/08/18 10/08/18 11:58 15:55 Temperature Pulse Rate 100 H 86 Respiratory 18 18 Rate Blood Pressure Blood Pressure 121/61 137/59 [Left] O2 Sat by Pulse 100 100 Oximetry ED Medical Decision Making - Lab Data Result diagrams: 10/08/18 11:00 10/08/18 11:00 Lab Results 10/08/18 10/08/18 10/08/18 Range/Units 11:00 11:00 11:00 WBC 7.3 (4.5-11.0) K/mm3 RBC 3.34 L (3.65-5.03) M/mm3 Hgb 9.1 L (10.1-14.3) gm/dl Hct 28.3 L (30.3-42.9) % MCV 85 (79-97) fl MCH 27 L (28-32) pg MCHC 32 (30-34) % RDW 15.7 H (13.2-15.2) % Plt Count 246 (140-440) K/mm3 Lymph % (Auto) 10.7 L (13.4-35.0) % [place] % (Auto) 0.4 (0.0-7.3) % Eos % (Auto) 1.7 (0.0-4.3) % Baso % (Auto) 0.4 (0.0-1.8) % Lymph # 0.8 L (1.2-5.4) K/mm3 [place] # 0.0 (0.0-0.8) K/mm3 Eos # 0.1 (0.0-0.4) K/mm3 Baso # 0.0 (0.0-0.1) K/mm3 Seg Neutrophils % 86.8 H (40.0-70.0) % Seg Neutrophils # 6.3 (1.8-7.7) K/mm3 VBG pH (7.320-7.420) Sodium 140 (137-145) mmol/L Potassium 3.4 L (3.6-5.0) mmol/L Chloride 106.2 (98-107) mmol/L Carbon Dioxide 17 L (22-30) mmol/L Anion Gap 20 mmol/L BUN 20 H (7-17) mg/dL Creatinine 2.8 H (0.7-1.2) mg/dL Estimated GFR 21 ml/min BUN/Creatinine Ratio 7 % Glucose 99 (65-100) mg/dL Lactic Acid 0.90 (0.7-2.0) mmol/L Calcium 7.5 L (8.4-10.2) mg/dL Total Bilirubin 0.40 (0.1-1.2) mg/dL AST 24 (5-40) units/L ALT 11 (7-56) units/L Alkaline Phosphatase 173 H (35-129) units/L Total Creatine Kinase 266 H (30-135) units/L CK-MB (CK-2) 3.3 (0.0-4.0) ng/mL CK-MB (CK-2) Rel Index 1.2 (0-4) Troponin T 0.073 H (0.00-0.029) ng/mL Total Protein 6.9 (6.3-8.2) g/dL Albumin 2.7 L (3.9-5) g/dL Albumin/Globulin Ratio 0.6 % Triglycerides 94 (2-149) mg/dL Cholesterol 135 (50-199) mg/dL LDL Cholesterol Direct 72 (50-130) mg/dL HDL Cholesterol 48 (40-59) mg/dL Cholesterol/HDL Ratio 2.81 % Lipase 17 (13-60) units/L Urine Color (Yellow) Urine Turbidity (Clear) Urine pH (5.0-7.0) Ur Specific [place] (1.003-1.030) Urine Protein (Negative) mg/dL Urine Glucose (UA) (Negative) mg/dL Urine Ketones (Negative) mg/dL Urine Blood (Negative) Urine Nitrite (Negative) Urine Bilirubin (Negative) Urine Urobilinogen (<2.0) mg/dL Ur Leukocyte Esterase (Negative) Urine WBC (Auto) (0.0-6.0) /HPF Urine RBC (Auto) (0.0-6.0) /HPF 10/08/18 10/08/18 10/08/18 Range/Units 11:00 13:52 14:30 WBC (4.5-11.0) K/mm3 RBC (3.65-5.03) M/mm3 Hgb (10.1-14.3) gm/dl Hct (30.3-42.9) % MCV (79-97) fl MCH (28-32) pg MCHC (30-34) % RDW (13.2-15.2) % Plt Count (140-440) K/mm3 Lymph % (Auto) (13.4-35.0) % [place] % (Auto) (0.0-7.3) % Eos % (Auto) (0.0-4.3) % Baso % (Auto) (0.0-1.8) % Lymph # (1.2-5.4) K/mm3 [place] # (0.0-0.8) K/mm3 Eos # (0.0-0.4) K/mm3 Baso # (0.0-0.1) K/mm3 Seg Neutrophils % (40.0-70.0) % Seg Neutrophils # (1.8-7.7) K/mm3 VBG pH 7.365 (7.320-7.420) Sodium (137-145) mmol/L Potassium (3.6-5.0) mmol/L Chloride (98-107) mmol/L Carbon Dioxide (22-30) mmol/L Anion Gap mmol/L BUN (7-17) mg/dL Creatinine (0.7-1.2) mg/dL Estimated GFR ml/min BUN/Creatinine Ratio % Glucose (65-100) mg/dL Lactic Acid (0.7-2.0) mmol/L Calcium (8.4-10.2) mg/dL Total Bilirubin (0.1-1.2) mg/dL AST (5-40) units/L ALT (7-56) units/L Alkaline Phosphatase (35-129) units/L Total Creatine Kinase (30-135) units/L CK-MB (CK-2) (0.0-4.0) ng/mL CK-MB (CK-2) Rel Index (0-4) Troponin T 0.082 H (0.00-0.029) ng/mL Total Protein (6.3-8.2) g/dL Albumin (3.9-5) g/dL Albumin/Globulin Ratio % Triglycerides (2-149) mg/dL Cholesterol (50-199) mg/dL LDL Cholesterol Direct (50-130) mg/dL HDL Cholesterol (40-59) mg/dL Cholesterol/HDL Ratio % Lipase (13-60) units/L Urine Color Yellow (Yellow) Urine Turbidity Slightly-cloudy (Clear) Urine pH 5.0 (5.0-7.0) Ur Specific [place] 1.008 (1.003-1.030) Urine Protein >2000 mg dl (Negative) mg/dL Urine Glucose (UA) Neg (Negative) mg/dL Urine Ketones Neg (Negative) mg/dL Urine Blood Mod (Negative) Urine Nitrite Neg (Negative) Urine Bilirubin Neg (Negative) Urine Urobilinogen < 2.0 (<2.0) mg/dL Ur Leukocyte Esterase Neg (Negative) Urine WBC (Auto) 4.0 (0.0-6.0) /HPF Urine RBC (Auto) 10.0 (0.0-6.0) /HPF - EKG Data -: EKG Interpreted by [facility] EKG shows normal: sinus rhythm, axis (qrs 65), QRS complexes (qrsd 82), ST-T waves (no stemi/t inv) Rate: normal (98) - EKG Data When compared to previous EKG there are: no significant change - Radiology Data Radiology results: report reviewed CT ABDOMEN PELVIS WITHOUT CONTRAST: HISTORY: Epigastric pain, nausea and vomiting. COMPARISON: 07/29/17. TECHNIQUE: Helical CT in 1.25mm intervals without IV contrast. Sagittal and coronal reconstructions. FINDINGS: Lung bases: Mild cardiomegaly and trace pleural effusions have developed. The visualized lung bases are adequately aerated. Liver: Normal. Biliary system: Cholecystectomy changes. Pancreas: Normal. Spleen: Normal. Kidneys/ureters/bladder: Normal. Adrenal glands: Normal. Aorta: Mild diffuse calcifications. No aneurysm. An IVC filter is in place below the renal veins. Intestines: No evidence for obstruction or focal inflammation. Surgical suture lines are noted in the stomach and proximal small bowel loops. Appendix: Normal. Pelvic viscera: Diffuse small partially calcified uterine fibroids are identified measuring up to 2 cm. No adnexal abnormality. Ascites: None. Adenopathy: None. Musculoskeletal: Moderate thoracolumbar spondylosis. Previous posterior fusion of the lumbar spine. No acute bony injury or bone lesion. IMPRESSION: No acute process is identified in the abdomen or pelvis. Mild CHF. Surgical changes as described. - Medical Decision Making Patient observed in the ED for several hours. Pain improved after initial dose of Dilaudid. After patient slept for a while she woke up feeling better and tolerating by mouth intake. Labs revealed mild elevation in troponin likely secondary to chronic renal insufficiency and is stable on second blood draw. Patient denies chest pain with unchanged EKG compared to previous. Pain was initially epigastric and reproducible on palpation and has since resolved. By mouth potassium provided for mild hypokalemia. Patient will be discharged home as home. She reports that her PICC line is functioning. - Differential Diagnosis gastritis, pancreatitis, hepatitis, [place] Critical Care Time: No Critical care attestation.: If time is entered above; I have spent that time in minutes in the direct care of this critically ill patient, excluding procedure time. ED Disposition Clinical Impression: Epigastric pain, Chronic renal insufficiency Disposition: TO HOME OR SELFCARE Is pt being admited?: No Does the pt Need Aspirin: No Condition: Stable Instructions: Abdominal Pain (ED) Additional Instructions: Follow up with your doctor or the clinic/doctor provided. Return if symptoms worsen as indicated by your discharge instructions Referrals: MALIA RODRIGES JR [Other] - 3-5 Days Time of Disposition: 16:22
[2018-10-08 11:19] LABS: Basophils % (Auto) 0.4 % (0.0-1.8); Eosinophils # (Auto) 0.1 K/mm3 (0.0-0.4); Eosinophils % (Auto) 1.7 % (0.0-4.3); Hematocrit 28.3 % (30.3-42.9); Hemoglobin 9.1 gm/dl (10.1-14.3); Lymphocytes # (Auto) 0.8 K/mm3 (1.2-5.4); Lymphocytes % (Auto) 10.7 % (13.4-35.0); Mean Corpuscular HGB Conc 32 % (30-34); Mean Corpuscular Volume 85 fl (79-97); Monocytes % (Auto) 0.4 % (0.0-7.3); Platelet Count 246 K/mm3 (140-440); Red Blood Count 3.34 M/mm3 (3.65-5.03); Red Cell Distribution Width 15.7 % (13.2-15.2)
[2018-10-08 11:29] LABS: Creatine Kinase MB 3.3 ng/mL (0.0-4.0)
[2018-10-08 11:31] LABS: Albumin 2.7 g/dL (3.9-5); Calcium 7.5 mg/dL (8.4-10.2)
--- NOTE | 2018-10-08 11:39 | XRay Report ---
AP CHEST: HISTORY: Epigastric pain Mild cardiomegaly and pulmonary venous congestion are identified which have increased slightly since 09/10/18. Trace bilateral pleural effusions are suspected. The lungs are clear otherwise. The right arm PICC has been retracted to the level of the right subclavian vein. IMPRESSION: Mild volume overload/CHF has developed since 09/10/18. Right arm PICC as described.
[2018-10-08 11:42] LABS: Chol/HDL Ratio 2.81 %
--- NOTE | 2018-10-08 12:27 | Cat Scan Report ---
CT ABDOMEN PELVIS WITHOUT CONTRAST: HISTORY: Epigastric pain, nausea and vomiting. COMPARISON: 07/29/17. TECHNIQUE: Helical CT in 1.25mm intervals without IV contrast. Sagittal and coronal reconstructions. FINDINGS: Lung bases: Mild cardiomegaly and trace pleural effusions have developed. The visualized lung bases are adequately aerated. Liver: Normal. Biliary system: Cholecystectomy changes. Pancreas: Normal. Spleen: Normal. Kidneys/ureters/bladder: Normal. Adrenal glands: Normal. Aorta: Mild diffuse calcifications. No aneurysm. An IVC filter is in place below the renal veins. Intestines: No evidence for obstruction or focal inflammation. Surgical suture lines are noted in the stomach and proximal small bowel loops. Appendix: Normal. Pelvic viscera: Diffuse small partially calcified uterine fibroids are identified measuring up to 2 cm. No adnexal abnormality. Ascites: None. Adenopathy: None. Musculoskeletal: Moderate thoracolumbar spondylosis. Previous posterior fusion of the lumbar spine. No acute bony injury or bone lesion. IMPRESSION: No acute process is identified in the abdomen or pelvis. Mild CHF. Surgical changes as described.
[2018-10-08 14:54] LABS: Bilirubin,Urine NEG (Negative); Blood,Urine MOD (Negative); Color,Urine Yellow (Yellow); Urobilinogen,Urine < 2.0 mg/dL (<2.0)
[2018-10-08 14:56] LABS: Protein,Urine >2000 mg dL mg/dL (Negative)
[2018-10-08] MEDS ORDERED: K-DUR PO ONE ×2 (15:27→16:25)
[2018-10-08] MEDS ORDERED: LASIX IV ONE (16:22)
[2018-10-08 17:30] VITALS: BP 129/62
== END 2018-10-08 17:30 | disposition home or self-care (01) ==
LOC: ED 10:29
DX: R10.13 Epigastric pain (principal); R11.2 Nausea with vomiting, unspecified; E11.22 Type 2 diabetes mellitus with diabetic chronic kidney disease; I13.0 Hypertensive heart and chronic kidney disease with heart failure and stage 1 through stage 4 chronic kidney disease, or unspecified chronic kidney disease; N18.9 Chronic kidney disease, unspecified; I50.9 Heart failure, unspecified; J44.9 Chronic obstructive pulmonary disease, unspecified; K21.9 Gastro-esophageal reflux disease without esophagitis; Z79.899 Other long term (current) drug therapy; Z79.4 Long term (current) use of insulin; Z90.49 Acquired absence of other specified parts of digestive tract; Z88.6 Allergy status to analgesic agent
CPT/HCPCS: 36415; 71045; 74176; 80053; 80061; 81001; 82140; 82550; 82553; 82805; 83690; 84484; 85025; 87040; 93005; 93010; 96374; 96375; 99285; J1170; J1940; J2405

== ENCOUNTER 2018-10-14 12:58 | Outpatient (CLI) | payer MEDICARE | END 2018-10-14 12:59 | disposition home or self-care (01) | LOC: WOUND 12:58 | PROVIDERS: ATTEND Surgery | DX: E11.621 Type 2 diabetes mellitus with foot ulcer (principal); L97.416 Non-pressure chronic ulcer of right heel and midfoot with bone involvement without evidence of necrosis; E11.69 Type 2 diabetes mellitus with other specified complication; M86.671 Other chronic osteomyelitis, right ankle and foot; K21.9 Gastro-esophageal reflux disease without esophagitis; I11.0 Hypertensive heart disease with heart failure; I50.9 Heart failure, unspecified; Z98.49 Cataract extraction status, unspecified eye; Z90.49 Acquired absence of other specified parts of digestive tract | CPT/HCPCS: 82962; G0277; 99183 ==

== ENCOUNTER 2018-10-16 09:38 | Outpatient (CLI) | payer MEDICARE | END 2018-10-16 09:39 | disposition home or self-care (01) | LOC: WOUND 09:38 | PROVIDERS: ATTEND Surgery | DX: E11.621 Type 2 diabetes mellitus with foot ulcer (principal); L97.416 Non-pressure chronic ulcer of right heel and midfoot with bone involvement without evidence of necrosis; E11.69 Type 2 diabetes mellitus with other specified complication; M86.671 Other chronic osteomyelitis, right ankle and foot; I11.0 Hypertensive heart disease with heart failure; I50.9 Heart failure, unspecified; K21.9 Gastro-esophageal reflux disease without esophagitis; F41.9 Anxiety disorder, unspecified; F32.9 Major depressive disorder, single episode, unspecified; Z79.4 Long term (current) use of insulin | CPT/HCPCS: 97605 ==

== ENCOUNTER 2018-10-24 10:56 | Outpatient (CLI) | payer MEDICARE ==
[2018-10-24] MEDS ORDERED: XYLOCAINE TOPICAL 4% TP ONE (12:00)
== END 2018-10-24 10:57 | disposition home or self-care (01) ==
LOC: WOUND 10:56
PROVIDERS: ATTEND Surgery
DX: E11.621 Type 2 diabetes mellitus with foot ulcer (principal); L97.412 Non-pressure chronic ulcer of right heel and midfoot with fat layer exposed; E11.69 Type 2 diabetes mellitus with other specified complication; M86.671 Other chronic osteomyelitis, right ankle and foot; I11.0 Hypertensive heart disease with heart failure; I50.9 Heart failure, unspecified; K21.9 Gastro-esophageal reflux disease without esophagitis; Z98.49 Cataract extraction status, unspecified eye; Z90.49 Acquired absence of other specified parts of digestive tract
CPT/HCPCS: 97605

== ENCOUNTER 2018-10-25 10:21 | Outpatient (CLI) | payer MEDICARE | END 2018-10-25 10:22 | disposition home or self-care (01) | LOC: WOUND 10:21 | PROVIDERS: ATTEND Surgery | DX: E11.621 Type 2 diabetes mellitus with foot ulcer (principal); L97.416 Non-pressure chronic ulcer of right heel and midfoot with bone involvement without evidence of necrosis; E11.69 Type 2 diabetes mellitus with other specified complication; M86.671 Other chronic osteomyelitis, right ankle and foot; I11.0 Hypertensive heart disease with heart failure; I50.9 Heart failure, unspecified; K21.9 Gastro-esophageal reflux disease without esophagitis; Z98.49 Cataract extraction status, unspecified eye; Z90.49 Acquired absence of other specified parts of digestive tract | CPT/HCPCS: 82962; G0277; 99183 ==

== ENCOUNTER 2018-10-28 12:06 | Outpatient (CLI) | payer MEDICARE | END 2018-10-28 12:07 | disposition home or self-care (01) | LOC: WOUND 12:06 | PROVIDERS: ATTEND Surgery | DX: E11.621 Type 2 diabetes mellitus with foot ulcer (principal); L97.416 Non-pressure chronic ulcer of right heel and midfoot with bone involvement without evidence of necrosis; E11.69 Type 2 diabetes mellitus with other specified complication; M86.671 Other chronic osteomyelitis, right ankle and foot; I11.0 Hypertensive heart disease with heart failure; I50.9 Heart failure, unspecified; K21.9 Gastro-esophageal reflux disease without esophagitis; Z90.49 Acquired absence of other specified parts of digestive tract; Z98.49 Cataract extraction status, unspecified eye | CPT/HCPCS: 82962; 99183; G0277 ==

== ENCOUNTER 2018-10-29 12:47 | Outpatient (CLI) | payer MEDICARE | END 2018-10-29 12:48 | disposition home or self-care (01) | LOC: WOUND 12:47 | PROVIDERS: ATTEND Surgery | DX: E11.621 Type 2 diabetes mellitus with foot ulcer (principal); L97.416 Non-pressure chronic ulcer of right heel and midfoot with bone involvement without evidence of necrosis; E11.69 Type 2 diabetes mellitus with other specified complication; M86.671 Other chronic osteomyelitis, right ankle and foot; I11.0 Hypertensive heart disease with heart failure; I50.9 Heart failure, unspecified; K21.9 Gastro-esophageal reflux disease without esophagitis; Z90.49 Acquired absence of other specified parts of digestive tract; Z98.49 Cataract extraction status, unspecified eye | CPT/HCPCS: 82962; G0277; 99183 ==

== ENCOUNTER 2018-10-30 13:01 | Outpatient (CLI) | payer MEDICARE | END 2018-10-30 13:02 | disposition home or self-care (01) | LOC: WOUND 13:01 | PROVIDERS: ATTEND Internal Medicine | DX: E11.621 Type 2 diabetes mellitus with foot ulcer (principal); L97.416 Non-pressure chronic ulcer of right heel and midfoot with bone involvement without evidence of necrosis; E11.69 Type 2 diabetes mellitus with other specified complication; M86.671 Other chronic osteomyelitis, right ankle and foot; I11.0 Hypertensive heart disease with heart failure; I50.9 Heart failure, unspecified; K21.9 Gastro-esophageal reflux disease without esophagitis; Z90.49 Acquired absence of other specified parts of digestive tract; Z98.49 Cataract extraction status, unspecified eye | CPT/HCPCS: 82962; 99183; G0277 ==

== ENCOUNTER 2018-10-31 12:16 | Outpatient (CLI) | payer MEDICARE | END 2018-10-31 12:17 | disposition home or self-care (01) | LOC: WOUND 12:16 | PROVIDERS: ATTEND Surgery | DX: E11.621 Type 2 diabetes mellitus with foot ulcer (principal); L97.416 Non-pressure chronic ulcer of right heel and midfoot with bone involvement without evidence of necrosis; E11.69 Type 2 diabetes mellitus with other specified complication; M86.671 Other chronic osteomyelitis, right ankle and foot; I11.0 Hypertensive heart disease with heart failure; I50.9 Heart failure, unspecified; K21.9 Gastro-esophageal reflux disease without esophagitis; Z90.49 Acquired absence of other specified parts of digestive tract; Z98.49 Cataract extraction status, unspecified eye | CPT/HCPCS: 82962; G0277; 99183 ==

== ENCOUNTER 2018-11-11 12:04 | Outpatient (CLI) | payer MEDICARE | END 2018-11-11 12:05 | disposition home or self-care (01) | LOC: WOUND 12:04 | PROVIDERS: ATTEND Surgery | DX: E11.621 Type 2 diabetes mellitus with foot ulcer (principal); L97.416 Non-pressure chronic ulcer of right heel and midfoot with bone involvement without evidence of necrosis; E11.69 Type 2 diabetes mellitus with other specified complication; M86.671 Other chronic osteomyelitis, right ankle and foot; I11.0 Hypertensive heart disease with heart failure; I50.9 Heart failure, unspecified; K21.9 Gastro-esophageal reflux disease without esophagitis; Z90.49 Acquired absence of other specified parts of digestive tract; Z98.49 Cataract extraction status, unspecified eye | CPT/HCPCS: 82962; G0277; 99183 ==

== ENCOUNTER 2018-11-14 09:07 | Outpatient (CLI) | payer MEDICARE ==
[2018-11-14] MEDS ORDERED: XYLOCAINE TOPICAL 4% TP ONE (09:32)
== END 2018-11-14 09:08 | disposition home or self-care (01) ==
LOC: WOUND 09:07
PROVIDERS: ATTEND Surgery
DX: E11.621 Type 2 diabetes mellitus with foot ulcer (principal); L97.414 Non-pressure chronic ulcer of right heel and midfoot with necrosis of bone; E11.69 Type 2 diabetes mellitus with other specified complication; M86.671 Other chronic osteomyelitis, right ankle and foot; I11.0 Hypertensive heart disease with heart failure; I50.9 Heart failure, unspecified; K21.9 Gastro-esophageal reflux disease without esophagitis; Z90.49 Acquired absence of other specified parts of digestive tract; Z98.49 Cataract extraction status, unspecified eye
CPT/HCPCS: 97605

== ENCOUNTER 2018-11-19 10:03 | Outpatient (CLI) | payer MEDICARE | END 2018-11-19 10:04 | disposition home or self-care (01) | LOC: WOUND 10:03 | PROVIDERS: ATTEND Surgery | DX: E11.621 Type 2 diabetes mellitus with foot ulcer (principal); L97.411 Non-pressure chronic ulcer of right heel and midfoot limited to breakdown of skin; M86.671 Other chronic osteomyelitis, right ankle and foot; I11.0 Hypertensive heart disease with heart failure; I50.9 Heart failure, unspecified; K21.9 Gastro-esophageal reflux disease without esophagitis; Z90.49 Acquired absence of other specified parts of digestive tract; Z98.49 Cataract extraction status, unspecified eye | CPT/HCPCS: 82962; G0277; 99183 ==

== ENCOUNTER 2019-01-08 08:52 | Outpatient (CLI) | payer MEDICARE ==
[2019-01-08] MEDS ORDERED: XYLOCAINE TOPICAL 4% TP NR (09:30)
[2019-01-08] MEDS ORDERED: AD OINTMENT TP SCH (10:00)
== END 2019-01-08 08:53 | disposition home or self-care (01) ==
LOC: WOUND 08:52
PROVIDERS: ATTEND Surgery
DX: E11.621 Type 2 diabetes mellitus with foot ulcer (principal); L97.414 Non-pressure chronic ulcer of right heel and midfoot with necrosis of bone; M86.671 Other chronic osteomyelitis, right ankle and foot; I11.0 Hypertensive heart disease with heart failure; I50.9 Heart failure, unspecified; K21.9 Gastro-esophageal reflux disease without esophagitis; Z90.49 Acquired absence of other specified parts of digestive tract; Z98.49 Cataract extraction status, unspecified eye
CPT/HCPCS: 11043; G0463; 99215; A6250

== ENCOUNTER 2019-04-14 22:53 | Emergency (ER) | payer MEDICARE ==
[2019-04-14 23:49] LABS: Bacteria,Urine 4+ /HPF (Negative); Bilirubin,Urine NEG (Negative); Blood,Urine MOD (Negative); Color,Urine Yellow (Yellow); Mucus,Urine FEW /HPF; Urobilinogen,Urine < 2.0 mg/dL (<2.0)
[2019-04-14 23:51] LABS: Basophils # (Auto) 0.1 K/mm3 (0.0-0.1); Eosinophils # (Auto) 0.3 K/mm3 (0.0-0.4); Eosinophils % (Auto) 3.9 % (0.0-4.3); Hematocrit 27.9 % (30.3-42.9); Hemoglobin 8.8 gm/dl (10.1-14.3); Lymphocytes # (Auto) 1.6 K/mm3 (1.2-5.4); Lymphocytes % (Auto) 19.7 % (13.4-35.0); Mean Corpuscular HGB Conc 32 % (30-34); Mean Corpuscular Volume 88 fl (79-97); Monocytes # (Auto) 0.4 K/mm3 (0.0-0.8); Monocytes % (Auto) 5.5 % (0.0-7.3); Platelet Count 261 K/mm3 (140-440); Red Blood Count 3.18 M/mm3 (3.65-5.03); Red Cell Distribution Width 15.6 % (13.2-15.2)
[2019-04-15] MEDS ORDERED: ZOFRAN IV ONE (00:04)
[2019-04-15 00:28] LABS: Alanine Aminotransferase 64 units/L (7-56)
[2019-04-15] MEDS ORDERED: LEVAQUIN 500MG/100ML 500 MG/100 ML BAG IV ONE (00:44)
[2019-04-15 01:15] LABS: BUN/Creatinine Ratio 11; Blood Urea Nitrogen 47 mg/dL (7-17); Calcium 7.5 mg/dL (8.4-10.2); Hemolysis Index 1
--- NOTE | 2019-04-15 01:38 | Cat Scan Report ---
CT abdomen pelvis wo con INDICATION: MAIN: Right flank pain. Nausea, Vomiting, Diarrhea.. TECHNIQUE: All CT scans at this location are performed using the following dose modulation technique: Automated exposure control. CONTRAST: None. COMPARISON: CT abdomen and pelvis 11/07/2018, 10/08/2018. CT ABDOMEN: The parenchymal organs are unchanged in appearance other than development of mild pancrea tic ductal dilatation measuring 4.5 mm. The pancreatic head region is partially obscured by artifact from spine surgery. Negative for abdominal mass, fluid collection or inflammation. Status post previous gastric bypass an d cholecystectomy. The bowel is not dilated or thickened. Atherosclerotic calcification involves the aorta. An IVC filte r is noted. CT PELVIS: Negative for mass, fluid collection or inflammation. A calcified uterine fibroid is noted. Prominent right groin nodes remain.. IMPRESSION: 1. Negative for obstruction or localized inflammation. 2. Development of mild pancreatic ductal dilatation. Further evaluation is recommended with multiphas e CT of the pancreas. Signer Name: Kris Ayers MD Signed: 04/15/2019 1:33 AM Workstation Name: [id number]
[2019-04-15] MEDS ORDERED: NACL 0.9% 1000 ML 1,000 ML IV ONE (02:19)
[2019-04-15] MEDS ORDERED: MORPHINE ONE (02:33)
[2019-04-15] MEDS ORDERED: MORPHINE IV ONE (02:42)
--- NOTE | 2019-04-15 03:49 | Ultrasound Report ---
ULTRASOUND ABDOMEN, LIMITED (RIGHT UPPER QUADRANT) INDICATION: RUQ pain. COMPARISON: None available. FINDINGS: Pancreas: Visualized portion shows no significant abnormality. Liver: Normal. Gallbladder: Surgically absent. Bile ducts: Borderline. Common Bile Duct measures 7 mm. Free fluid: None. Additional Findings: None. IMPRESSION: Previous cholecystectomy. Borderline common bile duct size is likely on this basis. Signer Name: Kris Ayers MD Signed: 04/15/2019 3:44 AM Workstation Name: [id number]
--- NOTE | 2019-04-15 04:28 | Emergency Department Report ---
ED N/V/D HPI - General Chief complaint: Abdominal Pain Stated complaint: NAUSEA Time Seen by Provider: 04/14/19 23:29 Source: patient, EMS Mode of arrival: Stretcher Limitations: No Limitations - History of Present Illness Initial comments: 63 yo F presents to ED with complaint of lower abdominal pain, urinary frequency for a few days. Pt states was diagnosed with a UTI on yesterday at another hospital. However, states was unable to get prescription filled for antibiotics. Was told it would be ready tomorrow. Pt reports generalized weakness and flank pain. Denies fever. MD complaint: nausea, vomiting, abdominal pain -: days(s) (3) Description of Vomiting: food contents Associated Abdominal Pain: Yes Location: flank Severity: moderate Quality: aching Consistency: intermittent Improves with: none Worsens with: none Associated Symptoms: nausea/vomiting, weakness. denies: fever/chills - Related Data Previous Rx's Medication Instructions Recorded Last Taken Type traMADol [Ultram 50 MG tab] 50 mg PO Q6H PRN #14 tablet 08/02/17 Unknown Rx Cyclobenzaprine [Flexeril 10 MG 10 mg PO TID PRN #14 tablet 09/12/18 Unknown Rx TAB] Furosemide [Lasix TAB] 40 mg PO QDAY #30 tablet 09/12/18 Unknown Rx Gabapentin [Neurontin] 300 mg PO TID #90 capsule 09/12/18 Unknown Rx HYDROcodone/APAP 5-325 [[place] 1 - 2 each PO Q6HR PRN #14 tablet 09/12/18 Unknown Rx 5-325 mg TAB] Insulin Glargine,Hum.rec.anlog 10 mg PO HS #30 vial 09/12/18 Unknown Rx [Lantus] Tamsulosin [Flomax] 0.4 mg PO QDAY #30 capsule 09/12/18 Unknown Rx amLODIPine [Norvasc] 10 mg PO DAILY #30 tablet 09/12/18 Unknown Rx Diphenoxylate/Atropine [Lomotil] 1 tab PO BID PRN #10 tablet 11/07/18 Unknown Rx HYDROcodone/APAP 5-325 [[place] 1 each PO Q4HR PRN #12 tablet 11/07/18 Unknown Rx 5/325] levoFLOXacin [Levaquin TAB] 500 mg PO QDAY #10 tablet 11/07/18 Unknown Rx Ciprofloxacin HCl [Ciprofloxacin 500 mg PO Q12HR #10 tab 08/27/19 Unknown Rx TAB] Ondansetron [Zofran Odt] 4 mg PO Q8HR PRN #20 tab.rapdis 04/15/19 Unknown Rx traMADol [Ultram] 50 mg PO Q6HR PRN #7 tablet 04/15/19 Unknown Rx Allergies Allergy/AdvReac Type Severity Reaction Status Date / Time lisinopril Allergy Severe Swelling Verified 03/18/15 14:54 ED Review of Systems ROS: Stated complaint: NAUSEA Other details as noted in HPI Comment: All other systems reviewed and negative Constitutional: denies: chills, fever Respiratory: denies: shortness of breath Cardiovascular: denies: chest pain Gastrointestinal: abdominal pain, nausea, vomiting. denies: diarrhea Genitourinary: frequency Musculoskeletal: back pain ED Past Medical Hx - Past Medical History Hx Hypertension: Yes Hx Congestive Heart Failure: Yes Hx Diabetes: Yes (insulin) Hx GERD: Yes Hx Asthma: No Hx COPD: Yes Hx HIV: No Additional medical history: SLEEP APNEA- CPAP, diabetic foot ulcer right foot - Surgical History Hx Cholecystectomy: Yes Additional Surgical History: Back surgery, GASTRIC BYPASS 05/28/2015. goiter removed - Social History Smoking Status: Never Smoker Substance Use Type: None - Medications Home Medications: Home Medications Medication Instructions Recorded Confirmed Last Taken Type traMADol [Ultram 50 MG tab] 50 mg PO Q6H PRN #14 tablet 08/02/17 09/24/18 Unknown Rx Cyclobenzaprine [Flexeril 10 MG 10 mg PO TID PRN #14 tablet 09/12/18 09/24/18 Unknown Rx TAB] Furosemide [Lasix TAB] 40 mg PO QDAY #30 tablet 09/12/18 09/24/18 Unknown Rx Gabapentin [Neurontin] 300 mg PO TID #90 capsule 09/12/18 09/24/18 Unknown Rx HYDROcodone/APAP 5-325 [[place] 1 - 2 each PO Q6HR PRN #14 tablet 09/12/18 09/24/18 Unknown Rx 5-325 mg TAB] Insulin Glargine,Hum.rec.anlog 10 mg PO HS #30 vial 09/12/18 09/24/18 Unknown Rx [Lantus] Tamsulosin [Flomax] 0.4 mg PO QDAY #30 capsule 09/12/18 09/24/18 Unknown Rx amLODIPine [Norvasc] 10 mg PO DAILY #30 tablet 09/12/18 09/24/18 Unknown Rx Diphenoxylate/Atropine [Lomotil] 1 tab PO BID PRN #10 tablet 11/07/18 Unknown R x HYDROcodone/APAP 5-325 [[place] 1 each PO Q4HR PRN #12 tablet 11/07/18 Unknown Rx 5/325] levoFLOXacin [Levaquin TAB] 500 mg PO QDAY #10 tablet 11/07/18 Unknown Rx Ciprofloxacin HCl [Ciprofloxacin 500 mg PO Q12HR #10 tab 04/15/19 Unknown Rx TAB] Ondansetron [Zofran Odt] 4 mg PO Q8HR PRN #20 tab.rapdis 04/15/19 Unknown Rx traMADol [Ultram] 50 mg PO Q6HR PRN #7 tablet 04/15/19 Unknown Rx ED Physical Exam - General Limitations: No Limitations General appearance: alert, in no apparent distress - Head Head exam: Present: atraumatic, normocephalic - Eye Eye exam: Present: normal appearance, PERRL, EOMI - ENT ENT exam: Present: mucous membranes moist - Neck Neck exam: Present: normal inspection - Respiratory Respiratory exam: Present: normal lung sounds bilaterally. Absent: respiratory distress - Cardiovascular Cardiovascular Exam: Present: regular rate, normal rhythm - GI/Abdominal GI/Abdominal exam: Present: soft, tenderness (suprapubic tenderness). Absent: distended - Extremities Exam Extremities exam: Present: normal inspection - Back Exam Back exam: Present: CVA tenderness (R), CVA tenderness (L) - Neurological Exam Neurological exam: Present: alert, oriented X3 - Psychiatric Psychiatric exam: Present: normal affect, normal mood - Skin Skin exam: Present: warm, dry, intact, normal color ED Course Vital Signs 04/14/19 04/15/19 04/15/19 23:00 00:30 02:01 Temperature 97.4 F L Pulse Rate 80 68 67 Respiratory 18 11 L 13 Rate Blood Pressure 140/57 140/55 116/54 O2 Sat by Pulse 97 Oximetry 04/15/19 04/15/19 04/15/19 03:15 04:15 04:30 Temperature Pulse Rate 66 67 71 Respiratory 9 L 12 11 L Rate Blood Pressure 133/52 123/63 139/69 O2 Sat by Pulse 100 Oximetry 04/15/19 04:58 Temperature 98 F Pulse Rate Respiratory Rate Blood Pressure O2 Sat by Pulse Oximetry ED Medical Decision Making - Lab Data Result diagrams: 04/14/19 23:43 04/14/19 23:43 - Radiology Data Radiology results: report reviewed, image reviewed - Medical Decision Making 63 yo F with UTI. WBCs normal, pt is afebrile, remainder of vitals are normal. Pt has hx of chronic renal insufficiency, BUN and Cr 47 and 4.[address] Abd/ Pelvis shows no evidence of pyelonephritis, only dilated pancreatic ducts. US RUQ shows borderline CBD, pt is s/p cholecystectomy. Pt given IV fluids, levaquin here in ED. No emesis during ED stay. Pt given rx for cipro, zofran. Advised outpt f/u. GI follow-up also given for further evaluation of pancreas. Return precautions given. - Differential Diagnosis UTI, pyelonephritis, bowel obstruction Critical care attestation.: If time is entered above; I have spent that time in minutes in the direct care of this critically ill patient, excluding procedure time. ED Disposition Clinical Impression: UTI (urinary tract infection), CRI (chronic renal insufficiency) Disposition: - TO HOME OR SELFCARE Is pt being admited?: No Condition: Stable Instructions: Urinary Tract Infection in Women (ED) Prescriptions: Ciprofloxacin HCl [Ciprofloxacin TAB] 500 mg PO Q12HR #10 tab traMADol [Ultram] 50 mg PO Q6HR PRN #7 tablet PRN Reason: Pain Ondansetron [Zofran Odt] 4 mg PO Q8HR PRN #20 tab.rapdis PRN Reason: Vomiting Referrals: PRIMARY CARE, [Primary Care Provider] - 3-5 Days [facility] [Provider Group] - 3-5 Days [facility] [Provider Group] - 3-5 Days Time of Disposition: 04:28
[2019-04-15 04:58] VITALS: BP 139/69
== END 2019-04-15 04:58 | disposition home or self-care (01) ==
LOC: ED 22:53
DX: N39.0 Urinary tract infection, site not specified (principal); I13.0 Hypertensive heart and chronic kidney disease with heart failure and stage 1 through stage 4 chronic kidney disease, or unspecified chronic kidney disease; I50.9 Heart failure, unspecified; E11.22 Type 2 diabetes mellitus with diabetic chronic kidney disease; N18.9 Chronic kidney disease, unspecified; K21.9 Gastro-esophageal reflux disease without esophagitis; J44.9 Chronic obstructive pulmonary disease, unspecified; G47.30 Sleep apnea, unspecified; E11.621 Type 2 diabetes mellitus with foot ulcer; L97.519 Non-pressure chronic ulcer of other part of right foot with unspecified severity; Z90.49 Acquired absence of other specified parts of digestive tract; Z79.4 Long term (current) use of insulin; Z98.84 Bariatric surgery status; Z79.899 Other long term (current) drug therapy; Z88.5 Allergy status to narcotic agent
CPT/HCPCS: 36415; 74176; 76705; 80053; 81001; 83690; 85025; 87086; 96361; 96365; 96375; 99284; J1956; J2270; J2405; J7030

== ENCOUNTER 2020-06-13 09:18 | Emergency (ER) | payer MEDICARE ==
[2020-06-13 09:32] VITALS: BP 182/80
[2020-06-13] MEDS ORDERED: diphenhydrAMINE 50 MG/ML VIAL IV ONE ×2 (10:40→13:00)
[2020-06-13] MEDS ORDERED: FAMOTIDINE 20 MG/2 ML INJ IV ONE (10:40)
[2020-06-13 10:41] LABS: Basophils % (Auto) 0.5 % (0.0-1.8); Eosinophils % (Auto) 0.4 % (0.0-4.3); Hematocrit 37.4 % (30.3-42.9); Lymphocytes # (Auto) 1.3 K/mm3 (1.2-5.4); Mean Corpuscular HGB Conc 32 % (30-34); Mean Corpuscular Volume 86 fl (79-97); Monocytes # (Auto) 0.4 K/mm3 (0.0-0.8); Monocytes % (Auto) 9.3 % (0.0-7.3); Platelet Count 215 K/mm3 (140-440); Red Blood Count 4.33 M/mm3 (3.65-5.03); Red Cell Distribution Width 15.5 % (13.2-15.2)
[2020-06-13] MEDS ORDERED: traMADol 50 MG TAB PO ONE (10:41)
[2020-06-13 10:46] LABS: Albumin 3.4 g/dL (3.9-5)
[2020-06-13] MEDS ORDERED: ONDANSETRON 4 MG/2 ML INJ IV ONE ×2 (10:52→13:00)
--- NOTE | 2020-06-13 11:53 | Emergency Department Report ---
ED General Adult HPI - General Chief complaint: Allergic Reaction Stated complaint: ITCHINESS Time Seen by Provider: 06/13/20 10:39 Source: patient, EMS Mode of arrival: Wheelchair Limitations: No Limitations - History of Present Illness Initial comments: Patient is a 64-year-old F Iranian female who is here for itching all over. She states she has no rash but she has had a deep itch for the past 2 days all over. Patient states she also has some epigastric discomfort radiating to the right flank. She is had several episodes of vomiting. States she was seen at [facility] yesterday and was diagnosed with a UTI. Patient missed dialysis 2 days ago was due tomorrow. She does not complain of any shortness of breath or fluid overload. Patient is taking antibiotics for the UTI. Patient states itching started before this. Severity scale (0 -10): 0 - Related Data Previous Rx's Medication Instructions Recorded Last Taken Type traMADoL [Ultram 50 MG tab] 50 mg PO Q6H PRN #14 tablet 08/02/17 Unknown Rx Cyclobenzaprine [Flexeril 10 MG 10 mg PO TID PRN #14 tablet 09/12/18 Unknown Rx TAB] Furosemide [Lasix TAB] 40 mg PO QDAY #30 tablet 09/12/18 Unknown Rx Gabapentin 300 mg PO TID #90 capsule 09/12/18 Unknown Rx HYDROcodone/APAP 5-325 [[place] 1 - 2 each PO Q6HR PRN #14 tablet 09/12/18 Unknown Rx 5-325 mg TAB] Insulin Glargine,Hum.rec.anlog 10 mg PO HS #30 vial 09/12/18 Unknown Rx [Lantus] Tamsulosin [Flomax] 0.4 mg PO QDAY #30 capsule 09/12/18 Unknown Rx amLODIPine 10 mg PO DAILY #30 tablet 09/12/18 Unknown Rx Diphenoxylate/Atropine [Lomotil] 1 tab PO BID PRN #10 tablet 11/07/18 Unknown Rx HYDROcodone/APAP 5-325 [[place] 1 each PO Q4HR PRN #12 tablet 11/07/18 Unknown Rx 5/325] levoFLOXacin [Levaquin TAB] 500 mg PO QDAY #10 tablet 11/07/18 Unknown Rx Ciprofloxacin HCl [Ciprofloxacin 500 mg PO Q12HR #10 tab 04/15/19 Unknown Rx TAB] Ondansetron [Zofran Odt] 4 mg PO Q8HR PRN #20 tab.rapdis 04/15/19 Unknown Rx traMADoL [Ultram] 50 mg PO Q6HR PRN #7 tablet 04/15/19 Unknown Rx Allergies Allergy/AdvReac Type Severity Reaction Status Date / Time lisinopril Allergy Severe Swelling Verified 03/18/15 14:54 ED Review of Systems ROS: Stated complaint: ITCHINESS Other details as noted in HPI Comment: All other systems reviewed and negative ED Past Medical Hx - Past Medical History Previous Medical History?: Yes Hx Hypertension: Yes Hx Congestive Heart Failure: Yes Hx Diabetes: Yes (insulin) Hx GERD: Yes Hx Asthma: No Hx COPD: Yes Hx HIV: No Additional medical history: SLEEP APNEA- CPAP, diabetic foot ulcer right foot - Surgical History Past Surgical History?: Yes Hx Cholecystectomy: Yes Additional Surgical History: Back surgery, GASTRIC BYPASS 05/28/2015. goiter removed - Social History Smoking Status: Never Smoker Substance Use Type: None - Medications Home Medications: Home Medications Medication Instructions Recorded Confirmed Last Taken Type traMADoL [Ultram 50 MG tab] 50 mg PO Q6H PRN #14 tablet 08/02/17 09/24/18 Unkno wn Rx Cyclobenzaprine [Flexeril 10 MG 10 mg PO TID PRN #14 tablet 09/12/18 09/24/18 Unknown Rx TAB] Furosemide [Lasix TAB] 40 mg PO QDAY #30 tablet 09/12/18 09/24/18 Unknown Rx Gabapentin 300 mg PO TID #90 capsule 09/12/18 09/24/18 Unknown Rx HYDROcodone/APAP 5-325 [[place] 1 - 2 each PO Q6HR PRN #14 tablet 09/12/18 09/24/18 Unknown Rx 5-325 mg TAB] Insulin Glargine,Hum.rec.anlog 10 mg PO HS #30 vial 09/12/18 09/24/18 Unknown Rx [Lantus] Tamsulosin [Flomax] 0.4 mg PO QDAY #30 capsule 09/12/18 09/24/18 Unknown Rx amLODIPine 10 mg PO DAILY #30 tablet 09/12/18 09/24/18 Unknown Rx Diphenoxylate/Atropine [Lomotil] 1 tab PO BID PRN #10 tablet 03/21/19 Unknown Rx HYDROcodone/APAP 5-325 [[place] 1 each PO Q4HR PRN #12 tablet 11/07/18 Unknown Rx 5/325] levoFLOXacin [Levaquin TAB] 500 mg PO QDAY #10 tablet 11/07/18 Unknown Rx Ciprofloxacin HCl [Ciprofloxacin 500 mg PO Q12HR #10 tab 04/15/19 Unknown Rx TAB] Ondansetron [Zofran Odt] 4 mg PO Q8HR PRN #20 tab.rapdis 04/15/19 Unknown Rx traMADoL [Ultram] 50 mg PO Q6HR PRN #7 tablet 04/15/19 Unknown Rx ED Physical Exam - General Limitations: No Limitations General appearance: alert, in no apparent distress - Head Head exam: Present: atraumatic, normocephalic - Eye Eye exam: Present: normal appearance, PERRL, EOMI - ENT ENT exam: Present: mucous membranes moist - Neck Neck exam: Present: normal inspection - Respiratory Respiratory exam: Present: normal lung sounds bilaterally. Absent: respiratory distress, wheezes, rales, rhonchi - Cardiovascular Cardiovascular Exam: Present: regular rate, normal rhythm. Absent: systolic murmur, diastolic murmur, rubs, gallop - GI/Abdominal GI/Abdominal exam: Present: soft, normal bowel sounds. Absent: distended, tenderness, guarding, rebound - Extremities Exam Extremities exam: Present: normal inspection - Back Exam Back exam: Present: normal inspection - Neurological Exam Neurological exam: Present: alert, oriented X3 - Psychiatric Psychiatric exam: Present: normal affect, normal mood - Skin Skin exam: Present: warm, dry, intact, normal color. Absent: rash ED Course Vital Signs 06/13/20 09:26 Temperature 98.6 F Pulse Rate 77 Respiratory 20 Rate Blood Pressure 182/80 O2 Sat by Pulse 98 Oximetry ED Medical Decision Making - Lab Data Result diagrams: 06/13/20 10:03 06/13/20 10:03 - Medical Decision Making No physical rash was seen. She was given some Benadryl but is continued to itch and was given 1 additional dose. Did not see evidence that the patient needs epinephrine subcu. Regard to patient's epigastric and flank discomfort CT was done which showed no acute abnormalities. Patient likely with some gastritis from antibiotics. We will add and see emetics something to calm her stomach. Patient does not appear to need emergent dialysis at this time and can follow-up tomorrow for her normal dialysis appointment. Critical care attestation.: If time is entered above; I have spent that time in minutes in the direct care of this critically ill patient, excluding procedure time. ED Disposition Clinical Impression: Drug-induced pruritus, Gastritis Disposition: DC- TO HOME OR SELFCARE Is pt being admited?: No Does the pt Need Aspirin: No Condition: Stable Instructions: Itchy Skin (ED), Gastritis (ED) Referrals: MALIA RODRIGES MD [Primary Care Provider] - 3-5 Days
--- NOTE | 2020-06-13 13:01 | Cat Scan Report ---
CT abdomen pelvis wo con INDICATION: right flank. COMPARISON: 04/15/2019 TECHNIQUE: Abdominal and pelvic CT exam performed. All CT scans at this location are performed using CT dose reduction for ALARA by means of automated exposure control. FINDINGS: CT ABDOMEN and PELVIS: Lung Bases: No significant abnormality. Liver: There is a new 1.7 cm lesion seen in hepatic segment 8 with Hounsfield units consistent macros copic fat. There are couple of foci of increased attenuation. 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 Spleen: No significant abnormality. Pancreas: No significant abnormality. Adrenals: No significant abnormality. Kidneys: No significant abnormality. Lymphatics: No lymphadenopathy. Vasculature: Moderate arterial vascular sclerosis. IVC filter is present. Bowel/Peritoneum: Surgical changes to the bowel. No obstruction. Normal appendix. Pelvis: Small calcified fibroid seen within the fundus of the uterus. Osseous Structures: No aggressive osseous lesion. Similar changes from L2 to L5 posterior spinal fusi on and L2-L3 interbody fusion. Additional Findings: None IMPRESSION: 1. No acute abnormality of the abdomen or pelvis. Signer Name: Daniel Paris MD Signed: 06/13/2020 12:57 PM Workstation Name: [id number]
[2020-06-13] MEDS ORDERED: METOCLOPRAMIDE 10 MG/2 ML INJ IV ONE (13:22)
== END 2020-06-13 16:30 | disposition home or self-care (01) ==
LOC: ED 09:18
DX: K29.70 Gastritis, unspecified, without bleeding (principal); L29.8 Other pruritus; I11.0 Hypertensive heart disease with heart failure; I50.9 Heart failure, unspecified; E11.9 Type 2 diabetes mellitus without complications; J44.9 Chronic obstructive pulmonary disease, unspecified; K21.9 Gastro-esophageal reflux disease without esophagitis; Z90.49 Acquired absence of other specified parts of digestive tract; Z98.890 Other specified postprocedural states; Z79.4 Long term (current) use of insulin; Z79.2 Long term (current) use of antibiotics; Z79.899 Other long term (current) drug therapy; Z88.8 Allergy status to other drugs, medicaments and biological substances
CPT/HCPCS: 36415; 74176; 80053; 85025; 96374; 96375; 96376; 99284; J1200; J2405

== ENCOUNTER 2020-06-14 01:15 | Emergency (ER) | payer MEDICARE ==
[2020-06-14 02:35] VITALS: BP 188/89
[2020-06-14 02:52] LABS: Basophils # (Auto) 0.1 K/mm3 (0.0-0.1); Basophils % (Auto) 1.5 % (0.0-1.8); Eosinophils % (Auto) 0.3 % (0.0-4.3); Hemoglobin 13.2 gm/dl (10.1-14.3); Lymphocytes # (Auto) 1.2 K/mm3 (1.2-5.4); Lymphocytes % (Auto) 28.2 % (13.4-35.0); Monocytes # (Auto) 0.3 K/mm3 (0.0-0.8); Monocytes % (Auto) 7.7 % (0.0-7.3)
[2020-06-14 02:56] LABS: Hematocrit 40.1 % (30.3-42.9); Mean Corpuscular HGB Conc 33 % (30-34); Mean Corpuscular Volume 85 fl (79-97); Platelet Count 264 K/mm3 (140-440); Red Blood Count 4.73 M/mm3 (3.65-5.03); Red Cell Distribution Width 15.7 % (13.2-15.2)
[2020-06-14 03:15] LABS: Albumin 3.9 g/dL (3.9-5); Calcium 8.4 mg/dL (8.4-10.2)
== END 2020-06-14 04:30 | disposition left against medical advice (07) ==
LOC: ED 01:15
DX: L29.8 Other pruritus (principal); Z53.21 Procedure and treatment not carried out due to patient leaving prior to being seen by health care provider
CPT/HCPCS: 36415; 80053; 83690; 85025

== ENCOUNTER 2021-02-10 10:08 | Day surgery (SDC) | payer MEDICARE ==
[~2021-02-10 10:08] MED LIST: GELATIN SPONGE 12 X 7 TP ONE; GELATIN SPONGE SIZE 100 TP ONE; HEPARIN 10,000 UNITS/10 ML VIAL IV ONE; HEPARIN 10,000 UNITS/10 ML VIAL ONE; MIDAZOLAM 2 MG/2 ML INJ IV NR; PROTAMINE SULFATE 50 MG/5 ML INJ ONE; SODIUM CHLORIDE 0.9% 1000 ML 1,000 ML IV SCH; SODIUM CHLORIDE 0.9% 250 ML IVPB IV ONE; SODIUM CHLORIDE 0.9% 250ML 250 ML ONE; SODIUM CHLORIDE 0.9% IRR 1,500 ML BOTTLE IR ONE; THROMBIN (RECOMBINANT) 5,000 UNIT VIAL TP ONE
--- NOTE | 2021-02-10 10:51 | Anesthesia Consultation ---
Anesthesia Consult and Med Hx Date of service: 02/10/21 - Airway Anesthetic Teeth Evaluation: Edentulous ROM Head & Neck: Adequate Mental/Hyoid Distance: Adequate Mallampati Class: Class III Intubation Access Assessment: Possibly Difficult - Pre-Operative Health Status ASA Pre-Surgery Classification: ASA3 Proposed Anesthetic Plan: General - Pulmonary Hx Smoking: No Hx Respiratory Symptoms: No Hx Sleep Apnea: Yes (no CPAP) - Cardiovascular System Hx Hypertension: Yes (took antihypertensives this morning) Hx Coronary Artery Disease: No Hx Heart Attack/AMI: No Hx Percutaneous Transluminal Coronary Angioplasty (PTCA): No Hx Cardia Arrhythmia: No - Central Nervous System CVA: No - Gastrointestinal Hx Gastroesophageal Reflux Disease: Yes - Endocrine Hx End Stage Renal Disease: Yes (last HD 02/09/21) Hx Liver Disease: No Hx Insulin Dependent Diabetes: No Hx Non-Insulin Dependent Diabetes: No Hx Thyroid Disease: Yes (hx goiter s/p resection) - Hematic Hx Anemia: Yes - Additional Comments Anesthesia Medical History Comments: No hx anesthetic complications. Preop cardiology eval reviewed. Notes normal EF and mild AI on recent TTE. Small area of ischemia on nuc stress test it is noted that this was present previously and resulted in negative LHC.
[2021-02-10] MEDS ORDERED: HYDROcodone/ACETAMINOPHEN 5-325 MG TAB PO PRN (10:52)
[2021-02-10] MEDS ORDERED: fentaNYL 100 MCG/2 ML INJ IV PRN (10:52)
--- NOTE | 2021-02-10 10:52 | Anesthesia Day of Surgery ---
Anesthesia Day of Surgery - Day of Surgery Patient Examined: Yes Patient H&P Reviewed: Yes Patient is NPO: Yes Beta Blockers: Yes Cardiac Clearance: Yes
[2021-02-10] MEDS ORDERED: ONDANSETRON 4 MG/2 ML INJ IV PRN (11:00)
[2021-02-10] MEDS ORDERED: BUPIVACAINE/PF (0.5%) 5 MG/1 ML 30 ML VIAL INFILTRATI ONE (11:03)
[2021-02-10] MEDS ORDERED: ceFAZolin/STERILE WATER 2 GM/20 ML SYRINGE IV NR (12:12)
[2021-02-10] MEDS ORDERED: LIDOCAINE MPF (2%) 20 MG/1 ML VIAL 5 ML ONE (12:18)
[2021-02-10] MEDS ORDERED: fentaNYL 100 MCG/2 ML INJ ONE (12:18)
[2021-02-10] MEDS ORDERED: propofoL 200 MG/20 ML VIAL IV ONE (12:18)
[2021-02-10 12:38] LABS: Hematocrit 33.6 % (30.3-42.9); Hemoglobin 10.9 gm/dl (10.1-14.3); Mean Corpuscular HGB Conc 32 % (30-34); Mean Corpuscular Volume 82 fl (79-97); Platelet Count 179 K/mm3 (140-440); Red Blood Count 4.09 M/mm3 (3.65-5.03); Red Cell Distribution Width 17.8 % (13.2-15.2)
[2021-02-10] MEDS ORDERED: SODIUM CHLORIDE 0.9% IRR 1,500 ML BOTTLE IR ONE (13:27)
[2021-02-10] MEDS ORDERED: SODIUM CHLORIDE 0.9% 250 ML IVPB IV ONE (13:27)
[2021-02-10] MEDS ORDERED: THROMBIN (RECOMBINANT) 5,000 UNIT VIAL TP ONE (13:27)
[2021-02-10] MEDS ORDERED: GELATIN SPONGE 12 X 7 TP ONE (13:27)
[2021-02-10] MEDS ORDERED: HEPARIN 10,000 UNITS/10 ML VIAL IV ONE (13:27)
[2021-02-10] MEDS ORDERED: ePHEDrine SULFATE 50 MG/1 ML INJ ONE (13:28)
[2021-02-10] MEDS ORDERED: PHENYLEPHRINE/NS 1,000 MCG/10 ML SYRINGE (OR USE) IV ONE (13:46)
[2021-02-10] MEDS ORDERED: ONDANSETRON 4 MG/2 ML INJ ONE (15:02)
--- NOTE | 2021-02-10 15:14 | Post Operative Note ---
Date of procedure: 02/10/21 Pre-op diagnosis: ESRD Post-op diagnosis: same Procedure: Left Arm Cephalic Vein Transposition Anesthesia: GETA Surgeon: COMPA MORA Estimated blood loss: other (100) Pathology: none Condition: stable Disposition: PACU
--- NOTE | 2021-02-10 15:17 | Short Stay Summary ---
Short Stay Documentation Date of service: 02/10/21 - History H&P: obtained from office Past Medical History: diabetes, ESRD, hypertension - Allergies and Medications Current Medications: Allergies lisinopril Allergy (Severe, Verified 03/18/15 14:54) Swelling swelling mouth and throat morphine Adverse Reaction (Verified 02/10/21 12:08) Unknown PT STATED IT MADE HER "FEEL REALLY STRANGE" Home Medications Medication Instructions Recorded Confirmed Last Taken Type Gabapentin 300 mg PO TID #90 capsule 09/12/18 01/28/21 02/09/21 Rx amLODIPine 10 mg PO DAILY #30 tablet 09/12/18 02/10/21 02/10/21 08:00 Rx Carvedilol Cr [Coreg CR] 10 mg PO BID 01/28/21 01/28/21 02/09/21 History Active Medications Cefazolin Sodium (Cefazolin/Sterile Water 2 Gm/20 Ml Syringe) 2 gm IV PREOP NR Stop: 02/10/21 23:59 Fentanyl (Fentanyl 100 Mcg/2 Ml Inj) 50 mcg IV Q5MIN PRN PRN Reason: Pain , Severe (7-10) Stop: 02/10/21 20:00 Sodium Chloride (Nacl 0.9% 1000 Ml) 1,000 mls @ 42 mls/hr IV DIRECT DAMIEN Stop: 02/10/21 23:59 Last Admin: 02/10/21 11:30 Dose: 42 mls/hr Documented by: Midazolam HCl (Midazolam 2 Mg/2 Ml Inj) 2 mg IV PREOP NR Stop: 02/10/21 23:01 Last Admin: 02/10/21 11:45 Dose: 2 mg Documented by: Ondansetron HCl (Ondansetron 4 Mg/2 Ml Inj) 4 mg IV ONCE PRN PRN Reason: Nausea And Vomiting - Physical exam General appearance: no acute distress Lungs: Normal air movement Extremities: no ischemia - Hospital course Hospital course: the patient was taken to the operating room and had a left arm av fistula revision performed. please refer to the operative note concerning details of the procedure. the patient tolerated the procedure well and was discharged home in stable condition. - Disposition Condition at discharge: Stable Disposition: DC-01 TO HOME OR SELFCARE Short Stay Discharge Plan Follow up with: KATIE MAYFIELD MD [Primary Care Provider] - 7 Days
[2021-02-10] MEDS ORDERED: DEXTROSE 50% IN WATER (25GM) 50 ML SYRINGE IV ONE ×2 (15:25→16:26)
[2021-02-10] MEDS ORDERED: oxyCODONE /ACETAMINOPHEN 5-325MG TAB PO PRN (16:17)
[2021-02-10 16:21] VITALS: BP 132/60
--- NOTE | 2021-02-10 16:42 | Post Anesthesia Evaluation ---
- Post Anesthesia Evaluation Patient Participated: Yes Airway Patent: Yes Stable Respiratory Function: Yes Nausea/Vomiting: No Temp > 96.8F: Yes Pain Manageable: Yes Adequeate Hydration: Yes Anesthesia Complications: No
[2021-02-10] MEDS ORDERED: HEPARIN 10,000 UNIT/1 ML VIAL IV ONE (16:50)
--- NOTE | 2021-02-10 19:06 | Operative Report ---
DATE OF SURGERY: 02/10/2021 STAFF SURGEON: Navin Hlems MD PREOPERATIVE DIAGNOSIS: End-stage renal disease. POSTOPERATIVE DIAGNOSIS: End-stage renal disease. PROCEDURE PERFORMED: Left arm cephalic vein transposition. COMPLICATIONS: None. ESTIMATED BLOOD LOSS: 100 mL ANESTHESIA: General. INDICATIONS: This is a 65-year-old female with end-stage renal disease on hemodialysis via PermCath, who has a left arm brachiocephalic AV fistula that had continuous cannulation issues despite multiple interventions endovascularly. At this point, it was felt that the patient's access may be too deep and needed to be elevated for consistent cannulation. The patient was explained the risks, benefits, and alternative of the procedure, expressed understanding and wished to proceed. DESCRIPTION OF PROCEDURE: After appropriate consent was obtained, the patient was brought back to the operating room and placed on the operating table in supine position with the left arm extended. The patient was given appropriate medication for general anesthesia and had LMA placed without difficulty. The left arm was prepped and draped in a sterile fashion with ChloraPrep. Appropriate preoperative antibiotics were administered, and appropriate timeout was performed indicating correct patient, procedure, and site of procedure. We then began the operation by making a longitudinal incision over the cephalic vein near the antecubital fossa. This was carried through to the subcutaneous tissues with combination of blunt dissection and electrocautery. The fistula was identified and incision was then extended towards the shoulder. Again, dissection was continued through the subcutaneous tissue with combination of blunt dissection and electrocautery. The cephalic vein was completely exposed. The branches were controlled with hemostats, transected and then ligated with silk suture. The vein was completely mobilized. Then, the anterior surface was marked. Vascular clamps were placed, both proximally and distally. The vein was then transected. We then created a subcutaneous tunnel medial to our incision. The vein was brought through a new tunnel with care to avoid any twisting or kinking. The patient was given unfractionated heparin intravenously. We then proceeded to perform an end-to-end anastomosis with a running 6-0 Prolene suture. Once complete, flow was established through the fistula with a nice palpable thrill. We then looked to obtain hemostasis along our wound bed, which was obtained with hemostatic agents as well as hemostatic agents were used to obtain hemostasis along our suture line. Once we were satisfied with the hemostasis, we then proceeded to close the wound with the deep subcutaneous layer with interrupted 3-0 PDS. Skin was approximated with sharla. Appropriate dressing was placed. The patient tolerated the procedure well, emerged from the general anesthesia, had LMA removed and was sent to recovery in stable condition. All sponge, instrument and needle counts were correct at completion of the operation. TID: [id number] RECEIPT: [id number] VCN/VIS
== END 2021-02-10 16:50 | disposition home or self-care (01) ==
LOC: OR 10:08
PROVIDERS: ATTEND Surgery Vascular Surgery
DX: I12.0 Hypertensive chronic kidney disease with stage 5 chronic kidney disease or end stage renal disease (principal); E11.22 Type 2 diabetes mellitus with diabetic chronic kidney disease; N18.6 End stage renal disease; K21.9 Gastro-esophageal reflux disease without esophagitis; G47.30 Sleep apnea, unspecified; E78.5 Hyperlipidemia, unspecified; Z88.8 Allergy status to other drugs, medicaments and biological substances; Z88.5 Allergy status to narcotic agent; Z79.899 Other long term (current) drug therapy; Z98.41 Cataract extraction status, right eye; Z98.42 Cataract extraction status, left eye; Z90.49 Acquired absence of other specified parts of digestive tract; Z98.890 Other specified postprocedural states; Z91.81 History of falling; Z86.73 Personal history of transient ischemic attack (TIA), and cerebral infarction without residual deficits
CPT/HCPCS: 36415; 36818; 80048; 82962; 85027; A4649; J0690; J1644; J2250; J2370; J2405; J2704; J2720; J3010; J7030; J7050

== ENCOUNTER 2021-04-24 21:26 | Emergency (ER) | payer MEDICARE ==
[2021-04-24] MEDS ORDERED: ONDANSETRON 4 MG ODT TAB PO ONE (22:53)
[2021-04-24] MEDS ORDERED: HYDROcodone/ACETAMINOPHEN 7.5-325MG TAB PO ONE (22:53)
--- NOTE | 2021-04-24 22:56 | Event Note ---
ED Screening Note Date of service: 04/24/21 Time: 22:54 ED Screening Note: Patient is a 65-year-old -[place] female with a history of hypertension and ESRD on hemodialysis 3 times a week and who has a permacath on her anterior right chest wall presents to the ED with complaint of acute onset persistent localized right chest wall pain around the permacath site for the last 1 week, worse in the last 2 days. Patient states that the area has been draining thick purulent discharge. Patient states that she no longer uses the permacath for dialysis and has not used this for the last 2 years. Patient states that she was scheduled to have the permacath removed but has not had it removed yet. Patient denies dizziness, syncope, fever, chills, nausea, vomiting, chest pain, shortness of breath, abdominal pain, dizziness, change in vision or traumatic injury or heavy lifting. This initial assessment/diagnostic orders/clinical plan/treatment(s) is/are subject to change based on patients health status, clinical progression and re- assessment by fellow clinical providers in the ED. Further treatment and workup at subsequent clinical providers discretion. Patient/guardian urged not to elope from the ED as their condition may be serious if not clinically assessed and managed. Initial orders include: CBC, CMP, chest x-ray
[2021-04-24 23:06] VITALS: BP 187/107
--- NOTE | 2021-04-24 23:44 | XRay Report ---
CHEST 1 VIEW INDICATION: right sided chest pain: permacath. COMPARISON: 11/08/2018 FINDINGS: Support devices: Right-sided central venous catheter tip projects over the SVC in expected position. Heart: Stable. Lungs/Pleura: No acute pulmonary or pleural findings. IMPRESSION: 1. No acute findings. Signer Name: Iam Greene MD Signed: 04/24/2021 11:40 PM Workstation Name: [id number]
[2021-04-24 23:53] LABS: Basophils # (Auto) 0.1 K/mm3 (0.0-0.1); Basophils % (Auto) 0.5 % (0.0-1.8); Hemoglobin 10.8 gm/dl (10.1-14.3); Lymphocytes # (Auto) 0.7 K/mm3 (1.2-5.4); Lymphocytes % (Auto) 4.9 % (13.4-35.0); Mean Corpuscular HGB Conc 33 % (30-34); Mean Corpuscular Volume 88 fl (79-97); Monocytes # (Auto) 0.9 K/mm3 (0.0-0.8); Monocytes % (Auto) 6.3 % (0.0-7.3); Platelet Count 205 K/mm3 (140-440); Red Blood Count 3.76 M/mm3 (3.65-5.03); Red Cell Distribution Width 16.6 % (13.2-15.2)
[2021-04-24 23:55] LABS: Albumin 3.8 g/dL (3.9-5); Calcium 8.7 mg/dL (8.4-10.2)
[2021-04-25] MEDS ORDERED: VANCOMYCIN/NS 1 GM/250 ML 1 GM/250 ML BAG IV ONE (02:02)
--- NOTE | 2021-04-25 02:21 | Emergency Department Report ---
HPI - General Chief Complaint: Pain General Time Seen by Provider: 04/25/21 02:02 - HPI HPI: Waiting room The patient is a 65-year-old female present with a chief complaint right permacath site pain. Patient states she has had pain in her right permacath site for approximately 6 months but 2 days ago the pain worsened. Patient states she noticed swelling and slight erythema to the insertion site. Patient states she is unaware of purulent drainage. Patient denies having a fever at home but the patient was febrile here in the emergency department. Patient states she has been vaccinated against Covid receiving her second dose of her Moderna vaccine in November 2020 ED Past Medical Hx - Past Medical History Hx Hypertension: Yes Hx Diabetes: Yes (insulin) Hx GERD: Yes Hx Renal Disease: Yes (ESRD HD q MWF) Additional medical history: SLEEP APNEA- CPAP, diabetic foot ulcer right foot - Surgical History Hx Cholecystectomy: Yes Additional Surgical History: Back surgery, GASTRIC BYPASS 05/28/2015. goiter removed - Family History Family history: no significant - Social History Smoking Status: Never Smoker Substance Use Type: None (Denies illicit drug) - Medications Home Medications: Home Medications Medication Instructions Recorded Confirmed Last Taken Type Gabapentin 300 mg PO TID #90 capsule 09/12/18 01/28/21 02/09/21 Rx amLODIPine 10 mg PO DAILY #30 tablet 09/12/18 02/10/21 02/10/21 08:00 Rx Carvedilol Cr [Coreg CR] 10 mg PO BID 01/28/21 01/28/21 02/09/21 History oxyCODONE /ACETAMINOPHEN [Percocet 1 tab PO Q6HR PRN #24 tablet 02/10/21 Unkno wn Rx 5/325 mg] ED Review of Systems ROS: Stated complaint: CHEST PAIN Other details as noted in HPI Constitutional: denies: fever Eyes: denies: eye pain ENT: denies: throat pain Respiratory: no symptoms reported Cardiovascular: denies: chest pain Endocrine: no symptoms reported Gastrointestinal: denies: abdominal pain Musculoskeletal: denies: back pain Skin: change in color Neurological: denies: headache Physical Exam - Physical Exam Vital Signs: Vital Signs 04/24/21 04/24/21 04/24/21 22:52 22:55 23:07 Temperature 101.5 F H Pulse Rate 99 H Respiratory 18 18 Rate Blood Pressure 187/107 Physical Exam: GENERAL: The patient is well-developed well-nourished female sitting in wheelchair not appearing to be in acute distress. [] HEENT: Normocephalic. Atraumatic. Extraocular motions are intact. Patient has moist mucous membranes. NECK: Supple. Trachea midline CHEST/LUNGS: Clear to auscultation. There is no respiratory distress noted. HEART/CARDIOVASCULAR: Regular. There is no tachycardia. There is no gallop rub or murmur. ABDOMEN: Abdomen is soft, nontender. Patient has normal bowel sounds. There is no abdominal distention. SKIN: There is tenderness and slight erythema surrounding the insertion site of the right chest permacath. No evidence of purulent drainage seen NEURO: The patient is awake, alert, and oriented. The patient is cooperative. The patient has no focal neurologic deficits. The patient has normal speech. GCS 15 MUSCULOSKELETAL: There is no evidence of acute injury. ED Course Vital Signs 04/24/21 04/24/21 04/24/21 22:52 22:55 23:07 Temperature 101.5 F H Pulse Rate 99 H Respiratory 18 18 Rate Blood Pressure 187/107 ED Medical Decision Making - Lab Data Result diagrams: 04/24/21 22:59 04/24/21 22:59 Laboratory Tests 04/24/21 04/24/21 04/24/21 22:59 22:59 23:07 WBC 14.5 H RBC 3.76 Hgb 10.8 Hct 33.0 MCV 88 MCH 29 MCHC 33 RDW 16.6 H Plt Count 205 Lymph % (Auto) 4.9 L [place] % (Auto) 6.3 Eos % (Auto) 0.0 Baso % (Auto) 0.5 Lymph # (Auto) 0.7 L [place] # (Auto) 0.9 H Eos # (Auto) 0.0 Baso # (Auto) 0.1 Seg Neutrophils % 88.3 H Seg Neutrophils # 12.8 H Sodium 136 L Potassium 5.2 H Chloride 99.8 Carbon Dioxide 20 L Anion Gap 21 BUN 46 H Creatinine 7.5 H Estimated GFR 7 BUN/Creatinine Ratio 6 Glucose 87 Lactic Acid 1.10 Calcium 8.7 Total Bilirubin 0.60 AST 17 ALT 11 Alkaline Phosphatase 138 H Total Protein 8.5 H Albumin 3.8 L Albumin/Globulin Ratio 0.8 - Radiology Data Radiology results: report reviewed (Chest x-ray), image reviewed (Chest x-ray) interpreted by me: Chest x-ray-no definite focal infiltrates, no pneumothorax [facility] [address] [place] [address] XRay Report Signed Patient: CARLOS CURTIS MR#: [id number] : 1955 Acct:[id number] Age/Sex: 65 / F ADM Date: 04/24/21 Loc: ED Attending Dr: Ordering Physician: MELISSA GUZMAN Date of Service: 04/24/21 Procedure(s): XR chest 1V ap Accession Number(s): [id number] cc: MELISSA GUZMAN Fluoro Time In Minutes: CHEST 1 VIEW INDICATION: right sided chest pain: permacath. COMPARISON: 11/08/2018 FINDINGS: Support devices: Right-sided central venous catheter tip projects over the SVC in expected position. Heart: Stable. Lungs/Pleura: No acute pulmonary or pleural findings. IMPRESSION: 1. No acute findings. Signer Name: Iam Greene MD Signed: 04/24/2021 11:40 PM Workstation Name: [id number] Transcribed By: Dictated By: Iam Greene MD Electronically Authenticated By: Iam Greene MD Signed Date/Time: 04/24/212339 DD/ 38 TD/TT: Print Cancel - Medical Decision Making I discussed with the patient and family my recommendation that she be admitted to the hospital for likely line infection. Patient and family verbalized understanding but states to have an appointment to see their physician in the [facility] would prefer to get a second opinion. Family states they will receive the IV vancomycin ordered here but will sign out AGAINST MEDICAL ADVICE. Patient and family advised they may return at any time should they change their mind. - Differential Diagnosis Infected permacath Critical care attestation.: If time is entered above; I have spent that time in minutes in the direct care of this critically ill patient, excluding procedure time. ED Disposition Clinical Impression: Vascular catheter infection, Fever, Leukocytosis Disposition: 07 LEFT AGAINST MEDICAL ADVICE Is pt being admited?: No Does the pt Need Aspirin: No Condition: Undetermined Additional Instructions: You were given vancomycin 1 g IV prior to you left AGAINST MEDICAL ADVICE. It is important that you follow-up with your physician as soon as possible for further management. Return to the emergency department should you develop worsening symptoms, inability to tolerate food or liquids, high fever or any other concerns Time of Disposition: 02:22
== END 2021-04-25 05:40 | disposition left against medical advice (07) ==
LOC: ED 21:26
DX: T80.218A Other infection due to central venous catheter, initial encounter (principal); D72.829 Elevated white blood cell count, unspecified; R50.9 Fever, unspecified; E11.22 Type 2 diabetes mellitus with diabetic chronic kidney disease; N18.6 End stage renal disease; Z79.4 Long term (current) use of insulin; K21.9 Gastro-esophageal reflux disease without esophagitis; G47.30 Sleep apnea, unspecified; E11.621 Type 2 diabetes mellitus with foot ulcer; Z98.890 Other specified postprocedural states; Y84.9 Medical procedure, unspecified as the cause of abnormal reaction of the patient, or of later complication, without mention of misadventure at the time of the procedure; Y92.89 Other specified places as the place of occurrence of the external cause
CPT/HCPCS: 36415; 71045; 80053; 82140; 85025; 86403; 87040; 96365; 96366; 99284; J3370; Q0162

== ENCOUNTER 2021-04-25 19:51 | Inpatient (IN) | payer MEDICARE ==
--- NOTE | 2021-04-25 22:28 | Emergency Department Report ---
ED General Adult HPI - General Chief complaint: Fever Stated complaint: EDEMA,HTN,MISEED DIALYSIS Time Seen by Provider: 04/25/21 21:40 Source: patient, EMS Mode of arrival: Stretcher Limitations: No Limitations - History of Present Illness Initial comments: 63-year-old female, history of ESRD, presents to ED with complaint of pain around her PermCath site for the last 2 days. Patient denies any fever. Reports there has been thick fluid draining from the area. Patient states she was last dialyzed on Sunday, 5 days ago. She is on MWF dialysis schedule. Patient denies any shortness of breath. Patient was seen and evaluated here in our ED on yesterday. Patient was found to be febrile with a fever 101.5. Admission was recommended, however patient refused and left AMA. Yesterday's note states patient's family was present at the time of her AMA. Patient states her son was with her yesterday. Patient returns again today because she states her sister called 911 and made her come to the ER. Patient states the PermCath was supposed to have been removed, but it has not yet. Patient states she is receiving dialysis via her AV graft. Carry Out Clerk: Dr Villa -: days(s) (2) Location: chest (R chest wall) Radiation: non-radiation Severity scale (0 -10): 0 Quality: aching Consistency: constant Improves with: none Worsens with: other (palpation) Associated Symptoms: denies: cough, fever/chills, nausea/vomiting, shortness of breath - Related Data Home Medications Medication Instructions Recorded Confirmed Last Taken Carvedilol Cr [Coreg CR] 10 mg PO BID 01/28/21 01/28/21 02/09/21 Previous Rx's Medication Instructions Recorded Last Taken Type Gabapentin 300 mg PO TID #90 capsule 09/12/18 02/09/21 Rx amLODIPine 10 mg PO DAILY #30 tablet 09/12/18 02/10/21 08:00 Rx oxyCODONE /ACETAMINOPHEN [Percocet 1 tab PO Q6HR PRN #24 tablet 02/10/21 Unknown Rx 5/325 mg] Allergies Allergy/AdvReac Type Severity Reaction Status Date / Time lisinopril Allergy Severe Swelling Verified 03/18/15 14:54 morphine AdvReac Unknown Verified 02/10/21 12:08 ED Review of Systems ROS: Stated complaint: EDEMA,HTN,MISEED DIALYSIS Other details as noted in HPI Comment: All other systems reviewed and negative Constitutional: denies: fever Respiratory: denies: cough, shortness of breath Gastrointestinal: denies: nausea, vomiting Musculoskeletal: as per HPI ED Past Medical Hx - Past Medical History Previous Medical History?: Yes Hx Hypertension: Yes Hx CVA: No Hx Heart Attack/AMI: No Hx Congestive Heart Failure: No Hx Diabetes: Yes (diest controlled per patient) Hx Deep Vein Thrombosis: No Hx Pulmonary Embolism: No Hx GERD: Yes Hx Liver Disease: No Hx Renal Disease: Yes (ESRD HD q MWF) Hx of Cancer: No Hx Sickle Cell Disease: No Hx Arthritis: No Hx Headaches / Migraines: No Hx Seizures: No Hx Kidney Stones: No Hx Psychiatric Treatment: No Hx Asthma: No Hx COPD: No Hx Tuberculosis: No Hx Dementia: No Additional medical history: SLEEP APNEA- CPAP, diabetic foot ulcer right foot, per patient non ambulatory since back surgery - Surgical History Past Surgical History?: Yes Hx Coronary Stent: No Hx Open Heart Surgery: No Hx Pacemaker: No Hx Internal Defibrillator: No Hx Cholecystectomy: Yes Hx Appendectomy: No Hx Breast Surgery: No Additional Surgical History: Back surgery, GASTRIC BYPASS 05/28/2015. goiter removed - Social History Smoking Status: Former Smoker Substance Use Type: None - Medications Home Medications: Home Medications Medication Instructions Recorded Confirmed Last Taken Type Gabapentin 300 mg PO TID #90 capsule 09/12/18 01/28/21 02/09/21 Rx amLODIPine 10 mg PO DAILY #30 tablet 09/12/18 02/10/21 02/10/21 08:00 Rx Carvedilol Cr [Coreg CR] 10 mg PO BID 01/28/21 01/28/21 02/09/21 History oxyCODONE /ACETAMINOPHEN [Percocet 1 tab PO Q6HR PRN #24 tablet 02/10/21 Unknown Rx 5/325 mg] ED Physical Exam - General Limitations: No Limitations General appearance: alert, in no apparent distress - Head Head exam: Present: atraumatic, normocephalic - Eye Eye exam: Present: normal appearance, EOMI - ENT ENT exam: Present: mucous membranes moist - Neck Neck exam: Present: normal inspection - Respiratory Respiratory exam: Present: normal lung sounds bilaterally, chest wall tenderness (tenderness around site of permcath located in right anterior chest wall, small amount of dried crusting noted around catheter). Absent: respiratory distress - Cardiovascular Cardiovascular Exam: Present: normal rhythm, tachycardia, other (palpable thrill in left arm graft) - GI/Abdominal GI/Abdominal exam: Present: soft. Absent: distended, tenderness - Neurological Exam Neurological exam: Present: alert, oriented X3 - Psychiatric Psychiatric exam: Present: normal affect, normal mood - Skin Skin exam: Present: warm, dry, intact ED Course Vital Signs 04/25/21 04/25/21 04/26/21 22:07 22:21 00:13 Temperature 99.3 F Pulse Rate 101 H 95 H Respiratory 20 21 Rate Blood Pressure Blood Pressure 178/80 [Right] O2 Sat by Pulse 99 99 100 Oximetry 04/26/21 04/26/21 04/26/21 00:15 00:16 00:17 Temperature Pulse Rate 95 H 94 H 95 H Respiratory 19 20 16 Rate Blood Pressure 155/62 155/62 Blood Pressure [Right] O2 Sat by Pulse 100 100 100 Oximetry 04/26/21 04/26/21 04/26/21 00:31 00:45 01:00 Temperature Pulse Rate 97 H 90 94 H Respiratory 11 L 13 13 Rate Blood Pressure 146/69 146/69 161/74 Blood Pressure [Right] O2 Sat by Pulse 100 100 100 Oximetry 04/26/21 04/26/21 04/26/21 01:30 02:00 02:30 Temperature Pulse Rate 95 H 89 99 H Respiratory 16 35 H 14 Rate Blood Pressure 168/75 173/79 154/77 Blood Pressure [Right] O2 Sat by Pulse 99 100 100 Oximetry - Reevaluation(s) Reevaluation #1: 04/25/21 22:35 Patient refusing work-up and treatment. States she wants to leave. States she has an appointment with Dr. Saeed tomorrow. I spoke with patient's daughter over the phone to get her to speak with her mother and try and encourage her to stay. Daughter spoke with patient over the phone, patient continues to refuse care. Daughter instructed and to speak with her brother, patient's son. States he may be able to convince patient to stay for treatment. There was no answer on the son's phone. Message was left. 04/26/21 23:15 Patient now states she is agreeable to work-up and admission. ED Medical Decision Making - Lab Data Result diagrams: 04/25/21 23:25 04/25/21 23:25 - Radiology Data Radiology results: report reviewed, image reviewed - Medical Decision Making 65-year-old female presents to ED with possible line infection of her PermCath. Patient reports fever and discharge from the site of the catheter. Patient has tenderness in the area. Patient was febrile with a temp of 101 during her ED visit on yesterday which she left AMA. Today, she has WBCs of 13.1. Lactic acid is normal. Potassium is 5.1. Blood cultures drawn. Patient given vancomycin. Chest x-ray unremarkable. She will be admitted by hospitalist, Dr. Gardiner, for further management. - Differential Diagnosis Vascular catheter infection Critical care attestation.: If time is entered above; I have spent that time in minutes in the direct care of this critically ill patient, excluding procedure time. ED Disposition Clinical Impression: Fever, ESRD needing dialysis Disposition: ADMITTED INPATIENT Is pt being admited?: Yes Condition: Stable Time of Disposition: 00:54
[2021-04-25 23:58] LABS: Basophils # (Auto) 0.1 K/mm3 (0.0-0.1); Basophils % (Auto) 0.5 % (0.0-1.8); Hematocrit 31.4 % (30.3-42.9); Hemoglobin 10.3 gm/dl (10.1-14.3); Lymphocytes # (Auto) 0.7 K/mm3 (1.2-5.4); Lymphocytes % (Auto) 5.6 % (13.4-35.0); Mean Corpuscular HGB Conc 33 % (30-34); Mean Corpuscular Volume 87 fl (79-97); Monocytes # (Auto) 1.4 K/mm3 (0.0-0.8); Monocytes % (Auto) 10.4 % (0.0-7.3); Platelet Count 171 K/mm3 (140-440); Red Cell Distribution Width 16.6 % (13.2-15.2)
[2021-04-26] MEDS ORDERED: VANCOMYCIN 1,500 MG in SODIUM CHLORIDE 0.9% 500 ML 500 ML IV ONE (00:30)
--- NOTE | 2021-04-26 00:30 | XRay Report ---
CHEST 1 VIEW INDICATION: pain. COMPARISON: 2 days prior FINDINGS: Support devices: Unchanged. Heart: Stable. Lungs/Pleura: No acute pulmonary or pleural findings. IMPRESSION: 1. No significant change. Signer Name: Iam Greene MD Signed: 04/26/2021 12:26 AM Workstation Name: [id number]
[2021-04-26 00:36] LABS: Albumin 3.4 g/dL (3.9-5); Calcium 8.3 mg/dL (8.4-10.2)
[2021-04-26] MEDS ORDERED: ALBUTEROL 2.5 MG/3 ML NEBU IH PRN (01:18)
[2021-04-26] MEDS ORDERED: DEXTROSE 50% IN WATER (25GM) 50 ML SYRINGE IV PRN (01:18)
[2021-04-26] MEDS ORDERED: HYDROmorphone 1 MG/1 ML INJ IV PRN (01:18)
[2021-04-26] MEDS ORDERED: ACETAMINOPHEN 325 MG TAB PO PRN (01:18)
--- NOTE | 2021-04-26 01:30 | History and Physical Report ---
History of Present Illness Date of examination: 04/26/21 Date of admission: 04/26/21 Chief complaint: Fever History of present illness: 63-year-old female with past medical history of end-stage renal disease on hemodialysis Sunday and Sunday and diabetes was brought to the emergency room because of pain around her PermCath site for the last 2 days. Patient denies any fever. Reports there has been thick fluid draining from the area. Patient states she was last dialyzed on Sunday, 5 days ago. Patient denies any shortness of breath. Patient was seen and evaluated here in our ED on yesterday. Patient was found to be febrile with a fever 101.5. Admission was recommended, however patient refused and left AMA. Patient returns again today because she states her sister called 911 and made her come to the ER. In the emergency room patient WBC is 13.1. Patient potassium is 5.1 BUN is 60 creatinine 8.6. We consulted nephrology for hemodialysis. Med rec is done. Advance discharge process is initiated Past History Past Medical History: diabetes, ESRD, GERD, hypertension, other (Sleep apnea, di abetic foot ulcer right foot) Past Surgical History: Other (Back surgery, gastric bypass surgery 05/28/2015. Goiter removed) Medications and Allergies Allergies Allergy/AdvReac Type Severity Reaction Status Date / Time lisinopril Allergy Severe Swelling Verified 03/18/15 14:54 morphine AdvReac Unknown Verified 02/10/21 12:08 Home Medications Medication Instructions Recorded Confirmed Last Taken Type Gabapentin 300 mg PO TID #90 capsule 09/12/18 01/28/21 02/09/21 Rx amLODIPine 10 mg PO DAILY #30 tablet 09/12/18 02/10/21 02/10/21 08:00 Rx Carvedilol Cr [Coreg CR] 10 mg PO BID 01/28/21 01/28/21 02/09/21 History oxyCODONE /ACETAMINOPHEN [Percocet 1 tab PO Q6HR PRN #24 tablet 02/10/21 Unknown Rx 5/325 mg] Active Meds: Active Medications Acetaminophen (Acetaminophen 325 Mg Tab) 650 mg PO Q4H PRN PRN Reason: Pain MILD(1-3)/Fever >100.5/ORTIZ Albuterol (Albuterol 2.5 Mg/3 Ml Nebu) 2.5 mg IH Q4HRT PRN PRN Reason: Shortness Of Breath Amlodipine Besylate (Amlodipine 10 Mg Tab) 10 mg PO DAILY DAMIEN Dextrose (Dextrose 50% In Water (25gm) 50 Ml Syringe) 50 ml IV Q30MIN PRN; Protocol PRN Reason: Hypoglycemia Famotidine (Famotidine 20 Mg Tab) 20 mg PO BID DAMIEN Gabapentin (Gabapentin 300 Mg Cap) 300 mg PO TID DAMIEN Hydromorphone HCl (Hydromorphone 1 Mg/1 Ml Inj) 0.25 mg IV Q3H PRN PRN Reason: Pain, Moderate (4-6) Vancomycin HCl 1,500 mg/ (Sodium Chloride) 530 mls @ 333 mls/hr IV ONCE ONE; Protocol Stop: 04/26/21 02:05 Last Admin: 04/26/21 00:45 Dose: 333 mls/hr Documented by: Vancomycin HCl (Vancomycin/Ns 1 Gm/250 Ml) 1 gm in 250 mls @ 166.667 mls/hr IV Q12H DAMIEN; Protocol Piperacillin Sod/Tazobactam Sod (Zosyn/Ns 4.5gm/100ml) 4.5 gm in 100 mls @ 200 mls/hr IV Q8H DAMIEN; Protocol Insulin Human Lispro (Insulin Lispro 100 Unit/Ml) 0 unit SUB-Q ACHS DAMIEN; Protocol Miscellaneous Medication (Carvedilol Cr [Coreg Cr]) 10 mg PO BID DAMIEN Ondansetron HCl (Ondansetron 4 Mg/2 Ml Inj) 4 mg IV Q8H PRN PRN Reason: Nausea And Vomiting Oxycodone/Acetaminophen (Oxycodone /Acetaminophen 5-325mg Tab) 1 tab PO Q6HR PRN PRN Reason: Pain, Moderate (4-6) Review of Systems All systems: negative Constitutional: fever Integumentary: redness Exam - Constitutional Vitals: Temp Pulse Resp BP Pulse Ox 99.3 F 94 H 13 161/74 100 04/25/21 22:07 04/26/21 01:00 04/26/21 01:00 04/26/21 01:00 04/26/21 01:00 General appearance: Present: no acute distress, well-nourished - EENT Eyes: Present: PERRL ENT: hearing intact, clear oral mucosa - Neck Neck: Present: supple, normal ROM - Respiratory Respiratory effort: normal Respiratory: bilateral: diminished - Cardiovascular Heart Sounds: Present: S1 & S2. Absent: rub, click - Extremities Extremities: pulses symmetrical, No edema Peripheral Pulses: within normal limits - Abdominal General gastrointestinal: Present: soft, non-tender, non-distended, normal bowel sounds Female genitourinary: Present: normal - Integumentary Integumentary: Present: clear, warm, dry - Musculoskeletal Musculoskeletal: gait normal, strength equal bilaterally - Psychiatric Psychiatric: appropriate mood/affect, intact judgment & insight - Neurologic Neurologic: CNII-XII intact, moves all extremities Results - Labs CBC & Chem 7: 04/25/21 23:25 04/25/21 23:25 Labs: Laboratory Last Values WBC 13.1 K/mm3 (4.5-11.0) H 04/25/21 23:25 RBC 3.60 M/mm3 (3.65-5.03) L 04/25/21 23:25 Hgb 10.3 gm/dl (10.1-14.3) 04/25/21 23:25 Hct 31.4 % (30.3-42.9) 04/25/21 23:25 MCV 87 fl (79-97) 04/25/21 23:25 MCH 29 pg (28-32) 04/25/21 23:25 MCHC 33 % (30-34) 04/25/21 23:25 RDW 16.6 % (13.2-15.2) H 04/25/21 23:25 Plt Count 171 K/mm3 (140-440) 04/25/21 23:25 Lymph % (Auto) 5.6 % (13.4-35.0) L 04/25/21 23:25 [place] % (Auto) 10.4 % (0.0-7.3) H 04/25/21 23:25 Eos % (Auto) 0.0 % (0.0-4.3) 04/25/21 23:25 Baso % (Auto) 0.5 % (0.0-1.8) 04/25/21 23:25 Lymph # (Auto) 0.7 K/mm3 (1.2-5.4) L 04/25/21 23:25 [place] # (Auto) 1.4 K/mm3 (0.0-0.8) H 04/25/21 23:25 Eos # (Auto) 0.0 K/mm3 (0.0-0.4) 04/25/21 23:25 Baso # (Auto) 0.1 K/mm3 (0.0-0.1) 04/25/21 23:25 Seg Neutrophils % 83.5 % (40.0-70.0) H 04/25/21 23:25 Seg Neutrophils # 10.9 K/mm3 (1.8-7.7) H 04/25/21 23:25 Sodium 140 mmol/L (137-145) 04/25/21 23:25 Potassium 5.1 mmol/L (3.6-5.0) H 04/25/21 23:25 Chloride 103.4 mmol/L (98-107) 04/25/21 23:25 Carbon Dioxide 13 mmol/L (22-30) L D 04/25/21 23:25 Anion Gap 29 mmol/L 04/25/21 23:25 BUN 60 mg/dL (7-17) H 04/25/21 23:25 Creatinine 8.6 mg/dL (0.6-1.2) H 04/25/21 23:25 Estimated GFR 6 ml/min 04/25/21 23:25 BUN/Creatinine Ratio 7 % 04/25/21 23:25 Glucose 139 mg/dL (65-100) H 04/25/21 23:25 Lactic Acid 0.90 mmol/L (0.7-2.0) 04/25/21 23:25 Calcium 8.3 mg/dL (8.4-10.2) L 04/25/21 23:25 Total Bilirubin 0.40 mg/dL (0.1-1.2) 04/25/21 23:25 AST 29 units/L (5-40) 04/25/21 23:25 ALT 11 units/L (7-56) 04/25/21 23:25 Alkaline Phosphatase 119 units/L (35-129) 04/25/21 23:25 Total Protein 8.0 g/dL (6.3-8.2) 04/25/21 23:25 Albumin 3.4 g/dL (3.9-5) L 04/25/21 23:25 Albumin/Globulin Ratio 0.7 % 04/25/21 23:25 - Imaging and Cardiology Chest x-ray: report reviewed Assessment and Plan VTE prophylaxis?: Chemical Plan of care discussed with patient/family: Yes - Patient Problems (1) Fever Current Visit: Yes Status: Acute Plan to address problem: Admit the patient to the medical floor. Fever could be from the infection around the permacath. Vancomycin 1 g IV every 12 hours. Zosyn 4.5 g IV every 8 hours. We do the blood culture wound culture. Will consult wound care evaluation. Recheck CBC BMP in the morning. Consult surgery if needed (2) ESRD needing dialysis Current Visit: Yes Status: Acute Plan to address problem: We consulted nephrology for dialysis in the morning. Avoid nephrotoxic drug. We will continue the home medication. Recheck BMP in the morning (3) Hyperkalemia Current Visit: No Status: Acute Plan to address problem: We will give Kayexalate 30 g p.o. x1 dose. Will consult nephrology for dialysis in the morning. We recheck BMP in the morning (4) Hypertension Current Visit: Yes Status: Acute Plan to address problem: Hydralazine 10 mg IV every 6 hours as needed. Amlodipine 10 mg p.o. daily. We will continue the home medication (5) Type 2 diabetes mellitus with diabetic chronic kidney disease Current Visit: No Status: Chronic Plan to address problem: We will put the patient on Humalog sliding scale Accu-Chek before meals and at bedtime with low-dose coverage. Diabetic diet education (6) DVT prophylaxis Current Visit: Yes Status: Acute Plan to address problem: Heparin 5000 units subcu every 8 hours for DVT prophylaxis. Pepcid 20 mg p.o. twice daily for GI prophylaxis. Patient is a full code
[2021-04-26] MEDS ORDERED: hydrALAZINE 20 MG/1 ML INJ IV PRN (01:36)
[2021-04-26] MEDS ORDERED: SODIUM POLYSTYRENE 15 GM/60 ML ORAL LIQD PO ONE (01:57)
[2021-04-26] MEDS ORDERED: PIPERACIL-TAZO 2.25 GM/50 ML 2.25 GM/50 ML BAG IV SCH ×2 (02:00→06:00)
[2021-04-26] MEDS ORDERED: VANCOMYCIN/NS 1 GM/250 ML 1 GM/250 ML BAG IV SCH (02:00)
[2021-04-26] MEDS ORDERED: PIPERACIL/TAZOBACTA 4.5/NS 100 4.5 GM/100 ML VIAL IV SCH (02:00)
[2021-04-26] MEDS ORDERED: VANCOMYCIN PHARMACY TO DOSE IV SCH (02:00)
[2021-04-26] MEDS: PIPERACIL-TAZO 2.25 GM/50 ML 2.25 GM/50 ML BAG IV SCH ×4 (03:17→19:22)
[2021-04-26] MEDS ORDERED: SODIUM CHLORIDE 0.9% 100 ML IV PRN (09:00)
[2021-04-26] MEDS ORDERED: CARVEDILOL 10 MG PO SCH (10:00)
--- NOTE | 2021-04-26 12:22 | Event Note ---
Date: 04/26/21 Called the [facility], and I was informed by the staff that patient is seen by Dr Barney in the outpatient clinic. Will change consult to their group at this time.
[2021-04-26] MEDS: ONDANSETRON 4 MG/2 ML INJ IV PRN (12:35)
--- NOTE | 2021-04-26 12:50 | Consultation ---
History of Present Illness - Reason for Consult Consult date: 04/26/21 - History of Present Illness This is a 63 year old female who presented to the E.R with a chief complaint of pain to her perm-cath site. Patient has a functional left AVF that is now in use. Will consult Vascular for removal of perm-catheter for suspected infection. Patient reports drainage. Patient is on hemodialysis at [facility] buit has missed several dialysis treatments. We are being consulted for management of this patient's ESRD. Past History Past Medical History: diabetes, ESRD, GERD, hypertension, other (Sleep apnea, diabetic foot ulcer right foot) Past Surgical History: Other (Back surgery, gastric bypass surgery 05/28/2015. Goiter removed) Medications and Allergies Allergies Allergy/AdvReac Type Severity Reaction Status Date / Time lisinopril Allergy Severe Swelling Verified 03/18/15 14:54 morphine AdvReac Unknown Verified 02/10/21 12:08 Home Medications Medication Instructions Recorded Confirmed Last Taken Type Gabapentin 300 mg PO TID #90 capsule 09/12/18 01/28/21 02/09/21 Rx amLODIPine 10 mg PO DAILY #30 tablet 09/12/18 02/10/21 02/10/21 08:00 Rx Carvedilol Cr [Coreg CR] 10 mg PO BID 01/28/21 01/28/21 02/09/21 History oxyCODONE /ACETAMINOPHEN [Percocet 1 tab PO Q6HR PRN #24 tablet 02/10/21 Unknown Rx 5/325 mg] Active Meds: Active Medications Acetaminophen (Acetaminophen 325 Mg Tab) 650 mg PO Q4H PRN PRN Reason: Pain MILD(1-3)/Fever >100.5/ORTIZ Albuterol (Albuterol 2.5 Mg/3 Ml Nebu) 2.5 mg IH Q4HRT PRN PRN Reason: Shortness Of Breath Amlodipine Besylate (Amlodipine 10 Mg Tab) 10 mg PO DAILY [facility] Carvedilol (Carvedilol 6.25 Mg Tab) 6.25 mg PO BID DAMIEN Dextrose (Dextrose 50% In Water (25gm) 50 Ml Syringe) 0 ml IV Q30MIN PRN; Protocol PRN Reason: Hypoglycemia Famotidine (Famotidine 20 Mg Tab) 20 mg PO QAM [facility] Gabapentin (Gabapentin 300 Mg Cap) 300 mg PO TID DAMIEN Hydralazine HCl (Hydralazine 20 Mg/1 Ml Inj) 10 mg IV Q6H PRN PRN Reason: Blood Pressure Hydromorphone HCl (Hydromorphone 1 Mg/1 Ml Inj) 0.25 mg IV Q3H PRN PRN Reason: Pain, Moderate (4-6) Piperacillin Sod/Tazobactam Sod (Zosyn/Ns 2.25 Gm/50ml) 2.25 gm in 50 mls @ 100 mls/hr IV Q8H [facility] Last Admin: 04/26/21 03:17 Dose: 100 mls/hr Documented by: Sodium Chloride (Nacl 0.9%) 100 mls @ 999 mls/hr IV FRANCHESCA PRN PRN Reason: Hypotension Insulin Human Lispro (Insulin Lispro 100 Unit/Ml) 0 unit SUB-Q ACHS [facility]; Protocol Ondansetron HCl (Ondansetron 4 Mg/2 Ml Inj) 4 mg IV Q8H PRN PRN Reason: Nausea And Vomiting Last Admin: 04/26/21 12:35 Dose: 4 mg Documented by: Oxycodone/Acetaminophen (Oxycodone /Acetaminophen 5-325mg Tab) 1 tab PO Q6H PRN PRN Reason: Pain, Moderate (4-6) Review of Systems Constitutional: fever, chills, fatigue, weakness, no weight loss, no weight gain, no sweats Ears, nose, mouth and throat: no ear pain, no ear discharge, no tinnitis, no decreased hearing, no nose pain, no nasal congestion, no nasal discharge Breasts: deferred Cardiovascular: no chest pain, no orthopnea, no palpitations, no rapid/irregular heart beat, no edema, no syncope, no lightheadedness, no shortness of breath Respiratory: no cough with sputum, no excessive sputum, no hemoptysis, no shortness of breath, no dyspnea on exertion Gastrointestinal: no abdominal pain, no nausea, no vomiting, no diarrhea, no constipation, no change in bowel habits, no hematemesis Genitourinary Female: no dysmenorrhea, no pelvic pain, no flank pain, no menorrhagia, no dysuria, no urinary frequency Musculoskeletal: no neck pain, no shooting arm pain, no arm numbness/tingling, no low back pain, no shooting leg pain Integumentary: no rash, no pruritis, no redness, no sores, no wounds Neurological: no head injury, no transient paralysis, no paralysis, no weakness, no parathesias, no numbness, no tingling, no seizures Psychiatric: no anxiety, no memory loss, no sleep disturbances, no insomnia, no hypersomnia, no change in appetite, no change in libido Endocrine: no cold intolerance, no heat intolerance, no polyphagia, no excessive thirst, no polydipsia, no polyuria, no nocturia Exam - Vital Signs Vital signs: Vital Signs Temp Pulse Resp BP Pulse Ox 99.3 F 101 H 20 178/80 99 04/25/21 22:07 04/25/21 22:07 04/25/21 22:07 04/25/21 22:07 04/25/21 22:07 - General Appearance General appearance: well-developed, appears stated age EENT: ATNC, PERRL, hearing intact, vision intact Neck: Present: neck supple, trachea midline Respiratory: Decreased Breath Sounds Heart: S1S2 Gastrointestinal: Present: normoactive bowel sounds Integumentary: no rash, warm and dry Neurologic: alert and oriented x3 Musculoskeletal: Present: other (No edema) Results - Lab Results 04/25/21 23:25 04/25/21 23:25 Most recent lab results Calcium 8.3 mg/dL (8.4-10.2) L 04/25/21 23:25 Assessment and Plan Assessment: Questionable Infected Perm-catheter End Stage Renal Disease on hemodialysis Hypertension Itching Plan: Hemodialysis today via left AVF Consult Dr. Reyna for removal of perm-cath Fluid restriction of 1 liter per day Ordered Benadryl 12.5 mg IV x 1 for itching with HD Renally dose medications Obtain daily weights Monitor I/O's daily Assess dialysis needs daily Plan of care reviewed by Dr. Boone
[2021-04-26] MEDS ORDERED: diphenhydrAMINE 50 MG/ML VIAL IV STA (12:51)
[2021-04-26 13:02] LABS: Calcium 8.7 mg/dL (8.4-10.2)
--- NOTE | 2021-04-26 13:07 | Event Note ---
Date: 04/26/[address] Helms performed a fistula creation on this patient. Dr. Helms is not in our group. Please contact him for assistance with vascular surgical issues.
[2021-04-26 14:17] LABS: Hepatitis C Virus Antibody Non-Reactive (NonReactive)
[2021-04-26 14:47] LABS: Hepatitis B Surface Antigen Nonreactive (Negative)
[2021-04-26] MEDS: amLODIPine 10 MG TAB PO SCH (15:24)
[2021-04-26] MEDS: INSULIN LISPRO 100 UNIT/ML SUB-Q SCH ×3 (15:25→21:55)
[2021-04-26] MEDS: carvediloL 6.25 MG TAB PO SCH ×2 (15:25→21:54)
[2021-04-26] MEDS: FAMOTIDINE 20 MG TAB PO SCH (15:26)
[2021-04-26] MEDS: GABAPENTIN 300 MG CAP PO SCH ×3 (16:15→21:14)
--- NOTE | 2021-04-26 17:44 | Event Note ---
Date: 04/26/21 Patient seen and examined This is a second visit after midnight Patient getting HD Patient denies any chest pain or short of breath Continue empiric antibiotic, follow blood culture Vascular consulted to remove PermCath We will also consult ID Nephrology on board for hemodialysis Follow electrolytes and continue supportive care
[2021-04-26] MEDS: oxyCODONE /ACETAMINOPHEN 5-325MG TAB PO PRN (21:13)
[2021-04-27] MEDS: PIPERACIL-TAZO 2.25 GM/50 ML 2.25 GM/50 ML BAG IV SCH (02:11)
[2021-04-27] MEDS ORDERED: SODIUM CHLORIDE 0.9% 500 ML 250 ML IV ONE (05:26)
[2021-04-27 06:05] LABS: Hematocrit 30.9 % (30.3-42.9); Mean Corpuscular HGB Conc 32 % (30-34); Mean Corpuscular Volume 87 fl (79-97); Platelet Count 150 K/mm3 (140-440); Red Blood Count 3.56 M/mm3 (3.65-5.03); Red Cell Distribution Width 16.4 % (13.2-15.2)
[2021-04-27 06:19] LABS: Calcium 8.4 mg/dL (8.4-10.2)
[2021-04-27] MEDS: GABAPENTIN 300 MG CAP PO SCH ×3 (08:26→23:31)
[2021-04-27] MEDS: INSULIN LISPRO 100 UNIT/ML SUB-Q SCH ×4 (08:38→23:32)
--- NOTE | 2021-04-27 11:01 | Progress Note ---
Assessment and Plan Assessment: Questionable Infected Perm-catheter End Stage Renal Disease on hemodialysis Hypertension, now Hypotensive Sepsis Itching Plan: S/P Hemodialysis yesterday via left AVF Consulted Dr. Reyna yesterday to remove patient's perm-catheter but states consult should go to Dr. Helms/Dr. Ortega as patient belongs to their group Spoke with Dr. Ortega yesterday regarding patient's perm-catheter suspecting infection and requested removal, he states to treat with antibiotics and refer h er to his office to have it removed Spoke to Dr. Ortega today and updated him that patient is Hypotensive, with fever and is lethargic due to Sepsis, advised him that perm-catheter needs to be removed during this hospitalization as soon as possible. He states he will notify Dr. Helms to remove the catheter. Fluid restriction of 1 liter per day Renally dose medications Obtain daily weights Monitor I/O's daily Assess dialysis needs daily Plan of care reviewed by Dr. Boone Subjective Date of service: 04/27/21 Principal diagnosis: ESRD, Perm-catheter site pain Interval history: Patient seen lying in bed, she is lethargic. Nurse reports patient has been Hypotensive and with fever. Objective - Vital Signs Vital signs: Vital Signs - 12hr 04/27/21 04/27/21 04/27/21 01:01 01:31 01:40 Temperature 101.6 F H Pulse Rate 91 H 86 Respiratory 19 17 Rate Blood Pressure 77/40 61/33 O2 Sat by Pulse 97 98 Oximetry 04/27/21 04/27/21 04/27/21 01:45 01:49 01:52 Temperature Pulse Rate 83 Respiratory 17 19 Rate Blood Pressure 61/33 O2 Sat by Pulse 98 96 Oximetry 04/27/21 04/27/21 04/27/21 02:01 02:21 02:51 Temperature Pulse Rate 84 84 81 Respiratory 17 16 16 Rate Blood Pressure 80/36 72/31 70/34 O2 Sat by Pulse 97 96 98 Oximetry 04/27/21 04/27/21 04/27/21 03:01 03:31 04:01 Temperature Pulse Rate 77 75 74 Respiratory 17 15 15 Rate Blood Pressure 70/34 74/33 74/36 O2 Sat by Pulse 97 100 100 Oximetry 04/27/21 04/27/21 04/27/21 04:31 05:01 05:31 Temperature Pulse Rate 72 70 70 Respiratory 15 16 14 Rate Blood Pressure 69/34 75/33 79/37 O2 Sat by Pulse 96 95 97 Oximetry 04/27/21 04/27/21 04/27/21 05:44 06:01 06:21 Temperature 98.1 F Pulse Rate 70 71 Respiratory 15 7 L Rate Blood Pressure 75/33 89/39 O2 Sat by Pulse 98 98 Oximetry 04/27/21 04/27/21 04/27/21 06:31 07:01 07:31 Temperature Pulse Rate 70 69 69 Respiratory 14 14 16 Rate Blood Pressure 89/39 83/37 83/37 O2 Sat by Pulse 100 97 97 Oximetry 04/27/21 04/27/21 04/27/21 07:51 08:01 08:31 Temperature 98.2 F Pulse Rate 67 68 Respiratory 14 14 Rate Blood Pressure 79/36 91/38 O2 Sat by Pulse 99 99 Oximetry 04/27/21 04/27/21 04/27/21 09:01 09:31 10:01 Temperature Pulse Rate 65 72 62 Respiratory 14 11 L 12 Rate Blood Pressure 89/38 102/45 111/40 O2 Sat by Pulse 100 98 100 Oximetry 04/27/21 10:31 Temperature Pulse Rate 61 Respiratory 12 Rate Blood Pressure 82/36 O2 Sat by Pulse 100 Oximetry - General Appearance General appearance: other (Lethargic) EENT: ATNC Neck: no JVD, supple Respiratory: Present: Decreased Breath Sounds Cardiology: S1S2 Gastrointestinal: normoactive bowel sounds Integumentary: warm and dry Neurologic: other (Lethargic) Musculoskeletal: other (no edema) - Lab 04/27/21 05:19 04/27/21 05:19 Most recent lab results Calcium 8.4 mg/dL (8.4-10.2) 04/27/21 05:19 Medications & Allergies - Medications Allergies/Adverse Reactions: Allergies lisinopril Allergy (Severe, Verified 04/27/21 12:09) Swelling swelling mouth and throat morphine Adverse Reaction (Verified 04/27/21 12:09) Unknown PT STATED IT MADE HER "FEEL REALLY STRANGE" Home Medications: Home Medications Medication Instructions Recorded Confirmed Last Taken Type Gabapentin 300 mg PO TID #90 capsule 09/12/18 01/28/21 02/09/21 Rx amLODIPine 10 mg PO DAILY #30 tablet 09/12/18 02/10/2121 08:00 Rx Carvedilol Cr [Coreg CR] 10 mg PO BID 01/28/21 01/28/21 02/09/21 History oxyCODONE /ACETAMINOPHEN [Percocet 1 tab PO Q6HR PRN #24 tablet 02/10/21 Unknown Rx 5/325 mg] Active Medications: Generic Name Dose Route Start Last Admin Trade Name Freq PRN Reason Stop Dose Admin Acetaminophen 650 mg 04/26/21 01:18 04/27/21 01:49 Acetaminophen 325 Mg Tab PO 650 mg Q4H PRN Administration Pain MILD(1-3)/Fever >100.5/ORTIZ Albuterol 2.5 mg 04/26/21 01:18 Albuterol 2.5 Mg/3 Ml Nebu IH Q4HRT PRN Shortness Of Breath Amlodipine Besylate 10 mg 04/26/21 10:00 04/26/21 15:24 Amlodipine 10 Mg Tab PO Not Given DAILY [facility] Carvedilol 6.25 mg 04/26/21 10:00 04/26/21 21:54 Carvedilol 6.25 Mg Tab PO 6.25 mg BID [facility] Administration Dextrose 0 ml 04/26/21 01:18 Dextrose 50% In Water (25gm) 50 Ml Syringe IV Q30MIN PRN Hypoglycemia Protocol Famotidine 20 mg 04/26/21 10:00 04/26/21 15:26 Famotidine 20 Mg Tab PO Not Given QAM [facility] Gabapentin 300 mg 04/26/21 08:00 04/27/21 08:26 Gabapentin 300 Mg Cap PO Not Given TID [facility] Hydralazine HCl 10 mg 04/26/21 01:36 Hydralazine 20 Mg/1 Ml Inj IV Q6H PRN Blood Pressure Hydromorphone HCl 0.25 mg 04/26/21 01:18 Hydromorphone 1 Mg/1 Ml Inj IV Q3H PRN Pain, Moderate (4-6) Sodium Chloride 100 mls @ 999 mls/hr 04/26/21 09:00 Nacl 0.9% IV FRANCHESCA PRN Hypotension Insulin Human Lispro 0 unit 04/26/21 07:30 04/27/21 08:38 Insulin Lispro 100 Unit/Ml SUB-Q Not Given ACHS [facility] Protocol Ondansetron HCl 4 mg 04/26/21 01:18 04/26/21 12:35 Ondansetron 4 Mg/2 Ml Inj IV 4 mg Q8H PRN Administration Nausea And Vomiting Oxycodone/Acetaminophen 1 tab 04/26/21 01:23 04/26/21 21:13 Oxycodone /Acetaminophen 5-325mg Tab PO 1 tab Q6H PRN Administration Pain, Moderate (4-6)
[2021-04-27] MEDS: carvediloL 6.25 MG TAB PO SCH ×2 (11:17→23:32)
[2021-04-27] MEDS: amLODIPine 10 MG TAB PO SCH (11:17)
[2021-04-27] MEDS: FAMOTIDINE 20 MG TAB PO SCH (11:17)
[2021-04-27 12:19] LABS: Total Cells Counted 100
[2021-04-27 12:20] LABS: Band Neutrophils # (Manual) 0.3 K/mm3; Platelet Estimate Consistent w Auto; RBC Morphology Normal
[2021-04-27] MEDS: oxyCODONE /ACETAMINOPHEN 5-325MG TAB PO PRN (15:34)
--- NOTE | 2021-04-27 17:04 | Progress Note ---
Assessment and Plan 63-year-old female with past medical history of end-stage renal disease on hemodialysis Sunday and Sunday and diabetes was brought to the emergency room because of pain around her PermCath site for the last 2 days and fever. Assessment and plan: --Infected PermCath Vascular consulted to remove PermCath Patient has AV fistula, continue hemodialysis with fistula for now Continue vancomycin 1 g IV every 12 hours. ID consulted --Bacteremia with staph aureus Continue vancomycin, follow culture result --Sepsis, POA Presented with fever, leukocytosis and PermCath infection Continue empiric antibiotics and follow final culture --ESRD needing dialysis Consult petrology teacher, dialysis nurse recommendation At nephrotoxins, follow BMP -- Hyperkalemia s/p Kayexalate 30 g p.o. x1 dose. S/p emergent hemodialysis Potassium level now normalized -- Hypertension, uncontrolled Hydralazine 10 mg IV every 6 hours as needed. Amlodipine 10 mg p.o. daily. We will continue the home medication -- Type 2 diabetes mellitus with diabetic chronic kidney disease Consistent carb diet, on Humalog sliding scale Accu-Chek before meals and at bedtime with low-dose coverage. Diabetic diet education --Right hip pain, ordered CT pelvis -- DVT prophylaxis Heparin 5000 units subcu every 8 hours for DVT prophylaxis. Pepcid 20 mg p.o. twice daily for GI prophylaxis. -- Patient is a full code Daily clinical course: 04/26: Patient seen and examined This is a second visit after midnight Patient getting HD Patient denies any chest pain or short of breath Continue empiric antibiotic, follow blood culture Vascular consulted wound care PermCath We will also consult ID Nephrology on board for hemodialysis Follow electrolytes and continue supportive care 04/27: Blood culture positive for staph aureus bacteremia. Medicine for now. Plan to remove PermCath by vascular. Patient complains of severe right hip pain. Ordered CT pelvis. Hemodialysis per nephrology, follow final blood culture result. Order 2D echo to rule out possible vegetation. We will repeat blood culture tomorrow. Subjective Date of service: 04/27/21 Principal diagnosis: ESRD, Perm-catheter site pain Interval history: Patient seen and examined. Medical records and medication list reviewed. No acute event overnight noted by the RN. Patient denies any chest pain or difficulty breathing. Patient is tolerating diet. Complains of severe right hip pain Discussed plan of care at bedside with patient. Objective - Exam Narrative Exam: GENERAL: well-developed and well-nourished elderly -[place] female lying on bed appeared to be in mild discomfort. HEENT: Normocephalic. Atraumatic. No conjunctival congestion or icterus. Pat ient has moist mucous membranes. NECK: Supple. Trachea midline. CHEST/LUNGS: Clear to auscultated bilaterally, breathing nonlabored. No wheezes crackles or rhonchi. HEART/CARDIOVASCULAR: Regular in rate and rhythm. S1 and S2 positive. ABDOMEN: Abdomen is soft, nontender. Patient has normal bowel sounds. SKIN: There is no rash. Warm and dry. NEURO: No focal motor deficit. Follows command. MUSCULOSKELETAL: No joint effusion, has a right hip tenderness but no swelling or redness. EXTRIMITY: No edema, no cyanosis or clubbing. PSYCH: Cooperative. - Constitutional Vitals: Vital Signs - 12hr 04/27/21 04/27/21 04/27/21 05:31 05:44 06:01 Temperature 98.1 F Pulse Rate 70 70 Respiratory 14 15 Rate Blood Pressure 79/37 75/33 O2 Sat by Pulse 97 98 Oximetry 04/27/21 04/27/21 04/27/21 06:21 06:31 07:01 Temperature Pulse Rate 71 70 69 Respiratory 7 L 14 14 Rate Blood Pressure 89/39 89/39 83/37 O2 Sat by Pulse 98 100 97 Oximetry 04/27/21 04/27/21 04/27/21 07:31 07:51 08:01 Temperature 98.2 F Pulse Rate 69 67 Respiratory 16 14 Rate Blood Pressure 83/37 79/36 O2 Sat by Pulse 97 99 Oximetry 04/27/21 04/27/21 04/27/21 08:31 09:00 09:01 Temperature Pulse Rate 68 65 Respiratory 14 14 Rate Blood Pressure 91/38 89/38 O2 Sat by Pulse 99 96 100 Oximetry 04/27/21 04/27/21 04/27/21 09:31 10:01 10:31 Temperature Pulse Rate 72 62 61 Respiratory 11 L 12 12 Rate Blood Pressure 102/45 111/40 82/36 O2 Sat by Pulse 98 100 100 Oximetry 04/27/21 04/27/21 04/27/21 11:01 11:31 12:01 Temperature Pulse Rate 61 62 59 L Respiratory 13 12 13 Rate Blood Pressure 85/35 92/36 97/42 O2 Sat by Pulse 98 100 100 Oximetry 04/27/21 04/27/21 04/27/21 12:31 13:01 13:31 Temperature Pulse Rate 62 71 63 Respiratory 13 13 16 Rate Blood Pressure 106/45 112/45 83/49 O2 Sat by Pulse 100 99 100 Oximetry 04/27/21 04/27/21 04/27/21 14:01 14:31 15:01 Temperature Pulse Rate 58 L 62 Respiratory 9 L 21 27 H Rate Blood Pressure 83/49 93/37 93/37 O2 Sat by Pulse 99 100 100 Oximetry - Labs CBC & Chem 7: 04/27/21 05:19 04/28/21 04:03 Labs: Abnormal lab results 04/27/21 04/27/21 04/27/21 Range/Units 05:19 05:19 16:40 RBC 3.56 L (3.65-5.03) M/mm3 Hgb 10.0 L (10.1-14.3) gm/dl RDW 16.4 H (13.2-15.2) % Seg Neuts % (Manual) 78.0 H (40.0-70.0) % Lymphocytes % (Manual) 9.0 L (13.4-35.0) % Monocytes % (Manual) 8.0 H (0.0-7.3) % Lymphocytes # (Manual) 0.6 L (1.2-5.4) K/mm3 BUN 40 H (7-17) mg/dL Creatinine 6.2 H (0.6-1.2) mg/dL POC Glucose 121 H (70-105) mg/dL
[2021-04-27] MEDS ORDERED: MORPHINE 2 MG/1 ML INJ IV PRN (17:08)
[2021-04-27] MEDS ORDERED: LIDOCAINE (1%) 10 MG/1 ML VIAL 20 ML MDV INFILTRATI NR (19:15)
[2021-04-27] MEDS ORDERED: LIDOCAINE (1%) 10 MG/1 ML VIAL 20 ML MDV INFILTRATI STA (19:15)
--- NOTE | 2021-04-28 00:22 | Procedure Note ---
DATE OF PROCEDURE: 04/27/2021 STAFF SURGEON: Navin Helms MD PREOPERATIVE DIAGNOSIS: End-stage renal disease. POSTOPERATIVE DIAGNOSIS: End-stage renal disease. PROCEDURE PERFORMED: Right IJ PermCath removal. COMPLICATIONS: None. ESTIMATED BLOOD LOSS: Minimal. ANESTHESIA: Local. INDICATIONS FOR PROCEDURE: This is a 65-year-old female with end-stage renal disease on hemodialysis, who is currently hospitalized with concerns of infected PermCath. The patient has undergone successful dialysis from right arm AV fistula and therefore is no longer a need of the patient is a Perm-A-Cath. Therefore, vascular was consulted for removal. The patient was explained the risks, benefits and alternative procedure, expressed understanding and wished to proceed. DESCRIPTION OF PROCEDURE: The appropriate consent was obtained, the patient was laid supine in the bed. The catheter exit site was prepped and draped in the usual sterile fashion. Appropriate timeout was performed indicating correct patient, procedure, and site of the procedure. We then began the intervention by infiltrating 1% lidocaine in the catheter exit site. The catheter cuff was then dissected out with blunt dissection and the catheter was removed in its entirety and discarded. A digital compression was held at the access site for hemostasis. Once we were satisfied with hemostasis, the catheter exit site was sutured shut with a 3-0 nylon suture in a [id number] fashion. Appropriate dressing was placed. The patient tolerated the procedure well and was left in a stable condition. TID: [id number] RECEIPT: [id number] JESSE/MADAY
[2021-04-28] MEDS: ONDANSETRON 4 MG/2 ML INJ IV PRN (01:36)
--- NOTE | 2021-04-28 08:15 | Progress Note ---
Assessment and Plan (1) Fever Current Visit: Yes Status: Acute Plan to address problem: Admit the patient to the medical floor. Fever could be from the infection ar ound the permacath. Vancomycin 1 g IV every 12 hours. Zosyn 4.5 g IV every 8 hours. We do the blood culture wound culture. Will consult wound care evaluation. Recheck CBC BMP in the morning. Consult surgery if needed can discontinue Zosyn at this time. Question is can patient's fever staph infection be treated at hemodialysis or with permacath need to be removed. Patient gives history of difficult catheterization procedures with permacath in the past. (2) ESRD needing dialysis Current Visit: Yes Status: Acute Plan to address problem: We consulted nephrology for dialysis in the morning. Avoid nephrotoxic drug. We will continue the home medication. Recheck BMP in the morning (3) Hyperkalemia Current Visit: No Status: Acute Plan to address problem: We will give Kayexalate 30 g p.o. x1 dose. Will consult nephrology for dialysis in the morning. We recheck BMP in the morning (4) Hypertension Current Visit: Yes Status: Acute Plan to address problem: Hydralazine 10 mg IV every 6 hours as needed. Blood pressure optimally controlled at this time. Amlodipine 10 mg p.o. daily. We will continue the home medication (5) Type 2 diabetes mellitus with diabetic chronic kidney disease Current Visit: No Status: Chronic Plan to address problem: We will put the patient on Humalog sliding scale Accu-Chek before meals and at bedtime with low-dose coverage. Diabetic diet education (6) DVT prophylaxis Current Visit: Yes Status: Acute Plan to address problem: Heparin 5000 units subcu every 8 hours for DVT prophylaxis. Pepcid 20 mg p.o. twice daily for GI prophylaxis. Patient is a full code Subjective Date of service: 04/28/21 Principal diagnosis: ESRD, Perm-catheter site pain Interval history: 65-year-old female with past medical history of end-stage renal disease on hemodialysis Sunday and Sunday and diabetes was brought to the emergency room because of pain around her PermCath site for the last 2 days. Patient denies any fever. Reports there has been thick fluid draining from the area. Patient states she was last dialyzed on Sunday, 5 days ago. Patient denies any shortness of breath. Patient was seen and evaluated here in our ED on yesterday. Patient was found to be febrile with a fever 101.5. Admission was recommended, however patient refused and left AMA. Patient returns again today because she states her sister called 911 and made her come to the ER. 04/28 patient today states she feels better. Feels good. I did explain her blood cultures significant for staph today. Patient recently had catheter removed right chest wall today. Tolerated procedure well. Objective - Constitutional Vitals: Vital Signs - 12hr 04/27/21 04/27/21 04/27/21 20:31 21:31 22:01 Temperature Pulse Rate 61 60 60 Respiratory Rate Blood Pressure 95/44 104/49 101/46 O2 Sat by Pulse 100 100 100 Oximetry 04/27/21 04/27/21 04/27/21 22:31 23:01 23:31 Temperature Pulse Rate 62 61 67 Respiratory Rate Blood Pressure 106/46 111/44 111/44 O2 Sat by Pulse 100 100 99 Oximetry 04/28/21 04/28/21 04/28/21 01:36 02:39 03:33 Temperature 97.9 F Pulse Rate 63 Respiratory 18 19 19 Rate Blood Pressure 80/31 O2 Sat by Pulse 100 100 Oximetry General appearance: Present: no acute distress, well-nourished - EENT Eyes: PERRL, EOM intact ENT: hearing intact, clear oral mucosa Ears: bilateral: normal - Neck Neck: supple, normal ROM - Respiratory Respiratory effort: normal Respiratory: bilateral: CTA - Breasts Breasts: normal - Cardiovascular Rhythm: regular Heart Sounds: Present: S1 & S2. Absent: gallop, rub Extremities: pulses intact, No edema, normal color, Full ROM Extremity abnormal: other (Left arm catheter functioning.) - Gastrointestinal General gastrointestinal: Present: soft, non-tender, non-distended, normal bowel sounds - Genitourinary Female genitourinary: normal - Integumentary Integumentary: clear, warm, dry - Musculoskeletal Musculoskeletal: 1, strength equal bilaterally - Neurologic Neurologic: moves all extremities - Psychiatric Psychiatric: memory intact, appropriate mood/affect, intact judgment & insight - Labs CBC & Chem 7: 04/27/21 05:19 04/28/21 04:03 Labs: Abnormal lab results 04/27/21 04/27/21 04/28/21 Range/Units 05:19 16:40 01:36 Seg Neuts % (Manual) 78.0 H (40.0-70.0) % Lymphocytes % (Manual) 9.0 L (13.4-35.0) % Monocytes % (Manual) 8.0 H (0.0-7.3) % Lymphocytes # (Manual) 0.6 L (1.2-5.4) K/mm3 BUN (7-17) mg/dL Creatinine (0.6-1.2) mg/dL Glucose (65-100) mg/dL POC Glucose 121 H 157 H (70-105) mg/dL Calcium (8.4-10.2) mg/dL 04/28/21 Range/Units 04:03 Seg Neuts % (Manual) (40.0-70.0) % Lymphocytes % (Manual) (13.4-35.0) % Monocytes % (Manual) (0.0-7.3) % Lymphocytes # (Manual) (1.2-5.4) K/mm3 BUN 52 H (7-17) mg/dL Creatinine 7.2 H (0.6-1.2) mg/dL Glucose 128 H (65-100) mg/dL POC Glucose (70-105) mg/dL Calcium 8.0 L (8.4-10.2) mg/dL
--- NOTE | 2021-04-28 08:45 | Progress Note ---
Assessment and Plan Assessment: Questionable Infected Perm-catheter End Stage Renal Disease on hemodialysis Hypertension, now Hypotensive Sepsis Itching Plan: Dr. Helms removed permcath yesterday HD today for clearance and volume removal Fluid restriction of 1 liter per day Renally dose medications Obtain daily weights Monitor I/O's daily Assess dialysis needs daily Subjective Date of service: 04/28/21 Principal diagnosis: ESRD, Perm-catheter site pain Interval history: permcath was removed yesterday, pt was in CT this AM Objective - Vital Signs Vital signs: Vital Signs - 12hr 04/27/21 04/27/21 04/27/21 21:31 22:01 22:31 Temperature Pulse Rate 60 60 62 Respiratory Rate Blood Pressure 104/49 101/46 106/46 O2 Sat by Pulse 100 100 100 Oximetry 04/27/21 04/27/21 04/28/21 23:01 23:31 01:36 Temperature Pulse Rate 61 67 Respiratory 18 Rate Blood Pressure 111/44 111/44 O2 Sat by Pulse 100 99 Oximetry 04/28/21 04/28/21 02:39 03:33 Temperature 97.9 F Pulse Rate 63 Respiratory 19 19 Rate Blood Pressure 80/31 O2 Sat by Pulse 100 100 Oximetry - Lab 04/27/21 05:19 04/28/21 04:03 Most recent lab results Calcium 8.0 mg/dL (8.4-10.2) L 04/28/21 04:03 Medications & Allergies - Medications Allergies/Adverse Reactions: Allergies lisinopril Allergy (Severe, Verified 04/27/21 12:09) Swelling swelling mouth and throat morphine Adverse Reaction (Verified 04/27/21 12:09) Unknown PT STATED IT MADE HER "FEEL REALLY STRANGE" Home Medications: Home Medications Medication Instructions Recorded Confirmed Last Taken Type Gabapentin 300 mg PO TID #90 capsule 09/12/18 01/28/21 02/09/21 Rx amLODIPine 10 mg PO DAILY #30 tablet 09/12/18 02/10/21 02/10/21 08:00 Rx Carvedilol Cr [Coreg CR] 10 mg PO BID 01/28/21 01/28/21 02/09/21 History oxyCODONE /ACETAMINOPHEN [Percocet 1 tab PO Q6HR PRN #24 tablet 02/10/21 Unk nown Rx 5/325 mg] Active Medications: Generic Name Dose Route Start Last Admin Trade Name Freq PRN Reason Stop Dose Admin Acetaminophen 650 mg 04/26/21 01:18 04/27/21 01:49 Acetaminophen 325 Mg Tab PO 650 mg Q4H PRN Administration Pain MILD(1-3)/Fever >100.5/ORTIZ Albuterol 2.5 mg 04/26/21 01:18 Albuterol 2.5 Mg/3 Ml Nebu IH Q4HRT PRN Shortness Of Breath Amlodipine Besylate 10 mg 04/26/21 10:00 04/27/21 11:17 Amlodipine 10 Mg Tab PO Not Given DAILY DAMIEN Carvedilol 6.25 mg 04/26/21 10:00 04/27/21 23:32 Carvedilol 6.25 Mg Tab PO Not Given BID [facility] Dextrose 0 ml 04/26/21 01:18 Dextrose 50% In Water (25gm) 50 Ml Syringe IV Q30MIN PRN Hypoglycemia Protocol Famotidine 20 mg 04/26/21 10:00 04/27/21 11:17 Famotidine 20 Mg Tab PO 20 mg QAM DAMIEN Administration Gabapentin 300 mg 04/26/21 08:00 04/27/21 23:31 Gabapentin 300 Mg Cap PO 300 mg TID DAMIEN Administration Hydralazine HCl 10 mg 04/26/21 01:36 Hydralazine 20 Mg/1 Ml Inj IV Q6H PRN Blood Pressure Hydromorphone HCl 0.25 mg 04/26/21 01:18 Hydromorphone 1 Mg/1 Ml Inj IV Q3H PRN Pain, Moderate (4-6) Sodium Chloride 100 mls @ 999 mls/hr 04/26/21 09:00 Nacl 0.9% IV FRANCHESCA PRN Hypotension Insulin Human Lispro 0 unit 04/26/21 07:30 04/27/21 23:32 Insulin Lispro 100 Unit/Ml SUB-Q Not Given ACHS [facility] Protocol Morphine Sulfate 2 mg 04/27/21 17:08 04/28/21 01:36 Morphine 2 Mg/1 Ml Inj IV 2 mg Q4H PRN Administration Pain , Severe (7-10) Ondansetron HCl 4 mg 04/26/21 01:18 04/28/21 01:36 Ondansetron 4 Mg/2 Ml Inj IV 4 mg Q8H PRN Administration Nausea And Vomiting Oxycodone/Acetaminophen 1 tab 04/26/21 01:23 04/27/21 15:34 Oxycodone /Acetaminophen 5-325mg Tab PO 1 tab Q6H PRN Administration Pain, Moderate (4-6)
--- NOTE | 2021-04-28 08:57 | Cat Scan Report ---
CT LOWER EXTREMITY RIGHT WITHOUT CONTRAST INDICATION : pain , PT STATES THAT SHE HAS A SORE ON THE BOTTOM OF HER RIGHT HEEL X 1 YEAR. . Pain TECHNIQUE: Axial imaging performed through the distal right lower extremity including the foot. with out the use of contrast. All CT scans at this location are performed using CT dose reduction for ALA RA by means of automated exposure control. COMPARISON: MR right lower extremity dated 09/09/2018 FINDINGS: There is a large soft tissue/skin ulceration on the plantar surface of the foot measuring u p to 2.7 cm in diameter and 1.1 cm in depth. There is moderate skin thickening in this area but no ev idence for abscess or soft tissue gas. This ulceration does not extend to bone. The calcaneus is rancho edly deformed and slightly sclerotic and appears grossly unchanged since the 2019 MRI. No convincing bony destruction to suggest acute osteomyelitis is detected on noncontrast CT. The remaining bony str uctures are demineralized but intact. There are moderate osteoarthritic changes throughout the distal foot. There is a metallic density in the mid to distal shaft of the tibia which appears to represent a retained orthopedic screw, correlate with history. There is an approximate 1 cm linear metallic density in the plantar soft tissues underneath the fifth metatarsal base which may represent a foreign body such as a needle. This is best demonstrated on im ages 116-121, series 2. Please correlate with the images and the patient. IMPRESSION: Large soft tissue ulceration on the plantar surface of the foot beneath the calcaneus no evidence for abscess or soft tissue gas. The calcaneus appears deformed and slightly sclerotic is grossly unchang ed since 2019. No convincing acute osteomyelitis on noncontrast CT. If further evaluation is needed c onsider MRI or bone scan. Possible metallic foreign body in the plantar soft tissues as described. Signer Name: Oscar Branham Jr, MD Signed: 04/28/2021 8:52 AM Workstation Name: [id number]
[2021-04-28] MEDS: FAMOTIDINE 20 MG TAB PO SCH (09:15)
[2021-04-28] MEDS: GABAPENTIN 300 MG CAP PO SCH ×3 (09:15→21:41)
[2021-04-28] MEDS: carvediloL 6.25 MG TAB PO SCH ×2 (09:17→21:41)
[2021-04-28] MEDS: amLODIPine 10 MG TAB PO SCH (09:17)
[2021-04-28] MEDS: INSULIN LISPRO 100 UNIT/ML SUB-Q SCH ×4 (09:18→21:41)
--- NOTE | 2021-04-28 13:44 | Cat Scan Report ---
CT pelvis without contrast INDICATION : right pelvic pain. TECHNIQUE: Axial imaging performed through the pelvis without the use of contrast. All CT scans at this location are performed using CT dose reduction for ALARA by means of automated exposure control. COMPARISON: CT abdomen/pelvis from 06/13/2020 FINDINGS: There is mild degenerative change in the hips and SI joints with posterior fusion change in the lumbar spine. No acute osseous abnormality or malalignment. No osteonecrosis. Aside from very mi ld generalized subcutaneous edema about the lower abdomen and pelvis which could represent a componen t of anasarca, there is no soft tissue wound or gross acute musculotendinous abnormality. There is a calcified uterine fibroid and calcified vessels in the uterine wall. No pelvic free fluid or acute abnormality identified. An IVC filter is positioned below the level the renal veins. IMPRESSION: Degenerative changes in the pelvis with no acute abnormality identified. Signer Name: Stan Cheek MD Signed: 04/28/2021 1:40 PM Workstation Name: [id number]
[2021-04-29] MEDS: GABAPENTIN 300 MG CAP PO SCH ×2 (08:46→14:25)
--- NOTE | 2021-04-29 08:54 | Progress Note ---
Assessment and Plan Assessment: Questionable Infected Perm-catheter End Stage Renal Disease on hemodialysis Hypertension, now Hypotensive Sepsis Itching Plan: Dr. Helms removed permcath 04/28 no indication for HD today Fluid restriction of 1 liter per day Renally dose medications Obtain daily weights Monitor I/O's daily Assess dialysis needs daily Subjective Date of service: 04/29/21 Principal diagnosis: ESRD, Perm-catheter site pain Interval history: tolerated HD yesterday Objective - Vital Signs Vital signs: Vital Signs - 12hr 04/28/21 04/28/21 04/29/21 23:04 23:48 06:23 Temperature 98.7 F 97.6 F Pulse Rate 74 66 Respiratory 18 18 18 Rate Blood Pressure 107/57 105/47 O2 Sat by Pulse 98 100 99 Oximetry 04/29/21 07:37 Temperature 97.9 F Pulse Rate 69 Respiratory 18 Rate Blood Pressure 122/45 O2 Sat by Pulse 99 Oximetry - General Appearance General appearance: well-developed, well-nourished EENT: ATNC, PERRL Neck: no JVD, no carotid bruit Respiratory: Present: Clear to Ascultation. Absent: Rales, Ronchi Cardiology: regular, S1S2 Gastrointestinal: normoactive bowel sounds Integumentary: no rash, warm and dry Neurologic: no focal deficit, no asterixis - Lab 04/27/21 05:19 04/28/21 04:03 Most recent lab results Calcium 8.0 mg/dL (8.4-10.2) L 04/28/21 04:03 Medications & Allergies - Medications Allergies/Adverse Reactions: Allergies lisinopril Allergy (Severe, Verified 04/27/21 12:09) Swelling swelling mouth and throat morphine Adverse Reaction (Verified 04/27/21 12:09) Unknown PT STATED IT MADE HER "FEEL REALLY STRANGE" Home Medications: Home Medications Medication Instructions Recorded Confirmed Last Taken Type Gabapentin 300 mg PO TID #90 capsule 09/12/18 01/28/21 02/09/21 Rx amLODIPine 10 mg PO DAILY #30 tablet 09/12/18 02/10/21 02/10/21 08:00 Rx Carvedilol Cr [Coreg CR] 10 mg PO BID 01/28/21 01/28/21 02/09/21 History oxyCODONE /ACETAMINOPHEN [Percocet 1 tab PO Q6HR PRN #24 tablet 02/10/21 Unknown Rx 5/325 mg] Active Medications: Generic Name Dose Route Start Last Admin Trade Name Frewendy PRN Reason Stop Dose Admin Acetaminophen 650 mg 04/26/21 01:18 04/27/21 01:49 Acetaminophen 325 Mg Tab PO 650 mg Q4H PRN Administration Pain MILD(1-3)/Fever >100.5/ORTIZ Albuterol 2.5 mg 04/26/21 01:18 Albuterol 2.5 Mg/3 Ml Nebu IH Q4HRT PRN Shortness Of Breath Amlodipine Besylate 10 mg 04/26/21 10:00 04/28/21 09:17 Amlodipine 10 Mg Tab PO Not Given DAILY DAMIEN Carvedilol 6.25 mg 04/26/21 10:00 04/28/21 21:41 Carvedilol 6.25 Mg Tab PO 6.25 mg BID DAMIEN Administration Dextrose 0 ml 04/26/21 01:18 Dextrose 50% In Water (25gm) 50 Ml Syringe IV Q30MIN PRN Hypoglycemia Protocol Famotidine 20 mg 04/26/21 10:00 04/28/21 09:15 Famotidine 20 Mg Tab PO 20 mg QAM DAMIEN Administration Gabapentin 300 mg 04/26/21 08:00 04/28/21 21:41 Gabapentin 300 Mg Cap PO 300 mg TID DAMIEN Administration Hydralazine HCl 10 mg 04/26/21 01:36 Hydralazine 20 Mg/1 Ml Inj IV Q6H PRN Blood Pressure Hydromorphone HCl 0.25 mg 04/26/21 01:18 04/27/21 05:48 Hydromorphone 1 Mg/1 Ml Inj IV 0.25 mg Q3H PRN Administration Pain, Moderate (4-6) Sodium Chloride 100 mls @ 999 mls/hr 04/26/21 09:00 Nacl 0.9% IV FRANCHESCA PRN Hypotension Insulin Human Lispro 0 unit 04/26/21 07:30 04/28/21 21:41 Insulin Lispro 100 Unit/Ml SUB-Q Not Given ACHS [facility] Protocol Morphine Sulfate 2 mg 04/27/21 17:08 04/28/21 01:36 Morphine 2 Mg/1 Ml Inj IV 2 mg Q4H PRN Administration Pain , Severe (7-10) Ondansetron HCl 4 mg 04/26/21 01:18 04/28/21 01:36 Ondansetron 4 Mg/2 Ml Inj IV 4 mg Q8H PRN Administration Nausea And Vomiting Oxycodone/Acetaminophen 1 tab 04/26/21 01:23 04/27/21 15:34 Oxycodone /Acetaminophen 5-325mg Tab PO 1 tab Q6H PRN Administration Pain, Moderate (4-6)
[2021-04-29] MEDS: INSULIN LISPRO 100 UNIT/ML SUB-Q SCH ×2 (09:35→12:05)
[2021-04-29] MEDS: carvediloL 6.25 MG TAB PO SCH (10:46)
[2021-04-29] MEDS: amLODIPine 10 MG TAB PO SCH (10:46)
[2021-04-29] MEDS: FAMOTIDINE 20 MG TAB PO SCH (10:46)
--- NOTE | 2021-04-29 11:44 | Discharge Summary ---
Providers - Providers Date of Admission: 04/26/21 15:54 Date of discharge: 04/29/21 Attending physician: VAL CONTI 04/26/21 01:18 Consult to Dietitian/Nutrition [CONS] Routine Physician Instructions: Reason For Exam: Reason for Consult: Diet education Consult to Physician [CONS] Routine Comment: Consulting Provider: JAZZMINE HANSEN Physician Instructions: Reason For Exam: esrd 04/26/21 01:36 Consult to Wound/ET Nurse [CONS] Routine Reason For Exam: wound eval 04/26/21 12:23 Consult to Physician [CONS] Routine Comment: Consulting Provider: NIGEL ZIMMERMAN Physician Instructions: Reason For Exam: ESRD 04/27/21 14:05 Consult to Physician [CONS] Routine Comment: Consulting Provider: COMPA MORA Physician Instructions: Reason For Exam: Perm-catheter removal 04/28/21 09:36 Consult to Wound/ET Nurse [CONS] Routine Reason For Exam: wound eval 04/28/21 17:59 Consult to Physician [CONS] Routine Comment: can pt treat with vanco or does cather need to be Consulting Provider: LEWIS DIEGO Physician Instructions: Reason For Exam: treat line infec Primary care physician: PNEUMATIC TESTER Hospitalization Condition: Stable Pertinent studies: T scan of abdomen unremarkable no abscess CT scan of lower extremity just show her chronic ulcer with no abscess no evidence of osteomyelitis no evidence of infection. Procedures: Previous blood culture data showed MSSA Hospital course: 65-year-old with a history of hypertension end-stage renal disease, multiple episodes of catheter replacement. Presents this time with pain and drainage around the left permacath. Patient had fever of 101.3 on initial presentation since that time patient has been afebrile. Patient immediately had permacath removed by interventional radiology. Patient has since done well. Has been afebrile with normal white count. Blood culture data on nine seven showed MSSA. Since patient has complicated insertion of line at this time we will continue to use the line and left arm and treat with cefazolin at dialysis. I have contacted infectious disease and renal Dr. Hargrove for plan. Patient also states she was leaving anyway whether she was discharged or not. Has left AMA in the past. I thought it was better to set her up with a plan. Patient also has the number to my office in case something happens she can come there if she develops fever or any untoward effects. Disposition: 01 HOME / SELF CARE / HOMELESS Final Discharge Diagnosis (Prints w/discharge instructions): Bacteremia staff. Infected permacath - Discharge Diagnoses (1) ESRD needing dialysis Status: Acute (2) Hypertension Status: Acute (3) Bacteremia due to Gram-positive bacteria Status: Acute Core Measure Documentation - Palliative Care Palliative Care/ Comfort Measures: Not Applicable - Core Measures Any of the following diagnoses?: none Exam - Constitutional Vitals: Temp Pulse Resp BP Pulse Ox 97.9 F 78 16 118/55 100 04/29/21 07:37 04/29/21 10:46 04/29/21 10:13 04/29/21 10:46 04/29/21 10:13 General appearance: Present: no acute distress, well-nourished - EENT Eyes: Present: PERRL ENT: hearing intact, clear oral mucosa - Neck Neck: Present: supple, normal ROM - Respiratory Respiratory effort: normal Respiratory: bilateral: CTA - Cardiovascular Heart Sounds: Present: S1 & S2. Absent: rub, click - Extremities Extremities: pulses symmetrical, No edema Peripheral Pulses: within normal limits - Abdominal General gastrointestinal: Present: soft, non-tender, non-distended, normal bowel sounds Female genitourinary: Present: normal - Integumentary Integumentary: Present: clear, warm, dry - Musculoskeletal Musculoskeletal: gait normal, strength equal bilaterally - Psychiatric Psychiatric: appropriate mood/affect, intact judgment & insight - Neurologic Neurologic: CNII-XII intact, moves all extremities Plan Activity: no restrictions Diet: low salt, renal Follow up with: PRIMARY CARE, [Primary Care Provider] - 3-5 Days Prescriptions: oxyCODONE /ACETAMINOPHEN [Percocet 5/325 mg] 1 tab PO Q6HR PRN #24 tablet PRN Reason: Pain, Moderate (4-6)
[2021-04-29 12:18] VITALS: BP 112/86
--- NOTE | 2021-04-29 12:57 | Consultation ---
History of Present Illness - Reason for Consult Consult date: 04/29/21 - History of Present Illness 63-year-old female past medical history ESRD on HD, HTN, diabetes presented to hospital with pain and tenderness around the permacath site last 2 days. She denies any fevers, however was reportedly was purulent fluid draining from the area. Her PermCath is already been removed. She initially presented to the ER, blood cultures were obtained which grew MSSA, however she left AMA. Her family insisted on her return today for treatment. Afebrile, white count 6.6. Blood cultures with MSSA. Currently on vancomycin. Images personally reviewed: Pelvis CT: Degenerative changes in the pelvis, no abscess. Lower extremity CT: Right foot soft tissue ulceration in the plantar surface, no evidence of abscess or soft tissue gas. No acute change from previous imaging. Review of Systems: Bold if positive, otherwise negative General: fevers, chills, rigors HEENT: visual disturbance, diplopia, eye pain Respiratory: cough, sputum, hemoptysis, shortness of breath Cardiovascular: chest pain, syncope Gastrointestinal: nausea, vomiting, diarrhea, abdominal pain Genitourinary: dysuria, hematuria, flank pain Musculoskeletal: neck pain, back pain, joint pain, edema Neurologic: headaches, seizures Hematologic: easy bruising or bleeding Endocrine: night sweats, acute weight loss Skin: rash, jaundice, redness Psychiatric: suicidal, homicidal ideation Past History Past Medical History: diabetes, ESRD, GERD, hypertension, other (Sleep apnea, diabetic foot ulcer right foot) Past Surgical History: Other (Back surgery, gastric bypass surgery 05/28/2015. Goiter removed) Medications and Allergies Allergies Allergy/AdvReac Type Severity Reaction Status Date / Time lisinopril Allergy Severe Swelling Verified 04/27/21 12:09 morphine AdvReac Unknown Verified 04/27/21 12:09 Home Medications Medication Instructions Recorded Confirmed Last Taken Type Gabapentin 300 mg PO TID #90 capsule 09/12/18 01/28/21 02/09/21 Rx amLODIPine 10 mg PO DAILY #30 tablet 09/12/18 02/10/21 02/10/21 08:00 Rx Carvedilol Cr [Coreg CR] 10 mg PO BID 01/28/21 01/28/21 02/09/21 History ALBUTEROL NEB's [Proventil 0.083% 2.5 mg IH Q4HRT PRN nebu 04/29/21 Unknown Rx NEBS] Acetaminophen [Acetaminophen TAB] 650 mg PO Q4H PRN tablet 04/29/21 Unknown Rx Famotidine [Pepcid] 20 mg PO QAM tablet 04/29/21 Unknown Rx Gabapentin 300 mg PO TID capsule 04/29/21 Unknown Rx amLODIPine 10 mg PO DAILY tablet 04/29/21 Unknown Rx carvediloL [Coreg] 6.25 mg PO BID tablet 04/29/21 Unknown Rx oxyCODONE /ACETAMINOPHEN [Percocet 1 tab PO Q6HR PRN #24 tablet 04/29/21 Unknown Rx 5/325 mg] Active Meds: Active Medications Acetaminophen (Acetaminophen 325 Mg Tab) 650 mg PO Q4H PRN PRN Reason: Pain MILD(1-3)/Fever >100.5/ORTIZ Last Admin: 04/27/21 01:49 Dose: 650 mg Documented by: Albuterol (Albuterol 2.5 Mg/3 Ml Nebu) 2.5 mg IH Q4HRT PRN PRN Reason: Shortness Of Breath Amlodipine Besylate (Amlodipine 10 Mg Tab) 10 mg PO DAILY [facility] Last Admin: 04/29/21 10:46 Dose: 10 mg Documented by: Carvedilol (Carvedilol 6.25 Mg Tab) 6.25 mg PO BID [facility] Last Admin: 04/29/21 10:46 Dose: 6.25 mg Documented by: Dextrose (Dextrose 50% In Water (25gm) 50 Ml Syringe) 0 ml IV Q30MIN PRN; Protocol PRN Reason: Hypoglycemia Famotidine (Famotidine 20 Mg Tab) 20 mg PO QAM [facility] Last Admin: 04/29/21 10:46 Dose: 20 mg Documented by: Gabapentin (Gabapentin 300 Mg Cap) 300 mg PO TID [facility] Last Admin: 04/29/21 08:46 Dose: 300 mg Documented by: Hydralazine HCl (Hydralazine 20 Mg/1 Ml Inj) 10 mg IV Q6H PRN PRN Reason: Blood Pressure Hydromorphone HCl (Hydromorphone 1 Mg/1 Ml Inj) 0.25 mg IV Q3H PRN PRN Reason: Pain, Moderate (4-6) Last Admin: 04/27/21 05:48 Dose: 0.25 mg Documented by: Sodium Chloride (Nacl 0.9%) 100 mls @ 999 mls/hr IV FRANCHESCA PRN PRN Reason: Hypotension Insulin Human Lispro (Insulin Lispro 100 Unit/Ml) 0 unit SUB-Q ACHS [facility]; Protocol Last Admin: 04/29/21 12:05 Dose: Not Given Documented by: Morphine Sulfate (Morphine 2 Mg/1 Ml Inj) 2 mg IV Q4H PRN PRN Reason: Pain , Severe (7-10) Last Admin: 04/28/21 01:36 Dose: 2 mg Documented by: Ondansetron HCl (Ondansetron 4 Mg/2 Ml Inj) 4 mg IV Q8H PRN PRN Reason: Nausea And Vomiting Last Admin: 04/28/21 01:36 Dose: 4 mg Documented by: Oxycodone/Acetaminophen (Oxycodone /Acetaminophen 5-325mg Tab) 1 tab PO Q6H PRN PRN Reason: Pain, Moderate (4-6) Last Admin: 04/27/21 15:34 Dose: 1 tab Documented by: Physical Examination - Physical Exam Narrative exam: Physical Exam: Constitutional: Alert, cooperative. No acute distress Head, Ears, Nose: Normocephalic, atraumatic. External ears, nose normal Eyes: Conjunctivae/corneas clear. No icterus. No ptosis. Neck: Supple, no meningeal signs Oral: dentition fair, no thrush Cardiovascular: S1, S2 normal. Respiratory: Good air entry, clear to auscultation bilaterally GI: Soft, non-tender; bowel sounds normal. No peritoneal signs. Musculoskeletal: Right calcaneal wound Skin: No rash or abscess Hem/Lymphatic: No palpable cervical or supraclavicular nodes. No lymphangitis Psych: Mood ok. Affect normal Neurological: Awake, alert, oriented. No gross abnormality - Constitutional Vitals: Vital Signs Temp Pulse Resp BP Pulse Ox 97.9 F 78 16 112/86 100 04/29/21 12:02 04/29/21 10:46 04/29/21 12:02 04/29/21 12:02 04/29/21 10:13 Temperature -Last 24 Hours Temperature 97.9 F Temperature 97.9 F Temperature 97.6 F Temperature 98.7 F Temperature 98.7 F Temperature 97.9 F Temperature 97.5 F Temperature 98.0 F Results - Labs CBC & Chem 7: 04/27/21 05:19 04/28/21 04:03 Labs: Abnormal lab results 04/28/21 04/29/21 Range/Units 16:44 12:00 POC Glucose 128 H 156 H (70-105) mg/dL Assessment and Plan Cultures: Blood culture 04/26/2021 MSSA Blood culture 04/28/2021 no growth so far A/P: 63-year-old female past medical history ESRD on HD, HTN, diabetes admitted with MSSA line infection #MSSA line infection: Since been removed, Vas-Cath in place for temporary purposes. Repeat cultures no growth so far, currently on vancomycin. TTE without vegetation #ESRD on HD: Renally dose medications. #Diabetes: tight glycemic control for best outcomes. #R calcaneal wound: no evidence of acute infection at the present time. Recs: -Okay for Vas-Cath for now, if placing long-term line recommend 48 hours negative cultures. -Stop vancomycin -Started cefazolin 2 g every 24 hours -Case management consulted for cefazolin 2g-2g-3g with HD until 05/26/2021 Thank you for the consult, we will sign off. please call with questions. MD Eliu Connolly [facility] O: [phone] F: [phone]
[2021-04-29] MEDS: oxyCODONE /ACETAMINOPHEN 5-325MG TAB PO PRN (16:08)
== END 2021-04-29 17:08 | disposition home or self-care (01) | DRG 314 ==
LOC: ED 19:51 → 4A 04-26 00:54 → OBSVTOIN 04-26 15:54 → 4A 04-27 22:19
PROVIDERS: ADMIT Hospitalist; ATTEND Internal Medicine
PROC: 5A1D70Z Performance of Urinary Filtration, Intermittent, Less than 6 Hours Per Day (ICD-10-PCS; 2021-04-26)
PROC: 05PYX3Z Removal of Infusion Device from Upper Vein, External Approach (ICD-10-PCS; principal; 2021-04-27)
PROC: 5A1D70Z Performance of Urinary Filtration, Intermittent, Less than 6 Hours Per Day (ICD-10-PCS; 2021-04-28)
DX: T80.211A Bloodstream infection due to central venous catheter, initial encounter (principal); A41.01 Sepsis due to Methicillin susceptible Staphylococcus aureus; N18.6 End stage renal disease; I12.0 Hypertensive chronic kidney disease with stage 5 chronic kidney disease or end stage renal disease; Z99.2 Dependence on renal dialysis; E11.22 Type 2 diabetes mellitus with diabetic chronic kidney disease; K21.9 Gastro-esophageal reflux disease without esophagitis; Z90.49 Acquired absence of other specified parts of digestive tract; Z87.891 Personal history of nicotine dependence; E87.5 Hyperkalemia; M25.551 Pain in right hip; Y83.8 Other surgical procedures as the cause of abnormal reaction of the patient, or of later complication, without mention of misadventure at the time of the procedure; Y92.89 Other specified places as the place of occurrence of the external cause
CPT/HCPCS: 36415; 71045; 72192; 80048; 80053; 80074; 80202; 82140; 82962; 85007; 85025; 86403; 87040; 87076; 87186; 93306; 96365; 96366; 99284; G0378; J1170; J1200; J2270; J2405; J2543; J3370; J7040; Q0162

== ENCOUNTER 2021-09-26 09:17 | Emergency (ER) | payer MEDICARE ==
[2021-09-26 09:27] VITALS: BP 148/50
--- NOTE | 2021-09-26 09:58 | Event Note ---
ED Screening Note ED Screening Note: 65 yo comes to er with weakness - acute this AM HD Sunday no cp no sob no hx cva This initial assessment/diagnostic orders/clinical plan/treatment(s) is/are subject to change based on patients health status, clinical progression and re- assessment by fellow clinical providers in the ED. Further treatment and workup at subsequent clinical providers discretion. Patient/guardian urged not to elope from the ED as their condition may be serious if not clinically assessed and managed. Initial orders include: ct labs ua ro need for HD
--- NOTE | 2021-09-26 10:49 | XRay Report ---
CHEST 2 VIEWS INDICATION / CLINICAL INFORMATION: Weakness. COMPARISON: 04/26/21. FINDINGS: SUPPORT DEVICES: The right jugular Port-A-Cath has been removed. HEART / MEDIASTINUM: The heart size and pulmonary vasculature are normal for technique. There is prom inent calcification in the aortic arch without aneurysm. LUNGS / PLEURA: No significant pulmonary or pleural abnormality. No pneumothorax. ADDITIONAL FINDINGS: There are itfp-ak-dominooo degenerative changes involving both shoulders. IMPRESSION: No acute findings. Signer Name: Patrick Jackson MD Signed: 09/26/2021 10:44 AM Workstation Name: [id number]
--- NOTE | 2021-09-26 11:09 | Cat Scan Report ---
CT head/brain wo con INDICATION / CLINICAL INFORMATION: 65 years Female; Weakness. TECHNIQUE: Routine CT head without contrast. All CT scans at this location are performed using CT dos e reduction for ALARA by means of automated exposure control. COMPARISON: None. FINDINGS: BRAIN / INTRACRANIAL CONTENTS: No acute hemorrhage, mass effect, midline shift, hydrocephalus, or acu te, large territorial infarct. Mild, diffuse cerebral and cerebellar atrophy. There are mild areas of decreased attenuation in the white matter of the cerebral hemispheres. These are nonspecific findings and may be related to microangiopathy (hypertension, diabetes, atheroscleros is), given the patient's age. It might be difficult to evaluate for small areas of ischemia without d iffusion imaging by MRI. CRANIOCERVICAL JUNCTION: No significant abnormality. ORBITS: No significant abnormality of visualized orbits. SINUSES / MASTOIDS: Visualized paranasal sinuses and mastoid air cells are essentially clear. ADDITIONAL FINDINGS: Atherosclerotic disease is seen in the anterior circulation. IMPRESSION: 1. No focal mass, hemorrhage, hydrocephalus, or acute, large territorial infarct. Signer Name: Adam Kc MD, III Signed: 09/26/2021 11:03 AM Workstation Name: [id number]
[2021-09-26 11:33] LABS: INR 0.89 (0.87-1.13)
[2021-09-26 11:51] LABS: Albumin 3.7 g/dL (3.9-5); Calcium 8.3 mg/dL (8.4-10.2)
[2021-09-26] MEDS ORDERED: ACETAMINOPHEN 325 MG TAB PO ONE (13:57)
[2021-09-26] MEDS ORDERED: ONDANSETRON 4 MG ODT TAB PO ONE (13:57)
--- NOTE | 2021-09-26 14:46 | Cat Scan Report ---
CT ABDOMEN AND PELVIS WITHOUT CONTRAST INDICATION / CLINICAL INFORMATION: abd pain n/v/d. TECHNIQUE: Axial CT images were obtained through the abdomen and pelvis without IV contrast. Sagittal and patel l reformatted images. All CT scans at this location are performed using CT dose reduction for ALARA b y means of automated exposure control. COMPARISON: 06/13/2020 FINDINGS: LOWER CHEST: No significant abnormality. LIVER: No significant abnormality. 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 GALLBLADDER: Surgically removed. BILE DUCTS: No significant abnormality. PANCREAS: No significant abnormality. SPLEEN: No significant abnormality. ADRENALS: No significant abnormality. RIGHT KIDNEY and URETER: No significant abnormality. LEFT KIDNEY and URETER: No significant abnormality. STOMACH and SMALL BOWEL: Surgical changes are again noted in the stomach which probably represent gas tric bypass. Surgical changes are also noted in the mid small bowel. There is no evidence for obstruc tion or focal inflammation. COLON: No significant abnormality. APPENDIX: No significant abnormality. PERITONEUM: No free fluid. No free air. No fluid collection. LYMPH NODES: No significant adenopathy. AORTA and ARTERIES: Moderate atherosclerotic calcification without acute abnormality. IVC and VEINS: No significant abnormality. Infrarenal IVC filter is noted. URINARY BLADDER: No significant abnormality. REPRODUCTIVE ORGANS: No significant abnormality. ADDITIONAL FINDINGS: None. SKELETAL SYSTEM: Stable appearance of the posterior lumbar fusion. No acute osseous abnormality. IMPRESSION: No acute process is identified. Surgical changes as described. No acute change is appreciated since 06/13/2020. IVC Filter Recommendation: IVC filters should be removed if possible when they are no longer clinical ly necessary. (1) Refer to the established IVC filter management plan; (2) If there is no established plan for the patient's IVC filter, consider referral to interventional/vascular clinician on a nonem ergent basis for evaluation. Signer Name: Oscar Branham Jr, MD Signed: 09/26/2021 2:42 PM Workstation Name: [id number]
[2021-09-26 15:19] LABS: Chol/HDL Ratio 2.94 %
--- NOTE | 2021-09-26 16:02 | Consultation ---
History of Present Illness - Reason for Consult Consult date: 09/26/21 end stage renal disease - History of Present Illness pt with ESRD on HD every MWF, last tx Sunday, she presented to the ER for not feeling well. renal evaluation was requested for h/o ESRD Past History Past Medical History: ESRD, hypertension Medications and Allergies Allergies Allergy/AdvReac Type Severity Reaction Status Date / Time lisinopril Allergy Severe Swelling Verified 04/27/21 12:09 morphine AdvReac Unknown Verified 04/27/21 12:09 Home Medications Medication Instructions Recorded Confirmed Last Taken Type Gabapentin 300 mg PO TID #90 capsule 09/12/18 01/28/21 02/09/21 Rx amLODIPine 10 mg PO DAILY #30 tablet 09/12/18 02/10/21 02/10/21 08:00 Rx Carvedilol Cr [Coreg CR] 10 mg PO BID 01/28/21 01/28/21 02/09/21 History ALBUTEROL NEB's [Proventil 0.083% 2.5 mg IH Q4HRT PRN nebu 04/29/21 Unknown Rx NEBS] Acetaminophen [Acetaminophen TAB] 650 mg PO Q4H PRN tablet 04/29/21 Unknown Rx Famotidine [Pepcid] 20 mg PO QAM tablet 04/29/21 Unknown Rx Gabapentin 300 mg PO TID capsule 04/29/21 Unknown Rx amLODIPine 10 mg PO DAILY tablet 04/29/21 Unknown Rx carvediloL [Coreg] 6.25 mg PO BID tablet 04/29/21 Unknown Rx oxyCODONE /ACETAMINOPHEN [Percocet 1 tab PO Q6HR PRN #24 tablet 04/29/21 Unknown Rx 5/325 mg] Review of Systems All systems: negative (weakness) Exam - Vital Signs Vital signs: Vital Signs Temp Pulse Resp BP Pulse Ox 97.5 F L 97 H 16 148/50 97 09/26/21 09:26 09/26/21 09:26 09/26/21 09:26 09/26/21 09:26 09/26/21 09:26 - General Appearance General appearance: well-developed, well-nourished, appears stated age EENT: ATNC, PERRL Respiratory: Clear to Ascultation Heart: regular, S1S2 Gastrointestinal: Present: normoactive bowel sounds Integumentary: no rash, warm and dry Neurologic: no focal deficit, no asterixis, alert and oriented x3 Musculoskeletal: Present: deferred Psychiatric: mood/affect appropriate Results - Lab Results 09/26/21 10:53 Most recent lab results Calcium 8.3 mg/dL (8.4-10.2) L 09/26/21 10:53 Phosphorus 6.70 mg/dL (2.5-4.5) H 09/26/21 10:53 Magnesium 2.40 mg/dL (1.7-2.3) H 09/26/21 10:53 Assessment and Plan ESRD on HD HTN Elevated troponin no indication for HD today Can be discharged from renal standpoint, will be getting HD tomorrow at her [facility] at 5L45 AM renally dose meds
[2021-09-26 16:13] LABS: Hematocrit 28.9 % (30.3-42.9); Mean Corpuscular HGB Conc 31 % (30-34); Mean Corpuscular Volume 81 fl (79-97); Platelet Count 191 K/mm3 (140-440); Red Blood Count 3.58 M/mm3 (3.65-5.03); Red Cell Distribution Width 18.6 % (13.2-15.2)
[2021-09-26 16:50] LABS: Bilirubin,Urine NEG (Negative); Blood,Urine NEG (Negative); Color,Urine Straw (Yellow); Urobilinogen,Urine < 2.0 mg/dL (<2.0)
--- NOTE | 2021-09-26 17:04 | Emergency Department Report ---
ED General Adult HPI - General Chief complaint: Nausea/Vomiting/Diarrhea Stated complaint: vomitting PUI?: Yes Time Seen by Provider: 09/26/21 10:14 Source: patient, EMS ( EMS documentation not available at time of chart dictation ), RN notes reviewed, old records reviewed Mode of arrival: Stretcher Limitations: Physical Limitation - History of Present Illness Initial comments: The patient was evaluated in the emergency department for symptoms described in the history of present illness. He/she was evaluated in the context of the global COVID-19 pandemic, which necessitated consideration that the patient might be at risk for infection with the virus that causes COVID-19. Institutional protocols and algorithms that pertain to the evaluation of patients at risk for COVID-19 are in a state of rapid change based on infor mation released by regulatory bodies including the CDC and federal and state organizations. These policies and algorithms were followed during the patient's care in the emergency department. Please note that these policies, procedures and recommendations changed on a rapid basis. The patient is a 65-year-old female, with a past medical history of end-stage renal disease on hemodialysis Sunday, Sunday, Sunday She also has a history of debility, lives on the first floor of her home apartment with family, and reports that she has a home walker, and wheelchair and she has home nursing services, at home for wound care services. Her communications technician is associated with Dr. Juan Lafleur The patient presents to the ER today with a complaint of malaise, nausea, and diarrhea. She denies headache, chest pain, she has abdominal cramping, and she denies dysuria. Symptoms have been going on for the past few days. She reports chronic debility, and is able to transfer with assistance. She missed her hemodialysis session this morning. She reports no recent antibiotic prescriptions that she is aware of. She denies loss of taste and smell, but endorses decreased appetite. -: Gradual Location: abdomen Quality: aching Consistency: intermittent Improves with: none Worsens with: movement, other (Palpation) - Related Data Home Medications Medication Instructions Recorded Confirmed Last Taken Carvedilol Cr [Coreg CR] 10 mg PO BID 01/28/21 01/28/21 02/09/21 Previous Rx's Medication Instructions Recorded Last Taken Type Gabapentin 300 mg PO TID #90 capsule 09/12/18 02/09/21 Rx amLODIPine 10 mg PO DAILY #30 tablet 09/12/18 02/10/21 08:00 Rx ALBUTEROL NEB's [Proventil 0.083% 2.5 mg IH Q4HRT PRN nebu 04/29/21 Unknown Rx NEBS] Acetaminophen [Acetaminophen TAB] 650 mg PO Q4H PRN tablet 04/29/21 Unknown Rx Famotidine [Pepcid] 20 mg PO QAM tablet 04/29/21 Unknown Rx Gabapentin 300 mg PO TID capsule 04/29/21 Unknown Rx amLODIPine 10 mg PO DAILY tablet 04/29/21 Unknown Rx carvediloL [Coreg] 6.25 mg PO BID tablet 04/29/21 Unknown Rx Acetaminophen [Non-Aspirin Extra 500 mg PO Q6HR PRN #30 tablet 09/26/21 Unknown Rx Strength] Samantha Root [Samantha] 250 mg PO QID PRN #30 capsule 09/26/21 Unknown Rx Ondansetron [Zofran Odt] 4 mg PO Q8HR PRN #20 tab.rapdis 09/26/21 Unknown Rx Allergies Allergy/AdvReac Type Severity Reaction Status Date / Time lisinopril Allergy Severe Swelling Verified 04/27/21 12:09 morphine AdvReac Unknown Verified 04/27/21 12:09 ED Review of Systems ROS: Stated complaint: vomitting Other details as noted in HPI Constitutional: malaise, weakness. denies: fever Eyes: denies: eye discharge ENT: denies: epistaxis Respiratory: denies: wheezing Cardiovascular: denies: chest pain Gastrointestinal: abdominal pain, nausea, vomiting, diarrhea Genitourinary: denies: dysuria Skin: other (Chronic skin lesion on the heel) Neurological: weakness ED Past Medical Hx - Past Medical History Hx Hypertension: Yes Hx CVA: No Hx Heart Attack/AMI: No Hx Congestive Heart Failure: No Hx Diabetes: Yes (diest controlled per patient) Hx Deep Vein Thrombosis: No Hx Pulmonary Embolism: No Hx GERD: Yes Hx Liver Disease: No Hx Renal Disease: Yes (ESRD HD q MWF) Hx Sickle Cell Disease: No Hx Arthritis: No Hx Headaches / Migraines: No Hx Seizures: No Hx Kidney Stones: No Hx Psychiatric Treatment: No Hx Asthma: No Hx COPD: No Hx Tuberculosis: No Hx Dementia: No Additional medical history: SLEEP APNEA- CPAP, diabetic foot ulcer right foot, per patient non ambulatory since back surgery - Surgical History Hx Coronary Stent: No Hx Open Heart Surgery: No Hx Pacemaker: No Hx Internal Defibrillator: No Hx Cholecystectomy: Yes Hx Appendectomy: No Hx Breast Surgery: No Additional Surgical History: Back surgery, GASTRIC BYPASS 05/28/2015. haylieiter r emoved - Social History Smoking Status: Unknown if ever smoked - Medications Home Medications: Home Medications Medication Instructions Recorded Confirmed Last Taken Type Gabapentin 300 mg PO TID #90 capsule 09/12/18 01/28/21 02/09/21 Rx amLODIPine 10 mg PO DAILY #30 tablet 09/12/18 02/10/21 02/10/21 08:00 Rx Carvedilol Cr [Coreg CR] 10 mg PO BID 01/28/21 01/28/21 02/09/21 History ALBUTEROL NEB's [Proventil 0.083% 2.5 mg IH Q4HRT PRN nebu 04/29/21 Unknown Rx NEBS] Acetaminophen [Acetaminophen TAB] 650 mg PO Q4H PRN tablet 04/29/21 Unknown Rx Famotidine [Pepcid] 20 mg PO QAM tablet 04/29/21 Unknown Rx Gabapentin 300 mg PO TID capsule 04/29/21 Unknown Rx amLODIPine 10 mg PO DAILY tablet 04/29/21 Unknown Rx carvediloL [Coreg] 6.25 mg PO BID tablet 04/29/21 Unknown Rx Acetaminophen [Non-Aspirin Extra 500 mg PO Q6HR PRN #30 tablet 09/26/21 Unknown Rx Strength] Samantha Root [Samantha] 250 mg PO QID PRN #30 capsule 09/26/21 Unknown Rx Ondansetron [Zofran Odt] 4 mg PO Q8HR PRN #20 tab.rapdis 09/26/21 Unknown Rx ED Physical Exam - General Limitations: Physical Limitation General appearance: alert, anxious - Head Head exam: Present: atraumatic, normocephalic - Eye Eye exam: Present: normal appearance, EOMI. Absent: nystagmus - ENT ENT exam: Present: normal exam, normal orophraynx, mucous membranes moist, normal external ear exam - Neck Neck exam: Present: normal inspection, full ROM. Absent: tenderness, meningismus - Respiratory Respiratory exam: Present: normal lung sounds bilaterally. Absent: respiratory distress, wheezes, rales, rhonchi, stridor, decreased breath sounds - Cardiovascular Cardiovascular Exam: Present: regular rate, normal rhythm, normal heart sounds. Absent: bradycardia, systolic murmur, diastolic murmur, rubs, gallop - GI/Abdominal GI/Abdominal exam: Present: soft, tenderness, normal bowel sounds, other (There is left upper quadrant and left lower quadrant abdominal tenderness to deep palpation). Absent: distended, guarding, rebound, rigid, pulsatile mass - Extremities Exam Extremities exam: Present: full ROM (Chronic venous stasis changes noted in the bilateral lower extremity), pedal edema (1+ edema noted in the lower extremities.), other (2+ pulses noted in the bilateral upper and lower extremities. There is no palpable cord. negative Homans sign. Muscular compartments are soft. The pelvis is stable.). Absent: normal inspection (There is a chronic appearing well just heel ulcer noted on the right plantar aspect of the foot. There is no redness, pus or streaking peer), calf tenderness - Back Exam Back exam: Present: normal inspection, full ROM. Absent: tenderness, CVA tenderness (R), CVA tenderness (L), paraspinal tenderness, vertebral tenderness - Neurological Exam Neurological exam: Present: alert, oriented X3, other (No facial droop. Tongue midline. Extraocular movements intact bilaterally. Facial sensation intact to light touch in V1, V2, V3 distribution bilaterally. 5 and a 5 strength in 4 ext remities. Sensation intact to light touch in 4 extremities.) - Psychiatric Psychiatric exam: Present: anxious - Skin Skin exam: Present: warm, dry, intact, normal color. Absent: rash ED Course Vital Signs 09/26/21 09:26 Temperature 97.5 F L Pulse Rate 97 H Respiratory 16 Rate Blood Pressure 148/50 [Right] O2 Sat by Pulse 97 Oximetry ED Medical Decision Making - Lab Data Result diagrams: 09/26/21 14:57 09/26/21 10:53 Vital Signs 09/26/21 09:26 Temperature 97.5 F L Pulse Rate 97 H Respiratory 16 Rate Blood Pressure 148/50 [Right] O2 Sat by Pulse 97 Oximetry Lab Results 09/26/21 09/26/21 09/26/21 Range/Units 10:53 10:53 10:53 WBC (4.5-11.0) K/mm3 RBC (3.65-5.03) M/mm3 Hgb (10.1-14.3) gm/dl Hct (30.3-42.9) % MCV (79-97) fl MCH (28-32) pg MCHC (30-34) % RDW (13.2-15.2) % Plt Count (140-440) K/mm3 PT 13.1 (12.2-14.9) Sec. INR 0.89 (0.87-1.13) Sodium 141 (137-145) mmol/L Potassium 4.9 (3.6-5.0) mmol/L Chloride 99.6 (98-107) mmol/L Carbon Dioxide 24 (22-30) mmol/L Anion Gap 22 mmol/L BUN 48 H (7-17) mg/dL Creatinine 6.7 H (0.6-1.2) mg/dL Estimated GFR 7 ml/min BUN/Creatinine Ratio 7 % Glucose 113 H (65-100) mg/dL Calcium 8.3 L (8.4-10.2) mg/dL Phosphorus 6.70 H (2.5-4.5) mg/dL Magnesium 2.40 H (1.7-2.3) mg/dL Total Bilirubin 0.30 (0.1-1.2) mg/dL AST 19 (5-40) units/L ALT 12 (7-56) units/L Alkaline Phosphatase 117 (35-129) units/L Total Creatine Kinase 553 H (30-135) units/L Troponin T 0.204 H* (0.00-0.029) ng/mL NT-Pro-B Natriuret Pep 7811 H (0-900) pg/mL Total Protein 7.8 (6.3-8.2) g/dL Albumin 3.7 L (3.9-5) g/dL Albumin/Globulin Ratio 0.9 % Triglycerides 60 (2-149) mg/dL Cholesterol 168 (50-199) mg/dL LDL Cholesterol Direct 91 (50-130) mg/dL HDL Cholesterol 57 (40-59) mg/dL Cholesterol/HDL Ratio 2.94 % Urine Color (Yellow) Urine Turbidity (Clear) Urine pH (5.0-7.0) Ur Specific Bent (1.003-1.030) Urine Protein (Negative) mg/dL Urine Glucose (UA) (Negative) mg/dL Urine Ketones (Negative) mg/dL Urine Blood (Negative) Urine Nitrite (Negative) Urine Bilirubin (Negative) Urine Urobilinogen (<2.0) mg/dL Ur Leukocyte Esterase (Negative) Urine WBC (Auto) (0.0-6.0) /HPF Urine RBC (Auto) (0.0-6.0) /HPF U Epithel Cells (Auto) (0-13.0) /HPF 09/26/21 09/26/21 09/26/21 Range/Units 13:21 14:57 Unknown WBC 7.0 (4.5-11.0) K/mm3 RBC 3.58 L (3.65-5.03) M/mm3 Hgb 9.0 L (10.1-14.3) gm/dl Hct 28.9 L (30.3-42.9) % MCV 81 (79-97) fl MCH 25 L (28-32) pg MCHC 31 (30-34) % RDW 18.6 H (13.2-15.2) % Plt Count 191 (140-440) K/mm3 PT (12.2-14.9) Sec. INR (0.87-1.13) Sodium (137-145) mmol/L Potassium (3.6-5.0) mmol/L Chloride (98-107) mmol/L Carbon Dioxide (22-30) mmol/L Anion Gap mmol/L BUN (7-17) mg/dL Creatinine (0.6-1.2) mg/dL Estimated GFR ml/min BUN/Creatinine Ratio % Glucose (65-100) mg/dL Calcium (8.4-10.2) mg/dL Phosphorus (2.5-4.5) mg/dL Magnesium (1.7-2.3) mg/dL Total Bilirubin (0.1-1.2) mg/dL AST (5-40) units/L ALT (7-56) units/L Alkaline Phosphatase (35-129) units/L Total Creatine Kinase (30-135) units/L Troponin T 0.189 H* (0.00-0.029) ng/mL NT-Pro-B Natriuret Pep (0-900) pg/mL Total Protein (6.3-8.2) g/dL Albumin (3.9-5) g/dL Albumin/Globulin Ratio % Triglycerides (2-149) mg/dL Cholesterol (50-199) mg/dL LDL Cholesterol Direct (50-130) mg/dL HDL Cholesterol (40-59) mg/dL Cholesterol/HDL Ratio % Urine Color Straw (Yellow) Urine Turbidity Clear (Clear) Urine pH 9.0 H (5.0-7.0) Ur Specific Bent 1.010 (1.003-1.030) Urine Protein 100 mg/dl (Negative) mg/dL Urine Glucose (UA) 50 (Negative) mg/dL Urine Ketones Neg (Negative) mg/dL Urine Blood Neg (Negative) Urine Nitrite Neg (Negative) Urine Bilirubin Neg (Negative) Urine Urobilinogen < 2.0 (<2.0) mg/dL Ur Leukocyte Esterase Neg (Negative) Urine WBC (Auto) 1.0 (0.0-6.0) /HPF Urine RBC (Auto) 1.0 (0.0-6.0) /HPF U Epithel Cells (Auto) 2.0 (0-13.0) /HPF - EKG Data -: EKG Interpreted by [facility] E[facility] shows normal: sinus rhythm - EKG Data 09/26/21 17:10 The EKG today is interpreted at 10: 15 Sinus rhythm, 68 bpm. QTc 4 8 1 ms. Normal axis, low voltage, motion artifact. Not a STEMI normal P wave axis. Unchanged from prior EKG from October 2018 - Radiology Data Radiology results: pending, report reviewed, image reviewed CT ABDOMEN AND PELVIS WITHOUT CONTRAST INDICATION / CLINICAL INFORMATION: abd pain n/v/d. TECHNIQUE: Axial CT images were obtained through the abdomen and pelvis without IV contrast. Sagittal and coronal reformatted images. All CT scans at this location are performed using CT dose reduction for ALARA by means of automated exposure control. COMPARISON: 06/13/2020 FINDINGS: LOWER CHEST: No significant abnormality. LIVER: No significant abnormality. 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 GALLBLADDER: Surgically removed. BILE DUCTS: No significant abnormality. PANCREAS: No significant abnormality. SPLEEN: No significant abnormality. ADRENALS: No significant abnormality. RIGHT KIDNEY and URETER: No significant abnormality. LEFT KIDNEY and URETER: No significant abnormality. STOMACH and SMALL BOWEL: Surgical changes are again noted in the stomach which probably represent gastric bypass. Surgical changes are also noted in the mid small bowel. There is no evidence for obstruction or focal inflammation. COLON: No significant abnormality. APPENDIX: No significant abnormality. PERITONEUM: No free fluid. No free air. No fluid collection. LYMPH NODES: No significant adenopathy. AORTA and ARTERIES: Moderate atherosclerotic calcification without acute abnormality. IVC and VEINS: No significant abnormality. Infrarenal IVC filter is noted. URINARY BLADDER: No significant abnormality. REPRODUCTIVE ORGANS: No significant abnormality. ADD ITIONAL FINDINGS: None. SKELETAL SYSTEM: Stable appearance of the posterior lumbar fusion. No acute osseous abnormality. IMPRESSION: No acute process is identified. Surgical changes as described. No acute change is appreciated since 06/13/2020. IVC Filter Recommendation: IVC filters should be removed if possible when they are no longer clinically necessary. (1) Refer to the established IVC filter management plan; (2) If there is no established plan for the patient's IVC filter, consider referral to interventional/vascular clinician on a nonemergent basis for evaluation. Signer Name: Oscar Branham Jr, MD Signed: 09/26/2021 1:42 PM Workstation Name: [id number] CHEST 2 VIEWS INDICATION / CLINICAL INFORMATION: Weakness. COMPARISON: 04/26/21. FINDINGS: SUPPORT DEVICES: The right jugular Port-A-Cath has been removed. HEART / MEDIASTINUM: The heart size and pulmonary vasculature are normal for technique. There is prominent calcification in the aortic arch without aneurysm. LUNGS / PLEURA: No significant pulmonary or pleural abnormality. No pneumothorax. ADDITIONAL FINDINGS: There are [id number] degenerative changes involving both shoulders. IMPRESSION: No acute findings. Signer Name: Patrick Jackson MD Signed: 09/26/2021 9:44 AM Workstation Name: [id number] CT head/brain wo con INDICATION / CLINICAL INFORMATION: 65 years Female; Weakness. TECHNIQUE: Routine CT head without contrast. All CT scans at this location are performed using CT dose reduction for ALARA by means of automated exposure control. COMPARISON: None. FINDINGS: BRAIN / INTRACRANIAL CONTENTS: No acute hemorrhage, mass effect, midline shift, hydrocephalus, or acute, large territorial infarct. Mild, diffuse cerebral and cerebellar atrophy. There are mild areas of decreased attenuation in the white matter of the cerebral hemispheres. These are nonspecific findings and may be related to microangiopathy (hypertension, diabetes, atherosclerosis), given the patient's age. It might be difficult to evaluate for small areas of ischemia without diffusion imaging by MRI. CRANIOCERVICAL JUNCTION: No significant abnormality. ORBITS: No significant abnormality of visualized orbits. SINUSES / MASTOIDS: Visualized paranasal sinuses and mastoid air cells are essentially clear. ADDITIONAL FINDINGS: Atherosclerotic disease is seen in the anterior circulation. IMPRESSION: 1. No focal mass, hemorrhage, hydrocephalus, or acute, large territorial infarct. Signer Name: Adam Kc MD, III Signed: 09/26/2021 10:03 AM Workstation Name: [id number] - Medical Decision Making Differential diagnosis, including but not limited to Electrolyte derangement, pneumonia, urinary tract infection, colitis, diverticulitis, renal colic, enteritis, COVID-19, chronic debility, chronic right foot wounds Assessment and plan: 65-year-old female with chronic debility, with adequate resources at home, who presents to the ER today with a primary complaint of abdominal pain, malaise, nausea, vomiting and diarrhea. No active vomiting or diarrhea while here in the emergency room. Laboratory studies demonstrate chronic findings, but no acute or emergent decompensation. EKG is unchanged from prior. Troponin chronically elevated, and this is likely a type II troponin steven k. A noncontrast CT scan of the brain is ordered prior to my personal evaluation, and is unremarkable for acute findings. CT scan of the abdomen pelvis shows no acute or emergent findings. Discussed the patient's history, physical, laboratory studies imaging studies and clinical impression with covering nephrology, Dr. Juan Lafleur, who has also examined this patient. From a renal perspective, this patient does not require admission or hospitalization, and hemodialysis has been set up for her as an outpatient. Patient has adequate resources at home, including home wound care, home nursing care by her own history, also has a home wheelchair and walker, and lives at home with other family members. Laboratory studies demonstrate chronic findings but no findings that would require emergent intervention. CT scan of her abdomen pelvis demonstrated no acute or emergent findings that would require emergent intervention at this time. She has been observed in this ER for hours without clinical deterioration and she is suitable for discharge back home with plan for hemodialysis tomorrow. She is not hypoxic, can get outpatient Covid testing. Critical care attestation.: If time is entered above; I have spent that time in minutes in the direct care of this critically ill patient, excluding procedure time. ED Disposition Clinical Impression: Nausea vomiting and diarrhea, End stage renal disease, Abdominal pain, Debilit y, Chronic wound of extremity Disposition: 01 HOME / SELF CARE / HOMELESS Is pt being admited?: No Does the pt Need Aspirin: No Condition: Good Additional Instructions: Suspect that patient may have COVID-19 the symptoms of COVID will typically persist 10 to 14 days. There is no cure at this time for COVID. Please make certain to self isolate and self quarantine, follow-up with an outpatient primary care doctor within the next 3 to 5 days, wash hands with soap and water frequently, thoroughly and often, patient may take the prescribed medications as needed and directed. Advance diet and drink plenty of fluids as tolerated. Avoid interactions with the very elderly, very young, and those with chronic medical conditions. Return to the emergency room right away with new pain, worsening pain, migration of pain, projectile vomiting, change in mental status, confusion, inability to tolerate liquid feeds, new, worsened or different symptoms not present on the initial emergency room evaluation. Patient is scheduled for hemodialysis tomorrow at 5:45 AM. Patient had laboratory studies and CT scan of the brain and abdomen pelvis which showed no acute or emergently actionable findings today while here in the emergency room. However, incidental nonemergent findings were noted, which would require follow-up with your outpatient primary care doctor. Have your primary care doctor contact the medical records department to obtain testing results. Recommend outpatient Covid testing. Please return to the emergency room right away with new pain, worsened pain, migration of pain, projectile vomiting, change in mental status, confusion, inability tolerate liquid feeds, new, worsened or different symptoms not present on the initial emergency room evaluation Referrals: BARBARA LAFLEUR MD [Staff Physician] - 24 Hours
--- NOTE | 2021-09-27 09:02 | Electrocardiograph Report ---
[facility] Test Date: 2021-09-26 Test Time: 10:15:25 Pat Name: CARLOS CURTIS Department: Room: Gender: F [employer]: ROBY : 1955 Requested By: RAZA OWUSU Order Number: [id number] Reading MD: Chirag Luna Measurements Intervals [place] Rate: 68 P: 29 WV: 151 QRS: 6 QRSD: 90 T: 62 QT: 450 QTc: 481 Interpretive Statements Sinus rhythm No previous ECG available for comparison Electronically Signed On 09-27-2021 9:01:52 EST by Chirag uLna
== END 2021-09-26 20:35 | disposition home or self-care (01) ==
LOC: ED 09:17
DX: R11.2 Nausea with vomiting, unspecified (principal); R19.7 Diarrhea, unspecified; E11.22 Type 2 diabetes mellitus with diabetic chronic kidney disease; I13.2 Hypertensive heart and chronic kidney disease with heart failure and with stage 5 chronic kidney disease, or end stage renal disease; N18.6 End stage renal disease
CPT/HCPCS: 36415; 70450; 71046; 74176; 80053; 80061; 81001; 82550; 83735; 83880; 84100; 84484; 85027; 85610; 87086; 93005; 93010; 99284

== ENCOUNTER 2022-02-28 13:50 | Emergency (ER) | payer MEDICARE ==
[2022-02-28 16:39] VITALS: BP 148/67
[2022-02-28] MEDS ORDERED: ACETAMINOPHEN 325 MG TAB PO ONE (16:42)
--- NOTE | 2022-02-28 17:23 | XRay Report ---
LEFT KNEE 2 VIEWS INDICATION / CLINICAL INFORMATION: Left knee pain/injury after fall. COMPARISON: None available. FINDINGS: BONES and JOINT(S): No acute fracture or subluxation. No significant arthritis. A moderate suprapatel lar joint effusion is noted. SOFT TISSUES: No significant abnormality. ADDITIONAL FINDINGS: None. IMPRESSION: Moderate left knee joint effusion without other acute findings. LEFT TIBIA/FIBULA 3 VIEWS INDICATION / CLINICAL INFORMATION: Left leg pain/injury after fall. COMPARISON: None available. FINDINGS: BONES and JOINT(S): No acute fracture or subluxation. No significant arthritis. SOFT TISSUES: No acute findings. There is severe generalized atherosclerosis. ADDITIONAL FINDINGS: None. IMPRESSION: 1. No acute abnormality of the left tibia or fibula. 2. Severe left leg atherosclerosis. Signer Name: Ab Saini MD Signed: 02/28/2022 5:19 PM Workstation Name: [id number]
--- NOTE | 2022-02-28 17:52 | Emergency Department Report ---
ED Fall HPI - General Chief Complaint: Fall Stated Complaint: LT LEG PAIN Time Seen by Provider: 02/28/22 16:26 Source: patient Mode of arrival: Stretcher Limitations: No Limitations - History of Present Illness Initial Comments: Patient is a 66-year-old female presenting to ED with complaint of left knee pain and decreased mobility. States she was dropped accidentally while being transferred from rehab on Sunday. She denies any chest pain or shortness of breath. No calf tenderness. - Related Data Home Medications Medication Instructions Recorded Confirmed Last Taken Carvedilol Cr [Coreg CR] 10 mg PO BID 01/28/21 01/28/21 02/09/21 Previous Rx's Medication Instructions Recorded Last Taken Type Gabapentin 300 mg PO TID #90 capsule 09/12/18 02/09/21 Rx amLODIPine 10 mg PO DAILY #30 tablet 09/12/18 02/10/21 08:00 Rx ALBUTEROL NEB's [Proventil 0.083% 2.5 mg IH Q4HRT PRN nebu 04/29/21 Unknown Rx NEBS] Acetaminophen [Acetaminophen TAB] 650 mg PO Q4H PRN tablet 04/29/21 Unknown Rx Famotidine [Pepcid] 20 mg PO QAM tablet 04/29/21 Unknown Rx Gabapentin 300 mg PO TID capsule 04/29/21 Unknown Rx amLODIPine 10 mg PO DAILY tablet 04/29/21 Unknown Rx carvediloL [Coreg] 6.25 mg PO BID tablet 04/29/21 Unknown Rx Acetaminophen [Non-Aspirin Extra 500 mg PO Q6HR PRN #30 tablet 09/26/21 Unknown Rx Strength] Samantha Root [Samantha] 250 mg PO QID PRN #30 capsule 09/26/21 Unknown Rx Ondansetron [Zofran Odt] 4 mg PO Q8HR PRN #20 tab.rapdis 09/26/21 Unknown Rx HYDROcodone/APAP 5-325 [[place] 1 each PO Q6HR PRN #7 tablet 02/28/22 Unknown Rx 5/325] Allergies Allergy/AdvReac Type Severity Reaction Status Date / Time lisinopril Allergy Severe Swelling Verified 04/27/21 12:09 morphine AdvReac Unknown Verified 04/27/21 12:09 ED Review of Systems ROS: Stated complaint: LT LEG PAIN Other details as noted in HPI Respiratory: denies: cough, shortness of breath, wheezing Cardiovascular: denies: chest pain, palpitations Gastrointestinal: denies: abdominal pain, nausea, diarrhea Musculoskeletal: joint swelling, arthralgia Skin: denies: rash, lesions Neurological: denies: headache, weakness, paresthesias Psychiatric: denies: anxiety, depression ED Past Medical Hx - Past Medical History Hx Hypertension: Yes Hx CVA: No Hx Heart Attack/AMI: No Hx Congestive Heart Failure: No Hx Diabetes: Yes (diest controlled per patient) Hx Deep Vein Thrombosis: No Hx Pulmonary Embolism: No Hx GERD: Yes Hx Liver Disease: No Hx Renal Disease: Yes (ESRD HD q MWF) Hx Sickle Cell Disease: No Hx Arthritis: No Hx Headaches / Migraines: No Hx Seizures: No Hx Kidney Stones: No Hx Psychiatric Treatment: No Hx Asthma: No Hx COPD: No Hx Tuberculosis: No Hx Dementia: No Additional medical history: SLEEP APNEA- CPAP, diabetic foot ulcer right foot, per patient non ambulatory since back surgery - Surgical History Hx Coronary Stent: No Hx Open Heart Surgery: No Hx Pacemaker: No Hx Internal Defibrillator: No Hx Cholecystectomy: Yes Hx Appendectomy: No Hx Breast Surgery: No Additional Surgical History: Back surgery, GASTRIC BYPASS 05/28/2015. goiter removed - Social History Smoking Status: Never Smoker - Medications Home Medications: Home Medications Medication Instructions Recorded Confirmed Last Taken Type Gabapentin 300 mg PO TID #90 capsule 09/12/18 01/28/21 02/09/21 Rx amLODIPine 10 mg PO DAILY #30 tablet 09/12/18 02/10/21 02/10/21 08:00 Rx Carvedilol Cr [Coreg CR] 10 mg PO BID 01/28/21 01/28/21 02/09/21 History ALBUTEROL NEB's [Proventil 0.083% 2.5 mg IH Q4HRT PRN nebu 04/29/21 Unknown Rx NEBS] Acetaminophen [Acetaminophen TAB] 650 mg PO Q4H PRN tablet 04/29/21 Unknown Rx Famotidine [Pepcid] 20 mg PO QAM tablet 04/29/21 Unknown Rx Gabapentin 300 mg PO TID capsule 04/29/21 Unknown Rx amLODIPine 10 mg PO DAILY tablet 04/29/21 Unknown Rx carvediloL [Coreg] 6.25 mg PO BID tablet 04/29/21 Unknown Rx Acetaminophen [Non-Aspirin Extra 500 mg PO Q6HR PRN #30 tablet 09/26/21 Unknown Rx Strength] Samantha Root [Samantha] 250 mg PO QID PRN #30 capsule 09/26/21 Unknown Rx Ondansetron [Zofran Odt] 4 mg PO Q8HR PRN #20 tab.rapdis 09/26/21 Unknown Rx HYDROcodone/APAP 5-325 [[place] 1 each PO Q6HR PRN #7 tablet 02/28/22 Unknown Rx 5/325] ED Physical Exam - General Limitations: Physical Limitation General appearance: alert, in no apparent distress - Head Head exam: Present: atraumatic, normocephalic - Respiratory Respiratory exam: Present: normal lung sounds bilaterally. Absent: respiratory distress - Cardiovascular Cardiovascular Exam: Present: regular rate, normal rhythm, normal heart sounds - GI/Abdominal GI/Abdominal exam: Present: soft. Absent: distended, tenderness - Rectal Rectal exam: Present: deferred - Extremities Exam Extremities exam: Present: other (Mild swelling to left knee with associated tenderness). Absent: pedal edema, calf tenderness - Neurological Exam Neurological exam: Present: alert, oriented X3 - Psychiatric Psychiatric exam: Present: normal affect, normal mood - Skin Skin exam: Present: warm, dry, intact, normal color ED Course Vital Signs 02/28/22 02/28/22 02/28/22 15:51 15:54 15:57 Pulse Rate 85 72 Respiratory 18 10 L Rate Blood Pressure 161/70 Blood Pressure 129/63 [Left] O2 Sat by Pulse 99 97 100 Oximetry 02/28/22 02/28/22 16:01 16:30 Pulse Rate 73 72 Respiratory 13 12 Rate Blood Pressure Blood Pressure 148/67 [Left] O2 Sat by Pulse 100 100 Oximetry ED Medical Decision Making - Medical Decision Making Tylenol given for pain. X-ray shows no acute bony injury of the left knee or tib-fib however notes a moderate left knee effusion. There is no overlying warmth or erythema. Patient stable for discharge home with return precautions. Critical care attestation.: If time is entered above; I have spent that time in minutes in the direct care of this critically ill patient, excluding procedure time. ED Disposition Clinical Impression: Effusion of left knee, Left knee injury Disposition: HOME / SELF CARE / HOMELESS Is pt being admited?: No Does the pt Need Aspirin: No Condition: Stable Instructions: Knee Effusion, [id number] Referrals: PRIMARY CARE,MD [Primary Care Provider] - 3-5 Days
== END 2022-02-28 19:26 | disposition home or self-care (01) ==
LOC: ED 13:50
DX: S89.92XA Unspecified injury of left lower leg, initial encounter (principal); M25.462 Effusion, left knee; Z88.5 Allergy status to narcotic agent; Z88.6 Allergy status to analgesic agent; X58.XXXA Exposure to other specified factors, initial encounter; Y93.89 Activity, other specified; Y92.89 Other specified places as the place of occurrence of the external cause; Y99.8 Other external cause status
CPT/HCPCS: 99283